=== PATIENT | female | born 1955 | race Caucasian/White ===

== ENCOUNTER → 2020-04-13 10:15 | Outpatient (BNVA) | payer MEDICAID, SELFPAY | PROVIDERS: PCP Internal Medicine; Visit Provider Student in an Organized Health Care Education/Training Program | DX: Z76.89 Persons encountering health services in other specified circumstances (principal) ==

== ENCOUNTER → 2020-05-26 10:34 | Outpatient (BNVA) | payer MEDICAID, SELFPAY | PROVIDERS: PCP Internal Medicine; Visit Provider Nurse Practitioner ==

== ENCOUNTER → 2020-06-18 09:51 | Outpatient (BNVA) | payer MEDICAID, SELFPAY | PROVIDERS: PCP Internal Medicine; Visit Provider Nurse Practitioner | DX: K91.5 Postcholecystectomy syndrome (principal) | CPT/HCPCS: 99212 ==

== ENCOUNTER 2020-06-21 10:21 | Outpatient (REF) | payer MEDICAID, SELFPAY ==
--- NOTE | ~2020-06-21 | XR_ITS ---
EXAMINATION: XR HAND, RIGHT CLINICAL INFORMATION: Pain right fingers COMPARISON: Radiographs right hand 03/24/2013. TECHNIQUE: PA, lateral, and oblique views of the right hand. FINDINGS: There is normal bony mineralization. No acute or healing fracture, dislocation, destructive process. Again, there is slight negative ulnar variance. There are mild osteoarthritic changes first carpometacarpal joint with small subchondral geodes base first metacarpal and greater multangular carpal bone. The remainder of the carpus shows no significant degenerative change and no erosive changes or chondrocalcinosis. The first MCP joint shows mild narrowing. The second through fifth MCP joints are unremarkable. There are degenerative changes involving the second through fourth PIP joints with mild joint narrowing and osteophytes. There are prominent osteoarthritic changes involving the interphalangeal joint of the thumb and the second through fifth DIP joints. Bulky osteophytes are present. No definite erosive change. Findings show mild progression since 2012. XR/XR hand RT min 3V IMPRESSION: 1. Prominent osteoarthritic changes DIP joints with lesser degenerative changes PIP joints and first carpometacarpal joint. 2. No definite erosive changes.
== END 2020-06-21 10:22 | disposition home or self-care (01) ==
LOC: HO.XRAY 10:21
PROVIDERS: Visit Provider Registered Nurse
DX: M79.644 Pain in right finger(s) (principal)
CPT/HCPCS: 73130

== ENCOUNTER → 2020-07-14 10:12 | Outpatient (BNVA) | payer MEDICAID, SELFPAY | PROVIDERS: PCP Internal Medicine; Visit Provider Student in an Organized Health Care Education/Training Program | DX: L40.50 Arthropathic psoriasis, unspecified (principal); M43.06 Spondylolysis, lumbar region; Z79.899 Other long term (current) drug therapy | CPT/HCPCS: 99212 ==

== ENCOUNTER 2020-10-13 10:44 | Outpatient (REF) | payer MEDICAID, SELFPAY ==
[2020-10-13 12:06] LABS: MANUAL DIFF FLAG NO
[2020-10-13 12:12] LABS: Basophils Percent Auto 0.5 % (0-2); Eosinophils Absolute Auto 0.1 X10*3/uL (0.0-0.4); Eosinophils Percent Auto 1.5 % (0-4); Hematocrit 39.5 % (37-47); Hemoglobin 12.6 g/dl (12.0-16.0); Imm Gran Abs Auto 0.02 X10*3/uL (0.00-0.03); Imm Gran Pct Auto 0.3 % (0.0-0.4); Lymphocytes Percent Auto 39.6 % (20-40); Mean Corpuscular HGB Conc 31.9 g/dl (31.0-35.0); Mean Corpuscular Hemoglobin 29.6 pg (27.0-33.0); Mean Corpuscular Volume 92.9 fL (80-98); Mean Platelet Volume 11.7 fL (9.4-12.3); Monocytes Absolute Auto 0.6 X10*3/uL (0.1-1.2); Monocytes Percent Auto 8.3 % (2-11); Neutrophils Absolute Auto 3.7 X10*3/uL (2.0-8.3); Neutrophils Percent Auto 49.8 % (45-73); Platelet Count 221 X10*3/uL (160-400); Red Blood Count 4.25 X10*6/uL (4.20-5.50); Red Cell Distribution Width 13.3 % (11.0-16.0); White Blood Count 7.5 X10*3/uL (4.8-10.8)
[2020-10-13 13:18] LABS: Erythrocyte Sedimentation Rate 38 MM/HR (0-20)
[2020-10-13 15:57] LABS: Alanine Aminotransferase 32 U/L (0-31); Albumin Level 4.2 g/dL (3.5-5.0); Alkaline Phosphatase 81 U/L (39-117); Anion Gap 13 (12-20); Aspartate Amino Transferase 39 U/L (5-31); Bilirubin Total 0.5 mg/dL (0.0-1.0); Blood Urea Nitrogen 18 mg/dL (9-16); C Reactive Protein 0.53 mg/dL (< or = 0.50); Carbon Dioxide 30 mmol/L (22-29); Chloride 102 mmol/L (96-108); Estimated Glomerular Filt Rate > 60; Glucose Random 118 mg/dL (60-115); Potassium 4.2 mmol/L (3.3-5.1); Sodium 141 mmol/L (135-145); Total Protein 7.2 g/dL (6.5-8.0)
== END 2020-10-13 10:45 | disposition home or self-care (01) ==
LOC: HO.LAB 10:44
PROVIDERS: PCP Internal Medicine; Visit Provider Student in an Organized Health Care Education/Training Program
DX: L40.50 Arthropathic psoriasis, unspecified (principal); M43.06 Spondylolysis, lumbar region
CPT/HCPCS: 36415; 80053; 85025; 85652; 86140; 99212

== ENCOUNTER → 2020-12-20 08:59 | Outpatient (BNVA) | payer MEDICAID, SELFPAY | PROVIDERS: PCP Internal Medicine; Visit Provider Nurse Practitioner ==

== ENCOUNTER 2021-02-01 11:46 | Day surgery (SDC) | payer MEDICAID, SELFPAY ==
--- NOTE | 2021-01-31 14:26 | HO.ANESPROP2 ---
Documented by User: Zara Hernandez NP 01/31/21 14:28 HPI - Anesthesia Eval Consult details Narrative: 65yo F for Colonoscopy PMFSH Active Problems Active Problems: All Active Problems (Updated 01/26/21 @ 14:21 by Renae Edmond, SABI) Psoriatic arthritis (Acute) Colon cancer screening (Acute) Post-cholecystectomy syndrome (Acute) GERD (gastroesophageal reflux disease) (Acute) Past Medical History Medical History Anxiety Arthritis Asthma Dislocation of distal interphalangeal (DIP) joint of finger Elevated cholesterol GERD (gastroesophageal reflux disease) HTN (hypertension) IBS (irritable bowel syndrome) Lumbar spondylolysis Morbidly obese On beta melvin at home TATUM (obstructive sleep apnea) PONV (postoperative nausea and vomiting) Psoriatic arthritis Uterine prolapse Family History Family History Mother HTN (hypertension) Diabetes Father Throat cancer Sister Heart problem Surgical History Surgical History History of blepharoplasty History of pubovaginal sling History of total left knee replacement History of total right knee replacement (TKR) Hx of appendectomy Hx of cholecystectomy Hx of colonoscopy Social History Social History Alcohol intake: never Patient Tobacco Use Status: Never used Tobacco e-Cigarette/Vaping Use: Never Used Use of substances other than those prescribed or required for medical reasons: No Are you DNR?: No Advance Directives: No Advance Directives Information Provided: Yes Meds Allergies Allergy/AdvReac Type Severity Reaction Status Date / Time tramadol [TRAMADOL] Allergy Intermediate RASH, Verified 02/01/21 12:22 itching, rash oxycodone Allergy Rash Verified 02/01/21 12:23 Home Medications Medication Instructions Recorded Confirmed Last Taken Type albuterol sulfate 90 mcg/actuation 2 puff INHALATION Q6H PRN 04/13/20 01/26/21 Unknown History aerosol inhaler citalopram 20 mg tablet 20 mg PO DAILY 04/13/20 01/26/21 Unknown History clonazepam 0.5 mg tablet 0.25 mg PO BID 04/13/20 01/26/21 Unknown History fluticasone 250 mcg-salmeterol 50 1 inh INHALATION BID 04/13/20 01/26/21 Unknown History mcg/dose blistr powdr for inhalation (Advair Diskus) metoprolol succinate 50 mg 50 mg PO DAILY 04/13/20 01/26/21 02/01/21 08:00 History tablet,extended release 24 hr simvastatin 20 mg tablet 20 mg PO DAILY 04/13/20 01/26/21 Unknown History trazodone 150 mg tablet 150 mg PO BEDTIME PRN 04/13/20 01/26/21 Unknown History quetiapine 100 mg tablet (Seroquel) 100 mg PO BEDTIME 05/26/20 01/26/21 Unknown History celecoxib 100 mg capsule (Celebrex) 100 mg PO BID 07/14/20 01/26/21 Unknown History Exam Exam Date and Time: January 31, 2021 142 Pertinent Lab Results Pertinent Lab Results: Laboratory Tests 10/13/20 10/13/20 11:25 11:25 WBC 7.5 Hgb 12.6 Hct 39.5 Plt Count 221 Sodium 141 Potassium 4.2 Chloride 102 Carbon Dioxide 30 H BUN 18 H Creatinine 0.81 Assessment and Plan Assessment Anesthesia Assessment: Chart Reviewed Documented by User: Leslee Francisco MD 02/01/21 12:54 [facility] Active Problems Active Problems: All Active Problems (Updated 01/26/21 @ 14:21 by Renae Edmond, SABI) Psoriatic arthritis (Acute) Colon cancer screening (Acute) Post-cholecystectomy syndrome (Acute) GERD (gastroesophageal reflux disease) (Acute) Asthma. Stable. Inhalers prn TATUM. On CPAP Past Medical History Medical History Anxiety Arthritis Asthma Dislocation of distal interphalangeal (DIP) joint of finger Elevated cholesterol GERD (gastroesophageal reflux disease) HTN (hypertension) IBS (irritable bowel syndrome) Lumbar spondylolysis Morbidly obese On beta melvin at home TATUM (obstructive sleep apnea) PONV (postoperative nausea and vomiting) Psoriatic arthritis Uterine prolapse Family History Family History Mother HTN (hypertension) Diabetes Father Throat cancer Sister Heart problem Family history of problems with anesthesia: No Surgical History Surgical History History of blepharoplasty History of pubovaginal sling History of total left knee replacement History of total right knee replacement (TKR) Hx of appendectomy Hx of cholecystectomy Hx of colonoscopy History of Problems with Anesthesia: No Social History Social History Alcohol intake: never Patient Tobacco Use Status: Never used Tobacco e-Cigarette/Vaping Use: Never Used Use of substances other than those prescribed or required for medical reasons: No Are you DNR?: No Advance Directives: No Advance Directives Information Provided: Yes Meds Allergies Allergy/AdvReac Type Severity Reaction Status Date / Time tramadol [TRAMADOL] Allergy Intermediate RASH, Verified 02/01/21 12:22 itching, rash oxycodone Allergy Rash Verified 02/01/21 12:23 Home Medications Medication Instructions Recorded Confirmed Last Taken Type albuterol sulfate 90 mcg/actuation 2 puff INHALATION Q6H PRN 04/13/20 01/26/21 Unknown History aerosol inhaler citalopram 20 mg tablet 20 mg PO DAILY 04/13/20 01/26/21 Unknown History clonazepam 0.5 mg tablet 0.25 mg PO BID 04/13/20 01/26/21 Unknown History fluticasone 250 mcg-salmeterol 50 1 inh INHALATION BID 04/13/20 01/26/21 Unknown History mcg/dose blistr powdr for inhalation (Advair Diskus) metoprolol succinate 50 mg 50 mg PO DAILY 04/13/20 01/26/21 02/01/21 08:00 History tablet,extended release 24 hr simvastatin 20 mg tablet 20 mg PO DAILY 04/13/20 01/26/21 Unknown History trazodone 150 mg tablet 150 mg PO BEDTIME PRN 04/13/20 01/26/21 Unknown History quetiapine 100 mg tablet (Seroquel) 100 mg PO BEDTIME 05/26/20 01/26/21 Unknown History celecoxib 100 mg capsule (Celebrex) 100 mg PO BID 07/14/20 01/26/21 Unknown History Exam Height,Weight and Vital Signs: Height 5 ft 4 in Weight 90.718 kg Vital Signs Temp Pulse Resp BP Pulse Ox 02/01/21 12:31 97.6 F 95 16 130/82 94 Airway Mallampati Class: III TM Dist: >3cm Neck ROM: Full Loose/Missing/Broken Teeth: Yes (Chipped top front) Heart: RRR Lungs: CTAB Assessment and Plan Assessment Anesthesia Assessment: Anesthesia Plan Discussed Final Anesthetic Review Family History of Problems with Anesthesia: No History of Problems with Anesthesia: No NPO: Yes ASA Class: III Final Preanesthetic Review: No Changes in Pt Med Stat, Meds/Allgs Chart Reviewed, Consent Obtained/Reviewed and Anes Risks/Benef Reviewed Patient Risk: Intermediate Procedure Risk: Low Assessment/Block/Sedation in SS: Assess/Block/Sedation-SS Anesthetic Plan Anesthetic Plan: MAC: Disposition: Standard PACU
[2021-02-01 12:26] VITALS: BMI 34.3
[2021-02-01 12:31] VITALS: BP 130/82; PULSE 95; RESP 16; TEMP 36.4; O2SAT 94
--- NOTE | 2021-02-01 12:46 | MHC.SHP ---
Pre-Procedural Eval Section A Date of Service: 02/01/21 The patient is an INPATIENT: No The History & Physical has been completed within 30 days and I have reviewed it.: No Section B Chief Complaint: screening Details of Present Illness: colon cancer screening, diarrhea Relevant Family History (Specify if Yes): Yes Relevant Social History: None Present Medications: see Short Stay Collaborative assessment Medical History: Significant History (Arthritis Dislocation of distal interphalangeal (DIP) joint of finger GERD (gastroesophageal reflux disease) HTN (hypertension) IBS (irritable bowel syndrome) Lumbar spondylolysis Morbidly obese Psoriatic arthritis Uterine prolapse) History of Previous Operations: Relevant previous surgery/procedure and date(s) (H/O knee surgery Hx of appendectomy Hx of cholecystectomy) Allergies: Allergies Allergy/AdvReac Type Severity Reaction Status Date / Time tramadol [TRAMADOL] Allergy Intermediate RASH, Verified 02/01/21 12:22 itching, rash oxycodone Allergy Rash Verified 02/01/21 12:23 Review of Systems Sugical H&P ROS: Negative: Constitution, Cardiovascular, Respiratory and Gastrointestinal Exam Surgical H&P Exam: Normal: Heart, Normal: Lungs, Normal: Extremities and Normal: Abdomen Plan Diagnosis/Plan: Unchanged I have reviewed the history and physical and performed a pertinent physical examination on my patient. No changes have occurred unless specified.
[2021-02-01] MEDS: Lactated Ringers 1,000 ML 100 ML IVCONT (12:58)
--- NOTE | 2021-02-01 13:32 | PM.OP ---
Brief Operative Note Date of Service: 02/01/21 Pre-op diagnosis: Colon cancer screening Post-op diagnosis: other (Colon polyps, diverticulosis) Procedure: COLONOSCOPY TILL CECUM WITH BIOPSIES AND SNARE POLYPECTOMY Consent: Indications for the procedure and potential complications of bleeding, perforation, reaction to medications and missed diagnosis were discussed with the patient and informed consent was obtained. Instrument: Olympus PCF H 190 L variable stiffness pediatric colonoscope Monitoring: Vital signs and clinical assessment, intermittent blood pressure monitoring, continuous EKG monitoring, Pulse oximetry and Carbon Dioxide monitoring were done throughout the procedure. Colon withdrawl time was 22 minutes. Procedure: The patient was placed in the left lateral decubitis position and pre-procedure medications were administered. After a digital rectal examination of the ano-rectum, the video colonoscope was inserted into the rectum and advanced through the colon to the cecum. The colonoscope was slowly withdrawn in a retrograde panoramic fashion and the colon mucosa was carefully examined including a retroflexed view of the rectum. Findings and interventions are described below. Procedure Difficulty: Without difficulty Findings: Terminal Ileum: Not evaluated Cecum: A 6-7 mm sessile polyp removed with a cold snare. A 3-4 mm sessile polyp removed with the cold biopsy Ascending Colon: Scattered diverticulosis Transverse Colon: A 10 mm sessile polyp removed with a cold snare and scattered diverticulosis Descending Colon: Moderate diverticulosis Sigmoid Colon: Moderate diverticulosis Rectum: Normal Ano-rectum: Moderate internal hemorrhoids Colon preparation: Good after copious irrigation Impression and Post Procedure Diagnosis: Colonoscopy Findings: Three small to medium sized polyps removed. Mild melanosis coli noted throughout the colon. Random biopsies obtained to check for microscopic colitis Moderate diverticulosis seen in the entire colon Plan: Await pathology results Patient has an appointment on 02/14/21 in the GI Clinic with Delma Baugh NP . Repeat Colonoscopy interval based on path results - in 3-5 years if polyps are adenomatous and 10 years if polyps are hyperplastic. Above findings were reviewed with the patient and colon polyps and diverticulosis handouts were given in the discharge area Surgeon: Adam Sylvester MD Anesthesia: MAC Was an Graduate Studies Dean used for this Procedure?: Yes Graduate Studies Dean: Mary Kirkpatrick Estimated blood loss (mL): 0 Pathology: other ( A. cecal polyps B. transverse colon polyp C. random colon biopsies, R/O microscopic colitis (diarrhea)) Condition: stable Disposition: PACU
[2021-02-01 13:34] VITALS: BP 89/55; PULSE 82; RESP 16; TEMP 36.2; O2SAT 95
--- NOTE | 2021-02-01 13:36 | W.PM.OPN ---
Operative Note Operative Note Date of Service: 02/01/21 Narrative: Pre-op diagnosis:?Colon cancer screening Post-op diagnosis:?other (Colon polyps, diverticulosis) Procedure:? COLONOSCOPY TILL CECUM WITH BIOPSIES AND SNARE POLYPECTOMY Consent: Indications for the procedure and potential complications of bleeding, perforation, reaction to medications and missed diagnosis were discussed with the patient and informed consent was obtained. Instrument: Olympus PCF H 190 L variable stiffness pediatric colonoscope Monitoring: Vital signs and clinical assessment, intermittent blood pressure monitoring, continuous EKG monitoring, Pulse oximetry and Carbon Dioxide monitoring were done throughout the procedure. Colon withdrawl time was 22 minutes. Procedure: The patient was placed in the left lateral decubitis position and pre-procedure medications were administered. After a digital rectal examination of the ano-rectum, the video colonoscope was inserted into the rectum and advanced through the colon to the cecum. The colonoscope was slowly withdrawn in a retrograde panoramic fashion and the colon mucosa was carefully examined including a retroflexed view of the rectum. Findings and interventions are described below. Procedure Difficulty: Without difficulty Findings: Terminal Ileum: Not evaluated Cecum:? A 6-7 mm sessile polyp removed with a cold snare.? A 3-4 mm sessile polyp removed with the cold biopsy Ascending Colon:? Scattered diverticulosis Transverse Colon: A 10 mm sessile polyp removed with a cold snare and scattered diverticulosis Descending Colon:? Moderate diverticulosis Sigmoid Colon:? Moderate diverticulosis Rectum:? Normal Ano-rectum:? Moderate internal hemorrhoids Colon preparation:? Good after copious irrigation Impression and Post Procedure Diagnosis: Colonoscopy Findings: Three small to medium sized polyps removed. Mild melanosis coli noted throughout the colon. Random biopsies obtained to check for microscopic colitis Moderate diverticulosis seen in the entire colon Plan: Await pathology results Patient has an appointment on 02/14/21 in the GI Clinic with? Dlema Baugh NP? . Repeat Colonoscopy interval based on path results - in 3-5 years if polyps are adenomatous and 10 years if polyps are hyperplastic. Above findings were reviewed with the patient and colon polyps and diverticulosis handouts were given in the discharge area Surgeon:?Adam Sylvester MD Anesthesia:?MAC Was an Assistant Professor Of Life Sciences used for this Procedure?:?Yes Assistant Professor Of Life Sciences:?Mary Kirkpatrick Estimated blood loss (mL):?0 Pathology:?other ( A. cecal polyps? B. transverse colon polyp? C. random colon biopsies, R/O microscopic colitis (diarrhea)) Condition:?stable Disposition:?PACU
[2021-02-01 13:49] VITALS: BP 121/84; PULSE 83; RESP 16; TEMP 36.2; O2SAT 95
== END 2021-02-01 14:16 | disposition home or self-care (01) ==
PROVIDERS: Visit Provider Internal Medicine Gastroenterology
PROC: 0DJD8ZZ Inspection of Lower Intestinal Tract, Via Natural or Artificial Opening Endoscopic (ICD-10-PCS; CPT 45378; principal; 2021-02-01 13:20)
DX: Z12.11 Encounter for screening for malignant neoplasm of colon (principal); D12.0 Benign neoplasm of cecum; D12.3 Benign neoplasm of transverse colon; K57.30 Diverticulosis of large intestine without perforation or abscess without bleeding; K64.8 Other hemorrhoids; K63.89 Other specified diseases of intestine; K21.9 Gastro-esophageal reflux disease without esophagitis; K91.5 Postcholecystectomy syndrome; K58.0 Irritable bowel syndrome with diarrhea; I10 Essential (primary) hypertension
CPT/HCPCS: 45385; 45380; 88305; J2370

== ENCOUNTER 2021-02-07 09:45 | Outpatient (REF) | payer MEDICAID, SELFPAY ==
[2021-02-07 10:37] LABS: MANUAL DIFF FLAG NO
[2021-02-07 10:49] LABS: Basophils Percent Auto 0.4 % (0-2); Eosinophils Absolute Auto 0.1 X10*3/uL (0.0-0.4); Eosinophils Percent Auto 1.6 % (0-4); Hematocrit 37.7 % (37.0-47.0); Imm Gran Abs Auto 0.06 X10*3/uL (0.00-0.03); Imm Gran Pct Auto 0.7 % (0.0-0.4); Lymphocytes Percent Auto 36.9 % (20-40); Mean Corpuscular HGB Conc 31.8 g/dl (31.0-35.0); Mean Corpuscular Hemoglobin 29.1 pg (27.0-33.0); Mean Corpuscular Volume 91.3 fL (80.0-98.0); Mean Platelet Volume 11.2 fL (9.4-12.3); Monocytes Absolute Auto 0.6 X10*3/uL (0.1-1.2); Monocytes Percent Auto 7.7 % (2-11); Neutrophils Absolute Auto 4.23 x10*3/uL (2.0-8.3); Neutrophils Percent Auto 52.7 % (45-73); Platelet Count 229 X10*3/uL (160-400); Red Blood Count 4.13 X10*6/uL (4.20-5.50)
[2021-02-07 11:14] LABS: Alanine Aminotransferase 27 U/L (0-31); Albumin Level 4.1 g/dL (3.5-5.0); Alkaline Phosphatase 75 U/L (39-117); Anion Gap 10 (12-20); Aspartate Amino Transferase 26 U/L (5-31); Bilirubin Total 0.4 mg/dL (0.0-1.0); Blood Urea Nitrogen 18 mg/dL (9-16); C Reactive Protein 0.54 mg/dL (< or = 0.50); Calcium 9.5 mg/dL (8.4-10.2); Carbon Dioxide 34 mmol/L (22-29); Chloride 102 mmol/L (96-108); Estimated Glomerular Filt Rate > 60; Glucose Random 108 mg/dL (60-115); Potassium 3.6 mmol/L (3.3-5.1); Sodium 142 mmol/L (135-145); Total Protein 6.8 g/dL (6.5-8.0)
[2021-02-07 11:30] LABS: Erythrocyte Sedimentation Rate 38 MM/HR (0-20)
== END 2021-02-07 09:46 | disposition home or self-care (01) ==
LOC: HO.LAB 09:45
PROVIDERS: PCP Internal Medicine; Visit Provider Nurse Practitioner Family
DX: L40.50 Arthropathic psoriasis, unspecified (principal); M43.06 Spondylolysis, lumbar region
CPT/HCPCS: 36415; 80053; 85025; 85652; 86140; 99212

== ENCOUNTER → 2021-02-14 13:49 | Outpatient (BNVA) | payer MEDICAID, SELFPAY | PROVIDERS: PCP Internal Medicine; Referring Provider Internal Medicine; Visit Provider Nurse Practitioner | DX: K91.5 Postcholecystectomy syndrome (principal); K21.9 Gastro-esophageal reflux disease without esophagitis; D12.6 Benign neoplasm of colon, unspecified; Z79.899 Other long term (current) drug therapy | CPT/HCPCS: 99212 ==

== ENCOUNTER 2021-02-17 09:18 | Outpatient (REF) | payer MEDICAID, SELFPAY | END 2021-02-17 09:19 | disposition home or self-care (01) | LOC: HO.LNP 09:18 | PROVIDERS: Visit Provider Nurse Practitioner | DX: K91.5 Postcholecystectomy syndrome (principal) | CPT/HCPCS: 87338 ==

== ENCOUNTER → 2021-03-24 10:59 | Outpatient (BNVA) | payer MEDICAID, SELFPAY | PROVIDERS: PCP Internal Medicine; Referring Provider Internal Medicine; Visit Provider Nurse Practitioner | DX: R10.13 Epigastric pain (principal); K21.9 Gastro-esophageal reflux disease without esophagitis; K91.5 Postcholecystectomy syndrome; D12.6 Benign neoplasm of colon, unspecified | CPT/HCPCS: 99212 ==

== ENCOUNTER 2021-04-12 13:53 | Outpatient (REF) | payer MEDICAID, SELFPAY ==
--- NOTE | ~2021-04-12 | MM_ITS ---
EXAMINATION: MM DIAGNOSTIC DIGITAL BREAST TOMOSYNTHESIS, BILATERAL US DIAGNOSTIC ULTRASOUND BREAST, RIGHT CLINICAL INFORMATION: Upper inner right breast pain for 4 months. Palpable area of concern 3:00 position at clinical exam. Due for yearly. The lifetime risk of breast cancer based on the Tyrer-Cuzick Model is 6%. COMPARISON: Mammography: 06/09/2019, 04/17/2018, 04/03/2018, 03/14/2017 TECHNIQUE: Digital breast tomosynthesis is performed in both the craniocaudal and mediolateral oblique views along with computer-aided detection (CAD). Synthesized 2D images are generated from the tomosynthesis. Ultrasound right breast is targeted to the 12:00 through 4:00 position. Grayscale imaging and color Doppler are performed without and with harmonics. FINDINGS: There are scattered areas of fibroglandular density (ACR BI-RADS breast composition Category b). Parenchymal pattern is similar to prior studies. There is no interval mass or architectural abnormality or developing density. There is a stable nodule with overlying biopsy clip marker mid 12:00 right breast. There is no skin thickening or coarsening of the Miguel's ligaments. Axillary nodes are stable. No abnormal calcifications. No significant changes. Ultrasound demonstrates no cystic or solid mass or architectural abnormality. No focal duct ectasia. No skin thickening or edema tracking in soft tissue planes. Results are discussed with the patient at time of visit, using an vascular nurse. MM/MM tomosynthesis diagnostic BI IMPRESSION: 1. No mammographic evidence of malignancy or inflammatory changes. 2. Unremarkable targeted right breast ultrasound. ASSESSMENT: BI-RADS 2: Benign RECOMMENDATION: 1. Patient's breast pain should be managed based on the clinical impression. If clinical palpable concern, further evaluation may be considered with surgical consult. 2. Otherwise, routine annual mammography in one year. This patient's information was entered into a reminder system with a target due date for their next mammogram.
== END 2021-04-12 13:54 | disposition home or self-care (01) ==
LOC: HO.MAMMO 13:53
PROVIDERS: PCP Registered Nurse Community Health; Visit Provider Registered Nurse Community Health
DX: N63.14 Unspecified lump in the right breast, lower inner quadrant (principal)
CPT/HCPCS: 76642; 77062; 77066

== ENCOUNTER 2021-08-15 09:58 | Outpatient (REF) | payer MEDICAID, SELFPAY ==
--- NOTE | ~2021-08-15 | XR_ITS ---
EXAMINATION: XR CHEST CLINICAL INFORMATION: Cough COMPARISON: Previous chest x-ray November 2015 TECHNIQUE: 2 views of the chest were obtained. FINDINGS: The cardiac and mediastinal contours are stable. The lungs are clear. There is no pleural effusion or pneumothorax. There are degenerative changes of the spine. XR/XR chest 2V IMPRESSION: No evidence for acute disease in the chest.
[2021-08-15 10:44] LABS: MANUAL DIFF FLAG NO
[2021-08-15 11:33] LABS: Basophils Absolute Auto 0.1 X10*3/uL (0.0-0.2); Basophils Percent Auto 0.8 % (0-2); Eosinophils Absolute Auto 0.1 X10*3/uL (0.0-0.4); Eosinophils Percent Auto 0.9 % (0-4); Hemoglobin 12.5 g/dl (12.0-16.0); Imm Gran Abs Auto 0.02 X10*3/uL (0.00-0.03); Imm Gran Pct Auto 0.3 % (0.0-0.4); Lymphocytes Absolute Auto 2.9 X10*3/uL (1.2-4.9); Lymphocytes Percent Auto 38.8 % (20-40); Mean Corpuscular HGB Conc 32.1 g/dl (31.0-35.0); Mean Corpuscular Hemoglobin 30.3 pg (27.0-33.0); Mean Corpuscular Volume 94.4 fL (80.0-98.0); Mean Platelet Volume 12.3 fL (9.4-12.3); Monocytes Absolute Auto 0.7 X10*3/uL (0.1-1.2); Monocytes Percent Auto 9.6 % (2-11); Neutrophils Absolute Auto 3.7 x10*3/uL (2.0-8.3); Neutrophils Percent Auto 49.6 % (45-73); Platelet Count 216 X10*3/uL (160-400); Red Blood Count 4.13 X10*6/uL (4.20-5.50); Red Cell Distribution Width 13.7 % (11.0-16.0); White Blood Count 7.5 X10*3/uL (4.8-10.8)
[2021-08-15 11:54] LABS: Alanine Aminotransferase 28 U/L (0-31); Albumin Level 4.1 g/dL (3.5-5.0); Alkaline Phosphatase 70 U/L (39-117); Anion Gap 13 (12-20); Aspartate Amino Transferase 41 U/L (5-31); Bilirubin Total 0.4 mg/dL (0.0-1.0); Blood Urea Nitrogen 22 mg/dL (9-16); C Reactive Protein 0.36 mg/dL (< or = 0.50); Calcium 9.7 mg/dL (8.4-10.2); Carbon Dioxide 24 mmol/L (22-29); Chloride 107 mmol/L (96-108); Estimated Glomerular Filt Rate > 60; Glucose Random 112 mg/dL (60-115); Potassium 4.4 mmol/L (3.3-5.1); Sodium 140 mmol/L (135-145); Total Protein 7.1 g/dL (6.5-8.0)
[2021-08-15 15:09] LABS: Erythrocyte Sedimentation Rate 34 MM/HR (0-20)
== END 2021-08-15 09:59 | disposition home or self-care (01) ==
LOC: HO.XRAY 09:58
PROVIDERS: Absent Provider Registered Nurse Community Health; PCP Registered Nurse Community Health; Visit Provider Nurse Practitioner Family
DX: L40.50 Arthropathic psoriasis, unspecified (principal); R05.9 Cough, unspecified
CPT/HCPCS: 36415; 71046; 80053; 85025; 85652; 86140

== ENCOUNTER 2021-08-18 10:32 | Outpatient (REF) | payer MEDICAID, SELFPAY ==
--- NOTE | ~2021-08-18 | XR_ITS ---
EXAMINATION: XR LUMBAR SPINE XR HAND, BILATERAL CLINICAL INFORMATION: Low back pain. Bilateral hand pain. COMPARISON: None TECHNIQUE: 3 views each hand. 3 views lumbar spine. FINDINGS: LUMBAR SPINE: There is normal lumbar lordosis. Grade 1 anterolisthesis L4 over L5 is noted. There is loss of L2-L3, L4-L5 and L5-S1 disc heights. There is bilateral L4-L5 facet joint arthropathy with mild ventral spondylosis throughout lumbar spine. No acute fracture or lytic process seen. The SI joints are symmetrical. RIGHT HAND: There is mild loss of PIP and DIP joint space with periarticular spurring and bony erosive changes. There is mild soft tissue swelling PIP and DIP joints. There is mild loss of 1st MCP joint space with periarticular spurring. No visible acute fracture or dislocation seen. LEFT HAND: There is severe loss of PIP and DIP joints with moderate periarticular spurring and mild soft tissue swelling consistent with advanced osteoarthritic changes. The MCP joint space is preserved. The intercarpal and carpometacarpal joint spaces are preserved as well. XR/XR hand RT min 3V IMPRESSION: Grade 1 anterolisthesis L4 over L5. There are degenerative disc changes L5-S1, L4-L5 and L2-L3 disc levels. Mild ventral spondylosis and facet joint arthropathy L4-L5 disc level. Severe degenerative arthritic changes PIP and DIP joints with moderate periarticular spurring and mild joint effusion.
--- NOTE | ~2021-08-18 | XR_ITS ---
EXAMINATION: XR LUMBAR SPINE XR HAND, BILATERAL CLINICAL INFORMATION: Low back pain. Bilateral hand pain. COMPARISON: None TECHNIQUE: 3 views each hand. 3 views lumbar spine. FINDINGS: LUMBAR SPINE: There is normal lumbar lordosis. Grade 1 anterolisthesis L4 over L5 is noted. There is loss of L2-L3, L4-L5 and L5-S1 disc heights. There is bilateral L4-L5 facet joint arthropathy with mild ventral spondylosis throughout lumbar spine. No acute fracture or lytic process seen. The SI joints are symmetrical. RIGHT HAND: There is mild loss of PIP and DIP joint space with periarticular spurring and bony erosive changes. There is mild soft tissue swelling PIP and DIP joints. There is mild loss of 1st MCP joint space with periarticular spurring. No visible acute fracture or dislocation seen. LEFT HAND: There is severe loss of PIP and DIP joints with moderate periarticular spurring and mild soft tissue swelling consistent with advanced osteoarthritic changes. The MCP joint space is preserved. The intercarpal and carpometacarpal joint spaces are preserved as well. XR/XR lumbar spine 2-3V IMPRESSION: Grade 1 anterolisthesis L4 over L5. There are degenerative disc changes L5-S1, L4-L5 and L2-L3 disc levels. Mild ventral spondylosis and facet joint arthropathy L4-L5 disc level. Severe degenerative arthritic changes PIP and DIP joints with moderate periarticular spurring and mild joint effusion.
--- NOTE | ~2021-08-18 | XR_ITS ---
EXAMINATION: XR LUMBAR SPINE XR HAND, BILATERAL CLINICAL INFORMATION: Low back pain. Bilateral hand pain. COMPARISON: None TECHNIQUE: 3 views each hand. 3 views lumbar spine. FINDINGS: LUMBAR SPINE: There is normal lumbar lordosis. Grade 1 anterolisthesis L4 over L5 is noted. There is loss of L2-L3, L4-L5 and L5-S1 disc heights. There is bilateral L4-L5 facet joint arthropathy with mild ventral spondylosis throughout lumbar spine. No acute fracture or lytic process seen. The SI joints are symmetrical. RIGHT HAND: There is mild loss of PIP and DIP joint space with periarticular spurring and bony erosive changes. There is mild soft tissue swelling PIP and DIP joints. There is mild loss of 1st MCP joint space with periarticular spurring. No visible acute fracture or dislocation seen. LEFT HAND: There is severe loss of PIP and DIP joints with moderate periarticular spurring and mild soft tissue swelling consistent with advanced osteoarthritic changes. The MCP joint space is preserved. The intercarpal and carpometacarpal joint spaces are preserved as well. XR/XR hand LT min 3V IMPRESSION: Grade 1 anterolisthesis L4 over L5. There are degenerative disc changes L5-S1, L4-L5 and L2-L3 disc levels. Mild ventral spondylosis and facet joint arthropathy L4-L5 disc level. Severe degenerative arthritic changes PIP and DIP joints with moderate periarticular spurring and mild joint effusion.
== END 2021-08-18 10:33 | disposition home or self-care (01) ==
LOC: HO.XRAY 10:32
PROVIDERS: PCP Internal Medicine; Visit Provider Nurse Practitioner Family
DX: L40.50 Arthropathic psoriasis, unspecified (principal); M54.50 Low back pain, unspecified
CPT/HCPCS: 72100; 73130; 99212

== ENCOUNTER → 2021-09-27 10:32 | Outpatient (BNVA) | payer MEDICARE, MEDICAID, SELFPAY | PROVIDERS: PCP Internal Medicine; Visit Provider Nurse Practitioner Family | DX: L40.50 Arthropathic psoriasis, unspecified (principal); M54.50 Low back pain, unspecified; Z79.899 Other long term (current) drug therapy | CPT/HCPCS: 99212 ==

== ENCOUNTER → 2021-10-24 15:31 | Outpatient (BNVA) | payer MEDICARE, MEDICAID, SELFPAY | DX: R32 Unspecified urinary incontinence (principal) | CPT/HCPCS: 51798; 99202 ==

== ENCOUNTER 2021-10-28 14:50 | Outpatient (REF) | payer MEDICARE, MEDICAID, SELFPAY ==
--- NOTE | ~2021-10-28 | XR_ITS ---
EXAMINATION: XR HAND, RIGHT CLINICAL INFORMATION: Pain. COMPARISON: None TECHNIQUE: PA, lateral, and oblique views of the right hand. FINDINGS: There is severe loss of PIP and DIP joints with moderate periarticular spurring and flexion deformities of DIP joints. No acute fracture or dislocation. The soft tissues are normal. XR/XR hand RT min 3V IMPRESSION: Severe degenerative arthritic changes right hand. No acute fracture or dislocation.
== END 2021-10-28 14:51 | disposition home or self-care (01) ==
LOC: HO.HOSX 14:50
PROVIDERS: Visit Provider Orthopaedic Surgery
DX: M19.041 Primary osteoarthritis, right hand (principal); R20.0 Anesthesia of skin; R20.2 Paresthesia of skin; L40.50 Arthropathic psoriasis, unspecified; M19.042 Primary osteoarthritis, left hand
CPT/HCPCS: 73130; 99202

== ENCOUNTER 2021-12-28 12:35 | Outpatient (REF) | payer MEDICARE, SELFPAY ==
[2021-12-28 13:35] LABS: MANUAL DIFF FLAG NO
[2021-12-28 13:45] LABS: Basophils Percent Auto 0.3 % (0-2); Eosinophils Absolute Auto 0.1 X10*3/uL (0.0-0.4); Eosinophils Percent Auto 0.9 % (0-4); Hematocrit 38.9 % (37.0-47.0); Hemoglobin 12.5 g/dl (12.0-16.0); Imm Gran Abs Auto 0.03 X10*3/uL (0.00-0.03); Imm Gran Pct Auto 0.3 % (0.0-0.4); Lymphocytes Absolute Auto 3.9 X10*3/uL (1.2-4.9); Mean Corpuscular HGB Conc 32.1 g/dl (31.0-35.0); Mean Corpuscular Hemoglobin 29.6 pg (27.0-33.0); Mean Corpuscular Volume 92.2 fL (80.0-98.0); Mean Platelet Volume 11.9 fL (9.4-12.3); Monocytes Absolute Auto 0.7 X10*3/uL (0.1-1.2); Neutrophils Percent Auto 51.5 % (45-73); Platelet Count 229 X10*3/uL (160-400); Red Blood Count 4.22 X10*6/uL (4.20-5.50); Red Cell Distribution Width 13.1 % (11.0-16.0); White Blood Count 9.6 X10*3/uL (4.8-10.8)
[2021-12-28 14:08] LABS: Alanine Aminotransferase 36 U/L (0-31); Albumin Level 4.3 g/dL (3.5-5.0); Alkaline Phosphatase 75 U/L (39-117); Anion Gap 14 (12-20); Aspartate Amino Transferase 44 U/L (5-31); Bilirubin Total 0.5 mg/dL (0.0-1.0); Blood Urea Nitrogen 23 mg/dL (9-16); C Reactive Protein 0.46 mg/dL (< or = 0.50); Calcium 9.3 mg/dL (8.4-10.2); Carbon Dioxide 30 mmol/L (22-29); Chloride 100 mmol/L (96-108); Estimated Glomerular Filt Rate > 60; Glucose Random 85 mg/dL (60-115); Potassium 4.2 mmol/L (3.3-5.1); Sodium 140 mmol/L (135-145); Total Protein 7.2 g/dL (6.5-8.0)
[2021-12-28 14:37] LABS: Erythrocyte Sedimentation Rate 38 MM/HR (0-20)
== END 2021-12-28 12:36 | disposition home or self-care (01) ==
LOC: HO.10HDL 12:35
PROVIDERS: Visit Provider Nurse Practitioner Family
DX: L40.50 Arthropathic psoriasis, unspecified (principal); M54.50 Low back pain, unspecified; R20.0 Anesthesia of skin; R20.2 Paresthesia of skin; M19.041 Primary osteoarthritis, right hand; M19.042 Primary osteoarthritis, left hand
CPT/HCPCS: 36415; 80053; 85025; 85652; 86140; 99212

== ENCOUNTER 2022-01-02 06:00 | Day surgery (SDC) | payer MEDICARE, MEDICAID, SELFPAY ==
[2021-12-29 12:03] VITALS: BMI 37.1
--- NOTE | 2021-12-30 08:29 | P.CONAN_ITS ---
Documented by User: Zara Hernandez NP 12/30/21 08:30 HPI - Anesthesia Eval Consult details Narrative: 66yo F for Right Thumb IP joint Arthrodesis PMFSH Active Problems Active Problems: All Active Problems (Updated 10/28/21 @ 15:46 by Elyssa Burrows MD) Osteoarthritis of fingers of both hands (Acute) Numbness and tingling in both hands (Acute) Urinary incontinence (Acute) Epigastric pain (Acute) Tubular adenoma of colon (Acute) Psoriatic arthritis (Acute) Post-cholecystectomy syndrome (Acute) GERD (gastroesophageal reflux disease) (Acute) Past Medical History Medical History Anxiety Arthritis Asthma Colon cancer screening Dislocation of distal interphalangeal (DIP) joint of finger Elevated cholesterol GERD (gastroesophageal reflux disease) HTN (hypertension) IBS (irritable bowel syndrome) Lumbar spondylolysis Morbidly obese On beta melvin at home TATUM (obstructive sleep apnea) PONV (postoperative nausea and vomiting) Psoriatic arthritis Urinary incontinence Uterine prolapse Family History Family History Mother HTN (hypertension) Diabetes Father Throat cancer Sister Heart problem Family history of problems with anesthesia: No Surgical History Surgical History History of blepharoplasty History of pubovaginal sling History of total left knee replacement History of total right knee replacement (TKR) Hx of appendectomy Hx of cholecystectomy Hx of colonoscopy History of Problems with Anesthesia: No Social History Social History Household Members Other:: daughter Are you a primary rn wound care to a significant other at home: No 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 Allergies Allergy/AdvReac Type Severity Reaction Status Date / Time tramadol [TRAMADOL] Allergy Intermediate RASH, Verified 12/28/21 14:43 itching, rash oxycodone Allergy Rash Verified 12/28/21 14:43 Home Medications Medication Instructions Recorded Confirmed Last Taken Type albuterol sulfate 90 mcg/actuation 2 puff inhalation Q6H PRN Wheezing 04/13/20 12/29/21 Unknown History aerosol inhaler citalopram 20 mg tablet 20 mg PO DAILY 04/13/20 12/29/21 01/02/22 History clonazepam 0.5 mg tablet 0.25 mg PO BID 04/13/20 12/29/21 01/02/22 History fluticasone 250 mcg-salmeterol 50 1 inh inhalation BID 04/13/20 12/29/21 Unknown History mcg/dose blistr powdr for inhalation (Advair Diskus) simvastatin 20 mg tablet 20 mg PO DAILY 04/13/20 12/29/21 Unknown History trazodone 150 mg tablet 150 mg PO BEDTIME PRN Sleep 04/13/20 12/29/21 Unknown History quetiapine 100 mg tablet (Seroquel) 100 mg PO BEDTIME 05/26/20 12/29/21 Unknown History melatonin 5 mg capsule 5 mg PO BEDTIME 02/07/21 12/29/21 Unknown History sennosides 8.6 mg tablet (Radha-priya) 0 mg PO 02/07/21 10/24/21 Unknown History fluticasone propionate 50 spray intranasal 02/14/21 10/24/21 Unknown History mcg/actuation nasal spray,suspension hydroxyzine HCl 25 mg tablet 25 mg PO BID 02/14/21 12/29/21 Unknown History lisinopril 20 1 tab PO DAILY 02/14/21 12/29/21 Unknown History mg-hydrochlorothiazide 25 mg tablet Exam Exam Date and Time: December 30, 2021 0829 Height,Weight and Vital Signs: Height 5 ft 6 in Weight 104.326 kg Pertinent Lab Results Pertinent Lab Results: Laboratory Tests 12/28/21 12/28/21 12:40 12:40 WBC 9.6 Hgb 12.5 Hct 38.9 Plt Count 229 Sodium 140 Potassium 4.2 Chloride 100 Carbon Dioxide 30 H BUN 23 H Creatinine 0.76 Assessment and Plan Assessment Anesthesia Assessment: Chart Reviewed Final Anesthetic Review Family History of Problems with Anesthesia: No History of Problems with Anesthesia: No Documented by User: Meek Hummel MD 01/02/22 07:02 [facility] Past Medical History Medical History Anxiety Arthritis Asthma Colon cancer screening Dislocation of distal interphalangeal (DIP) joint of finger Elevated cholesterol GERD (gastroesophageal reflux disease) HTN (hypertension) IBS (irritable bowel syndrome) Lumbar spondylolysis Morbidly obese On beta melvin at home TATUM (obstructive sleep apnea) PONV (postoperative nausea and vomiting) Psoriatic arthritis Urinary incontinence Uterine prolapse Family History Family History Mother HTN (hypertension) Diabetes Father Throat cancer Sister Heart problem Surgical History Surgical History History of blepharoplasty History of pubovaginal sling History of total left knee replacement History of total right knee replacement (TKR) Hx of appendectomy Hx of cholecystectomy Hx of colonoscopy Social History Social History Household Members Other:: daughter Are you a primary rn wound care to a significant other at home: No 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 Allergies Allergy/AdvReac Type Severity Reaction Status Date / Time tramadol [TRAMADOL] Allergy Intermediate RASH, Verified 12/28/21 14:43 itching, rash oxycodone Allergy Rash Verified 12/28/21 14:43 Home Medications Medication Instructions Recorded Confirmed Last Taken Type albuterol sulfate 90 mcg/actuation 2 puff inhalation Q6H PRN Wheezing 04/13/20 12/29/21 Unknown History aerosol inhaler citalopram 20 mg tablet 20 mg PO DAILY 04/13/20 12/29/21 01/02/22 History clonazepam 0.5 mg tablet 0.25 mg PO BID 04/13/20 12/29/21 01/02/22 History fluticasone 250 mcg-salmeterol 50 1 inh inhalation BID 04/13/20 12/29/21 Unknown History mcg/dose blistr powdr for inhalation (Advair Diskus) simvastatin 20 mg tablet 20 mg PO DAILY 04/13/20 12/29/21 Unknown History trazodone 150 mg tablet 150 mg PO BEDTIME PRN Sleep 04/13/20 12/29/21 Unknown History quetiapine 100 mg tablet (Seroquel) 100 mg PO BEDTIME 05/26/20 12/29/21 Unknown History melatonin 5 mg capsule 5 mg PO BEDTIME 02/07/21 12/29/21 Unknown History sennosides 8.6 mg tablet (Radha-priya) 0 mg PO 02/07/21 10/24/21 Unknown History fluticasone propionate 50 spray intranasal 02/14/21 10/24/21 Unknown History mcg/actuation nasal spray,suspension hydroxyzine HCl 25 mg tablet 25 mg PO BID 02/14/21 12/29/21 Unknown History lisinopril 20 1 tab PO DAILY 02/14/21 12/29/21 Unknown History mg-hydrochlorothiazide 25 mg tablet Exam Airway Mallampati Class: III TM Dist: >3cm Neck ROM: Full Loose/Missing/Broken Teeth: Yes (frony upper tooth chipped, denies any being loose) Heart: [id number] Lungs: cta b/l Assessment and Plan Final Anesthetic Review NPO: Yes ASA Class: III Final Preanesthetic Review: No Changes in Pt Med Stat, Meds/Allgs Chart Reviewed, Consent Obtained/Reviewed and Anes Risks/Benef Reviewed Patient Risk: Intermediate Procedure Risk: Intermediate Assessment/Block/Sedation in SS: Assess/Block/Sedation-SS Anesthetic Plan Anesthetic Plan: GA and Agree w/ Assess. and Plan Disposition: Standard PACU
[2022-01-02] VITALS (7 sets, daily range): BP systolic 103–145; BP diastolic 60–86; PULSE 91–106; RESP 14–20; TEMP 36.1–36.9; O2SAT 94–96; BMI 34.3
--- NOTE | ~2022-01-02 | FL_ITS ---
EXAMINATION: XR FLUOROSCOPY WITH IMAGES CLINICAL INFORMATION: Joint pain COMPARISON: 10/28/2021 TECHNIQUE: Fluoroscopy performed by orthopedic surgeon. Fluoroscopy time: 18 seconds. Cumulative Dose: 0.49 mGy. DAP: 0.03 Gy-cm2. Images: 3. FINDINGS: Surgical hardware intact and secures the first IP joint. FL/FL guidance in OR IMPRESSION: Fluoroscopy provided
[2022-01-02] MEDS: Lactated Ringers 1,000 ML 100 ML IVCONT (06:43)
[2022-01-02] MEDS: Scopolamine 1.5 MG PATCH.TD.3 TRANSDERMA (06:44)
--- NOTE | 2022-01-02 09:27 | MHC.SHP ---
Pre-Procedural Eval Section A Date of Service: 01/02/22 The patient is an INPATIENT: No Changes since office visit: No Cold of Flu in the past 2 weeks, No New Medical Problems, No Changes in Medication and No Patient answered all questions The History & Physical has been completed within 30 days and I have reviewed it.: Yes Section B Chief Complaint: Primary osteoarthritis, right hand Allergies: Allergies Allergy/AdvReac Type Severity Reaction Status Date / Time tramadol [TRAMADOL] Allergy Intermediate RASH, Verified 12/28/21 14:43 itching, rash oxycodone Allergy Rash Verified 12/28/21 14:43 Plan I have reviewed the history and physical and performed a pertinent physical examination on my patient. No changes have occurred unless specified.
--- NOTE | 2022-01-02 09:28 | W.PM.OPN ---
Operative Note Operative Note Date of Service: 01/02/22 Narrative: Operative Note Narrative: Preop diagnosis: 1. Right thumb IP joint arthritis Postop diagnosis: Same Procedure: 1. Right thumb IP joint joint arthrodesis Surgeon: Elyssa Burrows MD Anesthesia: General Anesthesia Findings: right thumb IP joint arthritis Implants: 28 mm AcuTrak 2 mini headless compression screw Tourniquet time: 55 minutes EBL: 5.0 ml Specimen: none Drains: None Complications: None Disposition: Brought to the recovery room in stable condition Plan: Follow-up in 10-14 days for wound check, suture removal, radiographs and placement in a short thumb spica cast for an additional 3 weeks. OT visit on day cast to be removed for creation of a hand based thumb spica splint to be used until good evidence of bony healing. Encourage Finger range of motion Indications: The patient is 66 years old with right thumb IP joint osteoarthritis that has been unresponsive to non operative measures. The risks and benefits of operative treatment, including but not limited to risk of damage to blood vessels, nerves, tendons, infection, recurrence, persistent pain or numbness, incomplete resolution of preoperative symptoms, or need for further surgery were discussed with the patient and they wished to proceed with surgery. Procedure: Once consent was obtained patient was brought back to the operating suite and placed in the operating table in a supine position. Perioperative antibiotics and anesthesia was administered by the anesthesia team. A tourniquet was applied to the proximal aspect of the right upper extremity and the limb was prepped and draped in a standard surgical fashion. The limb was elevated exsanguinated with Esmarch bandage and the tourniquet inflated to 250 mm of mercury for a total tourniquet time of 55 minutes. The mini C-arm was used during the case to facilitate placement of our guidewire, arthrodesis alignment and position of our headless compression screw. A gentle S shaped incision was made over the dorsal aspect of the right thumb IP joint. The incision was made through the skin to the subcutaneous tissues using a 15. Blade. I dissected down to the level of the extensor tendon and the extensor tendon was cut transversely using a 15. Blade directly over the IP joint. This then revealed our joint. A rongeur was used to remove some of the periarticular osteophytes and also to remove any remaining articular cartilage from the D IP joint. a curette was also used to facilitate removal of articular cartilage. I then used a 0.035 K-wire to fenestrate the subchondral bone on both the proximal and distal joint surfaces to facilitate bony healing across our arthrodesis site. A small longitudinal incision was made directly over the tip of the right thumb. I dissected down to the tip of the distal phalanx using tenotomy scissors. The K-wire from the AcuTrak 2 mini headless compression screw set was then advanced retrograde through the tip of the distal phalanx proximally across the D IP joint and into the middle phalanx. The IP joint was placed in about Twenty degrees of flexion. Placement of this guidewire was visualized on orthogonal fluoroscopic images. Once satisfied with its placement the length of the needed screw was measured. I then used the long narrow cannulated Reamer over the placed guidewire to ream across the D IP joint to the appropriate depth. The short fat cannulated Reamer was then used to open up the cortex at the tip of the finger. I removed some cancellous bone from the dorsal distal aspect of the proximal phalanx to use as autologous bone graft. This was packed into the dorsal aspect of our arthrodesis. A 28 mm AcuTrak 2 mini headless compression screw was then advanced retrograde over the guidewire across the D IP joint into the appropriate position. We achieved excellent compression at the arthrodesis site. The guidewire was removed and final radiographs were obtained. At this point the tourniquet was deflated and hemostasis obtained with a brief period of local pressure and bipolar electrocautery. The wound was copiously irrigated with normal saline. the extensor tendon was reapproximated over the dorsal aspect of our arthrodesis using some 4-0 Vicryl suture. The skin edges were reapproximated with 5-0 nylon suture. A Digital block was performed using some 0.5% plain ropivacaine for postop pain control and a sterile dressing And a thumb spica splint was applied. The patient appears to have tolerated the procedure well and with no complications. All digits were well vascularized conclusion of the case.
== END 2022-01-02 11:00 | disposition home or self-care (01) ==
PROVIDERS: PCP Registered Nurse Community Health; Visit Provider Orthopaedic Surgery
PROC: (CPT 26860; principal; 2022-01-02 07:30)
DX: M19.041 Primary osteoarthritis, right hand (principal); M25.541 Pain in joints of right hand; R20.0 Anesthesia of skin; L40.50 Arthropathic psoriasis, unspecified; I10 Essential (primary) hypertension; J45.909 Unspecified asthma, uncomplicated; K21.9 Gastro-esophageal reflux disease without esophagitis; E78.00 Pure hypercholesterolemia, unspecified; F41.1 Generalized anxiety disorder; G47.33 Obstructive sleep apnea (adult) (pediatric); Z79.51 Long term (current) use of inhaled steroids; Z79.899 Other long term (current) drug therapy; Z98.890 Other specified postprocedural states
CPT/HCPCS: 26860; C1713; J0690; J1100; J1170; J2250; J2405; J2795; J3010

== ENCOUNTER → 2022-01-11 14:15 | Outpatient (BNVA) | payer OTHER, SELFPAY | PROVIDERS: PCP Registered Nurse Community Health; Visit Provider Orthopaedic Surgery | DX: L40.50 Arthropathic psoriasis, unspecified (principal); R20.0 Anesthesia of skin; R20.2 Paresthesia of skin; M19.041 Primary osteoarthritis, right hand; M19.042 Primary osteoarthritis, left hand | CPT/HCPCS: 99212 ==

== ENCOUNTER 2022-01-17 08:44 | Outpatient (REF) | payer MEDICARE, MEDICAID, SELFPAY ==
--- NOTE | ~2022-01-17 | XR_ITS ---
EXAMINATION: XR HAND, RIGHT CLINICAL INFORMATION: Postop COMPARISON: Previous and x-ray October 2021 and intraoperative fluoroscopic exam December 2021 TECHNIQUE: PA, lateral, and oblique views of the right hand. FINDINGS: There is a screw across the IP joint of the thumb. This appears unchanged from December 2021 fluoroscopy images. There is severe arthritis at the DIP and PIP joints. There is arthritis at the first RESIDENTIAL joint and trapezoid trapezium scaphoid joints. Soft tissues are unremarkable. XR/XR hand RT min 3V IMPRESSION: Arthrodesis of the IP joint of the thumb. This appears unchanged from operative images December 2021. Severe arthritis at the IP, first RESIDENTIAL and trapezoid trapezium scaphoid joints.
== END 2022-01-17 08:45 | disposition home or self-care (01) ==
LOC: HO.HOSX 08:44
PROVIDERS: Visit Provider Orthopaedic Surgery
DX: M79.641 Pain in right hand (principal)
CPT/HCPCS: 73130

== ENCOUNTER → 2022-02-03 09:27 | Outpatient (BNVA) | payer MEDICARE, MEDICAID, SELFPAY | PROVIDERS: Visit Provider Nurse Practitioner Family | DX: L40.50 Arthropathic psoriasis, unspecified (principal); M54.50 Low back pain, unspecified | CPT/HCPCS: 99212 ==

== ENCOUNTER 2022-02-07 11:59 | Outpatient (REF) | payer MEDICARE, MEDICAID, SELFPAY ==
--- NOTE | ~2022-02-07 | XR_ITS ---
EXAMINATION: XR HAND, RIGHT CLINICAL INFORMATION: Pain right hand. COMPARISON: None TECHNIQUE: PA, lateral, and oblique views of the right hand. FINDINGS: There is a solitary screw traversing the PIP joint right thumb for fusion. There is degenerative changes with moderate periarticular spurring of the fifth PIP joint first digit. Severely loss of joint space with periarticular spurring is seen involving the PIP and DIP joints second through fifth digits. No fracture or lytic process seen. XR/XR hand RT min 3V IMPRESSION: 1. Fusion PIP joint right thumb with a solitary screw. 2. Severe degenerative arthritic changes PIP and DIP joints second through fifth digits. No visible acute fracture or dislocation seen.
== END 2022-02-07 12:00 | disposition home or self-care (01) ==
LOC: HO.HOSX 11:59
PROVIDERS: Visit Provider Orthopaedic Surgery
DX: M79.641 Pain in right hand (principal)
CPT/HCPCS: 73130

== ENCOUNTER 2022-03-07 10:56 | Outpatient (REF) | payer OTHER, SELFPAY ==
[2022-03-07 11:14] LABS: MANUAL DIFF FLAG NO
[2022-03-07 12:02] LABS: Basophils Absolute Auto 0.1 X10*3/uL (0.0-0.2); Basophils Percent Auto 0.5 % (0-2); Eosinophils Absolute Auto 0.1 X10*3/uL (0.0-0.4); Eosinophils Percent Auto 1.1 % (0-4); Hematocrit 39.1 % (37.0-47.0); Hemoglobin 12.7 g/dl (12.0-16.0); Imm Gran Abs Auto 0.04 X10*3/uL (0.00-0.03); Imm Gran Pct Auto 0.4 % (0.0-0.4); Lymphocytes Absolute Auto 3.5 X10*3/uL (1.2-4.9); Lymphocytes Percent Auto 34.7 % (20-40); Mean Corpuscular HGB Conc 32.5 g/dl (31.0-35.0); Mean Corpuscular Hemoglobin 30.4 pg (27.0-33.0); Mean Corpuscular Volume 93.5 fL (80.0-98.0); Mean Platelet Volume 11.3 fL (9.4-12.3); Monocytes Absolute Auto 0.7 X10*3/uL (0.1-1.2); Monocytes Percent Auto 6.9 % (2-11); Neutrophils Absolute Auto 5.6 x10*3/uL (2.0-8.3); Neutrophils Percent Auto 56.4 % (45-73); Platelet Count 234 X10*3/uL (160-400); Red Blood Count 4.18 X10*6/uL (4.20-5.50); White Blood Count 9.9 X10*3/uL (4.8-10.8)
[2022-03-07 12:34] LABS: Erythrocyte Sedimentation Rate 38 MM/HR (0-20)
[2022-03-07 12:52] LABS: Rheumatoid Factor < 15.0 IU/mL (<15.0)
[2022-03-07 12:56] LABS: Alanine Aminotransferase 21 U/L (0-31); Albumin Level 4.3 g/dL (3.5-5.0); Alkaline Phosphatase 71 U/L (39-117); Anion Gap 15 (12-20); Aspartate Amino Transferase 31 U/L (5-31); Bilirubin Total 0.4 mg/dL (0.0-1.0); Blood Urea Nitrogen 27 mg/dL (9-16); C Reactive Protein 0.76 mg/dL (< or = 0.50); Calcium 9.9 mg/dL (8.4-10.2); Carbon Dioxide 30 mmol/L (22-29); Chloride 100 mmol/L (96-108); Estimated Glomerular Filt Rate > 60; Glucose Random 90 mg/dL (60-115); Potassium 3.9 mmol/L (3.3-5.1); Sodium 141 mmol/L (135-145); Total Protein 7.2 g/dL (6.5-8.0)
[2022-03-09 14:54] LABS: Cyclic Citrullinated Peptide <16 UNITS
== END 2022-03-07 10:57 | disposition home or self-care (01) ==
LOC: HO.LAB 10:56
PROVIDERS: Visit Provider Nurse Practitioner Family
DX: L40.50 Arthropathic psoriasis, unspecified (principal)
CPT/HCPCS: 36415; 80053; 85025; 85652; 86140; 86200; 86431

== ENCOUNTER 2022-03-13 14:03 | Outpatient (REF) | payer OTHER, SELFPAY ==
--- NOTE | ~2022-03-13 | XR_ITS ---
EXAMINATION: XR HAND, RIGHT CLINICAL INFORMATION: Pain. COMPARISON: Right hand 02/07/2022. TECHNIQUE: PA, lateral, and oblique views of the right hand. FINDINGS: There is severe loss of PIP and DIP joint space with moderate periarticular spurring. There is no visible acute fracture, dislocation or subluxation. Small solitary cancellous screw traverses the PIP joint 1st digit for fusion. Mild flexion deformities are seen at the PIP and DIP joints 2nd through 5th digit. XR/XR hand RT min 3V IMPRESSION: Advanced degenerative changes PIP joints 2nd through 5th digits. PIP joint fusion 1st digit with a solitary screw in place.
== END 2022-03-13 14:04 | disposition home or self-care (01) ==
LOC: HO.HOSX 14:03
PROVIDERS: Visit Provider Orthopaedic Surgery
DX: L40.50 Arthropathic psoriasis, unspecified (principal); M19.90 Unspecified osteoarthritis, unspecified site; M79.641 Pain in right hand; M79.7 Fibromyalgia; Z79.899 Other long term (current) drug therapy
CPT/HCPCS: 73130; 99212

== ENCOUNTER 2022-07-17 11:25 | Emergency (ER) | payer OTHER, SELFPAY ==
--- NOTE | ~2022-07-17 | XR_ITS ---
EXAMINATION: XR CHEST CLINICAL INFORMATION: Chest pain COMPARISON: Previous chest x-ray August 2021 TECHNIQUE: Frontal view of the chest was obtained. FINDINGS: The cardiac and mediastinal contours are stable. The lungs are clear. No pleural effusion or pneumothorax. There are degenerative changes of the spine and shoulders. XR/XR chest 1V IMPRESSION: No evidence for acute disease in the chest.
--- NOTE | 2022-07-17 11:26 | ECG_ITS ---
Test Reason : chest pain Blood Pressure : / mmHG Vent. Rate : 081 BPM Atrial Rate : 081 BPM P-R Int : 160 ms QRS Dur : 082 ms QT Int : 400 ms P-R-T Axes : 023 011 002 degrees QTc Int : 464 ms Normal sinus rhythm Normal ECG When compared with ECG of 22-NOV-2018 13:40, No significant change was found Referred By: Generic ED Physician Electronically Signed By:EFREN SOLIMAN MD
[2022-07-17 11:56] VITALS: BP 138/72; PULSE 84; RESP 18; TEMP 36.8; O2SAT 99; BMI 34.3
--- NOTE | 2022-07-17 12:00 | ED_ITS ---
HPI - General Adult General Chief complaint: General Medical <BUNNY Torrez - Last Filed: 07/17/22 15:57> Stated complaint: chest pain <BUNNY Torrez - Last Filed: 07/17/22 15:57> Time Seen by Provider: 07/17/22 14:43 <BUNNY Torrez - Last Filed: 07/17/22 15:57> Source: patient <Martin Pool MD - Last Filed: 07/17/22 15:23> Mode of arrival: ambulatory <Martin Pool MD - Last Filed: 07/17/22 15:23> Limitations: no limitations <Martin Pool MD - Last Filed: 07/17/22 15:23> History of Present Illness HPI narrative: 66-year-old female with history of reflux, fibromyalgia, presents with chest pain, left-sided chest pain, generalized fatigue. Patient's chest pain is constant. It is every day. Has been going on for 3 months. His worse with eat ing, exertion, movement, palpation. Patient describes symptoms as moderate to severe in nature. Patient takes lot of ibuprofen, Advil and Aleve to assist her with her symptoms. They do help to some degree. Patient also describes some shortness of breath associated with her symptoms. She denies any lower extremity edema, history of PE or DVT. She denies any recent surgery or immobilization or long distance travel. Patient denies any fevers, chills, sweats, cough. She does have mucus production particularly in the morning. Is nonbloody in nature. She reports a burning in acid the sensation in the back of her throat as well. Patient also describes a left-sided chest pain is burning i n nature. It goes to her shoulder. Is worse with movement. It is not associated with exertion or other symptoms. She reports the emergency department as her symptoms are worse over the past 2-3 days and they have been previously. <Martin Pool MD - Last Filed: 07/17/22 15:23> Related Data Home medications: Home Medications Medication Instructions Recorded Confirmed albuterol sulfate 90 mcg/actuation 2 puff inhalation Q6H PRN Wheezing 04/13/20 03/13/22 aerosol inhaler citalopram 20 mg tablet 20 mg PO DAILY 04/13/20 03/13/22 clonazepam 0.5 mg tablet 0.25 mg PO BID 04/13/20 03/13/22 fluticasone 250 mcg-salmeterol 50 1 inh inhalation BID 04/13/20 03/13/22 mcg/dose blistr powdr for inhalation (Advair Diskus) simvastatin 20 mg tablet 20 mg PO DAILY 04/13/20 03/13/22 trazodone 150 mg tablet 150 mg PO BEDTIME PRN Sleep 04/13/20 03/13/22 quetiapine 100 mg tablet (Seroquel) 100 mg PO BEDTIME 05/26/20 03/13/22 melatonin 5 mg capsule 5 mg PO BEDTIME 02/07/21 03/13/22 sennosides 8.6 mg tablet (Radha-priya) 0 mg PO 02/07/21 03/13/22 fluticasone propionate 50 spray intranasal 02/14/21 03/13/22 mcg/actuation nasal spray,suspension hydroxyzine HCl 25 mg tablet 25 mg PO BID 02/14/21 03/13/22 lisinopril 20 1 tab PO DAILY 02/14/21 03/13/22 mg-hydrochlorothiazide 25 mg tablet Previous Rx's Medication Instructions Recorded cholestyramine-aspartame 4 gram 4 g PO BID 30 days #210 grams 02/14/21 oral powder (Cholestyramine Light) famotidine 40 mg tablet (Pepcid) 40 mg PO BEDTIME 30 days #30 tabs 03/24/21 omeprazole 40 mg capsule,delayed 40 mg PO DAILY #90 caps 03/24/21 release oxybutynin chloride 15 mg 15 mg PO DAILY 90 days #90 tabs 12/19/21 tablet,extended release 24 hr acetaminophen 650 mg 650 mg PO Q8H PRN pain #90 tabs 03/13/22 tablet,extended release (Tylenol Arthritis Pain) diclofenac sodium 1 % topical gel 2 g topical BID PRN pain #100 grams 07/05/22 cyclobenzaprine 10 mg tablet 10 mg PO TID PRN muscle spasm #14 07/17/22 tabs famotidine 20 mg tablet 20 mg PO BEDTIME #30 tabs 07/17/22 omeprazole 20 mg tablet,delayed 40 mg PO DAILY #30 tabs 07/17/22 release <BUNNY Torrez - Last Filed: 07/17/22 15:57> Allergies/adverse reactions: Allergies Allergy/AdvReac Type Severity Reaction Status Date / Time tramadol [TRAMADOL] Allergy Intermediate RASH, Verified 03/14/22 11:30 itching, rash oxycodone Allergy Rash Verified 03/14/22 11:30 <BUNNY Torrez - Last Filed: 07/17/22 15:57> [facility] Past Medical History Medical History: Medical History Anxiety Arthritis Asthma Colon cancer screening Dislocation of distal interphalangeal (DIP) joint of finger Elevated cholesterol GERD (gastroesophageal reflux disease) HTN (hypertension) IBS (irritable bowel syndrome) Lumbar spondylolysis Morbidly obese On beta melvin at home TATUM (obstructive sleep apnea) PONV (postoperative nausea and vomiting) Psoriatic arthritis Urinary incontinence Uterine prolapse <BUNNY Torrez - Last Filed: 07/17/22 15:57> Surgical History: Surgical History H/O arthrodesis History of blepharoplasty History of pubovaginal sling History of total left knee replacement History of total right knee replacement (TKR) Hx of appendectomy Hx of cholecystectomy Hx of colonoscopy <BUNNY Torrez - Last Filed: 07/17/22 15:57> Family History Family History: Family History Mother HTN (hypertension) Diabetes Father Throat cancer Sister Heart problem <BUNNY Torrez - Last Filed: 07/17/22 15:57> Social History Social History: Social History Household Members Other:: daughter Are you a primary career specialist to a significant other at home: No Do you presently have 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 home services: Yes ([employer]) Alcohol intake: never Patient Tobacco Use Status: Never used Tobacco Smoked in Last 30 Days: No e-Cigarette/Vaping Use: Never Used Use of substances other than those prescribed or required for medical reasons: No Advance Directives: No Advance Directives Information Provided: No Current occupational status: disabled 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 <BUNNY Torrez - Last Filed: 07/17/22 15:57> Physical Exam ED Vital Signs: Vital Signs - 24 hr 07/17/22 11:56 07/17/22 14:44 Temperature 98.3 F 97.8 F Pulse Rate 84 88 Respiratory Rate 18 19 Blood Pressure 138/72 152/75 H Pulse Oximetry 99 97 Oxygen Delivery Method Room Air Room Air BMI result Body Mass Index 34.3 <BUNNY Torrez - Last Filed: 07/17/22 15:57> Vital Signs - 24 hr 07/17/22 11:56 07/17/22 14:44 Temperature 98.3 F 97.8 F Pulse Rate 84 88 Respiratory Rate 18 19 Blood Pressure 138/72 152/75 H Pulse Oximetry 99 97 Oxygen Delivery Method Room Air Room Air BMI result Body Mass Index 34.3 <Martin Pool MD - Last Filed: 07/17/22 15:23> GEN: Well developed, no acute distress, alert, oriented HEENT: Normocephalic, atraumatic, normal external ears, nose appears normal, no oropharyngeal edema or exudates Eyes: Normal to appearance Neck: Supple, no lymphadenopathy Respiratory: Talks in complete sentences, no respiratory distress, clear to auscultation bilaterally Cardiovascular: Regular rate and rhythm, no murmurs rubs or gallops Abdomen: Soft, nontender, nondistended, no guarding, no rebound Back: No CVA tenderness Extremities: No clubbing cyanosis or edema Neurologic: No focal neurologic deficits, cranial nerves 2-12 intact, strength is 5/5 bilaterally, Skin: No rash Chest: Reproducible left-sided chest wall tenderness to palpation <Martin Pool MD - Last Filed: 07/17/22 15:23> Course Course Course Narrative: rme: 66 YOLD FEMALE PRESENTS TO THE ED for upper chest pain for six months. patient sent from urgent CARE. labs and chest xray ordered. <BUNNY Torrez - Last Filed: 07/17/22 15:57> Reevaluation(s) Reevaluation #1: 66-year-old female presents with a constitution of complaints including chest pain, generalized fatigue, burning sensation, sometimes difficulty swelling, mucus production. Her examination other than reproducible chest wall tenderness to palpation was unremarkable. I suspect there, several things going on. There is no evidence of anemia based on her laboratory results, electrolyte abnormality, renal dysfunction, hepatic dysfunction. I suspect her fatigue is multifactorial in particular probably related to her chronic pain related symptoms. She also has the esophageal/or what sounds like esophageal symptoms that are likely acid reflux in nature. They are associated with mucus production particularly in the morning. She also reports a burning sensation in the back of her throat when she wakes up. I suspect she has gastroesophageal reflux that is not appropriately treated at this time. Patient has left-sided chest pain is most likely muscular in nature given the reproducible nature. She does not have any risk factors for PE or DVT. Her symptoms are not consistent with cardiac etiology in her cardiac enzymes are otherwise unremarkable. Chest x-ray did not reveal any acute cardiopulmonary disease, pneumothorax or other possible anatomic etiology of her symptoms. I discussed all results with the patient. She will be discharged on aspirin dosing medication of muscular relaxers. She has been it has to avoid NSAIDs such as ibuprofen Advil Aleve for her pain. She will take Tylenol instead. I will refer her back to her primary care provider for re-evaluation in 1-2 weeks. <Martin Pool MD - Last Filed: 07/17/22 15:23> Time: 15:18 <Martin Pool MD - Last Filed: 07/17/22 15:23> Medical Decision Making Medical Decision Making [facility] Narrative: 66-year-old female presents with chest pain, mucus production, generalized fatigue. Her examination revealed reproducible chest wall tenderness to palpation. Her EKG was nonischemic no significant changes from previous. A chest x-ray did not reveal any acute cardiopulmonary disease. Suspect her symptoms could be related to reflux, esophageal spasm, musculoskeletal pain. Her fatigue could be multifactorial including her history of fibromyalgia, reduced sleep secondary to pain, sleep apnea. <Martin Pool MD - Last Filed: 07/17/22 15:23> Differential Diagnosis Differential Diagnoses: The differential diagnosis associated with the presentation includes (Cardiac, pulmonary, musculoskeletal, reflux, esophageal spasm, strain, sprain) <Martin Pool MD - Last Filed: 07/17/22 15:23> Atypical chest pain, fatigue <Martin Pool MD - Last Filed: 07/17/22 15:23> Admission/Observation Consideration of admission/observation: Escalation of care including admission/observation considered <Martin Pool MD - Last Filed: 07/17/22 15:23> Lab Data [facility] Lab Attestation statement: I reviewed the patient's lab results. <Martin Pool MD - Last Filed: 07/17/22 15:23> Result Diagrams: 07/17/22 12:36 07/17/22 12:36 <BUNNY Torrez - Last Filed: 07/17/22 15:57> Labs: Lab Results 07/17/22 07/17/22 07/17/22 Range/Units 12:33 12:36 12:36 WBC 8.0 (4.8-10.8) X10*3/uL RBC 4.34 (4.20-5.50) X10*6/uL Hgb 13.2 (12.0-16.0) g/dl Hct 41.4 (37.0-47.0) % MCV 95.4 (80.0-98.0) fL MCH 30.4 (27.0-33.0) pg MCHC 31.9 (31.0-35.0) g/dl RDW 12.9 (11.0-16.0) % Plt Count 206 (160-400) X10*3/uL MPV 10.6 (9.4-12.3) fL Immature Gran % (Auto) 0.1 (0.0-0.4) % Neut % (Auto) 53.3 (45-73) % Lymph % (Auto) 38.6 (20-40) % [place] % (Auto) 6.0 (2-11) % Eos % (Auto) 1.6 (0-4) % Baso % (Auto) 0.4 (0-2) % Lymph # (Auto) 3.1 (1.2-4.9) X10*3/uL [place] # (Auto) 0.5 (0.1-1.2) X10*3/uL Eos # (Auto) 0.1 (0.0-0.4) X10*3/uL Baso # (Auto) 0.0 (0.0-0.2) X10*3/uL Abs Immat Gran (auto) 0.01 (0.00-0.03) X10*3/uL Absolute Neuts (auto) 4.3 (2.0-8.3) x10*3/uL Absolute Nucleated RBC 0.000 (0.0-0.012) X10*3/uL Nucleated RBC % (auto) 0.0 (0.0-0.2) /100WBC PT 10.7 (10.0-13.1) SEC INR 0.9 (0.9-1.1) APTT 33.3 (26.0-36.4) SEC Sodium (135-145) mmol/L Potassium (3.3-5.1) mmol/L Chloride (96-108) mmol/L Carbon Dioxide (22-29) mmol/L Anion Gap (12-20) BUN (9-16) mg/dL Creatinine (0.5-1.4) mg/dL Estim Creat Clear Calc Estimated GFR Random Glucose (60-115) mg/dL Calcium (8.4-10.2) mg/dL Total Bilirubin (0.0-1.0) mg/dL AST (5-31) U/L ALT (0-31) U/L Alkaline Phosphatase (39-117) U/L Troponin I High Sens (<3.5-17.0) ng/L B-Natriuretic Peptide (<100) pg/mL Total Protein (6.5-8.0) g/dL Albumin (3.5-5.0) g/dL Influenza Type A (PCR) NEGATIVE (Negative) Influenza Type B (PCR) NEGATIVE (Negative) RSV RNA Qual (PCR) NEGATIVE (Negative) SARS-CoV-2 RNA (RT-PCR) NEGATIVE (Negative) 07/17/22 07/17/22 07/17/22 Range/Units 12:36 12:36 12:36 WBC (4.8-10.8) X10*3/uL RBC (4.20-5.50) X10*6/uL Hgb (12.0-16.0) g/dl Hct (37.0-47.0) % MCV (80.0-98.0) fL MCH (27.0-33.0) pg MCHC (31.0-35.0) g/dl RDW (11.0-16.0) % Plt Count (160-400) X10*3/uL MPV (9.4-12.3) fL Immature Gran % (Auto) (0.0-0.4) % Neut % (Auto) (45-73) % Lymph % (Auto) (20-40) % [place] % (Auto) (2-11) % Eos % (Auto) (0-4) % Baso % (Auto) (0-2) % Lymph # (Auto) (1.2-4.9) X10*3/uL [place] # (Auto) (0.1-1.2) X10*3/uL Eos # (Auto) (0.0-0.4) X10*3/uL Baso # (Auto) (0.0-0.2) X10*3/uL Abs Immat Gran (auto) (0.00-0.03) X10*3/uL Absolute Neuts (auto) (2.0-8.3) x10*3/uL Absolute Nucleated RBC (0.0-0.012) X10*3/uL Nucleated RBC % (auto) (0.0-0.2) /100WBC PT (10.0-13.1) SEC INR (0.9-1.1) APTT (26.0-36.4) SEC Sodium 143 (135-145) mmol/L Potassium 4.2 (3.3-5.1) mmol/L Chloride 104 (96-108) mmol/L Carbon Dioxide 31 H (22-29) mmol/L Anion Gap 12 (12-20) BUN 19 H (9-16) mg/dL Creatinine 0.77 (0.5-1.4) mg/dL Estim Creat Clear Calc 79.4 Estimated GFR > 60 Random Glucose 95 (60-115) mg/dL Calcium 9.4 (8.4-10.2) mg/dL Total Bilirubin 0.6 (0.0-1.0) mg/dL AST 31 (5-31) U/L ALT 28 (0-31) U/L Alkaline Phosphatase 58 (39-117) U/L Troponin I High Sens < 2.7 (<3.5-17.0) ng/L B-Natriuretic Peptide < 10 (<100) pg/mL Total Protein 7.3 (6.5-8.0) g/dL Albumin 4.4 (3.5-5.0) g/dL Influenza Type A (PCR) (Negative) Influenza Type B (PCR) (Negative) RSV RNA Qual (PCR) (Negative) SARS-CoV-2 RNA (RT-PCR) (Negative) <Patrick Natalio, PA - Last Filed: 07/17/22 15:57> Lab Results 07/17/22 07/17/22 07/17/22 Range/Units 12:33 12:36 12:36 WBC 8.0 (4.8-10.8) X10*3/uL RBC 4.34 (4.20-5.50) X10*6/uL Hgb 13.2 (12.0-16.0) g/dl Hct 41.4 (37.0-47.0) % MCV 95.4 (80.0-98.0) fL MCH 30.4 (27.0-33.0) pg MCHC 31.9 (31.0-35.0) g/dl RDW 12.9 (11.0-16.0) % Plt Count 206 (160-400) X10*3/uL MPV 10.6 (9.4-12.3) fL Immature Gran % (Auto) 0.1 (0.0-0.4) % Neut % (Auto) 53.3 (45-73) % Lymph % (Auto) 38.6 (20-40) % [place] % (Auto) 6.0 (2-11) % Eos % (Auto) 1.6 (0-4) % Baso % (Auto) 0.4 (0-2) % Lymph # (Auto) 3.1 (1.2-4.9) X10*3/uL [place] # (Auto) 0.5 (0.1-1.2) X10*3/uL Eos # (Auto) 0.1 (0.0-0.4) X10*3/uL Baso # (Auto) 0.0 (0.0-0.2) X10*3/uL Abs Immat Gran (auto) 0.01 (0.00-0.03) X10*3/uL Absolute Neuts (auto) 4.3 (2.0-8.3) x10*3/uL Absolute Nucleated RBC 0.000 (0.0-0.012) X10*3/uL Nucleated RBC % (auto) 0.0 (0.0-0.2) /100WBC PT 10.7 (10.0-13.1) SEC INR 0.9 (0.9-1.1) APTT 33.3 (26.0-36.4) SEC Sodium (135-145) mmol/L Potassium (3.3-5.1) mmol/L Chloride (96-108) mmol/L Carbon Dioxide (22-29) mmol/L Anion Gap (12-20) BUN (9-16) mg/dL Creatinine (0.5-1.4) mg/dL Estim Creat Clear Calc Estimated GFR Random Glucose (60-115) mg/dL Calcium (8.4-10.2) mg/dL Total Bilirubin (0.0-1.0) mg/dL AST (5-31) U/L ALT (0-31) U/L Alkaline Phosphatase (39-117) U/L Troponin I High Sens (<3.5-17.0) ng/L B-Natriuretic Peptide (<100) pg/mL Total Protein (6.5-8.0) g/dL Albumin (3.5-5.0) g/dL Influenza Type A (PCR) NEGATIVE (Negative) Influenza Type B (PCR) NEGATIVE (Negative) RSV RNA Qual (PCR) NEGATIVE (Negative) SARS-CoV-2 RNA (RT-PCR) NEGATIVE (Negative) 07/17/22 07/17/22 07/17/22 Range/Units 12:36 12:36 12:36 WBC (4.8-10.8) X10*3/uL RBC (4.20-5.50) X10*6/uL Hgb (12.0-16.0) g/dl Hct (37.0-47.0) % MCV (80.0-98.0) fL MCH (27.0-33.0) pg MCHC (31.0-35.0) g/dl RDW (11.0-16.0) % Plt Count (160-400) X10*3/uL MPV (9.4-12.3) fL Immature Gran % (Auto) (0.0-0.4) % Neut % (Auto) (45-73) % Lymph % (Auto) (20-40) % [place] % (Auto) (2-11) % Eos % (Auto) (0-4) % Baso % (Auto) (0-2) % Lymph # (Auto) (1.2-4.9) X10*3/uL [place] # (Auto) (0.1-1.2) X10*3/uL Eos # (Auto) (0.0-0.4) X10*3/uL Baso # (Auto) (0.0-0.2) X10*3/uL Abs Immat Gran (auto) (0.00-0.03) X10*3/uL Absolute Neuts (auto) (2.0-8.3) x10*3/uL Absolute Nucleated RBC (0.0-0.012) X10*3/uL Nucleated RBC % (auto) (0.0-0.2) /100WBC PT (10.0-13.1) SEC INR (0.9-1.1) APTT (26.0-36.4) SEC Sodium 143 (135-145) mmol/L Potassium 4.2 (3.3-5.1) mmol/L Chloride 104 (96-108) mmol/L Carbon Dioxide 31 H (22-29) mmol/L Anion Gap 12 (12-20) BUN 19 H (9-16) mg/dL Creatinine 0.77 (0.5-1.4) mg/dL Estim Creat Clear Calc 79.4 Estimated GFR > 60 Random Glucose 95 (60-115) mg/dL Calcium 9.4 (8.4-10.2) mg/dL Total Bilirubin 0.6 (0.0-1.0) mg/dL AST 31 (5-31) U/L ALT 28 (0-31) U/L Alkaline Phosphatase 58 (39-117) U/L Troponin I High Sens < 2.7 (<3.5-17.0) ng/L B-Natriuretic Peptide < 10 (<100) pg/mL Total Protein 7.3 (6.5-8.0) g/dL Albumin 4.4 (3.5-5.0) g/dL Influenza Type A (PCR) (Negative) Influenza Type B (PCR) (Negative) RSV RNA Qual (PCR) (Negative) SARS-CoV-2 RNA (RT-PCR) (Negative) <Martin Pool MD - Last Filed: 07/17/22 15:23> Independent Interpretation I performed an independent interpretation of an: EKG (Normal sinus rhythm heart rate 81, no acute ST elevations depressions, nonspecific T-wave changes, normal intervals) and Plain X-Ray (Chest: No acute disease process) <Martin Pool MD - Last Filed: 07/17/22 15:23> Radiology Impression Discussion of test interpretation with radiology: I have reviewed the radiologist's reading. ( XR/XR chest 1V IMPRESSION: No evidence for acute disease in the chest. Dictated By:Latia Arzateigned By:<Electronically signed by Latia Arzate MD in [place]>07/17/22 1232) <Martin Pool MD - Last Filed: 07/17/22 15:23> Tests considered The following testing was considered but not selected: CT chest <Martin Pool MD - Last Filed: 07/17/22 15:23> Prescription Management I considered prescription management with: Pain Medication <Martin Pool MD - Last Filed: 07/17/22 15:23> Discharge Plan Discharge Clinical Impression: GERD (gastroesophageal reflux disease), Chest pain, musculoskeletal, Fatigue <BUNNY Torrez - Last Filed: 07/17/22 15:57> Patient Disposition: Home, Self-Care <UBNNY Torrez - Last Filed: 07/17/22 15:57> Instructions: Chest Pain (ED), Diet for Stomach Ulcers and Gastritis (ED), Gastroesophageal Reflux Disease (ED), Fatigue (ED), Chest Wall Pain (ED) <BUNNY Torrez - Last Filed: 07/17/22 15:57> Prescriptions: New omeprazole 20 mg tablet,delayed release (DR/EC) 40 mg PO DAILY Qty: 30 0RF famotidine 20 mg tablet 20 mg PO BEDTIME Qty: 30 0RF cyclobenzaprine 10 mg tablet 10 mg PO TID PRN (Reason: muscle spasm) Qty: 14 0RF No Action oxybutynin chloride 15 mg tablet extended release 24hr 15 mg PO DAILY 90 Days Qty: 90 3RF diclofenac sodium 1 % gel 2 g topical BID PRN (Reason: pain) Qty: 100 1RF quetiapine [Seroquel] 100 mg tablet 100 mg PO BEDTIME clonazepam 0.5 mg tablet 0.25 mg PO BID simvastatin 20 mg tablet 20 mg PO DAILY trazodone 150 mg tablet 150 mg PO BEDTIME PRN (Reason: Sleep) albuterol sulfate 90 mcg/actuation HFA aerosol inhaler 2 puff inhalation Q6H PRN (Reason: Wheezing) fluticasone propion-salmeterol [Advair Diskus] 250-50 mcg/dose blister with device 1 inh inhalation BID citalopram 20 mg tablet 20 mg PO DAILY melatonin 5 mg capsule 5 mg PO BEDTIME sennosides [Radha-priya] 8.6 mg tablet 0 mg PO hydroxyzine HCl 25 mg tablet 25 mg PO BID lisinopril-hydrochlorothiazide 20-25 mg tablet 1 tab PO DAILY fluticasone propionate 50 mcg/actuation spray,suspension intranasal Cholestyramine Light 4 gram powder 4 g PO BID 30 Days Qty: 210 6RF Rx Instructions: administer w/meal; avoid other meds within 1hr before or 4-6hr after dose acetaminophen [Tylenol Arthritis Pain] 650 mg tablet extended release 650 mg PO Q8H PRN (Reason: pain) Qty: 90 2RF omeprazole 40 mg capsule,delayed release(DR/EC) 40 mg PO DAILY Qty: 90 1RF famotidine [Pepcid] 40 mg tablet 40 mg PO BEDTIME 30 Days Qty: 30 6RF <BUNNY Torrez - Last Filed: 07/17/22 15:57> Referrals: Susi Basurto, BUSINESS OPERATIONS CONSULTANT [Primary Care Provider] - 1 week <BUNNY Torrez - Last Filed: 07/17/22 15:57> Interventions: ED Discharge Assessment Last Done: 07/17/22 15:32 <BUNNY Torrez - Last Filed: 07/17/22 15:57> Discharge Date/Time: 07/17/22 15:34 <BUNNY Torrez - Last Filed: 07/17/22 15:57> Print Language: Armenian <BUNNY Torrez - Last Filed: 07/17/22 15:57>
[2022-07-17 12:40] LABS: MANUAL DIFF FLAG NO
[2022-07-17 12:42] LABS: Basophils Percent Auto 0.4 % (0-2); Eosinophils Absolute Auto 0.1 X10*3/uL (0.0-0.4); Eosinophils Percent Auto 1.6 % (0-4); Hematocrit 41.4 % (37.0-47.0); Hemoglobin 13.2 g/dl (12.0-16.0); Imm Gran Abs Auto 0.01 X10*3/uL (0.00-0.03); Imm Gran Pct Auto 0.1 % (0.0-0.4); Lymphocytes Absolute Auto 3.1 X10*3/uL (1.2-4.9); Lymphocytes Percent Auto 38.6 % (20-40); Mean Corpuscular HGB Conc 31.9 g/dl (31.0-35.0); Mean Corpuscular Hemoglobin 30.4 pg (27.0-33.0); Mean Corpuscular Volume 95.4 fL (80.0-98.0); Mean Platelet Volume 10.6 fL (9.4-12.3); Monocytes Absolute Auto 0.5 X10*3/uL (0.1-1.2); Neutrophils Absolute Auto 4.3 x10*3/uL (2.0-8.3); Neutrophils Percent Auto 53.3 % (45-73); Platelet Count 206 X10*3/uL (160-400); Red Blood Count 4.34 X10*6/uL (4.20-5.50); Red Cell Distribution Width 12.9 % (11.0-16.0)
[2022-07-17 12:48] LABS: INTERNATIONAL NORM RATIO 0.9 (0.9-1.1); Prothrombin Time 10.7 SEC (10.0-13.1)
[2022-07-17 12:51] LABS: Partial Thromboplastin Time 33.3 SEC (26.0-36.4)
[2022-07-17 12:56] LABS: Alanine Aminotransferase 28 U/L (0-31); Albumin Level 4.4 g/dL (3.5-5.0); Alkaline Phosphatase 58 U/L (39-117); Anion Gap 12 (12-20); Aspartate Amino Transferase 31 U/L (5-31); Bilirubin Total 0.6 mg/dL (0.0-1.0); Blood Urea Nitrogen 19 mg/dL (9-16); Calcium 9.4 mg/dL (8.4-10.2); Carbon Dioxide 31 mmol/L (22-29); Chloride 104 mmol/L (96-108); Creatinine Clr Calc Pharmacy 79.4; Estimated Glomerular Filt Rate > 60; Glucose Random 95 mg/dL (60-115); Potassium 4.2 mmol/L (3.3-5.1); Sodium 143 mmol/L (135-145); Total Protein 7.3 g/dL (6.5-8.0)
[2022-07-17 13:03] LABS: B Type Natriuretic Peptide < 10 pg/mL (<100)
[2022-07-17 13:09] LABS: Troponin-I High Sensitivity < 2.7 ng/L (<3.5-17.0)
[2022-07-17 13:19] LABS: Influenza A PCR NEGATIVE (Negative); Influenza B PCR NEGATIVE (Negative); Resp Syncy Virus RNA Qual PCR NEGATIVE (Negative); SARS COV2 PCR INHOUSE NEGATIVE (Negative)
[2022-07-17 14:44] VITALS: BP 152/75; PULSE 88; RESP 19; TEMP 36.6; O2SAT 97
== END 2022-07-17 15:34 | disposition home or self-care (01) ==
PROVIDERS: Physician Assistant; Emergency Provider Emergency Medicine; PCP Registered Nurse Community Health
DX: K21.9 Gastro-esophageal reflux disease without esophagitis (principal); R07.89 Other chest pain; R53.83 Other fatigue; R06.02 Shortness of breath; Z20.822 Contact with and (suspected) exposure to COVID-19; Z20.828 Contact with and (suspected) exposure to other viral communicable diseases; Z79.899 Other long term (current) drug therapy
CPT/HCPCS: 0241U; 71045; 80053; 83880; 84484; 85025; 85610; 85730; 93005; 99283; 99284

== ENCOUNTER 2022-08-29 09:36 | Outpatient (REF) | payer OTHER, SELFPAY ==
[2022-08-29 10:55] LABS: Alanine Aminotransferase 26 U/L (0-31); Albumin Level 4.2 g/dL (3.5-5.0); Alkaline Phosphatase 71 U/L (39-117); Anion Gap 16 (12-20); Aspartate Amino Transferase 28 U/L (5-31); Bilirubin Total 0.6 mg/dL (0.0-1.0); Blood Urea Nitrogen 21 mg/dL (9-16); C Reactive Protein 0.56 mg/dL (< or = 0.50); Calcium 9.8 mg/dL (8.4-10.2); Carbon Dioxide 30 mmol/L (22-29); Chloride 102 mmol/L (96-108); Estimated Glomerular Filt Rate > 60; Glucose Random 125 mg/dL (60-115); Potassium 4.5 mmol/L (3.3-5.1); Sodium 143 mmol/L (135-145); Total Protein 7.5 g/dL (6.5-8.0)
== END 2022-08-29 09:37 | disposition home or self-care (01) ==
LOC: HO.LAB 09:36
PROVIDERS: Visit Provider Nurse Practitioner Family
DX: L40.50 Arthropathic psoriasis, unspecified (principal); R79.89 Other specified abnormal findings of blood chemistry
CPT/HCPCS: 36415; 80053; 85025; 85652; 86140

== ENCOUNTER → 2022-09-20 10:19 | Outpatient (BNVA) | payer OTHER, SELFPAY | PROVIDERS: PCP Registered Nurse Community Health; Visit Provider Internal Medicine Rheumatology | DX: L40.50 Arthropathic psoriasis, unspecified (principal); M19.041 Primary osteoarthritis, right hand; M19.042 Primary osteoarthritis, left hand; M79.7 Fibromyalgia; M79.673 Pain in unspecified foot; M72.2 Plantar fascial fibromatosis | CPT/HCPCS: 99212 ==

== ENCOUNTER 2022-10-23 08:43 | Outpatient (REF) | payer MEDICARE, SELFPAY ==
--- NOTE | ~2022-10-23 | US_ITS ---
EXAMINATION: US ABDOMEN LIMITED CLINICAL INFORMATION: Steatosis of liver. COMPARISON: CT abdomen and pelvis without and with contrast 10/21/2012. Report only. Images not available. TECHNIQUE: Real-time imaging of the right upper quadrant abdominal viscera. FINDINGS: PANCREAS: Normal. LIVER: Liver echotexture is increased consistent with fatty infiltration. The liver is slightly enlarged. The liver contour is normal. Is mild intrahepatic biliary duct dilatation. No focal hepatic lesion. GALLBLADDER: Surgically absent. COMMON BILE DUCT: Slightly dilated measuring 0.9 cm in diameter. RIGHT KIDNEY: Normal. No hydronephrosis. No renal calculi or focal parenchymal lesions. The kidney measures 12.7 cm in maximum dimension. FREE FLUID: None. US/US abdomen limited IMPRESSION: Enlarged echogenic liver probably representing fatty infiltration. Mild intra and extrahepatic biliary duct dilatation. This may be normal post cholecystectomy.
== END 2022-10-23 08:44 | disposition home or self-care (01) ==
LOC: HO.US 08:43
PROVIDERS: PCP Registered Nurse; Visit Provider Registered Nurse
DX: K76.0 Fatty (change of) liver, not elsewhere classified (principal)
CPT/HCPCS: 76705

== ENCOUNTER 2022-10-25 12:34 | Outpatient (REF) | payer MEDICARE, SELFPAY ==
--- NOTE | ~2022-10-25 | MM_ITS ---
EXAMINATION: BONE DENSITOMETRY CLINICAL INDICATION: Screening. COMPARISON: Baseline BD dated 09/02/2009. TECHNIQUE: Using a [employer] DXA System (software version: 13.1) manufactured by [employer], dual-energy x-ray absorptiometry was performed of the lumbar spine and left hip. The images are of good technical quality. Summary results are attached. FINDINGS: LEFT FEMUR, NECK: Current: BMD 1.247 g/cm2, Z-score 2.3, T-score 1.5, normal. Baseline: BMD 1.281 g/cm2. LEFT FEMUR, TOTAL: Current: BMD 1.299 g/cm2, Z-score 2.7, T-score 2.3, normal, 1.1% decrease from baseline (<5% change is not significant). Baseline: BMD 1.313 g/cm2. AP SPINE L1-L2 (excluding L3 and L4): The data of L1-L4 has been changed to exclude the L3 and L4 vertebral bodies, because degenerative sclerosis at these levels may cause overestimation of lumbar spine density. Current: BMD 1.447 g/cm2, Z-score 2.8, T-score 2.4, normal, 11.2% increase from baseline (<5% change is not significant). Baseline: BMD 1.301 g/cm2. IDENTIFIED RISK FACTORS: Menopause, rheumatoid arthritis. HISTORY OF FRACTURE: None listed. MEDICATIONS: Calcium, vitamin D. MM/XR DEXA axial skeleton IMPRESSION: 1. DIAGNOSIS: Normal bone density based on the lowest T-score value of 1.5 in the femoral neck applying World Health Organization criteria. 2. 10-YEAR FRACTURE RISK PREDICTION, FRAX: According to the guidelines, FRAX calculation should only be performed on patients in the osteopenia bone density category. Therefore, FRAX was not performed on this patient. 3. Treatment Recommendations: NOF guidelines recommend consideration for treatment in postmenopausal women and men age 50 and older presenting with the following: -A hip or vertebral (clinical or morphometric) fracture. -T-score less than or equal to -2.5 at the femoral neck or spine after appropriate evaluation to exclude secondary causes. -Low bone mass at the hip or spine and a 10-year fracture probability by FRAX of greater than or equal to 3% for hip fracture or greater than or equal to 20% for major osteoporotic fracture based on the [place] adapted WHO algorithm. 4. Other Recommendations: All treatment decisions require clinical judgment and consideration of individual patient factors, including patient preferences, comorbidities, previous drug use, risk factors not captured in the FRAX model (e.g. frailty, falls, vitamin D deficiency, increased bone turnover, interval significant decline in bone density) and possible under or overestimation of fracture risk by FRAX. FUTURE SCAN RECOMMENDATION: People with diagnosed cases of osteoporosis or at high risk for fracture should have regular bone mineral density tests. For patients eligible for Medicare, routine testing is allowed once every 2 years. The testing frequency can be increased to one year for patients who have rapidly progressing disease, those who are receiving or discontinuing medical therapy to restore bone mass, or have additional risk factors.
== END 2022-10-25 12:35 | disposition home or self-care (01) ==
LOC: HO.MAMMO 12:34
PROVIDERS: PCP Registered Nurse; Visit Provider Registered Nurse
DX: Z13.820 Encounter for screening for osteoporosis (principal); Z78.0 Asymptomatic menopausal state
CPT/HCPCS: 77080

== ENCOUNTER 2022-11-20 09:38 | Outpatient (REF) | payer MEDICARE, SELFPAY ==
[2022-11-20 13:05] LABS: Alanine Aminotransferase 49 U/L (0-31); Alkaline Phosphatase 74 U/L (39-117); Aspartate Amino Transferase 50 U/L (5-31); Bilirubin Direct 0.1 mg/dL (0.0-0.5); Bilirubin Total 0.4 mg/dL (0.0-1.0); Total Protein 7.5 g/dL (6.5-8.0)
[2022-11-21 05:23] LABS: HBS Num1 0.37 mIU/mL (0-7.99); HBc Num1 0.11 S/CO (0.00-0.79); HBsAGNum1 0.35 S/CO (0.00-0.99); Hepatitis A Antibody IgM 0.78 Index (0-0.79); Hepatitis B Core Antibody Nonreactive (Nonreactive); Hepatitis B Surface Antigen Negative (Negative); ~HepC Num1 0.12 S/CO (0.00-0.79); ~Hepatitis A Antibody IgM Nonreactive (Nonreactive); ~Hepatitis B Surface Antibody NONREACTIVE (Nonreactive); ~Hepatitis C Antibody Nonreactive (Nonreactive)
[2022-11-21 13:14] LABS: Alpha Fetoprotein 6.3 ng/mL
== END 2022-11-20 09:39 | disposition home or self-care (01) ==
LOC: HO.HHCL 09:38
PROVIDERS: Visit Provider Registered Nurse
DX: K76.0 Fatty (change of) liver, not elsewhere classified (principal); K76.9 Liver disease, unspecified
CPT/HCPCS: 36415; 80076; 82105; 86704; 86706; 86709; 86803; 87340

== ENCOUNTER 2023-01-04 09:06 | Outpatient (REF) | payer MEDICARE, SELFPAY ==
--- NOTE | ~2023-01-04 | XR_ITS ---
EXAMINATION: XR FOOT, RIGHT CLINICAL INFORMATION: Pain without injury. COMPARISON: Radiographs dated 07/01/2012. TECHNIQUE: AP, lateral, and oblique views of the right foot. FINDINGS: There is bony demineralization. There is a mild hallux valgus configuration. There is a large bunion at the medial aspect of the first metatarsal head. There is mild osteoarthritic change of the first metatarsophalangeal joint, and marked osteoarthritic change is seen of the first tarsometatarsal joint. No fracture, dislocation or joint effusion is seen. Boehler's angle is normal. There are large posterior and plantar calcaneal spurs. There are calcifications of the schaefer, possibly related to venous insufficiency. No focal soft tissue swelling, gas or foreign body is seen. XR/XR foot RT min 3V IMPRESSION: 1. No fracture, dislocation or right ankle joint effusion is seen. 2. There are large posterior and plantar calcaneal spurs. 3. There is marked bunion formation. 4. There is degenerative change of the first metatarsophalangeal and tarsometatarsal joints.
[2023-01-04 09:22] LABS: MANUAL DIFF FLAG NO
[2023-01-04 10:07] LABS: Basophils Absolute Auto 0.1 X10*3/uL (0.0-0.2); Basophils Percent Auto 0.7 % (0-2); Eosinophils Absolute Auto 0.2 X10*3/uL (0.0-0.4); Eosinophils Percent Auto 2.9 % (0-4); Hematocrit 41.3 % (37.0-47.0); Hemoglobin 13.1 g/dl (12.0-16.0); Imm Gran Abs Auto 0.01 X10*3/uL (0.00-0.03); Imm Gran Pct Auto 0.1 % (0.0-0.4); Lymphocytes Absolute Auto 2.7 X10*3/uL (1.2-4.9); Lymphocytes Percent Auto 38.3 % (20-40); Mean Corpuscular HGB Conc 31.7 g/dl (31.0-35.0); Mean Corpuscular Volume 94.7 fL (80.0-98.0); Mean Platelet Volume 11.8 fL (9.4-12.3); Monocytes Absolute Auto 0.6 X10*3/uL (0.1-1.2); Monocytes Percent Auto 8.1 % (2-11); Neutrophils Absolute Auto 3.6 x10*3/uL (2.0-8.3); Neutrophils Percent Auto 49.9 % (45-73); Platelet Count 236 X10*3/uL (160-400); Red Blood Count 4.36 X10*6/uL (4.20-5.50); Red Cell Distribution Width 12.7 % (11.0-16.0); White Blood Count 7.1 X10*3/uL (4.8-10.8)
[2023-01-04 10:45] LABS: Erythrocyte Sedimentation Rate 39 MM/HR (0-20)
[2023-01-04 11:26] LABS: Alanine Aminotransferase 51 U/L (0-31); Albumin Level 4.4 g/dL (3.5-5.0); Alkaline Phosphatase 71 U/L (39-117); Anion Gap 16 (12-20); Aspartate Amino Transferase 54 U/L (5-31); Bilirubin Total 0.4 mg/dL (0.0-1.0); Blood Urea Nitrogen 25 mg/dL (9-16); C Reactive Protein 0.79 mg/dL (< or = 0.50); Calcium 9.9 mg/dL (8.4-10.2); Carbon Dioxide 28 mmol/L (22-29); Chloride 101 mmol/L (96-108); Estimated Glomerular Filt Rate > 60; Glucose Random 120 mg/dL (60-115); Potassium 3.9 mmol/L (3.3-5.1); Sodium 141 mmol/L (135-145); Total Protein 7.9 g/dL (6.5-8.0)
== END 2023-01-04 09:07 | disposition home or self-care (01) ==
LOC: HO.LAB 09:06
PROVIDERS: Visit Provider Internal Medicine Rheumatology
DX: M79.671 Pain in right foot (principal); L40.50 Arthropathic psoriasis, unspecified
CPT/HCPCS: 36415; 73630; 80053; 85025; 85652; 86140

== ENCOUNTER 2023-01-11 10:53 | Outpatient (AMB) | payer MEDICARE, MEDICAID, SELFPAY ==
--- NOTE | 2023-01-11 11:16 | MHC.OFFVIS ---
Intake Vital Signs 01/11/23 11:26 Height 5 ft 4 in Weight 238 lb 8.642 oz BMI 40.9 BP 122/70 Blood Pressure Location Lt brachial Position Sitting Pulse 102 H Pulse Source Pulse Oximeter Temp 98.2 F Temp Source Skin Pulse Oximetry (%) 94 Oxygen Delivery Method Room Air Intake Visit Reasons: psa Intake Note: Patient presents today to follow up on PsA. c/o feet pain Manager Terminal Required: No Accompanied by: Daughter Allergies tramadol [TRAMADOL] Allergy (Intermediate, Verified 01/11/23 11:27) RASH, itching, rash oxycodone Allergy (Verified 01/11/23 11:27) Rash Medication List - Last Reconciled 01/11/23 by Nikolas Ramos MD acetaminophen ER (Tylenol Arthritis Pain) 650 mg PO Q8H PRN albuterol sulfate 90 mcg/actuation 2 puffs inhalation Q6H PRN cholestyramine-aspartame 4 gram (Cholestyramine Light) 4 grams PO BID 30 days citalopram 20 mg PO DAILY clonazepam 0.25 mg PO BID cyclobenzaprine 10 mg PO TID PRN diclofenac sodium 1% 2 grams topical BID PRN diclofenac sodium 75 mg PO BID famotidine 20 mg PO BEDTIME fluticasone propion-salmeterol 45-21 mcg/actuation (Advair HFA) inhalation fluticasone propionate 50 mcg/actuation sprays intranasal furosemide 20 mg PO DAILY hydroxyzine HCl 25 mg PO BID lisinopril-hydrochlorothiazide 20-25 mg 1 tab PO DAILY melatonin 5 mg PO BEDTIME metoprolol tartrate 25 mg PO DAILY omeprazole 40 mg PO DAILY omeprazole 20 mg PO DAILY oxybutynin chloride ER 15 mg PO DAILY 90 days quetiapine 25 mg PO BEDTIME sennosides-docusate sodium 8.6-50 mg (Senexon-S) tabs PO simvastatin 40 mg PO BEDTIME trazodone 100 mg PO BEDTIME HPI HPI Comments History of Present Illness Details The patient returns for evaluation of her psoriatic arthritis, psoriasis and osteoarthritis. Her daughter translates for us today. The patient reports that with the start of diclofenac 75 b.i.d. she has had improvement in most of her pains. These include the lower back, neck and hand pain. However the feet are still painful, mostly across the instep and MTP regions but sometimes in the left heel. She notes at the end of the day the feet are swollen and they are more painful. She is taking also some acetaminophen with some benefit. She does not think she has had any side effects with the diclofenac. She has remained on famotidine at bedtime for GERD. There still is some psoriasis on her scalp. [facility] Medical History Anxiety Arthritis Asthma Colon cancer screening Dislocation of distal interphalangeal (DIP) joint of finger Elevated cholesterol GERD (gastroesophageal reflux disease) HTN (hypertension) IBS (irritable bowel syndrome) Lumbar spondylolysis Morbidly obese On beta melvin at home TATUM (obstructive sleep apnea) PONV (postoperative nausea and vomiting) Psoriatic arthritis Urinary incontinence Uterine prolapse Surgical History H/O arthrodesis Hx of colonoscopy History of blepharoplasty History of pubovaginal sling History of total left knee replacement History of total right knee replacement (TKR) Hx of appendectomy Hx of cholecystectomy Family History Mother HTN (hypertension) Diabetes Father Throat cancer Sister Heart problem Social History Household Members Other:: daughter Are you a primary medicare compliance auditor to a significant other at home: No 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 Card Details: Negative chest pain, edema and syncope Resp Details: Negative for SOB, cough and wheezing GI Details: Negative indigestion/heartburn, nausea, abdominal pain, bowel changes, diarrhea, constipation and bloody stool. Skin/Breast Details: A few scaly, often pruritic spots of psoriasis on the scalp. Negative for hives, Raynaud's symptoms, sun sensitivity, and skin cancer Endo Details: Negative for polyuria and polydypsia Yfn/Lymph Details: Negative for excessive bruising or bleeding. Physical Exam Vital Signs: Last Vital Signs Temp 98.2 F 01/11/23 11:26 Pulse 102 H 01/11/23 11:26 BP 122/70 01/11/23 11:26 Pulse Ox 94 01/11/23 11:26 Oxygen Delivery Method Room Air 01/11/23 11:26 BMI result Body Mass Index 40.9 APPEARANCE: Patient in no acute distress EYES no redness, pupils equal and reactive to light, eyelids normal EXTREMITIES: No edema, no calf tenderness, normal peripheral pulses. SKIN: There are few patches of scaling and redness of the scalp. Elsewhere no inflammatory or neoplastic lesions. Normal color and turgor JOINT EXAM: Cervical Spine: Full range of motion without pain; no tenderness over the cervical spine.? Tenderness to palpation over the cervical spinal muscles Lumbar Spine: Mild pain with extremes of motion. No tenderness. Hands:?? ? Left:? Tenderness to palpation of the IP thumb joint, also with bony enlargement.? Tenderness to palpation 2nd DIP with Heberden's node.? No swelling, increased warmth or erythema.? Able to make a fist. No synovitis appreciated. Right: healed scar over the thumb, fixed at the IP joint,? no erythema, swelling or warmth noted. Able to make a full fist and oppose thumb to the 2nd, 3rd, 4th and 5th digits without pain. No tenderness to palpation of the MCPs and PIPs. Heberdens nodes present. No synovitis appreciated. Wrists:? Normal pain-free range of motion without tenderness, swelling, increased warmth or erythema. Elbows: Normal pain-free range of motion without tenderness, swelling, increased warmth or erythema. Shoulders:?LEFT:? Normal pain-free range of motion without tenderness, swelling, increased warmth or erythema ? RIGHT:? Pain-free range of motion without tenderness, swelling, increased warmth or erythema. Knees:?? Right: no pains with the extremes of normal ROM. Slight tenderness on the medial joint marging. Scar well healed and non-tender. Left: Normal pain-free range of motion without tenderness, swelling, increased warmth or erythema.? There is no effusion or crepitation; well-healed arthroplasty scar noted. Ankles:? Normal pain-free range of motion with mild medial and lateral tenderness but no swelling, increased warmth or erythema. Feet:? LEFT:? Bunion deformity 1st MTP. Normal pain-free range of motion.? Tenderness to palpation at instep in all the MTP joints. No sausage digits or inflammation of the digits themselves. Slight medial heel tenderness. ? RIGHT:? Bunion deformity 1st MTP.? Normal pain-free range of motion.? Mild tenderness in the instep and the MTPs. Mild medial heel tenderness. No other tenderness swelling, increased warmth or erythema.? No dactylitis. Tender points:.? mild tenderness to digital palpation at the trapezius, lateral epicondyle, knees, greater trochanter area bilaterally. ? Results Reviewed Results Reviewed: Laboratory Tests 01/04/23 09:21 WBC 7.1 Hgb 13.1 ESR 39 H Creatinine 0.87 AST 54 H ALT 51 H C-Reactive Protein 0.79 H [place] [id number] XRay Report Signed Patient: Linda Hand MR#: [id number] : 1955 Acct:[id number] Age/Sex: 67 / F ADM Date: 01/04/[address]: Nikolas Ramos MD Ordering Physician: Nikolas Ramos MD Date of Service: 01/04/23 Procedure(s): XR foot RT min 3V Accession Number(s): [id number] cc: Nikolas Ramos MD~ EXAMINATION: XR FOOT, RIGHT CLINICAL INFORMATION: Pain without injury. COMPARISON: Radiographs dated 07/01/2012. TECHNIQUE: AP, lateral, and oblique views of the right foot. FINDINGS: There is bony demineralization. There is a mild hallux valgus configuration. There is a large bunion at the medial aspect of the first metatarsal head. There is mild osteoarthritic change of the first metatarsophalangeal joint, and marked osteoarthritic change is seen of the first tarsometatarsal joint. No fracture, dislocation or joint effusion is seen. Boehler's angle is normal. There are large posterior and plantar calcaneal spurs. There are calcifications of the schaefer, possibly related to venous insufficiency. No focal soft tissue swelling, gas or foreign body is seen. XR/XR foot RT min 3V IMPRESSION: 1. No fracture, dislocation or right ankle joint effusion is seen. 2. There are large posterior and plantar calcaneal spurs. 3. There is marked bunion formation. 4. There is degenerative change of the first metatarsophalangeal and tarsometatarsal joints. Dictated By: Boy Barnett MD Signed By: <Electronically signed by Boy Barnett MD in OV> Assessment & Plan Assessment & Plan (1) jail use of drug: Code(s): Z79.899 - Other care home (current) drug therapy (2) Elevated transaminase level: Code(s): R74.01 - Elevation of levels of liver transaminase levels (3) Osteoarthritis of fingers of both hands: Code(s): M19.041 - Primary osteoarthritis, right hand; M19.042 - Primary osteoarthritis, left hand (4) Psoriasis: Code(s): L40.9 - Psoriasis, unspecified (5) Psoriatic arthritis: Comment: Methotrexate: Dates unavailable Leflunomide: approximately 2015 possibly earlier - self stopped September 2021. Not restarted- no signs of active disease on exam, skin clear no psoriasis. Code(s): L40.50 - Arthropathic psoriasis, unspecified Plan With the addition of the diclofenac she seems to have some improvement in her pains in many places except for the feet. She does have underlying osteoarthritis evident on x-rays but I think she may also have some inflammatory psoriatic arthritis particularly in the feet, given the resistant to treatment with the diclofenac. There still is psoriasis as well. I think we should look at additional DMARD therapy. She now has elevated transaminases making restart of the leflunomide or methotrexate impossible. We reviewed potential trial of Humira injections. I gave them some written information on the product to review. She has negative serologies for hepatitis infection. We will check T spot testing and if that is negative apply to her insurance for prior authorization for the use of Humira 40 mg every 2 weeks for her psoriatic arthritis. A return visit at 2 weeks is recommended. She can stay for now with the diclofenac as it seems to be helping her. Review of her history, exam, and treatment options took 32 minutes. Orders: Orders T Spot TB Today Z79.899 - Other technician terminal and repeater (current) drug therapy Coding Level of Care Code Est Pt Level 4 (68541) Diagnoses jail use of drug Z79.899 Elevated transaminase level R74.01 Osteoarthritis of fingers of both hands M19.041; M19.042 Psoriasis L40.9 Psoriatic arthritis L40.50
[2023-01-11 11:26] VITALS: BP 122/70; PULSE 102; TEMP 36.8; O2SAT 94; BMI 40.9
== END 2023-01-11 11:53 | disposition home or self-care (01) ==
PROVIDERS: PCP Registered Nurse; Visit Provider Internal Medicine Rheumatology
DX: Z79.899 Other long term (current) drug therapy (principal); R74.01 Elevation of levels of liver transaminase levels; M19.041 Primary osteoarthritis, right hand; M19.042 Primary osteoarthritis, left hand; L40.9 Psoriasis, unspecified; L40.50 Arthropathic psoriasis, unspecified
CPT/HCPCS: 99214

== ENCOUNTER 2023-01-11 10:53 | Outpatient (REF) | payer MEDICARE, MEDICAID, SELFPAY | END 2023-01-11 10:54 | disposition home or self-care (01) | LOC: HO.LAB 10:53 | PROVIDERS: PCP Registered Nurse; Visit Provider Internal Medicine Rheumatology | DX: L40.50 Arthropathic psoriasis, unspecified (principal); M19.041 Primary osteoarthritis, right hand; M19.042 Primary osteoarthritis, left hand; R74.01 Elevation of levels of liver transaminase levels; Z79.899 Other long term (current) drug therapy; Z79.84 Long term (current) use of oral hypoglycemic drugs | CPT/HCPCS: 36415; 86481; 99212 ==

== ENCOUNTER 2023-03-23 13:32 | Outpatient (AMB) | payer MEDICARE, MEDICAID, SELFPAY ==
[2023-03-23 13:45] VITALS: BP 128/82; PULSE 102; RESP 16; TEMP 36.4; O2SAT 95
--- NOTE | 2023-03-23 13:45 | MHC.OFFVIS ---
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 Accompanied by: Daughter Allergies tramadol [TRAMADOL] Allergy (Intermediate, Verified 03/23/23 13:47) RASH, itching, rash oxycodone Allergy (Verified 03/23/23 13:47) Rash Medication List - Last Reconciled 03/23/23 by Haley Hand RN acetaminophen ER (Tylenol Arthritis Pain) 650 mg PO Q8H PRN adalimumab (Humira(CF) Pen) 40 mg (0.4 mL) subcut Q2W 56 days albuterol sulfate 90 mcg/actuation 2 puffs inhalation Q6H PRN cholestyramine-aspartame 4 gram (Cholestyramine Light) 4 grams PO BID 30 days citalopram 20 mg PO DAILY clonazepam 0.25 mg PO BID cyclobenzaprine 10 mg PO TID PRN diclofenac sodium 1% 2 grams topical BID PRN diclofenac sodium 75 mg PO BID famotidine 20 mg PO BEDTIME fluticasone propion-salmeterol 45-21 mcg/actuation (Advair HFA) inhalation fluticasone propionate 50 mcg/actuation sprays intranasal furosemide 20 mg PO DAILY hydroxyzine HCl 25 mg PO BID lisinopril-hydrochlorothiazide 20-25 mg 1 tab PO DAILY melatonin 5 mg PO BEDTIME metoprolol tartrate 25 mg PO DAILY omeprazole 40 mg PO DAILY omeprazole 20 mg PO DAILY oxybutynin chloride ER 15 mg PO DAILY 90 days quetiapine 25 mg PO BEDTIME sennosides-docusate sodium 8.6-50 mg (Senexon-S) tabs PO simvastatin 40 mg PO BEDTIME trazodone 100 mg PO BEDTIME HPI HPI Comments History of Present Illness Details Ms. Mckeon is a pleasant 67 year old female who returns for follow-up of her psoriatic arthritis, psoriasis and osteoarthritis. Her daughter translates for us today. She was started on HUMIRA 4mg QW at last visit. The patient reports she is feeling so much better , there is a big improvement in most of her pains; she can walk and do house chores without being in pain. Within 1 day of the next injection she can feel it mostly in her feet, mostly across the instep and MTP regions but sometimes in the left heel; then she knows the medication is really working. She is taking also some acetaminophen but not as much as before. She also has diclofenac. She has remained on famotidine at bedtime for GERD. The psoriasis on her scalp is cleared. Today there is pain in her left shoulder. It started last week when she went to reach for something and she felt. Sailaja has had this pain before and reports it was improved with Prednisone. [facility] Medical History (Updated 03/23/23 @ 14:27 by Chikis Jackson, [facility]-) Left shoulder pain Urinary incontinence On beta melvin at home Anxiety TATUM (obstructive sleep apnea) Asthma Elevated cholesterol PONV (postoperative nausea and vomiting) Colon cancer screening Dislocation of distal interphalangeal (DIP) joint of finger Uterine prolapse Lumbar spondylolysis Psoriatic arthritis IBS (irritable bowel syndrome) Arthritis Morbidly obese GERD (gastroesophageal reflux disease) HTN (hypertension) Surgical History H/O arthrodesis Hx of colonoscopy History of blepharoplasty History of pubovaginal sling History of total left knee replacement History of total right knee replacement (TKR) Hx of appendectomy Hx of cholecystectomy Family History Mother HTN (hypertension) Diabetes Father Throat cancer Sister Heart problem Social History Household Members Other:: daughter Are you a primary clinical care manager to a significant other at home: No Do you presently have 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 home 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) Alcohol intake: never Patient Tobacco Use Status: Never used Tobacco e-Cigarette/Vaping Use: Never Used Current occupational status: disabled 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 SKIN: There are few patches of scaling and redness of the scalp. Elsewhere no inflammatory or neoplastic lesions. Normal color and turgor JOINT EXAM: Cervical Spine: Full range of motion without pain; no tenderness over the cervical spine.? Tenderness to palpation over the cervical spinal muscles Lumbar Spine: Mild pain with extremes of motion. No tenderness. Hands:?? ? Left:? very mild tenderness to palpation of the IP thumb joint, also with bony enlargement.? No tenderness to palpation 2nd DIP with Heberden's node as before.? No swelling, increased warmth or erythema.? Able to make a fist. No synovitis appreciated. Right: healed scar over the thumb, fixed at the IP joint,? no erythema, swelling or warmth noted. Able to make a full fist and oppose thumb to the 2nd, 3rd, 4th and 5th digits without pain. No tenderness to palpation of the MCPs and PIPs. Heberdens nodes present. No synovitis appreciated. Wrists:? Normal pain-free range of motion without tenderness, swelling, increased warmth or erythema. Elbows: Normal pain-free range of motion without tenderness, swelling, increased warmth or erythema. Shoulders:?LEFT:? decrease range of motion with pain, moderate tenderness and mild swelling but no increased warmth or erythema; Unable to lift arms ? RIGHT:? Pain-free range of motion without tenderness, swelling, increased warmth or erythema. Knees:?? Right: no pains with the extremes of normal ROM. Slight tenderness on the medial joint marging. Scar well healed and non-tender. Left: Normal pain-free range of motion without tenderness, swelling, increased warmth or erythema.? There is no effusion or crepitation; well-healed arthroplasty scar noted. Ankles:? Normal pain-free range of motion with mild medial and lateral tenderness but no swelling, increased warmth or erythema. Feet:? LEFT:? Bunion deformity 1st MTP. Normal pain-free range of motion.? Tenderness to palpation at instep in all the MTP joints. No sausage digits or inflammation of the digits themselves. Slight medial heel tenderness. ? RIGHT:? Bunion deformity 1st MTP.? Normal pain-free range of motion.? Mild tenderness in the instep and the MTPs. Mild medial heel tenderness. No other tenderness swelling, increased warmth or erythema.? No dactylitis. 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 Not restarted- no signs of active disease on exam, skin clear no psoriasis. Code(s): L40.50 - Arthropathic psoriasis, unspecified (6) Left shoulder pain: Code(s): M25.512 - Pain in left shoulder Qualifiers: Chronicity: acute Qualified Code(s): M25.512 - Pain in left shoulder Plan #PsA/PsO/OA: With the addition of the Humira it she seems to have made remarkable improvement in her pains, especially the feet. Her psoriasis has improved as well. We will continue Humira 40 mg Q2W. She can continue with the diclofenac as it seems to be helping her to ease the OA related discomfort. We will obtain labs today to see if the ESR/CRP have normalized. #Residential Use of DMARD: Will obtain updated labs to evaluate for resolution of elevated transaminases, since she has been off leflunomide and methotrexate. She has negative serologies for hepatitis infection and T spot testing. #Left Shoulder Pain: Given that she has had this before and it was helped by Prednisone, I will prescribe a course of Prednisone. Patient knows to call the office, if this is not effective. At that point will will consider to obtain imaging of her shoulder. Review of her history, exam, and treatment options took 32 minutes. Orders: Orders C Reactive Protein Today L40.50 - Arthropathic psoriasis, unspecified Erythrocyte Sedimentation Rate Today L40.50 - Arthropathic psoriasis, unspecified Complete Blood Count Auto Diff Today L40.50 - Arthropathic psoriasis, unspecified Comprehensive Met. Panel Today L40.50 - Arthropathic psoriasis, unspecified Medications: New prednisone 2 tablets per day x 7 days, 1 tablet per day x 7 days 30 tabs 0RF L40.50 - Arthropathic psoriasis, unspecified, M25.512 - Pain in left shoulder prednisone 3 tablets x 3 days 2 tablets per day x 5 days, 1 tablet per day x 5 days stop 30 tabs 0RF L40.50 - Arthropathic psoriasis, unspecified, M25.512 - Pain in left shoulder Coding Level of Care Code Est Pt Level 4 (86011) Diagnoses supervisor intermediates use of drug Z79.899 Elevated transaminase level R74.01 Osteoarthritis of fingers of both hands M19.041; M19.042 Psoriasis L40.9 Psoriatic arthritis L40.50 Acute pain of left shoulder M25.512 Chronicity: acute
== END 2023-03-23 14:19 | disposition home or self-care (01) ==
PROVIDERS: PCP Registered Nurse; Visit Provider Nurse Practitioner Family
DX: Z79.899 Other long term (current) drug therapy (principal); R74.01 Elevation of levels of liver transaminase levels; M19.041 Primary osteoarthritis, right hand; M19.042 Primary osteoarthritis, left hand; L40.9 Psoriasis, unspecified; L40.50 Arthropathic psoriasis, unspecified; M25.512 Pain in left shoulder
CPT/HCPCS: 99214

== ENCOUNTER 2023-03-23 13:32 | Outpatient (REF) | payer MEDICARE, MEDICAID, SELFPAY ==
[2023-03-23 14:51] LABS: MANUAL DIFF FLAG NO
[2023-03-23 15:03] LABS: Basophils Percent Auto 0.4 % (0-2); Eosinophils Percent Auto 0.4 % (0-4); Hematocrit 39.1 % (37.0-47.0); Hemoglobin 12.7 g/dl (12.0-16.0); Imm Gran Abs Auto 0.02 X10*3/uL (0.00-0.03); Imm Gran Pct Auto 0.2 % (0.0-0.4); Lymphocytes Absolute Auto 4.5 X10*3/uL (1.2-4.9); Lymphocytes Percent Auto 46.6 % (20-40); Mean Corpuscular HGB Conc 32.5 g/dl (31.0-35.0); Mean Corpuscular Hemoglobin 30.8 pg (27.0-33.0); Mean Corpuscular Volume 94.9 fL (80.0-98.0); Mean Platelet Volume 11.3 fL (9.4-12.3); Monocytes Absolute Auto 0.6 X10*3/uL (0.1-1.2); Monocytes Percent Auto 6.6 % (2-11); Neutrophils Absolute Auto 4.4 x10*3/uL (2.0-8.3); Neutrophils Percent Auto 45.8 % (45-73); Platelet Count 231 X10*3/uL (160-400); Red Blood Count 4.12 X10*6/uL (4.20-5.50); Red Cell Distribution Width 13.3 % (11.0-16.0); White Blood Count 9.6 X10*3/uL (4.8-10.8)
[2023-03-23 15:26] LABS: Alanine Aminotransferase 47 U/L (0-31); Albumin Level 4.6 g/dL (3.5-5.0); Alkaline Phosphatase 71 U/L (39-117); Anion Gap 13 (12-20); Aspartate Amino Transferase 51 U/L (5-31); Bilirubin Total 0.5 mg/dL (0.0-1.0); Blood Urea Nitrogen 24 mg/dL (9-16); C Reactive Protein 0.37 mg/dL (< or = 0.50); Calcium 10.2 mg/dL (8.4-10.2); Carbon Dioxide 27 mmol/L (22-29); Chloride 102 mmol/L (96-108); Estimated Glomerular Filt Rate 60; Glucose Random 100 mg/dL (60-115); Potassium 3.8 mmol/L (3.3-5.1); Sodium 138 mmol/L (135-145); Total Protein 8.2 g/dL (6.5-8.0)
[2023-03-23 15:54] LABS: Erythrocyte Sedimentation Rate 27 MM/HR (0-20)
== END 2023-03-23 13:33 | disposition home or self-care (01) ==
LOC: HO.LAB 13:32
PROVIDERS: PCP Registered Nurse; Visit Provider Nurse Practitioner Family
DX: L40.50 Arthropathic psoriasis, unspecified (principal); M19.041 Primary osteoarthritis, right hand; M19.042 Primary osteoarthritis, left hand; R74.01 Elevation of levels of liver transaminase levels; Z79.899 Other long term (current) drug therapy
CPT/HCPCS: 36415; 80053; 85025; 85652; 86140; 99212

== ENCOUNTER 2023-07-19 10:43 | Outpatient (REF) | payer MEDICARE, MEDICAID, SELFPAY ==
[2023-07-19 12:38] LABS: Basophils Absolute Auto 0.1 X10*3/uL (0.0-0.2); Basophils Percent Auto 0.6 % (0-2); Eosinophils Absolute Auto 0.1 X10*3/uL (0.0-0.4); Hematocrit 38.4 % (37.0-47.0); Hemoglobin 12.5 g/dl (12.0-16.0); Imm Gran Abs Auto 0.04 X10*3/uL (0.00-0.03); Imm Gran Pct Auto 0.4 % (0.0-0.4); Lymphocytes Absolute Auto 5.1 X10*3/uL (1.2-4.9); MANUAL DIFF FLAG SCAN; Mean Corpuscular HGB Conc 32.6 g/dl (31.0-35.0); Mean Corpuscular Volume 95.3 fL (80.0-98.0); Mean Platelet Volume 11.7 fL (9.4-12.3); Monocytes Absolute Auto 0.7 X10*3/uL (0.1-1.2); Monocytes Percent Auto 6.9 % (2-11); Neutrophils Absolute Auto 4.5 x10*3/uL (2.0-8.3); Neutrophils Percent Auto 43.1 % (45-73); Platelet Count 210 X10*3/uL (160-400); Red Blood Count 4.03 X10*6/uL (4.20-5.50); Red Cell Distribution Width 12.4 % (11.0-16.0); SCAN SMEAR FLAG 1; White Blood Count 10.5 X10*3/uL (4.8-10.8)
[2023-07-19 13:08] LABS: Alanine Aminotransferase 28 U/L (0-31); Albumin Level 4.2 g/dL (3.5-5.0); Alkaline Phosphatase 56 U/L (39-117); Anion Gap 10 (12-20); Aspartate Amino Transferase 27 U/L (5-31); Bilirubin Total 0.4 mg/dL (0.0-1.0); Blood Urea Nitrogen 30 mg/dL (9-16); C Reactive Protein 0.24 mg/dL (< or = 0.50); Calcium 10.4 mg/dL (8.4-10.2); Carbon Dioxide 29 mmol/L (22-29); Chloride 107 mmol/L (96-108); Estimated Glomerular Filt Rate > 60; Glucose Random 98 mg/dL (60-115); Potassium 3.9 mmol/L (3.3-5.1); Sodium 142 mmol/L (135-145); Total Protein 7.8 g/dL (6.5-8.0)
[2023-07-19 13:45] LABS: Erythrocyte Sedimentation Rate 25 MM/HR (0-20); SLIDE REVIEW VERIFIED
[2023-07-20 14:49] LABS: IgA 170 mg/dL (70-320); IgG 1234 mg/dL (600-1540); IgM 186 mg/dL (50-300)
[2023-07-20 22:03] LABS: Prot Elec - Albumin 4.1 g/dL (3.8-4.8); Prot Elec - Alpha1 0.3 g/dL (0.2-0.3); Prot Elec - Alpha2 0.8 g/dL (0.5-0.9); Prot Elec - Beta 1 0.4 g/dL (0.4-0.6); Prot Elec - Beta 2 0.4 g/dL (0.2-0.5); Prot Elec - Gamma 1.2 g/dL (0.8-1.7); Prot Elec - Total Protein 7.1 g/dL (6.1-8.1)
== END 2023-07-19 10:44 | disposition home or self-care (01) ==
LOC: HO.LAB 10:43
PROVIDERS: PCP Registered Nurse; Visit Provider Nurse Practitioner Family
DX: R74.01 Elevation of levels of liver transaminase levels (principal); L40.50 Arthropathic psoriasis, unspecified; M25.512 Pain in left shoulder; M19.041 Primary osteoarthritis, right hand; M19.042 Primary osteoarthritis, left hand; Z79.899 Other long term (current) drug therapy
CPT/HCPCS: 36415; 80053; 82784; 84165; 85025; 85652; 86140; 99212

== ENCOUNTER 2023-07-19 10:43 | Outpatient (AMB) | payer MEDICARE, MEDICAID, SELFPAY ==
--- NOTE | 2023-07-19 10:50 | MHC.OFFVIS ---
Vital Signs 07/19/23 11:01 Height 5 ft 4 in Weight 236 lb 5.369 oz BMI 40.6 BP 134/82 Blood Pressure Location Rt brachial Position Sitting Pulse 87 Pulse Source Pulse Oximeter Pulse Oximetry (%) 93 Oxygen Delivery Method Room Air Intake Visit Reasons: PSA Intake Note: Patient last seen 03/23/[address] Ramos, presents today for follow up and test results. 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 Mckeon is a pleasant 67 year old female who returns for follow-up of her psoriatic arthritis, psoriasis and osteoarthritis. Her daughter translates for us today. The patient reports that her insurance has notified her of the change from Humira to Cyltezo. Since then she has had 1 injection of Cyltezo 40 mg. She says that with Humira she normally feels onset of stiffness and mild soreness 3-4 days before the next injection is due. However, with Cyltezo she feels the onset of stiffness about 1-2 days before the next injection is due. She continues to feel improved on 40mg QOW. The left shoulder pain has also resolved. She has had no new illnesses since last visit. 03/2023 Ms. Mckeon is a pleasant 67 year old female who returns for follow-up of her psoriatic arthritis, psoriasis and osteoarthritis. Her daughter translates for us today. She was started on HUMIRA 4mg QOW at last visit. The patient reports she is feeling so much better , there is a big improvement in most of her pains; she can walk and do house chores without being in pain. Within 1 day of the next injection she can feel it mostly in her feet, mostly across the instep and MTP regions but sometimes in the left heel; then she knows the medication is really working. She is taking also some acetaminophen but not as much as before. She also has diclofenac. She has remained on famotidine at bedtime for GERD. The psoriasis on her scalp is cleared. Today there is pain in her left shoulder. It started last week when she went to reach for something and she felt. Sailaja has had this pain before and reports it was improved with Prednisone. [facility] Medical History (Updated 08/03/23 @ 07:28 by MAMI Bach) Left shoulder pain Urinary incontinence On beta melvin at home Anxiety TATUM (obstructive sleep apnea) Asthma Elevated cholesterol PONV (postoperative nausea and vomiting) Colon cancer screening Dislocation of distal interphalangeal (DIP) joint of finger Uterine prolapse Lumbar spondylolysis Psoriatic arthritis IBS (irritable bowel syndrome) Arthritis Morbidly obese GERD (gastroesophageal reflux disease) HTN (hypertension) Surgical History H/O arthrodesis Hx of colonoscopy History of blepharoplasty History of pubovaginal sling History of total left knee replacement History of total right knee replacement (TKR) Hx of appendectomy Hx of cholecystectomy Family History Mother HTN (hypertension) Diabetes Father Throat cancer Sister Heart problem Social History Household Members Other:: daughter Are you a primary healthcare associate to a significant other at home: No 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) Alcohol intake: never Patient Tobacco Use Status: Never used Tobacco e-Cigarette/Vaping Use: Never Used Current occupational status: disabled 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 SKIN: Reduced patches of scaling and redness of the scalp, only one spot observed today Elsewhere no inflammatory or neoplastic lesions. Normal color and turgor JOINT EXAM: Cervical Spine: Full range of motion without pain; no tenderness over the cervical spine.? Tenderness to palpation over the cervical spinal muscles Lumbar Spine: Mild pain with extremes of motion. No tenderness. Hands:?? ? Left:? very mild tenderness to palpation of the IP thumb joint, also with bony enlargement.? No tenderness to palpation 2nd DIP with Heberden's node as before.? No swelling, increased warmth or erythema.? Able to make a fist. No synovitis appreciated. Right: healed scar over the thumb, fixed at the IP joint,? no erythema, swelling or warmth noted. Able to make a full fist and oppose thumb to the 2nd, 3rd, 4th and 5th digits without pain. No tenderness to palpation of the MCPs and PIPs. Heberdens nodes present. No synovitis appreciated. Wrists:? Normal pain-free range of motion without tenderness, swelling, increased warmth or erythema. Elbows: Normal pain-free range of motion without tenderness, swelling, increased warmth or erythema. Shoulders:?LEFT:? improved since last visit with increase range of motion without pain, still some mild tenderness and but ni swelling, increased warmth or erythema; Can lift arms ? RIGHT:? Pain-free range of motion without tenderness, swelling, increased warmth or erythema. Knees:?? Right: no pains with the extremes of normal ROM. Slight tenderness on the medial joint marging. Scar well healed and non-tender. Left: Normal pain-free range of motion without tenderness, swelling, increased warmth or erythema.? There is no effusion or crepitation; well-healed arthroplasty scar noted. Ankles:? Normal pain-free range of motion with mild medial and lateral tenderness but no swelling, increased warmth or erythema. Feet:? LEFT:? Bunion deformity 1st MTP. Normal pain-free range of motion.? Tenderness to palpation at instep in all the MTP joints. No sausage digits or inflammation of the digits themselves. Slight medial heel tenderness. ? RIGHT:? Bunion deformity 1st MTP.? Normal pain-free range of motion.? Mild tenderness in the instep and the MTPs. Mild medial heel tenderness. No other tenderness swelling, increased warmth or erythema.? No dactylitis. 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 Not restarted- no signs of active disease on exam, skin clear no psoriasis. Humira Started 01/2023 Code(s): L40.50 - Arthropathic psoriasis, unspecified Category: Medical (6) Left shoulder pain: Code(s): M25.512 - Pain in left shoulder Category: Medical Qualifiers: Chronicity: acute Qualified Code(s): M25.512 - Pain in left shoulder Plan #PsA/PsO/OA: With the addition of the Humira she continues with to have remarkable improvement and resoltuion in pain and swelling, especially the feet. Her psoriasis has improved as well, ESR significantly reduced from 30 to 25 and CRP normalized. Insurance has exchanged Humira for Cyltezo, therefore we will continue salt she is a 40 mg every other week. She can continue with the diclofenac p.r.n. as she reports that does help to ease the OA related discomfort. We will obtain labs today to see if the ESR/CRP have normalized. 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 They were elevated although she has not had leflunomide and methotrexate since 2021. She has negative serologies for hepatitis infection and T spot testing. Discussed with patient to hold medication in the event of a fever, infection, surgery and non-healing wound. We will continue to monitor CBC, CMP, ESR, CRP. #Left Shoulder Pain: Resolved with Prednisone. Review of chart, exam, and documentation took 30 minutes. Orders: Orders C Reactive Protein 07/19/23 Z79.899 - Other exterminator termite (current) drug therapy, L40.50 - Arthropathic psoriasis, unspecified Erythrocyte Sedimentation Rate 4 Months L40.50 - Arthropathic psoriasis, unspecified Comprehensive Met. Panel 4 Months L40.50 - Arthropathic psoriasis, unspecified Erythrocyte Sedimentation Rate 07/19/23 Z79.899 - Other exterminator termite (current) drug therapy, L40.50 - Arthropathic psoriasis, unspecified Comprehensive Met. Panel 07/19/23 Z79.899 - Other half-way (current) drug therapy, L40.50 - Arthropathic psoriasis, unspecified Complete Blood Count Auto Diff 07/19/23 Z79.899 - Other half-way (current) drug therapy, L40.50 - Arthropathic psoriasis, unspecified Immunoglobulins,IgG IgA IgM 07/19/23 Z79.899 - Other half-way (current) drug therapy, L40.50 - Arthropathic psoriasis, unspecified Protein Electrophoresis, Serum 07/19/23 Z79.899 - Other half-way (current) drug therapy, L40.50 - Arthropathic psoriasis, unspecified Complete Blood Count Auto Diff 4 Months L40.50 - Arthropathic psoriasis, unspecified C Reactive Protein 4 Months L40.50 - Arthropathic psoriasis, unspecified Medications: Refilled adalimumab-adbm (Cyltezo(CF) Pen) 40 mg (0.8 mL) subcut Q2W 2 ea 3RF L40.50 - Arthropathic psoriasis, unspecified Coding Level of Care Code Est Pt Level 4 (34154) Diagnoses [facility] use of drug Z Elevated transaminase level R74.01 Osteoarthritis of fingers of both hands M19.041; M19.042 Psoriasis L40.9 Psoriatic arthritis L40.50 Acute pain of left shoulder M25.512 Chronicity: acute
[2023-07-19 11:01] VITALS: BP 134/82; PULSE 87; O2SAT 93; BMI 40.6
== END 2023-07-19 11:26 | disposition home or self-care (01) ==
PROVIDERS: PCP Registered Nurse; Visit Provider Nurse Practitioner Family
DX: Z79.899 Other long term (current) drug therapy (principal); R74.01 Elevation of levels of liver transaminase levels; M19.041 Primary osteoarthritis, right hand; M19.042 Primary osteoarthritis, left hand; L40.9 Psoriasis, unspecified; L40.50 Arthropathic psoriasis, unspecified; M25.512 Pain in left shoulder
CPT/HCPCS: 99214

== ENCOUNTER 2023-11-12 09:23 | Outpatient (REF) | payer MEDICARE, MEDICAID, SELFPAY ==
--- NOTE | ~2023-11-12 | US_ITS ---
EXAMINATION: US ABDOMEN LIMITED CLINICAL INFORMATION: 68-year-old female with a history of fatty liver. COMPARISON: Ultrasound abdomen limited 10/23/2022. TECHNIQUE: Real-time imaging of the right upper quadrant abdominal viscera. Limited visualization due to bowel gas. FINDINGS: PANCREAS: Limited visualization of pancreatic tail and head. Imaged portion of pancreatic body is unremarkable. LIVER: Hepatomegaly, 18.0 cm. Increased hepatic parenchymal heterogeneity and echogenicity could be associated with hepatocellular disease/hepatic steatosis and substantially limits visualization. Correlation with liver function tests and clinical exam recommended to determine further management. GALLBLADDER: Surgically absent. COMMON BILE DUCT: Normal in caliber measuring 0.9 cm in diameter. RIGHT KIDNEY: No hydronephrosis. No renal calculi. Limited visualization. The kidney measures 11.6 cm in maximum dimension. FREE FLUID: None. US/US abdomen limited IMPRESSION: 1. Hepatomegaly, 18.0 cm. Increased hepatic parenchymal heterogeneity and echogenicity could be associated with hepatocellular disease/hepatic steatosis and substantially limits visualization. Correlation with liver function tests and clinical exam recommended to determine further management. 2. Gallbladder surgically absent.
== END 2023-11-12 09:24 | disposition home or self-care (01) ==
LOC: HO.US 09:23
PROVIDERS: PCP Registered Nurse; Visit Provider Registered Nurse
DX: K76.0 Fatty (change of) liver, not elsewhere classified (principal)
CPT/HCPCS: 76705

== ENCOUNTER 2023-11-16 09:55 | Outpatient (REF) | payer MEDICARE, MEDICAID, SELFPAY ==
[2023-11-16 10:53] LABS: MANUAL DIFF FLAG NO
[2023-11-16 11:05] LABS: Basophils Percent Auto 0.5 % (0-2); Eosinophils Absolute Auto 0.1 X10*3/uL (0.0-0.4); Eosinophils Percent Auto 1.5 % (0-4); Hematocrit 41.1 % (37.0-47.0); Hemoglobin 13.2 g/dl (12.0-16.0); Imm Gran Abs Auto 0.02 X10*3/uL (0.00-0.03); Imm Gran Pct Auto 0.2 % (0.0-0.4); Lymphocytes Percent Auto 45.2 % (20-40); Mean Corpuscular HGB Conc 32.1 g/dl (31.0-35.0); Mean Corpuscular Hemoglobin 30.7 pg (27.0-33.0); Mean Corpuscular Volume 95.6 fL (80.0-98.0); Monocytes Absolute Auto 0.5 X10*3/uL (0.1-1.2); Monocytes Percent Auto 6.1 % (2-11); Neutrophils Absolute Auto 4.1 x10*3/uL (2.0-8.3); Neutrophils Percent Auto 46.5 % (45-73); Platelet Count 231 X10*3/uL (160-400); Red Cell Distribution Width 13.2 % (11.0-16.0); White Blood Count 8.8 X10*3/uL (4.8-10.8)
[2023-11-16 11:32] LABS: Alanine Aminotransferase 38 U/L (0-31); Albumin Level 4.4 g/dL (3.5-5.0); Alkaline Phosphatase 62 U/L (39-117); Anion Gap 13 (12-20); Aspartate Amino Transferase 39 U/L (5-31); Bilirubin Total 0.4 mg/dL (0.0-1.0); Blood Urea Nitrogen 28 mg/dL (9-16); C Reactive Protein 0.61 mg/dL (< or = 0.50); Calcium 9.8 mg/dL (8.4-10.2); Carbon Dioxide 32 mmol/L (22-29); Chloride 100 mmol/L (96-108); Cholesterol 211 mg/dL (<200); Estimated Glomerular Filt Rate 57; Glucose Random 114 mg/dL (60-115); HDL Cholesterol 45 mg/dL (>40); LDL Cholesterol Calculated 102 mg/dL (<100); Potassium 3.7 mmol/L (3.3-5.1); Sodium 141 mmol/L (135-145); TSH reflex Free T4 0.96 uIU/mL (0.32-4.0); Total Protein 7.9 g/dL (6.5-8.0); Triglycerides 324 mg/dL (<150); Vitamin D 25-OH Total 50.8 ng/mL (>30)
[2023-11-16 11:48] LABS: Creatinine Urine 133.07 mg/dL
[2023-11-16 11:49] LABS: Folate 11.9 ng/mL (> or = 4.0); Vitamin B12 768 pg/mL (200-900)
[2023-11-16 12:10] LABS: Estimated Average Glucose 100 mg/dL; Hemoglobin A1c % 5.1 % (<6.0)
[2023-11-16 12:46] LABS: Erythrocyte Sedimentation Rate 34 MM/HR (0-20)
[2023-11-17 15:18] LABS: HCV Log PCR <1.18 NOT DETECTED Log IU/mL (NOT DETECTED); HepC Viral Load <15 NOT DETECTED IU/mL (NOT DETECTED)
[2023-11-18 04:03] LABS: HIV AB/AG Nonreactive (Nonreactive); HIV Num 1 0.04 S/CO (0.00-0.99)
[2023-11-20 08:58] LABS: RPR Rapid Plasma Reagin NON-REACTIVE (NON-REACTIVE)
== END 2023-11-16 09:56 | disposition home or self-care (01) ==
LOC: HO.HHCL 09:55
PROVIDERS: Nurse Practitioner Family; Visit Provider Registered Nurse
DX: Z00.00 Encounter for general adult medical examination without abnormal findings (principal); L40.50 Arthropathic psoriasis, unspecified; Z68.41 Body mass index [BMI] 40.0-44.9, adult; Z11.3 Encounter for screening for infections with a predominantly sexual mode of transmission; Z13.1 Encounter for screening for diabetes mellitus
CPT/HCPCS: 36415; 80053; 80061; 82043; 82105; 82306; 82570; 82607; 82746; 83036; 83735; 84443; 85025; 85652; 86140; 86592; 87389; 87522

== ENCOUNTER 2024-01-17 08:49 | Outpatient (AMB) | payer MEDICARE, MEDICAID, SELFPAY ==
--- NOTE | 2024-01-17 08:56 | A.OFFVIS_ITS ---
Vital Signs 01/17/24 09:02 Height 5 ft 4 in Weight 236 lb BMI 40.5 Intake Visit Reasons: Unstable right knee Intake Note: Linda is a 68 year old female who presents with complaints of ?a loose feeling? in her right knee after undergoing right total knee replacement surgery in [place] approximately 20 years ago performed by another provider. The patient denies any recent trauma. She reports mild intermittent discomfort in her right knee as well. She states that her right knee will give out several times per day. She has been walking with a cane because of her instability. She denies any fevers or chills. Allergies tramadol [TRAMADOL] Allergy (Intermediate, Verified 01/17/24 08:59) RASH, itching, rash oxycodone Allergy (Verified 01/17/24 08:59) Rash Medication List - Last Reconciled 01/17/24 by Rakan Bah MD acetaminophen ER (Tylenol Arthritis Pain) 650 mg PO Q8H PRN adalimumab-adbm (Cyltezo(CF)) 40 mg (0.8 mL) subcut Q2W albuterol sulfate 90 mcg/actuation 2 puffs inhalation Q6H PRN cholestyramine-aspartame 4 gram (Cholestyramine Light) 4 grams PO BID 30 days citalopram 20 mg PO DAILY clonazepam 0.25 mg PO BID cyclobenzaprine 10 mg PO TID PRN diclofenac sodium 75 mg PO BID diclofenac sodium 1% 2 grams topical BID PRN famotidine 20 mg PO BEDTIME fluticasone propion-salmeterol 45-21 mcg/actuation (Advair HFA) inhalation fluticasone propionate 50 mcg/actuation sprays intranasal furosemide 20 mg PO DAILY hydroxyzine HCl 25 mg PO BID lisinopril-hydrochlorothiazide 20-25 mg 1 tab PO DAILY melatonin 5 mg PO BEDTIME metoprolol tartrate 25 mg PO DAILY omeprazole 20 mg PO DAILY oxybutynin chloride ER 15 mg PO DAILY 90 days prednisone 3 tablets x 3 days 2 tablets per day x 5 days, 1 tablet per day x 5 days stop quetiapine 25 mg PO BEDTIME sennosides-docusate sodium 8.6-50 mg (Senexon-S) tabs PO simvastatin 40 mg PO BEDTIME trazodone 100 mg PO BEDTIME [facility] Medical History (Updated 01/11/24 @ 13:33 by Rakan Bah MD) Left shoulder pain Urinary incontinence On beta melvin at home Anxiety TATUM (obstructive sleep apnea) Asthma Elevated cholesterol PONV (postoperative nausea and vomiting) Colon cancer screening Dislocation of distal interphalangeal (DIP) joint of finger Uterine prolapse Lumbar spondylolysis Psoriatic arthritis IBS (irritable bowel syndrome) Arthritis Morbidly obese GERD (gastroesophageal reflux disease) HTN (hypertension) Surgical History H/O arthrodesis Hx of colonoscopy History of blepharoplasty History of pubovaginal sling History of total left knee replacement History of total right knee replacement (TKR) Hx of appendectomy Hx of cholecystectomy Family History Mother HTN (hypertension) Diabetes Father Throat cancer Sister Heart problem Social History Household Members Other:: daughter Are you a primary gericare aide to a significant other at home: No 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) Alcohol intake: never Patient Tobacco Use Status: Never used Tobacco e-Cigarette/Vaping Use: Never Used Current occupational status: disabled 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 Physical Exam Vital Signs: BMI result Body Mass Index 40.5 Const Other: Well-nourished well-developed very friendly female awake alert and oriented x3 in no acute distress Extrem Other: Right knee examination shows that the surgical incision is well healed, no erythema, full active extension and flexion to 115 degrees, mild discomfort with varus and valgus stress testing, no gross instability Results Reviewed Results Reviewed: X-rays of the patient's right knee show a total knee arthroplasty in good position with no obvious signs of gross loosening Assessment & Plan Assessment & Plan (1) Instability of right knee joint: Code(s): M25.361 - Other instability, right knee Plan Ms. Hand presents with right knee discomfort and symptoms of instability after undergoing right total knee replacement surgery approximately 20 years ago of unclear etiology. Thus, I had her fitted with a knee brace to help with her symptoms of instability. I do feel that the knee braces a medical necessity to help prevent future falls. I will also send the patient for a CT scan of her right knee for further evaluation. Following the CT scan I will have her evaluated by my partner, Dr. Marinelli, for further input regarding her treatment options. Feel free to call me at any time should questions regarding her orthopedic management arise. I spent 22 minutes in reviewing the patient's records and imaging studies, seeing the patient and documenting in the medical record. Orders: Orders XR knee RT 3V Today M25.561 - Pain in right knee CT knee RT wo IV con Today M25.361 - Other instability, right knee Coding Level of Care Code New Pt Level 3 (78855) Complex EM visit Add On G2211 Diagnoses Instability of right knee joint M25.361
[2024-01-17 09:02] VITALS: BMI 40.5
== END 2024-01-17 09:14 | disposition home or self-care (01) ==
PROVIDERS: PCP Registered Nurse; Visit Provider Orthopaedic Surgery
DX: M25.361 Other instability, right knee (principal); Z96.651 Presence of right artificial knee joint
CPT/HCPCS: 99203; G2211

== ENCOUNTER 2024-01-17 14:15 | Outpatient (REF) | payer MEDICARE, MEDICAID, SELFPAY ==
--- NOTE | ~2024-01-17 | XR_ITS ---
EXAMINATION: XR KNEE, RIGHT CLINICAL INFORMATION: Pain in right knee COMPARISON: X-ray of both knees upright February 2019. No lateral view. TECHNIQUE: 3 views of the right knee FINDINGS: There is a total knee arthroplasty in place. The components are in the usual position and are unchanged. There is no periprosthetic fracture or surrounding abnormal lucency. There is no effusion. There is some minimal calcification anterior to the patella in the soft tissues likely old related to calcification related to a prior trauma or fat necrosis or. Similar finding also present anterior to the quadriceps tendon. Several osseous fragments noted posterior to the joint likely reflecting loose bodies likely pre-existing prior to the arthroplasty. XR/XR knee RT 3V IMPRESSION: 1. Right total knee arthroplasty without complication by x-ray. 2. Chronic changes as described. Electronically signed by: Reggie Irwin MD 01/23/2024 11:11 AM EDT
== END 2024-01-17 14:16 | disposition home or self-care (01) ==
LOC: HO.HOSX 14:15
PROVIDERS: Visit Provider Orthopaedic Surgery
DX: M25.561 Pain in right knee (principal)
CPT/HCPCS: 73562; 99202

== ENCOUNTER 2024-01-29 09:26 | Outpatient (AMB) | payer MEDICARE, MEDICAID, SELFPAY ==
--- NOTE | 2024-01-29 09:29 | A.OFFVIS_ITS ---
Vital Signs 01/29/24 09:34 Height 5 ft 4 in Weight 234 lb 2.095 oz BMI 40.2 BP 112/72 Blood Pressure Location Lt brachial Position Sitting Pulse 110 H Pulse Source Pulse Oximeter Pulse Oximetry (%) 97 Oxygen Delivery Method Room Air Intake Visit Reasons: PsO/PsA on Humira Intake Note: Patient presents for Pso/PsA. Deputy Clerk Required: Yes Deputy Clerk Services: Deputy Clerk Offered & Declined Deputy Clerk Name: Aydee Sosa ([employer]) Information Interpreted: non-clinical & clinical Allergies tramadol [TRAMADOL] Allergy (Intermediate, Verified 01/29/24 09:34) RASH, itching, rash oxycodone Allergy (Verified 01/29/24 09:34) Rash Medication List - Last Reconciled 01/29/24 by Sana Lyle MD acetaminophen ER (Tylenol Arthritis Pain) 650 mg PO Q8H PRN adalimumab-adbm (Cyltezo(CF)) 40 mg (0.8 mL) subcut Q2W albuterol sulfate 90 mcg/actuation 2 puffs inhalation Q6H PRN cholestyramine-aspartame 4 gram (Cholestyramine Light) 4 grams PO BID 30 days citalopram 20 mg PO DAILY clonazepam 0.25 mg PO BID cyclobenzaprine 10 mg PO TID PRN diclofenac sodium 75 mg PO BID diclofenac sodium 1% 2 grams topical BID PRN famotidine 20 mg PO BEDTIME fluticasone propion-salmeterol 45-21 mcg/actuation (Advair HFA) inhalation fluticasone propionate 50 mcg/actuation sprays intranasal furosemide 20 mg PO DAILY hydroxyzine HCl 25 mg PO BID lisinopril-hydrochlorothiazide 20-25 mg 1 tab PO DAILY melatonin 5 mg PO BEDTIME metoprolol tartrate 25 mg PO DAILY omeprazole 20 mg PO DAILY oxybutynin chloride ER 15 mg PO DAILY 90 days prednisone 3 tablets x 3 days 2 tablets per day x 5 days, 1 tablet per day x 5 days stop quetiapine 25 mg PO BEDTIME sennosides-docusate sodium 8.6-50 mg (Senexon-S) tabs PO simvastatin 40 mg PO BEDTIME trazodone 100 mg PO BEDTIME HPI Comments Details: This is a 68-year-old female with psoriatic arthritis who presents for follow- up. She states that she fell in the bathtub 3 days ago. She states that she was moving fast. She fell on her buttocks. She has been having lower back pain. She states that she has other joint pains involving her knees in her hands but no significant swelling. No significant skin rashes. Compliant with adalimumab injection every 2 weeks [facility] Medical History Left shoulder pain Urinary incontinence On beta melvin at home Anxiety TATUM (obstructive sleep apnea) Asthma Elevated cholesterol PONV (postoperative nausea and vomiting) Colon cancer screening Dislocation of distal interphalangeal (DIP) joint of finger Uterine prolapse Lumbar spondylolysis Psoriatic arthritis IBS (irritable bowel syndrome) Arthritis Morbidly obese GERD (gastroesophageal reflux disease) HTN (hypertension) Surgical History H/O arthrodesis Hx of colonoscopy History of blepharoplasty History of pubovaginal sling History of total left knee replacement History of total right knee replacement (TKR) Hx of appendectomy Hx of cholecystectomy Family History Mother HTN (hypertension) Diabetes Father Throat cancer Sister Heart problem Cancer Social History Household Members Other:: daughter Are you a primary critical care rn to a significant other at home: No Do you presently have 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 home services: Yes ([employer]) Alcohol intake: never Patient Tobacco Use Status: Never used Tobacco e-Cigarette/Vaping Use: Never Used Current occupational status: disabled 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[employer] [facility] Reports back pain and Reports arthralgias Physical Exam Vital Signs: Last Vital Signs Pulse 110 H 01/29/24 09:34 BP 112/72 01/29/24 09:34 Pulse Ox 97 01/29/24 09:34 Oxygen Delivery Method Room Air 01/29/24 09:34 BMI result Body Mass Index 40.2 Const General: cooperative, healthy appearing and comfortable Nutritional Appearance: obese morbidly obese Orientation/consciousness: patient oriented x3 Limitations: ambulation with cane HEENT Head: Yes normocephalic and Yes atraumatic Mouth: moist mucous membranes Resp Effort & Inspection: normal respiratory effort and able to speak in complete sentences Skin General skin exam: no rashes or lesions noted Neuro General: patient oriented x3 Extrem Other: No active synovitis Spinal tenderness to palpation at the lower lumbar area Assessment & Plan Assessment & Plan (1) Psoriatic arthritis: Comment: Methotrexate: Dates unavailable Leflunomide: approximately 2016 possibly earlier - self stopped September 2021. Not restarted- no signs of active disease on exam, skin clear no psoriasis. Humira Started 01/2023 effective Code(s): L40.50 - Arthropathic psoriasis, unspecified Category: Medical Plan: This is a 68-year-old female with psoriasis and psoriatic arthritis who presents for follow-up. On adalimumab 40 mg every other week with good control of her disease. I do not see any active synovitis on exam. No active psoriasis rashes on exam. 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 Patient fully aware. Advised patient to seek medical care RONALD if patient has an infection and advised patient to stop the medication until the infection is resolved. (3) Psoriasis: Code(s): L40.9 - Psoriasis, unspecified Category: Medical Plan: No active psoriasis rashes today (4) Fall: Code(s): W19.XXXA - Unspecified fall, initial encounter Category: Medical Qualifiers: Encounter type: initial encounter Qualified Code(s): W19.XXXA - Unspecified fall, initial encounter Plan: Patient fell on her buttocks in the bathtub. Complaining of lower back pain. Advised patient that she needs x-rays to rule out a fracture. She is adamant that she does not want any further x-rays. Follow-up with PCP Plan I spent 25 minutes reviewing patient's chart, evaluating patient, ordering diagnostic workup, counseling patient and documenting in the chart Orders: Orders Complete Blood Count Auto Diff 6 Months L40.50 - Arthropathic psoriasis, unspecified Comprehensive Met. 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
[2024-01-29 09:34] VITALS: BP 112/72; PULSE 110; O2SAT 97; BMI 40.2
== END 2024-01-29 09:58 | disposition home or self-care (01) ==
PROVIDERS: PCP Registered Nurse; Visit Provider Student in an Organized Health Care Education/Training Program
DX: L40.50 Arthropathic psoriasis, unspecified (principal); Z79.899 Other long term (current) drug therapy; L40.9 Psoriasis, unspecified; W19.XXXA Unspecified fall, initial encounter
CPT/HCPCS: 99214; G2211

== ENCOUNTER → 2024-01-29 09:26 | Outpatient (BNVA) | payer MEDICARE, MEDICAID, SELFPAY | PROVIDERS: PCP Registered Nurse; Visit Provider Student in an Organized Health Care Education/Training Program | DX: L40.50 Arthropathic psoriasis, unspecified (principal); L40.9 Psoriasis, unspecified; Z91.81 History of falling; Z79.620 Long term (current) use of immunosuppressive biologic; Z79.899 Other long term (current) drug therapy | CPT/HCPCS: 99212 ==

== ENCOUNTER 2024-02-12 15:51 | Emergency (ER) | payer MEDICARE, MEDICAID, SELFPAY ==
--- NOTE | ~2024-02-12 | CT_ITS ---
EXAMINATION: CT HEAD WITHOUT CONTRAST CLINICAL INFORMATION: Headache, dizziness COMPARISON: None available. TECHNIQUE: Contiguous axial imaging was performed from the skull base to vertex without intravenous administration of contrast. This CT examination was performed using dose optimization techniques as appropriate, variously including the following: *Automated exposure control *Adjustment of mA and/or kV according to patient size (this includes techniques or standardized protocols for targeted exams where dose is matched to indication/reason for exam; i.e. extremities or head) *Use of iterative reconstruction technique DLP: 824 mGy-cm FINDINGS: There is no evidence of acute intracranial hemorrhage or territorial infarction. No abnormal mass effect or midline shift is seen. Atkins to white matter differentiation is well preserved. No extra-axial fluid collections are identified. The ventricles are normal in size. There is no abnormal attenuation within the brain parenchyma. The osseous structures and soft tissues are normal. The mastoid air cells and visualized portions of the paranasal sinuses are well-aerated. CT/CT head/brain wo IV con IMPRESSION: No acute intracranial pathology. Electronically signed by: Pa Mckinney MD 02/12/2024 05:58 PM [facility]
--- NOTE | ~2024-02-12 | XR_ITS ---
EXAMINATION: XR CHEST CLINICAL INFORMATION: Chest pain COMPARISON: Chest radiograph from 07/17/2022 TECHNIQUE: 2 views of the chest were obtained. FINDINGS: Slight bibasilar atelectasis. Fullness in the right infrahilar region potentially representing summation artifact versus lymphadenopathy. No pneumothorax. Trachea is midline. Cardiac mediastinal silhouette is stable. No large pleural effusion. Osseous structures are intact. Soft tissues are unremarkable. XR/XR chest 2V IMPRESSION: 1. Slight bibasilar atelectasis. 2. Fullness in the right infrahilar region potentially representing summation artifact versus lymphadenopathy. Electronically signed by: Bri Nuñez MD 02/12/2024 04:48 PM EST
[2024-02-12 16:06] VITALS: BP 180/100; PULSE 75; O2SAT 91
[2024-02-12 16:19] VITALS: BP 110/62; PULSE 72; RESP 18; TEMP 36.5; O2SAT 93; BMI 39.5
--- NOTE | 2024-02-12 16:20 | ED.ANXIETY ---
HPI - Anxiety General Chief Complaint: Dizziness Stated Complaint: flu like symptoms x6hrs Time Seen by Provider: 02/12/24 16:20 Source: patient Mode of arrival: ambulatory Limitations: no limitations History of Present Illness ED Provider: Dr. Alondra Lr HPI narrative: Patient comes to the emergency room complaining of spinning sensation. Patient states that earlier today she was at home, sitting, all of a sudden she had room spinning sensation. The patient states that she has had vertigo in the past, last episode 3 years ago. Patient states that she did not have any medication. Patient checked her blood pressure, was in the 140s. Patient denies chest pain or shortness of breath. Patient believes that she has been having flu-like symptoms for couple of days, believes that may have triggered her vertigo. Patient denies syncope or near syncope. Patient states that by the time she arrived to the hospital, her symptoms of vertigo nearly resolved. At this time, it is very minimal. Related Data Home Medications ?Medication ?Instructions ?Recorded ?Confirmed albuterol sulfate 90 mcg/actuation 2 puff inhalation Q6H PRN Wheezing 04/13/20 01/29/24 aerosol inhaler citalopram 20 mg tablet 20 mg PO DAILY 04/13/20 01/29/24 clonazepam 0.5 mg tablet 0.25 mg PO BID 04/13/20 01/29/24 melatonin 5 mg capsule 5 mg PO BEDTIME 02/07/21 01/29/24 fluticasone propionate 50 spray intranasal 02/14/21 01/29/24 mcg/actuation nasal spray,suspension hydroxyzine HCl 25 mg tablet 25 mg PO BID 02/14/21 01/29/24 lisinopril 20 1 tab PO DAILY 02/14/21 01/29/24 mg-hydrochlorothiazide 25 mg tablet fluticasone propionate 45 inhalation 09/20/22 01/29/24 mcg-salmeterol 21 mcg/actuation HFA inhaler (Advair HFA) omeprazole 20 mg capsule,delayed 20 mg PO DAILY 09/20/22 01/29/24 release quetiapine 25 mg tablet 25 mg PO BEDTIME 09/20/22 01/29/24 simvastatin 40 mg tablet 40 mg PO BEDTIME 09/20/22 01/29/24 trazodone 100 mg tablet 100 mg PO BEDTIME 09/20/22 01/29/24 furosemide 20 mg tablet 20 mg PO DAILY 01/10/23 01/29/24 metoprolol tartrate 25 mg tablet 25 mg PO DAILY 01/10/23 01/29/24 sennosides 8.6 mg-docusate sodium tab PO 01/10/23 01/29/24 50 mg tablet (Senexon-S) Previous Rx's ?Medication ?Instructions ?Recorded cholestyramine-aspartame 4 gram 4 g PO BID 30 days #210 grams 02/14/21 oral powder (Cholestyramine Light) oxybutynin chloride 15 mg 15 mg PO DAILY 90 days #90 tabs 12/19/21 tablet,extended release 24 hr acetaminophen 650 mg 650 mg PO Q8H PRN pain #90 tabs 03/13/22 tablet,extended release (Tylenol Arthritis Pain) cyclobenzaprine 10 mg tablet 10 mg PO TID PRN muscle spasm #14 07/17/22 tabs famotidine 20 mg tablet 20 mg PO BEDTIME #30 tabs 07/17/22 diclofenac sodium 1 % topical gel 2 g topical BID PRN for pain #100 09/17/23 grams prednisone 5 mg tablet See Rx Instructions PO DIRECTED 10/09/23 #30 tabs adalimumab-adbm 40 mg/0.8 mL 40 mg (0.8 mL) subcut Q2W #2 kits 01/02/24 subcutaneous syringe kit (Visiarc(HoozOn)) meclizine 50 mg tablet 50 mg PO BID PRN dizziness #14 tabs 02/12/24 Allergies Allergy/AdvReac Type Severity Reaction Status Date / Time tramadol [TRAMADOL] Allergy Intermediate RASH, Verified 02/12/24 16:22 itching, rash oxycodone Allergy Rash Verified 02/12/24 16:22 Review of Systems Review of Systems: Constitutional : No Weight loss, No Fever, No Chills, No Night Sweats, No Fatigue, No Malaise ENT/Mouth : No Hearing loss, No Ear Pain, No Nasal Congestion, No Sinus Pain, No Hoarseness, No sore throat, No Rhinorrhea, No Swallowing Difficulty Eyes: No Eye Pain, No Swelling, No Redness, No Foreign Body, No Discharge, No Vision Changes Cardiovascular : No Chest Pain, No SOB, No Dyspnea on Exertion, No Orthopnea, No Edema, No Palpitations Respiratory : No Cough, No Sputum, No Wheezing, No Smoke Exposure, No Dyspnea Gastrointestinal : No Nausea, No Vomiting, No Diarrhea, No Constipation, No abdominal Pain, No Hematochezia, No Melena Genitourinary : no irregular bleeding, No Dysuria, No Urinary Frequency, No Hematuria, No Urinary Incontinence, No Urgency, No Flank Pain, No Urinary Flow Changes, No Hesitancy Musculoskeletal : No joint pain, No Myalgias, No Joint Swelling Skin : No Skin Lesions, No rash Neuro : No Weakness, No Numbness, No Paresthesias, No Loss of Consciousness, no headache, complaining of vertigo Psych : No Anxiety/Panic, No Depression, No SI/HI/AH/VH, No Social Issues, Heme/Lymph: No Bruising, No Bleeding,No Lymphadenopathy Endocrine : No Polyuria, No Polydipsia, No Temperature Intolerance PMFSH Past Medical History Medical History Left shoulder pain Urinary incontinence On beta melvin at home Anxiety TATUM (obstructive sleep apnea) Asthma Elevated cholesterol PONV (postoperative nausea and vomiting) Colon cancer screening Dislocation of distal interphalangeal (DIP) joint of finger Uterine prolapse Lumbar spondylolysis Psoriatic arthritis IBS (irritable bowel syndrome) Arthritis Morbidly obese GERD (gastroesophageal reflux disease) HTN (hypertension) Surgical History H/O arthrodesis Hx of colonoscopy History of blepharoplasty History of pubovaginal sling History of total left knee replacement History of total right knee replacement (TKR) Hx of appendectomy Hx of cholecystectomy Family History Family History Mother HTN (hypertension) Diabetes Father Throat cancer Sister Heart problem Cancer Social History Social History Household Members Other:: daughter Are you a primary healthcare business analyst to a significant other at home: No Do you presently have 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 home services: Yes ([employer]) Alcohol intake: never Patient Tobacco Use Status: Never used Tobacco e-Cigarette/Vaping Use: Never Used Current occupational status: disabled 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 Oriented X3. No acute distress. Eyes: Pupils equal, round and reactive to light. No nystagmus ENT: Pharynx normal. Neck: Normal inspection. Neck supple. No lymph nodes noted. No crepitus CVS: Normal heart rate and rhythm. Pulses normal. Normal S1 and S2 Respiratory: No respiratory distress. Breath sounds normal. No Wheezing. No rales Abdomen: Soft and nontender. No rigidity. No distention. Skin: Skin warm and dry. Normal skin color. Normal skin turgor. Extremities: No lower extremity edema. No Lacerations. No Rash Neuro: Oriented X 3. No motor deficit. No sensory deficit. Moving all extremities. No slurred speech. CN 2 through 12 grossly intact Psych: calm, cooperative, normal affect Course Course Course Narrative: This is a rapid medical exam performed by Eduardo Jeong NP: Additional HPI, ROS, PE not included below will be deferred to primary provider. Patient is a 68-year-old female with history of HTN, fibromyalgia, GERD, psoriatic arthritis presenting with complaint of dizziness and high BP readings at home. Patient O2 93% on room air. BP 110/62 in triage. Placed on O2 by EMS. Plan: EKG, labs, CXR, viral serology Medical Decision Making Medical Decision Making [facility] Narrative: My interpretation of EKG: Normal sinus rhythm, heart rate 75, no ST segment depression or elevation it is, no T-wave inversions, QTC 473 -my interpretation of labs, normal hematology, normal chemistry, negative troponin, serology negative for COVID, flu, RSV. -chest x-ray shows possible lymphadenopathy. Patient has not had any cough or fever. -CT scan of the head does not show any acute abnormality. -patient's blood pressure has been between 110/62 up to 132/69 -patient's symptoms most likely secondary to vertigo . At this time, patient states that she feels nearly back to baseline, given 1 dose of meclizine Differential Diagnosis Differential Diagnoses: The differential diagnosis associated with the presentation includes (Hypotension, syncope, near syncope, arrhythmia, URI, vertigo) Admission/Observation Consideration of admission/observation: Escalation of care including admission/observation considered (Given patient's symptoms and presentation, observation was considered) Lab Data MDM Lab Attestation statement: I reviewed the patient's lab results. 02/12/24 17:03 02/12/24 17:03 Labs: Lab Results 02/12/24 Range/Units 17:03 WBC 10.2 (4.8-10.8) X10*3/uL RBC 3.88 L (4.20-5.50) X10*6/uL Hgb 12.1 (12.0-16.0) g/dl Hct 36.7 L (37.0-47.0) % MCV 94.6 (80.0-98.0) fL MCH 31.2 (27.0-33.0) pg MCHC 33.0 (31.0-35.0) g/dl RDW 12.8 (11.0-16.0) % Plt Count 187 (160-400) X10*3/uL MPV 11.0 (9.4-12.3) fL Immature Gran % (Auto) 0.4 (0.0-0.4) % Neut % (Auto) 62.3 (45-73) % Lymph % (Auto) 29.6 (20-40) % Lane % (Auto) 6.3 (2-11) % Eos % (Auto) 1.1 (0-4) % Baso % (Auto) 0.3 (0-2) % Lymph # (Auto) 3.0 (1.2-4.9) X10*3/uL Lane # (Auto) 0.7 (0.1-1.2) X10*3/uL Eos # (Auto) 0.1 (0.0-0.4) X10*3/uL Baso # (Auto) 0.0 (0.0-0.2) X10*3/uL Abs Immat Gran (auto) 0.04 H (0.00-0.03) X10*3/uL Absolute Neuts (auto) 6.4 (2.0-8.3) x10*3/uL Absolute Nucleated RBC 0.000 (0.0-0.012) X10*3/uL Nucleated RBC % (auto) 0.0 (0.0-0.2) /100WBC PT 11.1 (10.9-12.4) SEC INR 1.0 (0.9-1.1) Sodium 138 (135-145) mmol/L Potassium 3.5 (3.3-5.1) mmol/L Chloride 99 (96-108) mmol/L Carbon Dioxide 27 (22-29) mmol/L Anion Gap 16 (12-20) BUN 16 (9-16) mg/dL Creatinine 0.82 (0.5-1.4) mg/dL Estim Creat Clear Calc 78.3 Estimated GFR > 60 Random Glucose 126 H (60-115) mg/dL Calcium 9.8 (8.4-10.2) mg/dL Total Bilirubin 0.5 (0.0-1.0) mg/dL AST 47 H (5-31) U/L ALT 50 H (0-31) U/L Alkaline Phosphatase 63 (39-117) U/L Troponin I High Sens < 2.7 (<3.5-17.0) ng/L Total Protein 7.6 (6.5-8.0) g/dL Albumin 4.2 (3.5-5.0) g/dL Influenza Type A (PCR) NEGATIVE (Negative) Influenza Type B (PCR) NEGATIVE (Negative) RSV RNA Qual (PCR) NEGATIVE (Negative) SARS-CoV-2 RNA (RT-PCR) NEGATIVE (Negative) Independent Interpretation I performed an independent interpretation of an: EKG, Plain X-Ray and CT Scan Radiology Impression Discussion of test interpretation with radiology: I have reviewed the radiologist's reading. Radiologist Impression: There is no evidence of acute intracranial hemorrhage or territorial infarction. No abnormal mass effect or midline shift is seen. Atkins to white matter differentiation is well preserved. No extra-axial fluid collections are identified. The ventricles are normal in size. There is no abnormal attenuation within the brain parenchyma. The osseous structures and soft tissues are normal. The mastoid air cells and visualized portions of the paranasal sinuses are well-aerated. CT/CT head/brain wo IV con IMPRESSION: No acute intracranial pathology. Slight bibasilar atelectasis. Fullness in the right infrahilar region potentially representing summation artifact versus lymphadenopathy. No pneumothorax. Trachea is midline. Cardiac mediastinal silhouette is stable. No large pleural effusion. Osseous structures are intact. Soft tissues are unremarkable. XR/XR chest 2V IMPRESSION: 1. Slight bibasilar atelectasis. 2. Fullness in the right infrahilar region potentially representing summation artifact versus lymphadenopathy. Critical Care Time Critical Care Time Critical Care Time: Yes Total Critical Care Time: 45 Attestation: I have personally provided critical care time. Time includes review of lab data, radiology results, discussion with consultants, and monitoring for potential decompensation. Intervention performed as documented. Discharge Plan Discharge Clinical Impression: Vertigo Patient Disposition: Home, Self-Care Instructions: Vertigo (ED) Additional Instructions: Please follow-up with your primary care physician tomorrow. If you have any worsening or new symptoms, please return to the emergency room or call 911 Prescriptions: New meclizine 50 mg tablet 50 mg PO BID PRN (Reason: dizziness) Qty: 14 0RF No Action oxybutynin chloride 15 mg tablet extended release 24hr 15 mg PO DAILY 90 Days Qty: 90 3RF diclofenac sodium 1 % gel 2 g topical BID PRN (Reason: for pain) Qty: 100 4RF prednisone 5 mg tablet See Rx Instructions PO DIRECTED Qty: 30 0RF Rx Instructions: 3 tablets x 3 days 2 tablets per day x 5 days, 1 tablet per day x 5 days stop adalimumab-adbm [Cyltezo(CF)] 40 mg/0.8 mL syringe kit 40 mg subcut Q2W Qty: 2 2RF famotidine 20 mg tablet 20 mg PO BEDTIME Qty: 30 0RF cyclobenzaprine 10 mg tablet 10 mg PO TID PRN (Reason: muscle spasm) Qty: 14 0RF clonazepam 0.5 mg tablet 0.25 mg PO BID albuterol sulfate 90 mcg/actuation HFA aerosol inhaler 2 puff inhalation Q6H PRN (Reason: Wheezing) citalopram 20 mg tablet 20 mg PO DAILY melatonin 5 mg capsule 5 mg PO BEDTIME hydroxyzine HCl 25 mg tablet 25 mg PO BID lisinopril-hydrochlorothiazide 20-25 mg tablet 1 tab PO DAILY fluticasone propionate 50 mcg/actuation spray,suspension intranasal Cholestyramine Light 4 gram powder 4 g PO BID 30 Days Qty: 210 6RF Rx Instructions: administer w/meal; avoid other meds within 1hr before or 4-6hr after dose acetaminophen [Tylenol Arthritis Pain] 650 mg tablet extended release 650 mg PO Q8H PRN (Reason: pain) Qty: 90 2RF trazodone 100 mg tablet 100 mg PO BEDTIME omeprazole 20 mg capsule,delayed release(DR/EC) 20 mg PO DAILY quetiapine 25 mg tablet 25 mg PO BEDTIME fluticasone propion-salmeterol [Advair HFA] 45-21 mcg/actuation HFA aerosol inhaler inhalation simvastatin 40 mg tablet 40 mg PO BEDTIME sennosides-docusate sodium [Senexon-S] 8.6-50 mg tablet PO metoprolol tartrate 25 mg tablet 25 mg PO DAILY furosemide 20 mg tablet 20 mg PO DAILY Print Language: [place] African
--- NOTE | 2024-02-12 16:21 | ECG_ITS ---
Test Reason : chest pain Blood Pressure : / mmHG Vent. Rate : 075 BPM Atrial Rate : 075 BPM P-R Int : 168 ms QRS Dur : 088 ms QT Int : 424 ms P-R-T Axes : 017 003 -06 degrees QTc Int : 473 ms Sinus rhythm with Premature supraventricular complexes Possible Anterior infarct , age undetermined Abnormal ECG When compared with ECG of 17-JUL-2022 11:28, Premature supraventricular complexes are now Present Borderline criteria for Anterior infarct are now Present Nonspecific T wave abnormality now evident in Lateral leads Referred By: Cyndi Jeong Electronically Signed By:EFREN SOLIMAN MD
[2024-02-12 17:09] LABS: MANUAL DIFF FLAG NO
[2024-02-12 17:12] LABS: Basophils Percent Auto 0.3 % (0-2); Eosinophils Absolute Auto 0.1 X10*3/uL (0.0-0.4); Eosinophils Percent Auto 1.1 % (0-4); Hematocrit 36.7 % (37.0-47.0); Hemoglobin 12.1 g/dl (12.0-16.0); Imm Gran Abs Auto 0.04 X10*3/uL (0.00-0.03); Imm Gran Pct Auto 0.4 % (0.0-0.4); Lymphocytes Percent Auto 29.6 % (20-40); Mean Corpuscular Hemoglobin 31.2 pg (27.0-33.0); Mean Corpuscular Volume 94.6 fL (80.0-98.0); Monocytes Absolute Auto 0.7 X10*3/uL (0.1-1.2); Monocytes Percent Auto 6.3 % (2-11); Neutrophils Absolute Auto 6.4 x10*3/uL (2.0-8.3); Neutrophils Percent Auto 62.3 % (45-73); Platelet Count 187 X10*3/uL (160-400); Red Blood Count 3.88 X10*6/uL (4.20-5.50); Red Cell Distribution Width 12.8 % (11.0-16.0); White Blood Count 10.2 X10*3/uL (4.8-10.8)
[2024-02-12 17:21] LABS: Prothrombin Time 11.1 SEC (10.9-12.4)
[2024-02-12 17:24] LABS: Alanine Aminotransferase 50 U/L (0-31); Albumin Level 4.2 g/dL (3.5-5.0); Alkaline Phosphatase 63 U/L (39-117); Anion Gap 16 (12-20); Aspartate Amino Transferase 47 U/L (5-31); Bilirubin Total 0.5 mg/dL (0.0-1.0); Blood Urea Nitrogen 16 mg/dL (9-16); Calcium 9.8 mg/dL (8.4-10.2); Carbon Dioxide 27 mmol/L (22-29); Chloride 99 mmol/L (96-108); Creatinine Clr Calc Pharmacy 78.3; Estimated Glomerular Filt Rate > 60; Glucose Random 126 mg/dL (60-115); Potassium 3.5 mmol/L (3.3-5.1); Sodium 138 mmol/L (135-145); Total Protein 7.6 g/dL (6.5-8.0)
[2024-02-12 17:31] LABS: Troponin-I High Sensitivity < 2.7 ng/L (<3.5-17.0)
[2024-02-12 18:00] LABS: Influenza A PCR NEGATIVE (Negative); Influenza B PCR NEGATIVE (Negative); Resp Syncy Virus RNA Qual PCR NEGATIVE (Negative); SARS COV2 PCR INHOUSE NEGATIVE (Negative)
[2024-02-12 19:28] VITALS: BP 146/87; PULSE 80; RESP 20; TEMP 36.8; O2SAT 94
[2024-02-12 20:46] VITALS: BP 132/69; PULSE 80; RESP 18; TEMP 36.6; O2SAT 96
[2024-02-12] MEDS: Meclizine HCl 25 MG TABLET 50 MG PO (21:35)
[2024-02-12 21:38] VITALS: BP 132/69; PULSE 80; RESP 18; TEMP 36.6; O2SAT 96
== END 2024-02-12 21:38 | disposition home or self-care (01) ==
PROVIDERS: Registered Nurse Emergency; Emergency Provider Emergency Medicine
DX: J11.1 Influenza due to unidentified influenza virus with other respiratory manifestations (principal); R42 Dizziness and giddiness; R07.9 Chest pain, unspecified; Z03.818 Encounter for observation for suspected exposure to other biological agents ruled out; I10 Essential (primary) hypertension; E78.5 Hyperlipidemia, unspecified; J45.909 Unspecified asthma, uncomplicated; Z79.899 Other long term (current) drug therapy; Z79.02 Long term (current) use of antithrombotics/antiplatelets
CPT/HCPCS: 0241U; 36415; 70450; 71046; 80053; 84484; 85025; 85610; 93005; 99283; 99284

== ENCOUNTER → 2024-02-12 16:21 | Outpatient (BNV) | payer MEDICARE, MEDICAID, SELFPAY | PROVIDERS: Emergency Provider Emergency Medicine; Visit Provider Internal Medicine Cardiovascular Disease | DX: R07.9 Chest pain, unspecified (principal) | CPT/HCPCS: 93010 ==

== ENCOUNTER 2024-02-29 14:28 | Outpatient (REF) | payer MEDICARE, MEDICAID, SELFPAY ==
--- NOTE | ~2024-02-29 | CT_ITS ---
EXAMINATION: CT KNEE WITHOUT CONTRAST, RIGHT CLINICAL INFORMATION: Right knee instability. Arthroplasty. COMPARISON: Most recent right knee radiographs dated 01/17/2024. TECHNIQUE: Contiguous axial CT images of the right knee were obtained without contrast. Multiplanar reformats were provided and reviewed. This CT examination was performed using dose optimization techniques as appropriate, variously including the following: *Automated exposure control *Adjustment of mA and/or kV according to patient size (this includes techniques or standardized protocols for targeted exams where dose is matched to indication/reason for exam; i.e. extremities or head) *Use of iterative reconstruction technique DLP: 114 mGy-cm FINDINGS: Total right knee arthroplasty in expected anatomic alignment. No hardware fracture. No perihardware lucency to suggest loosening or infection. No osseous fracture. No concerning lytic or blastic osseous lesion. No significant joint effusion. No soft tissue mass or fluid collection. Dystrophic ossification within the anterior soft tissues. The visualized muscles and tendons are grossly intact; however, evaluation is limited on CT examination. CT/CT knee RT wo IV con IMPRESSION: Total right knee arthroplasty in expected anatomic alignment. No hardware or osseous fracture. No perihardware lucency to suggest loosening or infection. Electronically signed by: Jose Miguel Olvera MD 03/15/2024 08:20 PM [facility]
== END 2024-02-29 14:29 | disposition home or self-care (01) ==
LOC: HO.CT 14:28
PROVIDERS: PCP Registered Nurse; Visit Provider Orthopaedic Surgery
DX: M25.361 Other instability, right knee (principal)
CPT/HCPCS: 73700

== ENCOUNTER 2024-03-20 10:36 | Outpatient (AMB) | payer MEDICARE, MEDICAID, SELFPAY ==
[2024-03-20 10:37] VITALS: BMI 39.5
--- NOTE | 2024-03-20 10:37 | MHC.OFFVIS ---
Vital Signs 03/20/24 10:37 Height 5 ft 4 in Weight 230 lb BMI 39.5 Intake Visit Reasons: OV- Right knee CT scan review Intake Note: Linda is a 68 year old female who presents today for a Right Knee CT Scan Review, referred by Dr. Bah. Hx of Right TKA about 20 years ago. Patient reports a loose feeling in the right knee with intermittent discomfort. The knee gives out on her occasionally and she has been walking with a cane due to her instability. CT Scan done 02/29/24: IMPRESSION: Total right knee arthroplasty in expected anatomic alignment. No hardware or osseous fracture. No perihardware lucency to suggest loosening or infection. Allergies tramadol [TRAMADOL] Allergy (Intermediate, Verified 02/12/24 16:22) RASH, itching, rash oxycodone Allergy (Verified 02/12/24 16:22) Rash HPI HPI OV- Right knee CT scan review: Details: Shaan is a 68 year old female who presents today for a Right Knee CT Scan Review, referred by Dr. Bah. Hx of Right TKA about 20 years ago. Patient reports a loose feeling in the right knee with intermittent discomfort. The knee gives out on her occasionally and she has been walking with a cane due to her instability. She states she is actually feeling better but in the last couple of months she was having pain after she fell. [facility] Medical History (Updated 02/13/24 @ 00:02 by Sanjuana Valenzuela) Left shoulder pain Urinary incontinence On beta melvin at home Anxiety TATUM (obstructive sleep apnea) Asthma Elevated cholesterol PONV (postoperative nausea and vomiting) Colon cancer screening Dislocation of distal interphalangeal (DIP) joint of finger Uterine prolapse Lumbar spondylolysis Psoriatic arthritis IBS (irritable bowel syndrome) Arthritis Morbidly obese GERD (gastroesophageal reflux disease) HTN (hypertension) Surgical History (Updated 03/20/24 @ 12:52 by Ankur Marinelli MD) H/O arthrodesis Hx of colonoscopy History of blepharoplasty History of pubovaginal sling History of total left knee replacement History of total right knee replacement (TKR) Hx of appendectomy Hx of cholecystectomy Family History Mother HTN (hypertension) Diabetes Father Throat cancer Sister Heart problem Cancer Social History Household Members Other:: daughter Are you a primary nonfarm animal caretaker to a significant other at home: No Do you presently have 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 home services: Yes ([employer]) Alcohol intake: never Patient Tobacco Use Status: Never used Tobacco e-Cigarette/Vaping Use: Never Used Current occupational status: disabled 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 Full range of motion. Stable to varus and valgus stress. No effusion. Incision clean dry and intact. Results Reviewed Results Reviewed: CT and plain radiographs reviewed. No evidence of loosening or hardware complications. Assessment & Plan Assessment & Plan (1) History of total right knee replacement (TKR): Comment: 2009 Code(s): Z96.651 - Presence of right artificial knee joint Category: Surgical Plan: History of right total knee replacement about 10 years ago. I replaced her left knee about 5 years ago. Her right knee he has been having pain after fall but it is improving. Imaging scans were reviewed and there was no evidence of loosening and exam is fairly benign. Given these I recommend continue activity as tolerated. No intervention warranted. Can return to see me if something changes. Coding Level of Care Code Est Pt Level 3 (39875) Diagnoses History of total right knee replacement (TKR) Z96.651
== END 2024-03-20 11:13 | disposition home or self-care (01) ==
PROVIDERS: Visit Provider Orthopaedic Surgery
DX: Z47.89 Encounter for other orthopedic aftercare (principal); Z96.651 Presence of right artificial knee joint
CPT/HCPCS: 99212

== ENCOUNTER → 2024-03-20 10:36 | Outpatient (BNVA) | payer MEDICARE, MEDICAID, SELFPAY | PROVIDERS: Visit Provider Orthopaedic Surgery | DX: Z96.651 Presence of right artificial knee joint (principal) | CPT/HCPCS: 99212 ==

== ENCOUNTER 2024-06-17 10:26 | Outpatient (REF) | payer MEDICARE, MEDICAID, SELFPAY ==
[2024-06-17 10:58] LABS: MANUAL DIFF FLAG NO
[2024-06-17 12:04] LABS: Basophils Absolute Auto 0.1 X10*3/uL (0.0-0.2); Basophils Percent Auto 0.6 % (0-2); Eosinophils Absolute Auto 0.1 X10*3/uL (0.0-0.4); Eosinophils Percent Auto 1.1 % (0-4); Hematocrit 40.6 % (37.0-47.0); Hemoglobin 13.1 g/dl (12.0-16.0); Imm Gran Abs Auto 0.04 X10*3/uL (0.00-0.03); Imm Gran Pct Auto 0.4 % (0.0-0.4); Lymphocytes Absolute Auto 3.9 X10*3/uL (1.2-4.9); Lymphocytes Percent Auto 41.1 % (20-40); Mean Corpuscular HGB Conc 32.3 g/dl (31.0-35.0); Mean Corpuscular Hemoglobin 30.8 pg (27.0-33.0); Mean Corpuscular Volume 95.3 fL (80.0-98.0); Mean Platelet Volume 11.8 fL (9.4-12.3); Monocytes Absolute Auto 0.7 X10*3/uL (0.1-1.2); Monocytes Percent Auto 7.6 % (2-11); Neutrophils Absolute Auto 4.7 x10*3/uL (2.0-8.3); Neutrophils Percent Auto 49.2 % (45-73); Platelet Count 261 X10*3/uL (160-400); Red Blood Count 4.26 X10*6/uL (4.20-5.50); Red Cell Distribution Width 12.8 % (11.0-16.0); White Blood Count 9.5 X10*3/uL (4.8-10.8)
--- OUTSIDE RECORDS SUMMARY | 2024-06-17 12:28 | XMS_ITS | Encounter Summary ---
Author Organization [employer] Address [address] [place] [address] Care Team Providers Care Radiology Supervisor Name Role Phone Aileen Harris Primary Care Provider [phone] Reason for Visit * Reason Comments Med Refill Encounter Details Date Type Department Care Team ([facility] Contact Info) Description 03/10/2024 Refill [facility] [address], [place] [phone] Aileen Harris FNP [address] [place] [address] Social History Tobacco Use Types Packs/Day Years Used Date Smoking Tobacco: Never Passive Smoke Exposure: Never Smokeless Tobacco: Never Alcohol Use Standard Drinks/Week Comments Never 0 (1 standard drink = 0.6 oz pur e alcohol) Depression Answer Date Recorded Patient Health Questionnaire-9 Score 11 11/07/2023 Patient Health Questionnaire-9 Score 11 11/07/2023 Last PHQ-9: Questionnaire Data Not on file 0 11/07/2023 Housing Stability Answer Date Recorded What is your housing situation today? I have dany johnson 01/22/[address] you li ve. Do you have problems with any of the following? None of the above 01/22/2023 Food Insecurity Answer Date Recorded Within the past 12 months, y ou worried that your food would run out before you got money to buy more: Never True 01/22/2023 Within the past 12 months,th e food you bought just didn't last and you didn't have enough money to get more: Never True Transportation Answer Date Recorded In the past 12 months, has l ack of transportation kept you from medical appts, meetings, work or from getting things needed for daily living? No 01/22/2023 Utilities Answer Date Recorded In the past 12 months, has t he electric, gas, oil or water company threatened to shut off services in your home? No 01/22/2023 Depression Answer Date Recorded Patient Health Questionnaire-2 Score 2 11/07/2023 Comments Unknown Sex and Gender Information Value Date Recorded Sex Assigned at Female 02/06/2022 10:15 AM EDT Legal Sex Female 10:15 AM EDT Gender Identity Female 02/06/2022 10:15 AM EDT Sexual Orientation Don't know 02/06/2022 10 :15 AM EDT documented as of this encounter Plan of Treatment Upcoming Encounters Date Type Department Care Team ([facility] st Contact Info) Description 08/22/2024 11:30 AM EDT Office Visit [facility] [address] [place] [address] Aileen Harrsi FNP [address] [place] [address] documented as of this encounter Visit Diagnoses Not on filedocumented in this encounter Additional Health Concerns Assessment Noted Time PHQ-9 Depression Total Score: 11 024 9:19 AM EDT documented as of this encounter Care Teams Radiology Supervisor Relationship Specialty Start Date End Date Aileen Harris FNP [address] [place] [id number] PCP - General Family Medicine 12/06/21 documented as of this encounter
--- OUTSIDE RECORDS SUMMARY | 2024-06-17 12:28 | XMS_ITS | Clinical Summary ---
Author Organization [employer] Address [address] [facility] [address] [place] [address] Care Team Providers Care Branner Machine Tender Name Role Phone Aileen Harris OTTONIEL Primary Care Provider [phone] Allergies Active Allergy Reactions Criticality Noted Date Comments Oxycodone Rash Low 09/07/2022 Medications albuterol 108 (90 Base) MCG/ACT inhaler TOME DOS INHALACIONES POR V A ORAL CADA CUATRO A SEIS HORAS CUANDO SEA NECESARIO 023 Active fluticasone-adama meterol (Advair) 45-21 MCG/ACT inhaler Use QID for 1 week, then BID for one week, then once daily. Rinse mouth with water after use to reduce aftertaste and incidence of candidiasis. Do not swallow. 12 g 11 023 Active ciclopirox (Penlac) 8 % solution Apply topically at bedtime. 6 mL 023 Active clonazePAM (KlonoPIN) 0.5 MG tablet TOME CLIFFORD TABLETA DOS VECES AL D A CUANDO SEA NECESARIO 023 Active Diclofenac Sodium 1 % gel APPLY 2GM TOPICALLY 2 TIMES A DAY NEEDED FOR PAIN 023 Active hydrOXYzine HCl (Atarax) 25 MG tablet TOME CLIFFORD TABLETA TODOS LOS D CUANDO SEA NECESARIO 023 Active QUEtiapine (SEROquel) 25 MG tablet TOME CLIFFORD TABLETA TODOS LOS D AL ACOSTARSE 023 Active traZODone (Desyrel) 100 MG tablet TOME CLIFFORD TABLETA TODOS LOS D AL ACOSTARSE 023 Active lisinopril-hydr oCHLOROthiazide 20-25 MG tabletIndicatio ns:Essential hypertension TOME CLIFFORD TABLETA TODOS LOS SUTTON 90 tablet 3 024 Active fluocinolone ([place]-Smoothe/ FS Body) 0.01 % external oilIndications: Psoriatic arthritis (CMS/HCC) Apply before bed on a damp scalp to affected areas, wrap with head covering. Wash out in the morning. Use 2 times per week. 120 mL 1 024 Active senna-docusate (Stimulant Laxative) 8.6-50 MG tabletIndicatio ns:Constipation , unspecified constipation type TAKE 1 TO 2 TABLETS BY MOUTH AT BEDTIME NEEDED FOR CONSTIPATION 180 tablet 1 024 Active oxybutynin XL (Ditropan-XL) 15 MG 24 hr tabletIndicatio ns:Mixed incontinence urge and stress TAKE 1 TABLET BY MOUTH ONCE DAILY 90 tablet 1 024 Active Acetaminophen Extra Strength 500 MG tabletIndicatio ns:Psoriatic arthritis (CMS/HCC) TAKE 1 TO 2 TABLETS BY MOUTH EVERY 8 HOURS NEEDED FOR PAIN OR FEVER 100 tablet 2 024 Active omeprazole (PriLOSEC) [address] capsuleIndicati ons:Gastroesoph ageal reflux disease, unspecified whether esophagitis present TAKE 1 CAPSULE BY MOUTH ONCE DAILY NEEDED FOR acidez. MAY USE if famotidine is not effective. do not crush or chew 30 capsule 2 025 Active metoprolol succinate XL (Toprol-XL) 25 MG 24 hr tabletIndicatio ns:Tachycardia TAKE 1 TABLET BY MOUTH ONCE DAILY. not crush or chew. to replace metoprol tartrate 90 tablet 1 025 Active simvastatin (Zocor) 40 MG tablet TAKE 1 TABLET BY MOUTH ONCE DAILY AT BEDTIME 90 tablet 2 025 Active famotidine (Pepcid) 20 MG tablet TAKE 1 TABLET BY MOUTH IN THE MORNING AND AT BEDTIME NEEDED FOR ACIDEZ 60 tablet 5 025 Active meclizine (Antivert) 25 MG tabletIndicatio ns:Vertigo Take 1 tablet (25 mg) by mouth if needed in the morning and at bedtime for dizziness (vertigo). 30 tablet 1 025 2024 Active diclofenac (Voltaren) 75 MG EC tabletIndicatio ns:Psoriatic arthritis (CMS/HCC) Take 1 tablet (75 mg) by mouth if needed in the morning and at bedtime (pain). 60 tablet 2 025 Active predniSONE (Deltasone) 20 MG tabletIndicatio ns:Moderate persistent asthma with exacerbation 2 tabs po daily for 5 days 10 tablet 025 Active Yuflyma, 2 Pen, 40 MG/0.4ML Auto-injector KitIndications: Psoriatic arthritis (CMS/HCC) 025 Active diclofenac (Voltaren) 75 MG EC tablet Take 1 tablet by mouth 2 times daily. 024 2024 Discontinued(R eorder (will not trigger notification to Pharmacy)) Active Problems Problem Noted Date Diagnosed Date Vertigo 05/23/2024 Assessment & Plan (05/23/2024 7:11 PM EST): - Continue meclizine 25 mg as needed. Reviewed med safety and side effects - Previously completed vestibular rehab, reports did not much improvement Healthcare maintenance 10/06/2022 Overview (05/23/2024): 10/25/22: DEXA WNL Pap: NILM HPV Neg Mar 2021 Colonoscopy: 02/01[facility]21 at [facility]. Need to confirm path results for follow up interval Mammo: Order placed 05/23/2024 Mini Cog: score 5/5 on 12/12/23 Assessment & Plan (11/07/2023 7:19 AM EDT): 10/25/22: DEXA WNL Routine Cancer Screening Cervical CA: Pap NILM HPV Neg Mar 2021 Colon CA: due Dec 2023 Assessment & Plan (11/21/2022 12:23 PM EDT): 10/25/22: DEXA WNL Routine Cancer Screening Cervical CA: Pap NILM HPV Neg Mar 2021 Colon CA: due Dec 2023 Assessment & Plan (10/06/2022 8:50 PM EDT): Dexa: ordered September 2022 Routine Cancer Screening Cervical CA: Pap NILM HPV Neg Mar 2021 Colon CA: due Dec 2023 Paronychia of toenail of left foot 08/09/2022 Moderate persistent asthma without complication 07/02/2018 Assessment & Plan (10/06/2022 8:49 PM EDT): ?? Continues with Advair 45-21 mcg once daily ?? Albuterol PRN ?? Reports well controlled ?? Reviewed 'Rule of 2s' Obstructive sleep apnea syndrome 07/02/2018 Assessment & Plan (11/11/2023 7:26 PM EDT): -Continues with CPAP -Following with sleep medicine services of [facility] APAP 5-8cm H20 nightly, 4h/night. Increased humidity to help with nighttime cough Assessment & Plan (09/07/2022 10:16 AM EDT): -Continues with CPAP -Following with sleep medicine Severe recurrent major depre ssion without psychotic features 07/02/2018 Tachycardia 07/02/2018 Assessment & Plan (11/11/2023 7:26 PM EDT): History of tachycardia / palpitations Continues on metoprolol (pt reports that she is unable to tolerate taking medication BID, will switch to metoprolol XL once daily) Following with [facility] - Dr. Santoro Per consult note 2014: Echo and loop stable 201407/24/23: Echo - EF 60-65% Assessment & Plan (11/21/2022 12:32 PM EDT): Re-established with Cards, reports undergoing current workup including Holter monitor, stress test, other ED precautions reviewed Assessment & Plan (10/06/2022 8:55 PM EDT): Currently asymptomatic Referral to re-establish with Cards ED precautions reviewed Obesity (BMI 30-39.9) 12/20/2016 Psoriatic arthritis 12/27/2015 Assessment & Plan (05/23/2024 7:06 PM EST): Followed by [facility] Rheum - Dr. Ramos / ELIECER Jackson Symptoms aggravated by warmer weather (better in winter) Medication Hx: Previous medications include methotrexate and Arava 20 mg daily. Methotrexate not goot option with elevated transaminases Humira 40mg Q2 weeks (Started Jan 2023) As of July 2023, changed from Humira to Cyltezo per insurance formulary Plan: Continue adalimumab 40mg every other week through [facility] Continue diclofenac as needed APAP PRN Dermasmoothe for persistent dry patches on scalp. Follow up if not effective. DME request for Walker with Seat and breaks, as well as chair lift (informed may not be covered by insurance), placed 11/11/23. Assessment & Plan (11/11/2023 7:34 PM EDT): Followed by [facility] Rheum - Dr. Ramos / ELIECER Jackson Symptoms aggravated by warmer weather (better in winter) Medication Hx: Previous medications include methotrexate and Arava 20 mg daily. Methotrexate not goot option with elevated transaminases Humira 40mg Q2 weeks (Started Jan 2023) As of July 2023, changed from Humira to Cyltezo per insurance formulary Plan: Continue Cyltezo 40mg every other week through [facility] Continue diclofenac as needed APAP PRN Dermasmoothe for persistent dry patches on scalp. Follow up if not effective. DME request for Walker with Seat and breaks, as well as chair lift (informed may not be covered by insurance), placed 11/11/23. Assessment & Plan (11/21/2022 12:28 PM EDT): ?? Followed by [facility] Rheum Q6 months ?? Previous medications include methotrexate and Arava 20 mg daily. Pt had self stopped medication ?? Symptoms aggravated by warmer weather Essential hypertension 11/02/2015 Assessment & Plan (11/11/2023 7:36 PM EDT): Well controlled BP goal < 140/90 mmHg Continues with lisinopril-hydrochlorothiazide 20-25mg daily Assessment & Plan (09/07/2022 8:57 AM EDT): ?? BP goal < 140/90 mmHg ?? Continues with lisinopril-hydrochlorothiazide 20-25mg daily ?? Simvastatin 40mg nightly Depressive disorder 04/05/2012 Overview (05/23/2024): Followed by psych team - January Michaud Therapist - Veronica every week Continue with med management through their team: Trazodone 100mg nightly Quetiapine 25mg nightly Hydroxyzine 25mg PRN Clonazepam 0.5mg BID Assessment & Plan (05/23/2024 7:17 PM EST): - Reviewed PHQ-9, no SI/HI/thoughts of self - Continues following with specialists Mixed incontinence urge and stress 04/05/2012 Assessment & Plan (05/23/2024 7:13 PM EST): Continues with oxybutynin Referral to reestablish with [facility] urology placed 05/23/24 Assessment & Plan (09/07/2022 8:56 AM EDT): ?? Continues with oxybutynin through Urology Osteoarthritis of knee 04/05/2012 Assessment & Plan (12/16/2023 5:49 PM EDT): Referral to re-establish with [facility] Ortho (reports hx of TKA approx 20 years ago, starting to feel increased joint pain in knee. Right currently more bothersome than left. Gastroesophageal reflux disease 10/04/2011 Assessment & Plan (11/11/2023 7:35 PM EDT): Famotidine 20mg BID PRN If famotidine not effective, use Omeprazole 20mg PRN Hyperlipidemia 10/04/2011 Steatosis of liver 10/04/2011 Overview (12/16/2023): Abd ultrasound October 2022 and Nov 2023 c/w hepatic steatosis Elevated AST (50 U/L) and ALT (49 U/L) in November 2022 Labs neg/non-reactive for Hep A, B, C, Nov 2022 Initiated Hep B series 11/21/22 Encouraged lifestyle interventions Assessment & Plan (12/16/2023 5:38 PM EDT): Lab Results Component Value Date AST 39 (H) 11/16/2023 ALT 38 (H) 11/16/2023 TOTPROTEIN 7.9 11/16/2023 ALB 4.4 11/16/2023 ALP 62 11/16/2023 TOTALBILIRUB 0.4 11/16/2023 -liver function appears improved compared to last year, however still above goal. -Encouraged consideration aquatic therapy and nutrition interventions Assessment & Plan (11/11/2023 7:35 PM EDT): Lab Results Component Value Date AST 27 07/19/2023 ALT 28 07/19/2023 TOTPROTEIN 7.8 07/19/2023 ALB 4.2 07/19/2023 ALP 56 07/19/2023 TOTALBILIRUB 0.4 07/19/2023 -Per last labs in July 2023, Liver function panel had improved. Will plan to re-check labs and order RUQ US -Encouraged consideration aquatic therapy and nutrition interventions Encounters Date Type Department Care Team Description 06/17/2024 Orders Only GENERIC EXTERNAL DATA DEPARTMENT Provider, Generic External Data 06/09/2024 Telephone [facility] [employer] [address] [place] [phone] Aileen Harris FNP 05/23/2024 3:30 PM EST Office Visit [facility] [address] [place] [address] Aileen Harris FNP Moderate persistent asthma with exacerbation (Primary Dx); Healthcare maintenance; Screening mammogram for breast cancer; Mixed incontinence urge and stress; Psoriatic arthritis (CMS/HCC); Vertigo; Depressive disorder 05/23/2024 Travel 05/22/2024 Telephone [facility] [address] [place], [place] [phone] Donya Brito MA Chart Prep 04/29/2024 Telephone [facility] [address], [place] [phone] Donya Brito MA Chart Prep 04/21/2024 Refill [facility] [address] [place] [address] Aileen Harris FNP 04/14/2024 Refill [facility] [address] [place] [address] Aileen Harris FNP Gastroesophageal reflux disease, unspecified whether esophagitis present; Tachycardia 03/31/2024 Refill [facility] [address] [place] [address] Aileen Harris FNP Psoriatic arthritis (CMS/HCC) from Last 3 Months Immunizations Name Administration Dates Next Due Hep B, adult 11/07/2023,11/21/2022 Influenza High-dose Quadrivalent Preservative Fr ee 12/21/2021 Influenza Injectable Quadriv alant Preservative Free IIV4 MDCK 02/25/2021 Influenza Quadrivalent Adjuvanted 11/30/2022 Pneumococcal Conjugate PCV 20 11/07/2023 Pneumococcal Polysaccharide PPSV23 05/06/2007, TD (adult), 2 Lf tetanus tox oid, preservative free, adsorbed 08/09/2022,12/02/1999 Tdap 08/21/2011 Zoster, Recombinant 04/29/2019,02/27/2019 Family History Medical History Relation Name Comments Throat cancer Father Liver cancer Mother Liver cancer Sister 1 Pancreatic cancer Sister 1 Heart attack Sister 2 Asthma Sister 3 Osteoporosis Sister 3 Relation Name Status Comments Father Mother Sister 1 Sister 2 Sister 3 Alive Social History Tobacco Use Types Packs/Day Years Used Date Smoking Tobacco: Never Passive Smoke Exposure: Never Smokeless Tobacco: Never Tobacco Cessation:Counseling Given: Not Answered Alcohol Use Standard Drinks/Week Comments Never 0 (1 standard drink = 0.6 oz pur e alcohol) Depression Answer Date Recorded Patient Health Questionnaire-9 Score 16 05/23/2024 Patient Health Questionnaire-9 Score 16 05/23/2024 Last PHQ-9: Questionnaire Data Not on file 0 05/23/2024 Housing Stability Answer Date Recorded What is [...] Answer Date Recorded Patient Health Questionnaire-2 Score 3 05/23/2024 Comments Unknown Sex and Gender Information Value Date Recorded Sex Assigned at Female 02/06/2022 10:15 AM EDT Legal Sex Female 10:15 AM EDT Gender Identity Female 02/06/2022 10:15 AM EDT Sexual Orientation Don't know 02/06/2022 10 :15 AM EDT Last Filed Vital Signs Vital Sign Reading Time Taken Comments Blood Pressure 123/60 05/23/2024 2:57 PM EST Pulse 82 05/23/2024 2:57 PM EST Temperature 36.6 ??C (97.8 ??F) 05/23/2024 2:57 PM ES T Respiratory Rate 14 05/23/2024 2:57 PM EST Oxygen Saturation 95% 05/23/2024 2:57 PM EST Inhaled Oxygen Concentration - - Weight 109 kg (240 lb 9.6 oz) 05/23/2024 2:57 PM EST Height 160.5 cm (5' 3.19 ) 05/23/2024 2:57 PM ES T Body Mass Index 42.36 05/23/2024 2:57 PM EST Plan of Treatment Upcoming Encounters Date Type Department Care Team (Late st Contact Info) Description 08/22/2024 11:30 AM EDT Office Visit [facility] [address] [place] [address] Aileen Harris FNP [address] [place], [place] [phone] Health Maintenance Due Date Last Done Comments CT Colonography 1956 Dental Oral Exam 1956 Dental Prophylaxis 1956 Dental X-Ray: Bitewings 1956 Dental X-Ray: Full Mouth 1956 FIT DNA/Cologuard 1956 FIT 1956 FOBT 1956 Sigmoidoscopy 1956 Alcohol/Substance Use Screening 1968 Hepatitis A Vaccines (1 of 2 - Risk 2-dose series) 09/30/1975 RSV Patients and Patients Aged 60 years or older (1 - Risk 60-74 years 1-dose series) 2016 Mammogram 04/12/2023 04/12/2021, 0306/2019, 04/04/2018, Additional history exists SDOH Screening 09/01/2023 08/31/2022 COVID-19 Vaccine ( - season) 2023 08/28/2020, 07/31/2020 Hepatitis B Vaccines (3 of 3 - Risk 3-dose series) 01/02/2024 11/07/2023, 11/21/2022 Colonoscopy 02/02/2024 02/01/2021 Colorectal Cancer Screening 02/02/2024 Depression Monitoring (PHQ-9) 11/20/2024 05/23/2024, 05/23/2024 Tobacco Screening 12/11/2024 12/12/2023 Depression Screening 05/23/2025 05/23/2024, 05/23/19 25 Lipid Panel 11/15/2028 11/16/2023, 11/26/2020 DTaP/Tdap/Td Vaccines (3 - Td or Tdap) 08/09/2032 08/09/2022, 08/21/2011, 12/02/1999 Zoster Vaccines Completed 04/29/2019, 02/27/2019 Cervical Cancer Screening Discontinued HPV/Cotest Discontinued 03/24/2021 Pap Smear Discontinued 03/24/2021 Pneumococcal Vaccine: 50+ Years Completed 11/07/2023, 05/06/2007, 12/02/1999 Hepatitis C Screening Completed 11/16/2023, 023 Influenza Vaccine Completed 12/26/2023, , 12/21/2021, Additional history exists HIB Vaccines Aged Out No longer eligi ble based on patient's age to complete this topic HPV Vaccines Aged Out No longer eligi ble based on patient's age to complete this topic IPV Vaccines Aged Out No longer eligi ble based on patient's age to complete this topic Meningococcal Vaccine Aged Out No jovon sy eligible based on patient's age to complete this topic RSV under 20 months Aged Out No longe r eligible based on patient's age to complete this topic Rotavirus Vaccines Aged Out No longer eligible based on patient's age to complete this topic Procedures Procedure Name Priority Date/Time Associated Diagnosis Comments CBC WITH AUTO DIFFERENTIAL Routine 06/17/2024 10:57 AM EDT HEPATITIS C VIRAL RNA, QUANTITATIVE, REAL-TIME PCR Routine 11/16/2023 9:57 AM EDT Healthcare maintenance LIPID PANEL, STANDARD Routine 11/16/2023 9:57 AM EDT Healthcare maintenance MAMMOGRAM GENERIC Routine 04/12/2021 2:2 0 PM EST THINPREP IMAGING PAP AND HPV MRNA E6/E7 WITH REFLEX TO HPV 16,18/45 Routine 03/24/2021 10:36 AM EST HM COLONOSCOPY Routine 02/01/2021 from Last 3 Months or Most Recently Relevant to Health Maintenance Results * (ABNORMAL) CBC auto differential (06/17/2024 10:57 AM EDT) White Blood Count 9.5 4.8 - 10.8 X10*3/uL [facility] Red Blood Count 4.26 4.20 - 5.50 X10*6/uL [facility] Hemoglobin 13.1 12.0 - 16.0 g/dl [facility] Hematocrit 40.6 37.0 - 47.0 % [facility] Mean Corpuscular Volume 95.3 80.0 - 98.0 fL [facility] Mean Corpuscular Hemoglobin 30.8 27.0 - 33.0 pg [facility] Mean Corpuscular HGB Conc 32.3 31.0 - 35.0 g/dl [facility] Red Cell Distribution Width 12.8 11.0 - 16.0 % [facility] Platelet Count 261 160 - 400 X10*3/uL [facility] Mean Platelet Volume 11.8 9.4 - 12.3 fL [facility] Neutrophils Percent Auto 49.2 45 - 73 % [facility] Imm Gran Pct Auto 0.4 0.0 - 0.4 % [facility] Lymphocytes Percent Auto 41.1(H) 20 - 40 % [facility] Monocytes Percent Auto 7.6 2 - 11 % [facility] Eosinophils Percent Auto 1.1 0 - 4 % [facility] Basophils Percent Auto 0.6 0 - 2 % [facility] NRBC Pct Auto 0.0 0.0 - 0.2 /100WBC [facility] Neutrophils Absolute Auto 4.7 2.0 - 8.3 x10*3/uL [facility] Imm Gran Abs Auto 0.04(H) 0.00 - 0.03 X10*3/uL [facility] Lymphocytes Absolute Auto 3.9 1.2 - 4.9 X10*3/uL [facility] Monocytes Absolute Auto 0.7 0.1 - 1.2 X10*3/uL [facility] Eosinophils Absolute Auto 0.1 0.0 - 0.4 X10*3/uL [facility] Basophils Absolute Auto 0.1 0.0 - 0.2 X10*3/uL [facility] NRBC Abs Auto 0.000 0.0 - 0.012 X10*3/uL [facility] 06/17/2024 10:5 7 AM EDT 06/17/2024 10:57 AM EDT us Generic External Data Provider LAB BLOOD ORDERAB LES Final Result [facility] [address] [place] [phone] * Hepatitis C Viral RNA, Quantitative, Real-Time PCR (11/16/2023 9:57 AM EDT) Hepatitis C Viral Load <15 NOT DETECTED NOT DETECTED IU/mL [facility] HCV Log PCR <1.18 NOT DETECTED NOT DETECTED Log IU/mL [facility] Comment:For additional infor natalya, please refer tohttp://education.[employer]/faq/AWF71w3(This link is being provided for informational/educational purposes only.)THIS TEST WAS PERFORMED AT:[employer] [place] [id number] STYLES MD Blood 11/16/2023 9:57 AM EDT 11/16/2023 10:47 AM EDT us Aileen Harris HOUSE FURNISHINGS SUPERVISOR LAB BLOOD ORDERABLES Final Res ult [facility] [address] [place] [phone] * (ABNORMAL) Lipid Panel, Standard (11/16/2023 9:57 AM EDT) Triglycerides 324(H) <150 mg/dL [facility] Comment:Desirable Triglyceri de: less than 150 mg/dLBorderline High Triglyceride 150-199 mg/dLHigh Triglyceride: 200-499 mg/dLVery High Triglyceride: greater than or equal to 5OO mg/dL Cholesterol 211(H) <200 mg/dL [facility] Comment:Desirable Cholestero l: less than 200 mg/dLBorderline High Cholesterol: 200-239 mg/dLHigh Cholesterol: greater than 239 mg/dL LDL Cholesterol Calculated 102(H) <100 mg/dL [facility] Comment:Desirable LDL: less than 100 mg/dLNear Optimal/Above Optimal LDL: 110- 129 mg/dLBorderline High LDL: 130-159 mg/dLHigh LDL: 160-189 mg/dLVery High LDL: greater than or equal to 190 mg/dL HDL Cholesterol 45 >40 mg/dL [facility] Comment:Desirable HDL: great er than 40 mg/dL Note: This HDL assay may give artificially low results in patients with liver disease. Blood Venous blood specimen / Unknown 11/16/2023 9:57 AM EDT 11/16/2023 10:47 AM EDT Aileen Harris HOUSE FURNISHINGS SUPERVISOR LAB BLOOD ORDERABLES Final Res ult [facility] [address] [place] [phone] * Mammography Report 1 (04/12/2021 2:20 PM EST) Anatomical Region Laterality Modality Breast Bilateral Mammography 04/12/2021 2:20 PM EST Narrative 04/12/2021 3:01 PM EST Refer to the Notes tab for result details [facility] Procedure: Mammography Report 1 Procedure Note Provider, MD Bo - 07/02/2022 Refer to the Notes tab for result details [facility] Procedure: Mammography Report 1 us Susi Basurto GLOBAL HUMAN RESOURCES DIRECTOR IMG BI PROCEDURES Final Result * THINPREP TIS PAP AND HPV mRNA E6/E7 WITH REFLEX TO HPV 16,18/45 (03/24/2021 10:36 AM EST) Clinical Information: None given [facility] COMMENT SEE COMMENT [facility] Comment: EXPLANATORY NOTE: ? The Pap is a screening test for cervical cancer. It is ?? not a diagnostic test and is subject to false negative ?? and false positive results. It is most reliable when a ?? satisfactory sample, regularly obtained, is submitted ?? with relevant clinical findings and history, and when ?? the Pap result is evaluated along with historic and ?? current clinical information. ?? COMMENT: This Pap test has been evaluated with computer assisted technology. [facility] Licensed Prosthetist: SEE COMMENT [facility] Comment: SXA, CT(ASCP) CT screening location: [address] ??[id number] HPV nRNA E6/E7 Not Detected Not Detected [facility] Comment: Methodology: Motor Vehicle Inspector-Mediated Amplification This assay detects E6/E7 viral messenger RNA (mRNA) from 14 high-risk HPV types (16,18,31,33,35,39,45,51,52,56,58,59,66,68). ? The analytical performance characteristics of this assay have been determined by [employer]. The modifications have not been cleared or approved by the FDA. This assay has been validated pursuant to the CLIA regulations and is used for clinical purposes. ?? For additional information, please refer to http://education.[employer]/faq/YLT348o1 (This link if provided for information/ educational purposes only.) Interpretation/Re sult: Negative for intraepithelial lesion or malignancy. [facility] LMP: 2,010 [facility] Prev. BX: NONE GIVEN [facility] Prev. PAP: 10/2015 NIL/-HPV [facility] SOURCE: None given [facility] Statement Of Adequacy: SEE COMMENT [facility] Comment: Satisfactory for evaluation. Endocervical/transformation zone component present. 03/24/2021 10:3 6 AM EST Susi Basurto NP LAB PATHOLOGY ORDERABLES Final Result [facility] [address] * Colonoscopy (02/01/2021) Colonoscopy Normal Normal Narrative Kathy Kong - 02/01/2021 Repeat in 3 years Historical Provider HEALTH MAINTENANCE Final Result from Last 3 Months or Most Recently Relevant to Health Maintenance Insurance MEDICARE [facility] STANDARD Care Teams Branner Machine Tender Relationship Specialty Start Date End Date Aileen Harris FNP [address] [place] [phone] PCP - General Family Medicine 12/06/21
--- OUTSIDE RECORDS SUMMARY | 2024-06-17 12:28 | XMS_ITS | Encounter Summary ---
Author Organization [employer] Address [address] [facility] 7t [place] [address] Care Team Providers Care Corrosion Technician Name Role Phone Aileen Reddy Primary Care Provider Reason for Referral * Consultation (Routine) - Closed Specialty Diagnoses / Procedures Referred By Fanny ramesh Referred To Contact Gastroenterology Diagnoses Epigastric abdominal pain Aileen Reddy FNP [address] [place] [address] Phone: tel: fax: [facility] [address]rd [place] [address] Phone: tel: Referral ID Status Reason Start Date Expiration Date V isits Requested Visits Authorized [id number] Closed Specialty Services Required 06/09/2024 06/09/2025 1 1 Encounter Details Date Type Department Care Team ([facility] st Contact Info) Description 06/09/2024 Telephone [facility] [address] [place] [address] Aileen Reddy FNP [address] [place] [address] Social History Tobacco Use Types Packs/Day Years [...] AM EDT documented as of this encounter Miscellaneous Notes * Addendum Note - OTTONIEL Dupont - 06/09/2024 2:23 PM ESTAddended by: AILEEN REDDY on: 06/09/2024 02:23 PM Modules accepted: Orders * Telephone Encounter - OTTONIEL Dupont - 06/09/2024 2:23 PM EST Referral generated * Telephone Encounter - Emi Velazquez - 06/09/2024 12:34 PM EST Good morning Olesya Gallagher received a faxed from [facility] requesting a referral for patient. Patient is scheduled with Delma Baugh for epigastric pain on 07/30/2024. Thank you. documented in this encounter Plan of Treatment Upcoming Encounters Date Type Department Care Team (Late st Contact Info) Description 08/22/2024 11:30 AM EDT Office Visit [facility] [address] [place] [address] Aileen Reddy FNP [address] [place] [address] Scheduled Referrals Name Type Priority Associated Diagnoses Order Schedule Referral to Gastroenterology Outpatient Referral Routine Epigastric abdominal pain Expected: 06/09/2024 (Approximate), Expires: 06/09/2025 documented as of this encounter Visit Diagnoses Diagnosis Epigastric abdominal pain- Primary Abdominal pain, epigastric documented in this encounter Additional Health Concerns Assessment Noted Time PHQ-9 Depression Total Score: 16 025 7:16 PM EST documented as of this encounter Care Teams Corrosion Technician Relationship Specialty Start Date End Date Aileen Reddy FNP [address] [place] [address] PCP - General Family Medicine 12/06/21 documented as of this encounter
--- OUTSIDE RECORDS SUMMARY | 2024-06-17 12:28 | XMS_ITS | Encounter Summary ---
Author Organization [employer] Address [address] [facility] [address] 7[address] [place] [address] Care Team Providers Care Test Engineering Intern Name Role Phone Aileen Harris OTTONIEL Primary Care Provider [phone] Encounter Details Date Type Department Care Team (Latest Contact Info) Description 05/23/2024 Travel Social History Tobacco Use Types Packs/Day Years [...] 08/22/2024 11:30 AM EDT Office Visit [facility] [address] [place] [address] Aileen Harris FNP [address] [place] [address] documented as of this encounter Visit Diagnoses Not on filedocumented in this encounter Additional Health Concerns Assessment Noted Time PHQ-9 Depression Total Score: 16 025 7:16 PM EST documented as of this encounter Care Teams Test Engineering Intern Relationship Specialty Start Date End Date Aileen Harris FNP [address] [place] [address] PCP - General Family Medicine 12/06/21 documented as of this encounter
--- OUTSIDE RECORDS SUMMARY | 2024-06-17 12:28 | XMS_ITS | Encounter Summary ---
Author Organization [employer] Address 75 [facility] 7t [place] [address] Care Team Providers Care Digestion Operator Name Role Phone Aileen Harris Primary Care Provider [phone] Reason for Visit * Reason Comments Med Refill Encounter Details Date Type Department Care Team ([facility] Contact Info) Description 03/31/2024 Refill [facility] & PEDS [address] [place], [place] [phone] Aileen Harris FNP [address] [place] [address] Psoriatic arthritis (CMS/HCC) Social History Tobacco Use Types Packs/Day Years [...] as of this encounter Miscellaneous Notes * Telephone Encounter - OTTONIEL Dupont - 04/01/2024 12:21 PM EST Please call to let her know that Furosemide is prescribed by Dr. Santoro, not PCP office. She should contact their office for refill. Thank you! documented in this encounter Plan of Treatment Upcoming Encounters Date Type Department Care Team ([facility] st Contact Info) Description 08/22/2024 11:30 AM EDT Office Visit [facility] MED & PEDS [address] [place] [address] Aileen Harris FNP [address] [place] [address] documented as of this encounter Visit Diagnoses Diagnosis Psoriatic arthritis (CMS/HCC) Psoriatic arthropathy documented in this encounter Additional Health Concerns Assessment Noted Time PHQ-9 Depression Total Score: 11 024 9:19 AM EDT documented as of this encounter Care Teams Digestion Operator Relationship Specialty Start Date End Date Aileen Harris FNP [address] [place] [address] PCP - General Family Medicine 12/06/21 documented as of this encounter
--- OUTSIDE RECORDS SUMMARY | 2024-06-17 12:28 | XMS_ITS | Encounter Summary ---
Author Organization [employer] Address [address] [facility] [address] 7[address] [place] [address] Care Team Providers Care Personal Care Worker Name Role Phone Aileen Harris Primary Care Provider [phone] Reason for Referral * Consultation (Routine) - Authorized Specialty Diagnoses / Procedures Referred By Fanny ramesh Referred To Contact Urology Diagnoses Mixed incontinence urge and stress Aileen Harris FNP [address] [place] [address] Phone: tel: fax: Alyce Stanley NP [address] [place] [address] Phone: tel: Referral ID Status Reason Start Date Expiration Date Visits Requested Visits Authorized [id number] Authorized Specialty Services Required 05/23/2024 05/23/2025 1 1 * Imaging (Routine) - Closed Specialty Diagnoses / Procedures Referred By Fanny ramesh Referred To Contact Radiology Diagnoses Screening mammogram for breast cancer Procedures BI Mammogram Screening Tomosynthesis Bilateral Aileen Harris FNP [address] [place] [address] Phone: tel: fax: [facility] [address] [place] [address] Phone: tel: fax: Referral ID Status Reason Start Date Expiration Date Visits Re quested Visits Authorized [id number] Closed 05/23/2024 05/23/2025 1 1 Reason for Visit * Reason Comments Follow-up Encounter Details Date Type Department Care Team ([facility] st Contact Info) Description 05/23/2024 3:30 PM EST Office Visit [facility] MED & PEDS [address] [place] [address] Aileen Harris FNP [address] [place] [address] Moderate persistent asthma with exacerbation (Primary Dx); Healthcare maintenance; Screening mammogram for breast cancer; Mixed incontinence urge and stress; Psoriatic arthritis (CMS/HCC); Vertigo; Depressive disorder Social History Tobacco Use Types Packs/Day Years [...] AM EDT documented as of this encounter Last Filed Vital Signs Vital Sign Reading [...] Mass Index 42.36 05/23/2024 2:57 PM EST documented in this encounter Progress Notes * Aileen Harris, OTTONIEL - 05/23/2024 3:30 PM EST Subjective: Linda Hand is a 68 y.o. female w/ PMH TATUM, hypertension, tachycardia, GERD, OA, psoriatic arthritis, and MDD, who presents to the office with HEALTH AND SAFETY TRAINER (Nia) for a follow up visit - chronic conditions. Interim history: Last PCP visit: December 2023 [facility] Ortho consult in January 2024 for right knee discomfort and instability s/p right TKA approx 20years ago. XR and CT right knee demonstrated right knee total knee arthroplasty in good position with no signs of gross loosening. Given knee brace for instability. Current concern: Cough with intermittent wheezing x 2 weeks. Recovering from a URI. Has been using albuterol Q 4-6 hours pretty consistently over the past 2 weeks. Cough and wheezing worsen at night. Urinary incontinence-has continued on oxybutynin, although experiencing side effects such as dry mouth. Also with bothersome nocturnal leakage/incontinence. Previous following with [facility] urology, interested in following up with specialist. Referral placed. Specialists/Health Team: Psych: CRANE SERVICE TECHNICIAN January Michaud med management, therapy with [facility]: indication- incont Rheum: Dr. Ramos for psoriatic arthritis Ortho: OA s/p bilat TKA Cards: Dr. Santoro Sleep Medicine [facility]: indication TATUM Past Surgical History: Procedure Laterality Date APPENDECTOMY CHOLECYSTECTOMY HAND SURGERY Bilateral KNEE SURGERY Bilateral Family History Problem Relation Liver cancer Mother Throat cancer Father Liver cancer Sister Pancreatic cancer Sister Heart attack Sister Osteoporosis Sister Asthma Sister Social History Living situation: lives with daughter, who also serves as HEALTH AND SAFETY TRAINER (reports that she has 40 hours per week) Substance use: -alcohol: none -tobacco: none -opioids: none Mental health: denies SI/HI/thoughts of self harm Allergies Allergen Reactions Oxycodone Rash Review of Systems Constitutional: Negative for chills and fever. HENT: Negative for congestion. Respiratory: Positive for cough, shortness of breath and wheezing. Cardiovascular: Negative for chest pain and palpitations. Gastrointestinal: Negative for diarrhea, nausea and vomiting. Psychiatric/Behavioral: Negative for suicidal ideas. Visit Vitals BP 123/60 (BP Location: Left arm, Patient Position: Sitting, BP Cuff Size: Large adult) Pulse 82 Temp 97.8 ??F (36.6 ??C) (Oral) Resp 14 Ht 5' 3.19 (1.605 m) Wt 240 lb 9.6 oz (109 kg) SpO2 95% BMI 42.36 kg/m?? Smoking Status Never BSA 2.2 m?? Physical Exam Constitutional: Appearance: Normal appearance. HENT: Head: Atraumatic. Right Ear: External ear normal. Left Ear: External ear normal. Cardiovascular: Rate and Rhythm: Normal rate and regular rhythm. Pulmonary: Effort: Pulmonary effort is normal. Breath sounds: No stridor. Wheezing (scattered wheezing posterior lower lobes bilaterally) present.No rhonchi. Neurological: Mental Status: She is alert and oriented to person, place, and time. Psychiatric: Mood and Affect: Mood normal. Behavior: Behavior normal. Problem List Items Addressed This Visit Musculoskeletal Psoriatic arthritis (CMS/HCC) Current Assessment & Plan Followed by [facility] Rheum - Dr. Ramos / ELIECER Jackson Symptoms aggravated by warmer weather (better in winter) Medication Hx: Previous medications include methotrexate and Arava 20 mg daily. Methotrexate not goot option with elevated transaminases Humira 40mg Q2 weeks (Started Jan 2023) As of July 2023, changed from Humira to Cyltezo per insurance formulary Plan: Continue adalimumab 40mg every other week through [facility] Rheum Continue diclofenac as needed APAP PRN Dermasmoothe for persistent dry patches on scalp. Follow up if not effective. DME request for Walker with Seat and breaks, as well as chair lift (informed may not be covered by insurance), placed 11/11/23. Relevant Medications diclofenac (Voltaren) 75 MG EC tablet Yuflyma, 2 Pen, 40 MG/0.4ML Auto-injector Kit Other Mixed incontinence urge and stress Current Assessment & Plan Continues with oxybutynin Referral to reestablish with [facility] urology placed 05/23/24 Relevant Orders Referral to Urology Healthcare maintenance Overview 10/25/22: DEXA WNL Pap: NILM HPV Neg Mar 2021 Colonoscopy: 02/01/21 at [facility]. Need to confirm path results for follow up interval Mammo: Order placed 05/23/2024 Mini Cog: score 5/5 on 12/12/23 Vertigo Current Assessment & Plan - Continue meclizine 25 mg as needed. Reviewed med safety and side effects - Previously completed vestibular rehab, reports did not much improvement Relevant Medications meclizine (Antivert) 25 MG tablet Other Visit Diagnoses Moderate persistent asthma with exacerbation - Primary - Suspect triggered by recent URI - Scattered wheezing to posterior lower lobes bilaterally on exam - Start prednisone 40 mg x 5 days - Continue with albuterol as needed - Follow up Precautions Relevant Medications predniSONE (Deltasone) 20 MG tablet Screening mammogram for breast cancer Relevant Orders BI Mammogram Screening Tomosynthesis Bilateral Other Depressive disorder Overview Followed by psych team - January Michaud Therapist - Veronica every week Continue with med management through their team: Trazodone 100mg nightly Quetiapine 25mg nightly Hydroxyzine 25mg PRN Clonazepam 0.5mg BID Current Assessment & Plan - Reviewed PHQ-9, no SI/HI/thoughts of self - Continues following with specialists Follow up: 3 months, sooner as needed documented in this encounter Miscellaneous Notes * Assessment & Plan Note - OTTONIEL Dupont - 05/23/2024 7:17 PM ESTAssociated Problem(s): Depressive disorder - Reviewed PHQ-9, no SI/HI/thoughts of self - Continues following with specialists * Assessment & Plan Note - OTTONIEL Dupont - 05/23/2024 7:13 PM ESTAssociated Problem(s): Mixed incontinence urge and stress Continues with oxybutynin Referral to reestablish with [facility] urology placed 05/23/24 * Assessment & Plan Note - OTTONIEL Dupont - 05/23/2024 7:11 PM ESTAssociated Problem(s): Vertigo - Continue meclizine 25 mg as needed. Reviewed med safety and side effects - Previously completed vestibular rehab, reports did not much improvement * Assessment & Plan Note - OTTONIEL Dupont - 05/23/2024 7:05 PM ESTAssociated Problem(s): Psoriatic arthritis (CMS/HCC) Followed by [facility] Rheum - Dr. Ramos / ELIECER Jackson Symptoms aggravated by warmer weather (better in winter) Medication Hx: Previous medications include methotrexate and Arava 20 mg daily. Methotrexate not goot option with elevated transaminases Humira 40mg Q2 weeks (Started Jan 2023) As of July 2023, changed from Humira to Cyltezo per insurance formulary Plan: Continue adalimumab 40mg every other week through [facility] Rheum Continue diclofenac as needed APAP PRN Dermasmoothe for persistent dry patches on scalp. Follow up if not effective. DME request for Walker with Seat and breaks, as well as chair lift (informed may not be covered by insurance), placed 11/11/23. documented in this encounter Plan of Treatment Upcoming Encounters Date Type Department Care Team (Late st Contact Info) Description 08/22/2024 11:30 AM EDT Office Visit [facility] MED & PEDS [address] [place] [address] Aileen Harris FNP [address] [place] [address] Scheduled Orders Name Type Priority Associated Diagnoses Orde r Schedule BI Mammogram Screening Tomosynthesis Bilateral Imaging Routine Screening mammogram for breast cancer Expected: 05/23/2024, Expires: 07/21/2025 Scheduled Referrals Name Type Priority Associated Diagnoses Orde r Schedule Referral to Urology Outpatient Referral Routine Mixed incontinence urge and stress Expected: 05/23/2024 (Approximate), Expires: 05/23/2025 documented as of this encounter Visit Diagnoses Diagnosis Moderate persistent asthma with exacerbation- Primary Unspecified asthma, with exacerbation Healthcare maintenance Screening mammogram for breast cancer Mixed incontinence urge and stress Mixed incontinence urge and stress (male)(female) Psoriatic arthritis (CMS/[facility]) Psoriatic arthropathy Vertigo Dizziness and giddiness Depressive disorder Depressive disorder, not elsewhere classified documented in this encounter Additional Health Concerns Assessment Noted Time PHQ-9 Depression Total Score: 16 025 7:16 PM EST documented as of this encounter Care Teams Personal Care Worker Relationship Specialty Start Date End Date Aileen Harris FNP [address] [place] [address] PCP - General Family Medicine 12/06/21 documented as of this encounter
--- OUTSIDE RECORDS SUMMARY | 2024-06-17 12:28 | XMS_ITS | Encounter Summary ---
Author Organization [employer] Address [address] [place] [address] Care Team Providers Care Superintendent Oil Field Drilling Name Role Phone Aileen Harris OTTONIEL Primary Care Provider [phone] Encounter Details Date Type Department Care Team (Late st Contact Info) Description 06/17/2024 Orders Only GENERIC EXTERNAL DATA DEPARTMENT Provider, Generic External Data Social History Tobacco Use Types Packs/Day Years [...] your housing situation today? I have dany johnosn 01/22/[address] you li [...] 08/22/2024 11:30 AM EDT Office Visit [facility] PEDS [address] [place], [place] [phone] Aileen Harris, OTTONIEL [address] [place] [address] documented as of this encounter Procedures Procedure Name Priority Date/Time Associated Diagnosis Comments CBC WITH AUTO DIFFERENTIAL Routine 06/17/2024 10:57 AM EDT documented in this encounter Results * (ABNORMAL) CBC auto differential (06/17/2024 10:57 AM EDT) White Blood Count 9.5 4.8 - 10.8 X10*3/uL [facility] Red Blood Count 4.26 4.20 - 5.50 X10*6/uL [facility] Hemoglobin 13.1 12.0 - 16.0 g/dl [facility] Hematocrit 40.6 37.0 - 47.0 % [facility] Mean Corpuscular Volume 95.3 80.0 - 98.0 fL [facility] Mean Corpuscular Hemoglobin 30.8 27.0 - 33.0 pg [facility] Mean Corpuscular HGB Conc 32.3 31.0 - 35.0 g/dl [facility] Red Cell Distribution Width 12.8 11.0 - 16.0 % [facility] Platelet Count 261 160 - 400 X10*3/uL [facility] Mean Platelet Volume 11.8 9.4 - 12.3 fL [facility] Neutrophils Percent Auto 49.2 45 - 73 % [facility] Imm Gran Pct Auto 0.4 0.0 - 0.4 % [facility] Lymphocytes Percent Auto 41.1(H) 20 - 40 % [facility] Monocytes Percent Auto 7.6 2 - 11 % [facility] Eosinophils Percent Auto 1.1 0 - 4 % [facility] Basophils Percent Auto 0.6 0 - 2 % [facility] NRBC Pct Auto 0.0 0.0 - 0.2 /100WBC [facility] Neutrophils Absolute Auto 4.7 2.0 - 8.3 x10*3/uL [facility] Imm Gran Abs Auto 0.04(H) 0.00 - 0.03 X10*3/uL [facility] Lymphocytes Absolute Auto 3.9 1.2 - 4.9 X10*3/uL [facility] Monocytes Absolute Auto 0.7 0.1 - 1.2 X10*3/uL [facility] Eosinophils Absolute Auto 0.1 0.0 - 0.4 X10*3/uL [facility] Basophils Absolute Auto 0.1 0.0 - 0.2 X10*3/uL [facility] NRBC Abs Auto 0.000 0.0 - 0.012 X10*3/uL [facility] 06/17/2024 10:5 7 AM EDT 06/17/2024 10:57 AM EDT us Generic External Data Provider LAB BLOOD ORDERAB LES Final Result [facility] [address] [place] [address] [phone] documented in this encounter Visit Diagnoses Not on filedocumented in this encounter Additional Health Concerns Assessment Noted Time PHQ-9 Depression Total Score: 16 05/23/2 025 7:16 PM EST documented as of this encounter Care Teams Superintendent Oil Field Drilling Relationship Specialty Start Date End Date Aileen Harris FNP [address] [place] [address] PCP - General Family Medicine 12/06/21 documented as of this encounter
--- OUTSIDE RECORDS SUMMARY | 2024-06-17 12:28 | XMS_ITS | Encounter Summary ---
Author Organization [employer] Address [address] [place] [address] Care Team Providers Care Kennel Assistant Name Role Phone Aileen Harris OTTONIEL Primary Care Provider [phone] Encounter Details Date Type Department Care Team (Late st Contact Info) Description 02/23/2023 Abstract [facility] [address] [place], [place] [phone] Kathy Kong Social History Tobacco Use Types Packs/Day Years Used Date Smoking Tobacco: Never Passive Smoke Exposure: Never Smokeless Tobacco: Never Alcohol Use Standard Drinks/Week Comments Never 0 (1 standard drink = 0.6 oz pur e alcohol) Depression Answer Date Recorded Patient Health Questionnaire-9 Score 9 09/07/2022 Housing Stability Answer Date Recorded What is [...] Answer Date Recorded Patient Health Questionnaire-2 Score 0 09/07/2022 Comments Unknown Sex and Gender Information Value [...] 08/22/2024 11:30 AM EDT Office Visit [facility]EDS [address] [place], [place] [phone] Aileen Harris FNP [address] [place], [place] [phone] documented as of this encounter Procedures Procedure Name Priority Date/Time Associated Diagnosis Comments COLONOSCOPY Routine 02/01/2021 documented in this encounter Results * Hm Colonoscopy (02/01/2021) Colonoscopy Normal Normal Narrative Kathy Kong - 02/01/2021 Repeat in 3 years us Historical Provider HEALTH MAINTENANCE Final Result documented in this encounter Visit Diagnoses Not on filedocumented in this encounter Additional Health Concerns Assessment Noted Time PHQ-9 Depression Total Score: 9 09/08/19 23 9:37 AM EDT documented as of this encounter Care Teams Kennel Assistant Relationship Specialty Start Date End Date Aileen Harris FNP [address] [place] [address] PCP - General Family Medicine 12/06/21 documented as of this encounter
--- OUTSIDE RECORDS SUMMARY | 2024-06-17 12:28 | XMS_ITS | Encounter Summary ---
Author Organization [employer] Address [address] [place] [address] Care Team Providers Care Adding Machine Operator Name Role Phone Aileen Harris OTTONIEL Primary Care Provider [phone] Reason for Visit * Reason Onset Date Comments Chart Prep 05/22/2024 Encounter Details Date Type Department Care Team (Late st Contact Info) Description 05/22/2024 Telephone [facility] MED [facility] PEDS [address] [place] [address] Donya Brito MA Chart Prep Social History Tobacco Use Types Packs/Day Years [...] encounter Miscellaneous Notes * Telephone Encounter - Donya Richards MA - 05/22/2024 4:28 PM EST Chart Prep Labs: done Images: done Vaccines due: yes Referrals: complete Screenings: colonoscopy , mammogram Overdue care gaps: Sbirt, SDOH, PHQ-9 documented in this encounter Plan of Treatment Upcoming Encounters Date Type Department Care Team (Late st Contact Info) Description 08/22/2024 11:30 AM EDT Office Visit [facility] MED & PEDS [address] [place] [address] Aileen Harris FNP [address] [place] [address] documented as of this encounter Visit Diagnoses Not on filedocumented in this encounter Additional Health Concerns Assessment Noted Time PHQ-9 Depression Total Score: 11 024 9:19 AM EDT documented as of this encounter Care Teams Adding Machine Operator Relationship Specialty Start Date End Date Aileen Harris FNP [address] [place] [address] PCP - General Family Medicine 12/06/21 documented as of this encounter
--- OUTSIDE RECORDS SUMMARY | 2024-06-17 12:28 | XMS_ITS | Encounter Summary ---
Author Organization [employer] Address [address] [place] [address] Care Team Providers Care Commercial Credit Officer Name Role Phone Aileen Harris Primary Care Provider [phone] Reason for Visit * Reason Onset Date Comments transfer patient appt 06/12/2022 Encounter Details Date Type Department Care Team ([facility] st Contact Info) Description 06/12/2022 Telephone [facility] [address] [place] [address] Aileen Harris FNP [address] [place] [address] transfer patient appt Social History Tobacco Use Types Packs/Day Years Used Date Smoking Tobacco: Never Passive Smoke Exposure: Never Smokeless Tobacco: Never Alcohol Use Standard Drinks/Week Comments Never 0 (1 standard drink = 0.6 oz pur e alcohol) Comments Unknown Sex and Gender Information Value Date Recorded Sex Assigned at Female 02/06/2022 10:15 AM EDT Legal Sex Female 10:15 AM EDT Gender Identity Female 02/06/2022 10:15 AM EDT Sexual Orientation Don't know 02/06/2022 10 :15 AM EDT COVID-19 Exposure Response Date Recorded In the last 10 days, have yo u been in contact with someone who was confirmed or suspected to have Coronavirus/COVID-19? No / Unsure 06/13/2022 9:27 AM EST documented as of this encounter Miscellaneous Notes * Telephone Encounter - Brynn Spears - 06/12/2022 11:19 AM EST Tc from pt requesting an appt but is due for a transfer patient. documented in this encounter Plan of Treatment Upcoming Encounters Date Type Department Care Team (Late st Contact Info) Description 08/22/2024 11:30 AM EDT Office Visit [facility] [address] [place], [place] [phone] Aileen Harris FNP [address] [place], [place] [phone] documented as of this encounter Visit Diagnoses Not on filedocumented in this encounter Care Teams Commercial Credit Officer Relationship Specialty Start Date End Date Aileen Harris FNP [address] [place] [id number] PCP - General Family Medicine 12/06/21 documented as of this encounter
--- OUTSIDE RECORDS SUMMARY | 2024-06-17 12:28 | XMS_ITS | Encounter Summary ---
Author Organization [employer] Address [address] [place] [address] Care Team Providers Care Geriatric Nurse Assistant Name Role Phone Aileen Harris Primary Care Provider [phone] Reason for Visit * Reason Comments Med Change Request Encounter Details Date Type Department Care Team ([facility] Contact Info) Description 10/03/2022 Refill [facility] [address] [place] [address] Aileen Harris FNP [address] [place], [place] [phone] Social History Tobacco Use Types Packs/Day Years Used Date Smoking Tobacco: Never Passive Smoke Exposure: Never Smokeless Tobacco: Never Alcohol Use Standard Drinks/Week Comments Never 0 (1 standard drink = 0.6 oz pur e alcohol) Depression Answer Date Recorded Patient Health Questionnaire-9 Score 9 09/07/2022 Depression Answer Date Recorded Patient Health Questionnaire-2 [...] suspected to have Coronavirus/COVID-19? No / Unsure 09/07/2022 9:14 AM EDT documented as of this encounter Plan of Treatment Upcoming Encounters Date Type Department Care Team (Late st Contact Info) Description 08/22/2024 11:30 AM EDT Office Visit [facility] [address] [place] [address] Aileen Harris FNP [address] [place] [address] documented as of this encounter Visit Diagnoses Not on filedocumented in this encounter Additional Health Concerns Assessment Noted Time PHQ-9 Depression Total Score: 9 09/08/19 23 9:37 AM EDT documented as of this encounter Care Teams Geriatric Nurse Assistant Relationship Specialty Start Date End Date Aileen Harris FNP [address] [place] [address] PCP - General Family Medicine 12/06/21 documented as of this encounter
[2024-06-17 12:41] LABS: Erythrocyte Sedimentation Rate 38 MM/HR (0-20)
[2024-06-17 13:07] LABS: Alanine Aminotransferase 38 U/L (0-31); Albumin Level 4.3 g/dL (3.5-5.0); Alkaline Phosphatase 62 U/L (39-117); Anion Gap 11 (12-20); Aspartate Amino Transferase 44 U/L (5-31); Bilirubin Total 0.5 mg/dL (0.0-1.0); Blood Urea Nitrogen 18 mg/dL (9-16); C Reactive Protein 0.33 mg/dL (< or = 0.50); Calcium 9.5 mg/dL (8.4-10.2); Carbon Dioxide 28 mmol/L (22-29); Chloride 105 mmol/L (96-108); Estimated Glomerular Filt Rate > 60; Glucose Random 110 mg/dL (60-115); Potassium 3.6 mmol/L (3.3-5.1); Sodium 140 mmol/L (135-145); Total Protein 8.4 g/dL (6.5-8.0)
[2024-06-20 17:14] LABS: TS Negative Control Passed; TS Panel A 0; TS Panel B 0; TS Positive Control Passed; TSpotTB Negative (Negative)
== END 2024-06-17 10:27 | disposition home or self-care (01) ==
LOC: HO.LAB 10:26
PROVIDERS: PCP Registered Nurse; Visit Provider Student in an Organized Health Care Education/Training Program
DX: L40.50 Arthropathic psoriasis, unspecified (principal); Z11.7 Encounter for testing for latent tuberculosis infection
CPT/HCPCS: 36415; 80053; 85025; 85652; 86140; 86481

== ENCOUNTER 2024-07-22 13:36 | Outpatient (REF) | payer MEDICARE, MEDICAID, SELFPAY ==
[2024-07-22 16:59] LABS: Urine Cytology See Pathology rpt
== END 2024-07-22 13:37 | disposition home or self-care (01) ==
LOC: HO.LNP 13:36
PROVIDERS: PCP Registered Nurse; Visit Provider Nurse Practitioner Family
DX: R35.1 Nocturia (principal); R32 Unspecified urinary incontinence; Z13.9 Encounter for screening, unspecified
CPT/HCPCS: 51798; 81003; 88112; 99202

== ENCOUNTER 2024-07-22 13:36 | Outpatient (AMB) | payer MEDICARE, MEDICAID, SELFPAY ==
--- NOTE | 2024-07-22 14:16 | A.OFFVIS_ITS ---
Intake Visit Reasons: urinary incontinence Intake Note: New Patient presents for initial visit for urinary incontinence Urology Medications: Oxybutynin Blood Thinner's: none PVR: 0ml's [employer] Vault Supervisor Required: Yes Accompanied by: Self / Same As Patient Allergies tramadol [TRAMADOL] Allergy (Intermediate, Verified 07/22/24 14:50) RASH, itching, rash oxycodone Allergy (Verified 07/22/24 14:50) Rash Medication List - Last Reconciled 07/22/24 by GIDEON Laws acetaminophen ER (Tylenol Arthritis Pain) 650 mg PO Q8H PRN adalimumab-aaty (Yuflyma(CF) Autoinjector) 40 mg (0.4 mL) subcut Q2W albuterol sulfate 90 mcg/actuation 2 puffs inhalation Q6H PRN cholestyramine-aspartame 4 gram (Cholestyramine Light) 4 grams PO BID 30 days citalopram 20 mg PO DAILY clonazepam 0.25 mg PO BID cyclobenzaprine 10 mg PO TID PRN diclofenac sodium 1% 2 grams topical BID PRN famotidine 20 mg PO BEDTIME fluticasone propion-salmeterol 45-21 mcg/actuation (Advair HFA) inhalation fluticasone propionate 50 mcg/actuation sprays intranasal furosemide 20 mg PO DAILY hydroxyzine HCl 25 mg PO BID lisinopril-hydrochlorothiazide 20-25 mg 1 tab PO DAILY meclizine 50 mg PO BID PRN melatonin 5 mg PO BEDTIME metoprolol tartrate 25 mg PO DAILY omeprazole 20 mg PO DAILY oxybutynin chloride ER 15 mg PO DAILY 90 days prednisone 3 tablets x 3 days 2 tablets per day x 5 days, 1 tablet per day x 5 days stop quetiapine 25 mg PO BEDTIME sennosides-docusate sodium 8.6-50 mg (Senexon-S) tabs PO simvastatin 40 mg PO BEDTIME trazodone 100 mg PO BEDTIME HPI Comments Details: Linda is a pleasant 68-year-old female patient of Dr. Harris. She has a past medical history of urinary incontinence, anxiety, obstructive sleep apnea, asthma, hypercholesteremia, lumbar spondylosis, psoriatic arthritis, IBS, obesity, GERD, and hypertension. She presents to the office today as a new patient for nocturia. In discussion with the patient today she reports a longstanding history of urinary issues and having had bladder surgery in the past however does not recall exactly what was performed. She reports previously following up with Dr. Moon many years ago and has since been on oxybutynin. In review of patient's chart it appears patient underwent pubovaginal sling with Dr. Moon 04/2010 as well as a cystoscopy for history of hematuria that was noted to be within normal limits. She discusses most recently experiencing episodes of nocturia up to 5 times per night in the last 6 months. She otherwise denies urinary urgency, urinary frequency, incontinence, hematuria, dysuria, foul smelling urine, changes to urinary stream, flank pain, fever, and or chills. She is happy with her current voiding parameters. We discussed at length potential causes of nocturia. She does report a history of sleep apnea and attempts to be compliant with her CPAP machine we discussed correlation of sleep apnea and nocturia. She does endorse to be limiting fluids 2-3 hours prior to bed. We discussed obtaining retroperitoneal ultrasound for further assessment evaluation. In office urinalysis results reviewed with the patient today. PVR 0 mL. Plan I have decided to discontinue the use of oxybutynin and initiate Mirebetriq for her urinary incontinence and nocturia. I emphasized the importance of consistent use of CPAP to ensure optimal management of obstructive sleep apnea and its potential impact on renal function. I have also ordered an ultrasound of the kidneys and bladder to exclude any structural issues. These measures aim to improve her symptomatic management effectively. The patient is in agreement with this updated management strategy, and an appropriate follow-up will be coordinated to monitor any advancements or adjustments required in her therapeutic regimen. Patient was informed and verbally consented to the use of an ambient scribe for clinic note documentation during this visit. Discussion Notes I discussed with the patient the probable causes of her nocturia and urinary incontinence. We explored how suboptimal CPAP use could exacerbate her symptoms due to inadequate renal perfusion. The treatment change from oxybutynin to Mirebetriq was thoroughly explained, including its potential benefits over her current regimen. The need for an ultrasound to rule out anatomical abnormalities was also discussed. The patient fully understood and agreed to the treatment modifications and follow-up plans. [facility] Medical History (Updated 07/22/24 @ 16:14 by Marianne Diana) Encounter for screening Left shoulder pain Urinary incontinence On beta melvin at home Anxiety TATUM (obstructive sleep apnea) Asthma Elevated cholesterol PONV (postoperative nausea and vomiting) Colon cancer screening Dislocation of distal interphalangeal (DIP) joint of finger Uterine prolapse Lumbar spondylolysis Psoriatic arthritis IBS (irritable bowel syndrome) Arthritis Morbidly obese GERD (gastroesophageal reflux disease) HTN (hypertension) Surgical History (Updated 03/20/24 @ 12:52 by Ankur Marinelli MD) H/O arthrodesis Hx of colonoscopy History of blepharoplasty History of pubovaginal sling History of total left knee replacement History of total right knee replacement (TKR) Hx of appendectomy Hx of cholecystectomy Family History Mother HTN (hypertension) Diabetes Father Throat cancer Sister Heart problem Cancer Social History Household Members Other:: daughter Are you a primary child care aide to a significant other at home: No Do you presently have 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) Alcohol intake: never Patient Tobacco Use Status: Never used Tobacco e-Cigarette/Vaping Use: Never Used Current occupational status: disabled 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Systems Const All systems reviewed & are unremarkable except as noted in HPI and below Physical Exam Const General: cooperative, healthy appearing, comfortable, no acute distress, well developed, alert and awake Nutritional Appearance: overweight Orientation/consciousness: patient oriented x3 Limitations: no limitations HEENT Head: Yes normal to inspection, Yes normocephalic and Yes atraumatic Ears: hearing grossly normal bilaterally Eyes General: appearance normal, both eyes and all related structures Neck Neck: Yes normal visual inspection and Yes trachea midline Chest Chest palpation & inspection: normal inspection of the chest Resp Effort & Inspection: normal respiratory effort and able to speak in complete sentences Cardio Rate: regular rate GI Inspection: Yes normal to inspection General: Yes no CVA tenderness Back/Spine/Pelvis Back: no CVA tenderness Skin General skin exam: no rashes or lesions noted Neuro General: patient oriented x3 Extrem General: Yes normal to inspection Psych Appearance: grossly normal and well kempt Mental Status: mental status grossly normal Speech and movement: Normal speech and movement present and Clear speech present Affect: normal affect Attitude: cooperative Thought process: Normal thought process present Thought content: Normal thought content present Insight: Fair insight present (Psych) Judgement: Fair judgement present (Psych) Office Procedures Post Void Residual Post Residual Void Post Void Residual (PVR): 0 [id number] Void Residual by ultrasound Results AMB Urinalysis, Automated UA Leukoctes 0 Marvin/uL Last Edit by [employer] on 07/22/24 15:43 UA Nitrite Last Edit by [employer] on 07/22/24 15:43 UA Urobilinogen 0.2 mg/dL Last Edit by [employer] on 07/22/24 15:43 UA Protein 15 mg/dL Last Edit by [employer] on 07/22/24 15:43 UA pH 5.5 Last Edit by POPRAGEOUSse on 07/22/24 15:43 UA Blood 25 David/uL Last Edit by [employer] on 07/22/24 15:43 UA Specific [place] 1.030 Last Edit by [employer] on 07/22/24 15:43 UA Ketone Last Edit by [employer]RAGE[employer] on 07/22/24 15:43 UA Bilirubin 0 mg/dL Last Edit by [employer] on 07/22/24 15:43 UA Glucose 0 mg/dL Last Edit by [employer]RAGE[employer] on 07/22/24 15:43 Results Reviewed Results Reviewed: Laboratory Last Values Urine pH (Auto) 5.5 07/22/24 15:42 Specific [place] (Auto) 1.030 07/22/24 15:42 Urine Protein (Auto) 15 mg/dL 07/22/24 15:42 Glucose (UA)(Auto) 0 mg/dL 07/22/24 15:42 Urine Blood (Auto) 25 David/uL 07/22/24 15:42 Urine Bilirubin (Auto) 0 mg/dL 07/22/24 15:42 Urine Urobilinogen (Auto) 0.2 mg/dL 07/22/24 15:42 Leukocyte Esterase (Auto) 0 Marvin/uL 07/22/24 15:42 Assessment & Plan Assessment & Plan (1) Nocturia: Code(s): R35.1 - Nocturia Category: Medical (2) Urinary incontinence: Code(s): R32 - Unspecified urinary incontinence Category: Medical Plan In office urinalysis results reviewed with the patient today; as noted above. PVR 0 mL. We discussed at length potential causes of nocturia as well as further treatment options and risks and benefits of these treatment options. Stop oxybutynin. Start Myrbetriq as discussed and prescribed. We discussed importance of compliance with CPAP machine for improvement in nocturia as well as overall health and well-being. Will obtain retroperitoneal ultrasound for further assessment evaluation. We discussed potential near future in office urodynamics for further assessment evaluation. Follow-up in 1-3 months with imaging and PVR; or sooner with any issues, concerns, and or questions Orders: Orders Urine Cytology Today Z13.9 - Encounter for screening, unspecified US retroperitoneal comp Today R35.1 - Nocturia AMB Urinalysis Automated Today Z13.9 - Encounter for screening, unspecified AMB Post Void Residual by ultrasound Today R35.1 - Nocturia Medications: New mirabegron ER (Myrbetriq) 25 mg PO DAILY 30 tabs 3RF 30 days N30.10 - Interstitial cystitis (chronic) without hematuria, N32.81 - Overactive bladder, R35.1 - Nocturia, R39.15 - Urgency of urination Discontinued oxybutynin chloride ER Discontinued Reason: Doctor's Order 15 mg PO DAILY 90 days 90 tabs 3RF Patient Instructions: The patient had an opportunity to ask questions regarding the treatment plan. All questions were answered. Physical exam, labs, and imaging were discussed and reviewed in detail. As well as risks, benefits, and discussion of treatment choices. No major barriers to understanding were identified. The patient expressed understanding and agreement with the above treatment plan. The patient was made aware they should contact our office by phone for worsening of their current condition, the appearance of new symptoms, or with any questions or concerns. Compliance is encouraged with any medications and follow up testing that is ordered. It is a privilege to be allowed the opportunity to participate in? your urological care.? Again, if you have any questions or concerns If you have any questions or concerns please do not hesitate to contact me. The office is [phone]. This note is constructed using voice recognition software. While every effort has been made to ensure accuracy chairman & chief executive officer errors may have been included. Yours sincerely, OTTONIEL Laws-ELBA Coding Level of Care Code New Pt Level 4 (87787) Diagnoses Nocturia R35.1 Urinary incontinence R32 CPT Codes Post Residual Void - PVR CPT Code: 33434-Zyrd Void Residual by ultrasound ([id number])
== END 2024-07-22 14:57 | disposition home or self-care (01) ==
LOC: HO.HUSH 13:36
PROVIDERS: PCP Registered Nurse; Visit Provider Nurse Practitioner Family
DX: R35.1 Nocturia (principal); R32 Unspecified urinary incontinence; Z13.9 Encounter for screening, unspecified
CPT/HCPCS: 99204

== ENCOUNTER 2024-07-30 11:16 | Outpatient (AMB) | payer MEDICARE, MEDICAID, SELFPAY ==
--- NOTE | 2024-07-30 11:29 | A.OFFVIS_ITS ---
Vital Signs 3 07/30/24 11:36 Height 5 ft 4 in Weight 236 lb BMI 40.5 BP 125/60 Blood Pressure Location Lt brachial Position Sitting Pulse 110 H Pulse Oximetry (%) 94 Oxygen Delivery Method Room Air Intake Visit Reasons: Repeat colonoscopy Allergies tramadol [TRAMADOL] Allergy (Intermediate, Verified 07/30/24 11:29) RASH, itching, rash oxycodone Allergy (Verified 07/30/24 11:29) Rash HPI HPI Repeat colonoscopy: Details: Assessment & Plan (1) Epigastric pain: ?Code(s): R10.13 - Epigastric pain ?Plan: [place] #[id number] [place] She says she is worse with epigastric pain and stomach aches every am and she says she can not eat or drink anything in the am. She will have to lay down every day all day. The pain does not move and is 9/10. It will resolve around 6 pm at night. She drinks tea or soup at night. After a medication review and showing her pictures of pills, it appears she does not have her omeprazole 40mg qam. she says I have a stomach medication but it is a powder. This would be her cholestyramine, and it is not for GERD/HB. At this point I wonder restart her omeprazole and then re-evaluate her pain.? There is a lot of medication confusion this certainly is not helping in the maintenance or the progression of her treatment of her symptoms.? Her H pylori appears to be eradicated so this does not seem to be part of the problem.? Certainly she probably has some by a reflex and gastritis on top of her GERD and were not having the correct medication mix is concerning.? At this point? it seems that her diarrhea is controlled but I am not sure if she is taking Carafate, cholestyramine, or both.? I would like for her to bring her medications in a bag at the next visit. ROV 3 weeks, all of her instructions for written out in [place] to try to facilitate understanding utilizing [employer] translate (2) GERD (gastroesophageal reflux disease): ?Code(s): K21.9 - Gastro-esophageal reflux disease without esophagitis (3) Post-cholecystectomy syndrome: ?Code(s): K91.5 - Postcholecystectomy syndrome (4) Tubular adenoma of colon: ?Comment: cope 10mm TA and one smaller, repeat in 3 years aeb ?Code(s): D12.6 - Benign neoplasm of colon, unspecified ? ? ? Medications:?New famotidine (Pepcid) 40 mg PO BEDTIME 30 days 30 tabs 6RF K21 .9 - Gastro- esophageal reflux disease without esophagitis, R10.13 - Epigastric pain ? Refilled omeprazole 40 mg PO DAILY 90 caps 1RF ?Patient Instructions: Yazan,Linda Hahn medicamento en polvo, llamado colestiramina, es para la diarrea. El omeprazol es para el dolor de la parte superior del est?richardson y parece que no lo diehl estado recibiendo. Si no lo consigue en la farmacia, ll?darron. Tambi?n quiero agregar famotidina a la hora de acostarse para ayudar con los s?ntomas matutinos. Por favor, ll?darron si no obtiene estos medicamentos, ya que las farmacias NO son muy buenas para avisarme cuando algo sale Asthma TATUM High cholesterol Morbid obesity Hypertension Postoperative nausea and vomiting - pt denies Urinary incontinence Uterine prolapse Tubular adenomas * SURGICAL HISTORY Appendectomy Cholecystectomy Bilateral knee replacements Bladder sling Blepharoplasty Colonoscopy 2020= large TA repeat in 3 years ALLERGIES Tramadol Oxycodone LABS: Laboratory Tests 06/17/24 10:57 WBC 9.5 Hgb 13.1 Hct 40.6 Plt Count 261 D Estimated GFR > 60 Total Bilirubin 0.5 AST 44 H ALT 38 H Alkaline Phosphatase 62 TODAY'S VISIT [place] #dtr translates per pt request Patient has been lost follow-up since 2020. She says her GI regimen continues to work well for her. It consists of cholestyramine, famotidine, omeprazole, and a senna/Colace combination pill. She is here today for a colonoscopy repeat. Her asthma and TATUM are well controlled and she denies any cardiac problems. She denies PONV and has not trouble with anesthesia and sedation No ID problems She had large TA's in 2020. [facility] Medical History (Updated 07/30/24 @ 11:34 by TARAH Portillo) Encounter for screening Left shoulder pain Urinary incontinence On beta melvin at home Anxiety TATUM (obstructive sleep apnea) Asthma Elevated cholesterol PONV (postoperative nausea and vomiting) Colon cancer screening Dislocation of distal interphalangeal (DIP) joint of finger Uterine prolapse Lumbar spondylolysis Psoriatic arthritis IBS (irritable bowel syndrome) Arthritis Morbidly obese GERD (gastroesophageal reflux disease) HTN (hypertension) Surgical History H/O arthrodesis Hx of colonoscopy History of blepharoplasty History of pubovaginal sling History of total left knee replacement History of total right knee replacement (TKR) Hx of appendectomy Hx of cholecystectomy Family History Mother HTN (hypertension) Diabetes Father Throat cancer Sister Heart problem Cancer Social History Household Members Other:: daughter Are you a primary daycare teacher to a significant other at home: No Do you 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 have 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[employer]) Alcohol intake: never Patient Tobacco Use Status: Never used Tobacco e-Cigarette/Vaping Use: Never Used Current occupational status: disabled 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Systems Const Denies fatigue, Denies fever(s), Denies night sweats, Denies poor appetite and Denies weight loss Eyes Reports requires corrective lenses ENT Reports Normal hearing present, Denies dental pain, Denies dysphagia, Denies hearing loss, Denies mouth pain, Denies odynophagia, Denies throat swelling, Denies tongue swelling and Reports other (Dentition adequate) GI Details: Denies abdominal pain, Denies melena, Denies bloating, Denies hematochezia, Denies constipation, Denies GI cramping, Denies dysphagia, Denies excessive flatus, Denies early satiety, Denies heartburn, Denies diarrhea, Denies nausea, Denies odynophagia, Denies vomiting and Denies hematemesis Skin/Breast Denies pruritus, Denies lesions, Denies rash and Denies jaundice Neuro Reports Normal hearing present and Denies Abnormal speech present Endo Denies fatigue Aller/Immun Denies throat swelling and Denies tongue swelling Physical Exam Vital Signs: Last Vital Signs Pulse 110 H 07/30/24 11:36 BP 125/60 07/30/24 11:36 Pulse Ox 94 07/30/24 11:36 Oxygen Delivery Method Room Air 07/30/24 11:36 BMI result Body Mass Index 40.5 Const General: cooperative, no acute distress, well developed and well groomed Nutritional Appearance: well nourished and obese Orientation/consciousness: oriented to person, oriented to place and oriented to time Limitations: language barrier and ambulation with cane HEENT Head: Yes normocephalic and Yes atraumatic Eyes General: appearance normal, both eyes and all related structures Pupils: Equal, round and reactive pupils present Neck Neck: Yes normal visual inspection and Yes no lymphadenopathy Thyroid: Thyroid normal Resp Effort & Inspection: normal respiratory effort and able to speak in complete sentences Auscultation: clear to auscultation bilaterally Cardio Rate: regular rate Rhythm: regular rhythm Heart sounds: Normal, physiologic split S2 sound present Peripheral pulses: radial pulses present and posterior tibial pulses present GI Inspection: No distended, Yes Abdominal panniculus present, Yes obesity and Yes scar Palpation (GI): Soft to palpation, nontender, no guarding, not rigid and No hepatosplenomegaly present Percussion: Yes normal to percussion Auscultation: normal bowel sounds Rectal Exam - Female: deferred Abdomen image: 2 1. surgical scar Skin General skin exam: no rashes or lesions noted, turgor normal, skin not dry, no jaundice, No spider nevi and no striae Rashes: no rashes Nails: normal Neuro General: oriented to person, oriented to place and oriented to time Cranial nerves: Yes Equal, round and reactive pupils present and Yes Normal hearing present Speech: No Abnormal speech present Extrem General: Yes normal to inspection, No clubbing, No cyanosis and Yes edema (mild non pitting ankles) Psych Thought process: Normal thought process present and not confabulating Thought content: Normal thought content present Insight: Good insight present (Psych) Judgement: Good judgement present (Psych) Results Reviewed Results Reviewed: Laboratory Tests 06/17/24 10:57 WBC 9.5 Hgb 13.1 Hct 40.6 Plt Count 261 D Estimated GFR > 60 Total Bilirubin 0.5 AST 44 H ALT 38 H Alkaline Phosphatase 62 Assessment & Plan Assessment & Plan (1) Pre-op examination: Code(s): Z01.818 - Encounter for other preprocedural examination Category: Medical (2) GERD (gastroesophageal reflux disease): Code(s): K21.9 - Gastro-esophageal reflux disease without esophagitis Category: Medical (3) Post-cholecystectomy syndrome: Code(s): K91.5 - Postcholecystectomy syndrome Category: Medical (4) Tubular adenoma of colon: Comment: cope 10mm TA and one smaller, repeat in 3 years aeb Code(s): D12.6 - Benign neoplasm of colon, unspecified Category: Medical (5) TATUM (obstructive sleep apnea): Code(s): G47.33 - Obstructive sleep apnea (adult) (pediatric) Category: Medical (6) Asthma: Code(s): J45.909 - Unspecified asthma, uncomplicated Category: Medical Plan [place] #dtr translates per pt request Patient has been lost follow-up since 2020. She says her GI regimen continues to work well for her. It consists of cholestyramine, famotidine, omeprazole, and a senna/Colace combination pill. She is here today for a colonoscopy repeat. Her asthma and TATUM are well controlled and she denies any cardiac problems. She denies PONV and has not trouble with anesthesia and sedation No ID problems She had large TA's in 2020. Orders: Orders 2 Colonoscopy - GI Use Only Today D12.6 - Benign neoplasm of colon, unspecified Medications: New 2 sodium,potassium,mag sulfates 17.5-3.13-1.6 gram (Suprep Bowel Prep Kit) 480 mL orally; FOR COLONOSCOPY PREP 354 mL 0RF omeprazole 20 mg PO DAILY 30 caps 12RF Changed 2 From sennosides-docusate sodium 8.6-50 mg (Senexon-S) PO To sennosides-docusate sodium 8.6-50 mg (Senexon-S) 2 tab-caps (2 x 8.6-50 mg) PO .qhs 60 tabs 12RF Refilled 2 famotidine 20 mg PO BEDTIME 30 tabs 12RF Coding Level of Care Code New Pt Level 3 (41397) Diagnoses Pre-op examination Z01.818 GERD (gastroesophageal reflux disease) K21.9 Post-cholecystectomy syndrome K91.5 Tubular adenoma of colon D12.6 TATUM (obstructive sleep apnea) G47.33 Asthma J45.909
--- NOTE | 2024-07-30 11:30 | A.OFFVIS_ITS ---
Vital Signs 07/30/24 11:36 Height 5 ft 4 in Weight 236 lb BMI 40.5 BP 125/60 Blood Pressure Location Lt brachial Position Sitting Pulse 110 H Pulse Oximetry (%) 94 Oxygen Delivery Method Room Air Intake Visit Reasons: Repeat colonoscopy Intake Note: Patient new consult for 2nd pre colonoscopy. [place] was 03/2021. Patient cc: x colon polyps with constipation, GERD, abdominal bloating and really gassy. Bread Wrapper Required: No Accompanied by: Family/Other Allergies tramadol [TRAMADOL] Allergy (Intermediate, Verified 07/30/24 11:29) RASH, itching, rash oxycodone Allergy (Verified 07/30/24 11:29) Rash PFSH Medical History (Updated 07/30/24 @ 11:34 by TARAH Portillo) Encounter for screening Left shoulder pain Urinary incontinence On beta melvin at home Anxiety TATUM (obstructive sleep apnea) Asthma Elevated cholesterol PONV (postoperative nausea and vomiting) Colon cancer screening Dislocation of distal interphalangeal (DIP) joint of finger Uterine prolapse Lumbar spondylolysis Psoriatic arthritis IBS (irritable bowel syndrome) Arthritis Morbidly obese GERD (gastroesophageal reflux disease) HTN (hypertension) Surgical History H/O arthrodesis Hx of colonoscopy History of blepharoplasty History of pubovaginal sling History of total left knee replacement History of total right knee replacement (TKR) Hx of appendectomy Hx of cholecystectomy Family History Mother HTN (hypertension) Diabetes Father Throat cancer Sister Heart problem Cancer Social History Household Members Other:: daughter Are you a primary special needs caregiver to a significant other at home: No Do you presently have 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 home services: 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
[2024-07-30 11:36] VITALS: BP 125/60; PULSE 110; O2SAT 94; BMI 40.5
--- OUTSIDE RECORDS SUMMARY | 2024-07-30 13:39 | XMS_ITS | Encounter Summary ---
Author Organization [employer] Address [address] [place] [address] Care Team Providers Care Processing Lead Name Role Phone Aileen Harris Primary Care Provider Reason for Visit * Reason Comments Med Refill Encounter Details Date Type Department Care Team ([facility] Contact Info) Description 03/10/2024 Refill [facility] [address], [place] [phone] Aileen Harris FNP [address] [place] [address] Social History Tobacco Use Types Packs/Day Years [...] Upcoming Encounters Date Type Department Care Team ([facility] st Contact Info) Description 08/22/2024 11:30 AM EDT Office Visit [facility] [address] [place] [address] Aileen Harris FNP [address] [place] [address] documented as of this encounter Visit Diagnoses Not on filedocumented in this encounter Additional Health Concerns Assessment Noted Time PHQ-9 Depression Total Score: 11 024 9:19 AM EDT documented as of this encounter Care Teams Processing Lead Relationship Specialty Start Date End Date Aileen Harris FNP [address] [place] [id number] PCP - General Family Medicine 12/06/21 documented as of this encounter
--- OUTSIDE RECORDS SUMMARY | 2024-07-30 13:39 | XMS_ITS | Clinical Summary ---
Author Organization [employer] Address [address] [facility] 7[address] [place] [address] Care Team Providers Care Chemist Assistant Name Role Phone Aileen Harris OTTONIEL Primary Care Provider [phone] Allergies Active Allergy Reactions Criticality Noted Date Comments Oxycodone Rash Low 09/07/2022 Medications albuterol 108 (90 Base) MCG/ACT inhaler TOME DOS INHALACIONES POR V A ORAL CADA CUATRO A SEIS HORAS CUANDO SEA NECESARIO 3 Active fluticasone-salm eterol (Advair) 45-21 MCG/ACT inhaler Use QID for 1 week, then BID for one week, then once daily. Rinse mouth with water after use to reduce aftertaste and incidence of candidiasis. Do not swallow. 12 g 11 3 Active ciclopirox (Penlac) 8 % solution Apply topically at bedtime. 6 mL 3 Active clonazePAM (KlonoPIN) 0.5 MG tablet TOME CLIFFORD TABLETA DOS VECES AL D A CUANDO SEA NECESARIO 3 Active Diclofenac Sodium 1 % gel APPLY 2GM TOPICALLY 2 TIMES A DAY NEEDED FOR PAIN 3 Active hydrOXYzine HCl (Atarax) 25 MG tablet TOME CLIFFORD TABLETA TODOS LOS D CUANDO SEA NECESARIO 3 Active QUEtiapine (SEROquel) 25 MG tablet TOME CLIFFORD TABLETA TODOS LOS D AL ACOSTARSE 3 Active traZODone (Desyrel) 100 MG tablet TOME CLIFFORD TABLETA TODOS LOS D AL ACOSTARSE 3 Active lisinopril-hydro CHLOROthiazide 20-25 MG tabletIndication s:Essential hypertension TOME CLIFFORD TABLETA TODOS LOS SUTTON 90 tablet 3 4 Active fluocinolone ([place]-Smoothe/F S Body) 0.01 % external oilIndications:P soriatic arthritis (CMS/HCC) Apply before bed on a damp scalp to affected areas, wrap with head covering. Wash out in the morning. Use 2 times per week. 120 mL 1 4 Active senna-docusate (Stimulant Laxative) 8.6-50 MG tabletIndication s:Constipation, unspecified constipation type TAKE 1 TO 2 TABLETS BY MOUTH AT BEDTIME NEEDED FOR CONSTIPATION 180 tablet 1 4 Active oxybutynin XL (Ditropan-XL) 15 MG 24 hr tabletIndication s:Mixed incontinence urge and stress TAKE 1 TABLET BY MOUTH ONCE DAILY 90 tablet 1 4 Active Acetaminophen Extra Strength 500 MG tabletIndication s:Psoriatic arthritis (CMS/HCC) TAKE 1 TO 2 TABLETS BY MOUTH EVERY 8 HOURS NEEDED FOR PAIN OR FEVER 100 tablet 2 4 Active omeprazole (PriLOSEC) [address] capsuleIndicatio ns:Gastroesophag eal reflux disease, unspecified whether esophagitis present TAKE 1 CAPSULE BY MOUTH ONCE DAILY NEEDED FOR acidez. MAY USE if famotidine is not effective. do not crush or chew 30 capsule 2 5 Active metoprolol succinate XL (Toprol-XL) 25 MG 24 hr tabletIndication s:Tachycardia TAKE 1 TABLET BY MOUTH ONCE DAILY. not crush or chew. to replace metoprol tartrate 90 tablet 1 5 Active simvastatin (Zocor) 40 MG tablet TAKE 1 TABLET BY MOUTH ONCE DAILY AT BEDTIME 90 tablet 2 5 Active famotidine (Pepcid) 20 MG tablet TAKE 1 TABLET BY MOUTH IN THE MORNING AND AT BEDTIME NEEDED FOR ACIDEZ 60 tablet 5 5 Active diclofenac (Voltaren) 75 MG EC tabletIndication s:Psoriatic arthritis (CMS/HCC) Take 1 tablet (75 mg) by mouth if needed in the morning and at bedtime (pain). 60 tablet 2 5 Active predniSONE (Deltasone) 20 MG tabletIndication s:Moderate persistent asthma with exacerbation 2 tabs po daily for 5 days 10 tablet 5 Active Yuflyma, 2 Pen, 40 MG/0.4ML Auto-injector KitIndications:P soriatic arthritis (CMS/HCC) 5 Active Active Problems Problem Noted Date Diagnosed Date Vertigo 05/23/2024 Assessment & Plan (05/23/2024 7:11 PM EST): - Continue meclizine 25 mg as needed. Reviewed med safety and side effects - Previously completed vestibular rehab, reports did not much improvement Healthcare maintenance 10/06/2022 Overview (05/23/2024): 10/25/22: DEXA WNL Pap: NILM HPV Neg Mar 2021 Colonoscopy: 02/01/21 at [facility]. Need to confirm path results for follow [...] CPAP -Following with sleep medicine services of [facility] APAP 5-8cm H20 nightly, 4h/night. Increased humidity [...] to metoprolol XL once daily) Following with [facility] - Dr. Santoro Per consult note 2015: Echo and loop stable 201407/24/23: Echo - [...] Plan (05/23/2024 7:06 PM EST): Followed by [facility] Rheum - Dr. Ramos / ELIECER Jackson Symptoms aggravated by warmer weather (better in winter) Medication Hx: Previous medications include methotrexate and Arava 20 mg daily. Methotrexate not goot option with elevated transaminases Humira 40mg Q2 weeks (Started Jan 2023) As of July 2023, changed from Humira to Cyltezo per insurance formulary Plan: Continue adalimumab 40mg every other week through [facility] Rheum Continue diclofenac as needed APAP PRN Dermasmoothe for persistent dry patches on scalp. Follow up if not effective. DME request for Walker with Seat and breaks, as well as chair lift (informed may not be covered by insurance), placed 11/11/23. Assessment & Plan (11/11/2023 7:34 PM EDT): Followed by [facility] Rheum - Dr. Ramos / ELIECER Jackson Symptoms aggravated by warmer weather (better in winter) Medication Hx: Previous medications include methotrexate and Arava 20 mg daily. Methotrexate not goot option with elevated transaminases Humira 40mg Q2 weeks (Started Jan 2023) As of July 2023, changed from Humira to Cyltezo per insurance formulary Plan: Continue Cyltezo 40mg every other week through [facility] Continue diclofenac as needed APAP PRN Dermasmoothe for persistent dry patches on scalp. Follow up if not effective. DME request for Walker with Seat and breaks, as well as chair lift (informed may not be covered by insurance), placed 11/11/23. Assessment & Plan (11/21/2022 12:28 PM EDT): ?? Followed by [facility] Rheum Q6 months ?? Previous medications include [...] (05/23/2024): Followed by psych team - January Gentile - Veronica every week Continue with med management through their team: Trazodone 100mg nightly Quetiapine 25mg nightly Hydroxyzine 25mg PRN Clonazepam 0.5mg BID Assessment & Plan (05/23/2024 7:17 PM EST): - Reviewed PHQ-9, no SI/HI/thoughts of self - Continues following with specialists Mixed incontinence urge and stress 04/05/2012 Assessment & Plan (05/23/2024 7:13 PM EST): Continues with oxybutynin Referral to reestablish with [facility] urology placed 05/23/24 Assessment & Plan (09/07/2022 8:56 AM EDT): ?? Continues with oxybutynin through Urology Osteoarthritis of knee 04/05/2012 Assessment & Plan (12/16/2023 5:49 PM EDT): Referral to re-establish with [facility] Ortho (reports hx of TKA approx 20 [...] Encounters Date Type Department Care Team Description 07/22/2024 Orders Only GENERIC EXTERNAL DATA DEPARTMENT Provider, Generic External Data 06/17/2024 Orders Only GENERIC EXTERNAL DATA DEPARTMENT Provider, Generic External Data 06/09/2024 Telephone [facility] Information Management [address] [place] [phone] Aileen Harris FNP 05/23/2024 3:30 PM EST Office Visit [facility] [address] [place], [place] [phone] Aileen Harris FNP Moderate persistent asthma with exacerbation (Primary Dx); Healthcare maintenance; Screening mammogram for breast cancer; Mixed incontinence urge and stress; Psoriatic arthritis (CMS/HCC); Vertigo; Depressive disorder 05/23/2024 Travel 05/22/2024 Telephone [facility] [address] [place], [place] [phone] Donya Brito MA Chart Prep from Last 3 Months Immunizations Name Administration [...] is your housing situation today? I have danyyamileth johnson 01/22/[address] you [...] Description 08/22/2024 11:30 AM EDT Office Visit [facility] CH[facility] MED & PEDS [address] [place], [place] [phone] Aileen Harris, RECORDS MANAGEMENT MANAGER [address] [place] [address] Health Maintenance Due Date Last Done Comments [...] years 1-dose series) 2016 Mammogram 04/12/2023 04/12/2021, 03/0 06/2019, 04/04/2018, Additional history exists SDOH Screening 09/01/2023 08/31/2022 COVID-19 Vaccine ( - season) 2023 08/28/2020, 07/31/2020 Hepatitis B Vaccines (3 of 3 - Risk 3-dose series) 01/02/2024 11/07/2023, 11/21/2022 Colonoscopy 02/02/2024 02/01/2021 Colorectal Cancer Screening 02/02/2024 Depression Monitoring 11/20/2024 05/23/2024, 025 Tobacco Screening 12/11/2024 12/12/2023 Depression Screening 05/23/2025 [...] Procedure Name Priority Date/Time Associated Diagnosis Comments CYTOPATH-CELL ENHANCED Routine 4:57 PM EDT T-SPOT(R).TB Routine 06/17/2024 10:57 AM EDT C-REACTIVE PROTEIN Routine 06/17/2024 10 :57 AM EDT COMPREHENSIVE METABOLIC PANEL Routine 06/17/2024 10:57 AM EDT SED RATE BY MODIFIED WESTERGREN Routine 06/17/2024 10:57 AM EDT CBC WITH AUTO DIFFERENTIAL Routine 06/17/2024 10:57 [...] Recently Relevant to Health Maintenance Results * Cytopath-cell enhanced (07/22/2024 4:57 PM EDT) 07/22/2024 4:57 PM EDT 07/23/2024 8:50 AM EDT [facility] - 07/24/2024 9:38 AM EDT ----- ------- Name: Linda Hand ?Age/Sex: 68/F ? : 1955 Unit#: [id number] ?? Attend : Alyce Stanley [facility] ?Re07/22/24 ?Status: DEP REF ? Location: HO.LNP ?Disch: ? ----- ------- SPEC : [id number] ? RECD: 07/23/24 ? STATUS: ??SOUT ? REQ NUM: [id number] ? INES: 07/22/24-6751 ? SUBM DR: Alyce Stanley-BC ? ENTERED: ??07/23/24 ?SP TYPE: Cytology ? OTHR DR: Aileen Harris ? ORDERED: ??Cyto-enhanced ? Diagnosis ?? Urine: ??Negative for high-grade urothelial carcinoma. ??See comment. ? COMMENT: Paucicellular specimen consisting of bacteria, rare single urothelial cells with ?? degenerative changes, squamous cells, occasional red blood cells and lymphocytes. ?Clinical History Unspecified urinary incontinence ? Material Received ?? Urine ? Gross Description Received is 32 cc of cloudy yellow fluid from which a ThinPrep slide is prepared. Copies To: ?? Alyce Stanley- ?? [facility] Urology Services ?? [address] ?? [place] [address] ?? [phone] ?? [email or web address] ?? Aileen Harris RECORDS MANAGEMENT MANAGER ?? [address] ?? [place] [address] ?? [phone] ----- ------- Signed (signature on file) Darnell Patterson MD 07/24/24 0938 ? ----- ------- ? END OF REPORT ? us Generic External Data Provider LAB CYTOLOGY CARISA HALL Final Result [facility] [address] [place] [phone] * T-SPOT??.TB (06/17/2024 10:57 AM EDT) [facility] T Spot TB Negative Negative [facility] Comment:A negative test resu lt does not exclude the possibilityof exposure to or infection with Mycobacteriumtuberculosis (M. tuberculosis). Patients with recentexposure to TB infected individuals exhibiting anegative T-SPOT.TB result should be considered forretesting within 6 weeks or if other relevant clinicalsymptoms indicate. Results from T-SPOT.TB testing mustbe used in conjunction with each individual'sepidemiological history, current medical status,and results of other diagnostic evaluations.The T-SPOT.TB test is qualitative and results arereported as positive, borderline, or negative, giventhat the test controls perform as expected. In linewith the Centers for Disease Control and Prevention's2010 recommendation to report quantitative measurementsalongside the qualitative result, the laboratoryprovides spot counts for informational purposes only.The T-SPOT.TB test should not be interpreted as aquantitative test. TS PANEL A 0 [facility] TS PANEL B 0 [facility] Negative Control Passed [facility] Positive Control Passed [facility] Comment:For additional infor mation, please refer tohttp://education.GROU.PS/faq/RYF522(This link is being provided for informational/educational purposes only.)THIS TEST WAS PERFORMED AT:[employer] [id number] [place] [address]DRULMIAGREY STERN MD,PHD 06/17/2024 10:5 7 AM EDT 06/17/2024 10:57 AM EDT us Generic External Data Provider LAB BLOOD ORDERAB LES Final Result [facility] [address] [place] [phone] * (ABNORMAL) CBC auto differential (06/17/2024 10:57 AM EDT) White Blood Count 9.5 4.8 - 10.8 X10*3/uL [facility] Red Blood Count 4.26 4.20 - 5.50 X10*6/uL [facility] Hemoglobin 13.1 12.0 - 16.0 g/dl [facility] Hematocrit 40.6 37.0 - 47.0 % [facility] Mean Corpuscular Volume 95.3 80.0 - 98.0 fL [facility] Mean Corpuscular Hemoglobin 30.8 27.0 - 33.0 pg [facility] Mean Corpuscular HGB Conc 32.3 31.0 - 35.0 g/dl [facility] Red Cell Distribution Width 12.8 11.0 - 16.0 % [facility] Platelet Count 261 160 - 400 X10*3/uL [facility] Mean Platelet Volume 11.8 9.4 - 12.3 fL [facility] Neutrophils Percent Auto 49.2 45 - 73 % [facility] Imm Gran Pct Auto 0.4 0.0 - 0.4 % [facility] Lymphocytes Percent Auto 41.1(H) 20 - 40 % [facility] Monocytes Percent Auto 7.6 2 - 11 % [facility] Eosinophils Percent Auto 1.1 0 - 4 % [facility] Basophils Percent Auto 0.6 0 - 2 % [facility] NRBC Pct Auto 0.0 0.0 - 0.2 /100WBC [facility] Neutrophils Absolute Auto 4.7 2.0 - 8.3 x10*3/uL [facility] Imm Gran Abs Auto 0.04(H) 0.00 - 0.03 X10*3/uL [facility] Lymphocytes Absolute Auto 3.9 1.2 - 4.9 X10*3/uL [facility] Monocytes Absolute Auto 0.7 0.1 - 1.2 X10*3/uL [facility] Eosinophils Absolute Auto 0.1 0.0 - 0.4 X10*3/uL [facility] Basophils Absolute Auto 0.1 0.0 - 0.2 X10*3/uL [facility] NRBC Abs Auto 0.000 0.0 - 0.012 X10*3/uL [facility] 06/17/2024 10:5 7 AM EDT 06/17/2024 10:57 AM EDT us Generic External Data Provider LAB BLOOD ORDERAB LES Final Result Performing Organization Address [facility] de Phone Number [facility] [address] [place] [phone] * (ABNORMAL) Sed Rate by Modified Eloyergren (06/17/2024 10:57 AM EDT) Pathologist [facility] Erythrocyte Sedimentation Rate 38(H) 0 - 20 MM/HR [facility] Comment:Patients with polycy themia and many hemoglobin abnormalitiesmay have depressed sed rates whereas patients with anemiamay have elevated sed rates. 06/17/2024 10:5 7 AM EDT 06/17/2024 10:57 AM EDT Generic External Data Provider LAB BLOOD ORDERAB LES Final Result Performing Organization Address [facility] Phone Number [facility] [address] [place] [phone] * C-reactive Protein (06/17/2024 10:57 AM EDT) [facility] C Reactive Protein 0.33 < or = 0.50 mg/dL [facility] 06/17/2024 10:5 7 AM EDT 06/17/2024 10:57 AM EDT Generic External Data Provider LAB BLOOD ORDERAB LES Final Result Performing Organization Address [facility] de Phone Number [facility] [address] [place] [phone] * (ABNORMAL) Comprehensive Metabolic Panel (06/17/2024 10:57 AM EDT) Pathologist [facility] Sodium 140 135 - 145 mmol/L [facility] Potassium 3.6 3.3 - 5.1 mmol/L [facility] Chloride 105 96 - 108 mmol/L [facility] Carbon Dioxide 28 22 - 29 mmol/L [facility] Anion Gap 11(L) 12 - 20 [facility] Urea Nitrogen (BUN) 18(H) 9 - 16 mg/dL [facility] Creatinine, Serum 0.78 0.5 - 1.4 mg/dL [facility] Estimated Glomerular Filt Rate >60 [facility] Comment:Chronic Kidney Disea se: Estimated GFR < 60 mL/min/1.45h0Zzhila Kidney Disease: Estimated GFR < 15 mL/min/1.73m2 Glucose 110 60 - 115 mg/dL [facility] Calcium 9.5 8.4 - 10.2 mg/dL [facility] Bilirubin, Total 0.5 0.0 - 1.0 mg/dL [facility] Aspartate Amino Transferase 44(H) 5 - 31 U/L [facility] Alanine Aminotransferase 38(H) 0 - 31 U/L [facility] Total Protein 8.4(H) 6.5 - 8.0 g/dL [facility] Albumin Level 4.3 3.5 - 5.0 g/dL [facility] Alkaline Phosphatase 62 39 - 117 U/L [facility] 06/17/2024 10:5 7 AM EDT 06/17/2024 10:57 AM EDT us Generic External Data Provider LAB BLOOD ORDERAB LES Final Result [facility] [address] [place] [phone] * Hepatitis C Viral RNA, Quantitative, Real-Time PCR (11/16/2023 9:57 AM EDT) Hepatitis C Viral Load <15 NOT DETECTED NOT DETECTED IU/mL [facility] HCV Log PCR <1.18 NOT DETECTED NOT DETECTED Log IU/mL [facility] Comment:For additional infor natalya, please refer tohttp://education.GROU.PS/faq/HKC78c6(This link is being provided for informational/educational purposes only.)THIS TEST WAS PERFORMED AT:[id number] [place] [id number] STYLES MD Blood 11/16/2023 9:57 AM EDT 11/16/2023 10:47 AM EDT us Aileen Harris RECORDS MANAGEMENT MANAGER LAB BLOOD ORDERABLES Final Res ult Performing Organization Address [facility]/ZIP Co de Phone Number [facility] [address] [place] [address] [phone] * (ABNORMAL) Lipid Panel, Standard (11/16/2023 9:57 AM EDT) Triglycerides 324(H) <150 mg/dL [facility] Comment:Desirable Triglyceri de: less than 150 mg/dLBorderline High Triglyceride 150-199 mg/dLHigh Triglyceride: 200-499 mg/dLVery High Triglyceride: greater than or equal to 5OO mg/dL Cholesterol 211(H) <200 mg/dL [facility] Comment:Desirable Cholestero l: less than 200 mg/dLBorderline High Cholesterol: 200-239 mg/dLHigh Cholesterol: greater than 239 mg/dL LDL Cholesterol Calculated 102(H) <100 mg/dL [facility] Comment:Desirable LDL: less than 100 mg/dLNear Optimal/Above Optimal LDL: 110- 129 mg/dLBorderline High LDL: 130-159 mg/dLHigh LDL: 160-189 mg/dLVery High LDL: greater than or equal to 190 mg/dL HDL Cholesterol 45 >40 mg/dL [facility] Comment:Desirable HDL: great er than 40 mg/dL Note: This HDL assay may give artificially low results in patients with liver disease. Blood Venous blood specimen / Unknown 11/16/2023 9:57 AM EDT 11/16/2023 10:47 AM EDT us Aileen Harris RECORDS MANAGEMENT MANAGER LAB BLOOD ORDERABLES Final Res ult Performing Organization Address [facility]/ZIP Co de Phone Number [facility] [address] [place] [address] [phone] * Mammography Report 1 (04/12/2021 2:20 PM EST) Anatomical Region Laterality Modality Breast Bilateral Mammography 04/12/2021 2:20 PM EST Narrative 04/12/2021 3:01 PM EST Refer to the Notes tab for result details [facility] Procedure: Mammography Report 1 Procedure Note ProviderBo MD - 07/02/2022 Refer to the Notes tab for result details [facility] Procedure: Mammography Report 1 Susi Brownnando [facility] IMG BI PROCEDURES Final Result * THINPREP TIS PAP AND HPV mRNA E6/E7 WITH REFLEX TO HPV 16,18/45 (03/24/2021 10:36 AM EST) Clinical Information: None given [facility] COMMENT SEE COMMENT [facility] [...] has been evaluated with computer assisted technology. [facility] Neuro Urologist: SEE COMMENT [facility] Comment: SXA, CT(ASCP) CT screening location: [address] ??[phone] HPV nRNA E6/E7 Not Detected Not Detected [facility] Comment: Methodology: Travel Professional-Mediated Amplification This assay detects E6/E7 viral messenger RNA (mRNA) from 14 high-risk HPV types (16,18,31,33,35,39,45,51,52,56,58,59,66,68). ? The analytical performance characteristics of this assay have been determined by [employer]. The modifications have not been cleared or approved by the FDA. This assay has been validated pursuant to the CLIA regulations and is used for clinical purposes. ?? For additional information, please refer to http://education.GROU.PS/faq/SIT588u7 (This link if provided for information/ educational purposes only.) Interpretation/Re sult: Negative for intraepithelial lesion or malignancy. [facility] LMP: 2,010 [facility] Prev. BX: NONE GIVEN [facility] Prev. PAP: 10/2015 NIL/-HPV FO [facility] SOURCE: None given [facility] Statement Of Adequacy: SEE COMMENT [facility] Comment: Satisfactory for evaluation. Endocervical/transformation zone component present. 03/24/2021 10:3 6 AM EST Susi Basurto NP LAB PATHOLOGY ORDERABLES Final Result [facility] [address] * Colonoscopy (02/01/2021) Colonoscopy Normal Normal Narrative Kathy Kong - 02/01/2021 Repeat in 3 years Historical Provider MD HEALTH MAINTENANCE Final Result from Last 3 Months or Most Recently Relevant to Health Maintenance Insurance MEDICARE [facility] Care Teams Chemist Assistant Relationship Specialty Start Date End Date Aileen Harris FNP [address] [place] [phone] PCP - General Family Medicine 12/06/21
--- OUTSIDE RECORDS SUMMARY | 2024-07-30 13:39 | XMS_ITS | Encounter Summary ---
Author Organization [employer] Address [address] [place] [address] Care Team Providers Care Strainer Mill Operator Name Role Phone Aileen Harris Primary Care Provider [phone] Reason for Visit * Reason Comments Med Change Request Encounter Details Date Type Department Care Team ([facility] Contact Info) Description 10/03/2022 Refill [facility] MEDICINE [address] [place] [address] Aileen Harris FNP [address] [place], [place] [phone] Social History Tobacco Use Types Packs/Day Years [...] Description 08/22/2024 11:30 AM EDT Office Visit [facility] & PEDS [address] [place] [address] Aileen Harris FNP [address] [place] [address] documented as of this encounter Visit Diagnoses Not on filedocumented in this encounter Additional Health Concerns Assessment Noted Time PHQ-9 Depression Total Score: 9 09/08/19 23 9:37 AM EDT documented as of this encounter Care Teams Strainer Mill Operator Relationship Specialty Start Date End Date Aileen Harris FNP [address] [place] [phone] PCP - General Family Medicine 12/06/21 documented as of this encounter
--- OUTSIDE RECORDS SUMMARY | 2024-07-30 13:39 | XMS_ITS | Encounter Summary ---
Author Organization [employer] Address [address] [place] [address] Care Team Providers Care Head Butler Name Role Phone Aileen Harris OTTONIEL Primary Care Provider [phone] Encounter Details Date Type Department Care Team (Late st Contact Info) Description 02/23/2023 Abstract [facility] MED[facility] [address] [place], [place] [phone] Kathy Kong Social History Tobacco Use Types [...] Description 08/22/2024 11:30 AM EDT Office Visit [facility] [address] [place], [place] [phone] Aileen Harris FNP [address] [place], [place] [phone] documented as of this encounter Procedures Procedure [...] documented as of this encounter Care Teams Head Butler Relationship Specialty Start Date End Date Aileen Harris FNP [address] [place] [address] PCP - General Family Medicine 12/06/21 documented as of this encounter
--- OUTSIDE RECORDS SUMMARY | 2024-07-30 13:39 | XMS_ITS | Encounter Summary ---
Author Organization [email or web address] Address [address] [facility] [address] 7[address] [place] [address] Care Team Providers Care Coil Winding Machines Set Up Mechanic Name Role Phone Aileen Harris Primary Care Provider [phone] Reason for Visit * Reason Onset Date Comments transfer patient appt 06/12/2022 Encounter Details Date Type Department Care Team (Late st Contact Info) Description 06/12/2022 Telephone [facility] [address] [place] [address] Aileen Harris FNP [address] [place] [address] transfer patient appt Social History Tobacco Use [...] Description 08/22/2024 11:30 AM EDT Office Visit [facility] MED & PEDS [address] [place], [place] [phone] Aileen Harris FNP [address] [place], [place] [phone] documented as of this encounter Visit Diagnoses Not on filedocumented in this encounter Care Teams Coil Winding Machines Set Up Mechanic Relationship Specialty Start Date End Date Aileen Harris FNP [address] [place] [address] PCP - General Family Medicine 12/06/21 documented as of this encounter
--- OUTSIDE RECORDS SUMMARY | 2024-07-30 13:39 | XMS_ITS | Encounter Summary ---
Author Organization [employer] Address [address] [facility] 7t [place] [address] Care Team Providers Care Application Processor Name Role Phone Aileen Harris Primary Care Provider Reason for Visit * Reason Comments Med Refill Encounter Details Date Type Department Care Team ([facility] Contact Info) Description 03/31/2024 Refill [facility] MED & PEDS [address] [place], [place] [phone] Aileen Harris FNP [address] [place] [address] Psoriatic arthritis ([facility]/HCC) Social History Tobacco Use Types Packs/Day Years [...] Upcoming Encounters Date Type Department Care Team ([facility] st Contact Info) Description 08/22/2024 11:30 AM EDT Office Visit [facility] MED & PEDS [address] [place] [address] Aileen Harris FNP [address] [place] [address] documented as of this encounter Visit Diagnoses Diagnosis Psoriatic arthritis (CMS/HCC) Psoriatic arthropathy documented in this encounter Additional Health Concerns Assessment Noted Time PHQ-9 Depression Total Score: 11 024 9:19 AM EDT documented as of this encounter Care Teams Application Processor Relationship Specialty Start Date End Date Aileen Harris FNP [address] [place] [address] PCP - General Family Medicine 12/06/21 documented as of this encounter
== END 2024-07-30 12:11 | disposition home or self-care (01) ==
LOC: HO.HGI 11:17
PROVIDERS: PCP Registered Nurse; Visit Provider Nurse Practitioner
DX: Z01.818 Encounter for other preprocedural examination (principal); Z12.11 Encounter for screening for malignant neoplasm of colon; Z86.0101 Personal history of adenomatous and serrated colon polyps; K21.9 Gastro-esophageal reflux disease without esophagitis
CPT/HCPCS: 99024

== ENCOUNTER → 2024-07-30 11:16 | Outpatient (BNVA) | payer MEDICARE, MEDICAID, SELFPAY | PROVIDERS: PCP Registered Nurse; Visit Provider Nurse Practitioner | DX: Z01.818 Encounter for other preprocedural examination (principal); K21.9 Gastro-esophageal reflux disease without esophagitis; K91.5 Postcholecystectomy syndrome; D12.6 Benign neoplasm of colon, unspecified; G47.33 Obstructive sleep apnea (adult) (pediatric); J45.909 Unspecified asthma, uncomplicated | CPT/HCPCS: 99212 ==

== ENCOUNTER 2024-10-06 10:08 | Day surgery (SDC) | payer MEDICARE, MEDICAID, SELFPAY ==
--- OUTSIDE RECORDS SUMMARY | 2024-09-23 12:00 | XMS_ITS | Encounter Summary ---
Author Organization [employer] Address [address] [facility] 7t [place] [address] Care Team Providers Care Power Sweeper Operator Name Role Phone Aileen Harris Primary Care Provider [phone] Alyce Stanley REMOTELY OPERATED VEHICLE Unavailable July Unavailable Reason for Visit * Reason Comments Med Refill Encounter Details Date Type Department Care Team ([facility] st Contact Info) Description 03/31/2024 Refill [facility] MED & PEDS [address] [place], [place] [phone] Aileen Harris FNP [address] [place], [place] [phone] Psoriatic arthritis ([facility]) Social History Tobacco Use Types Packs/Day Years [...] Upcoming Encounters Date Type Department Care Team ([facility] st Contact Info) Description 11/24/2024 1:00 PM EDT Office Visit [facility] MED & PEDS [address] [place] [address] Aileen Harris FNP [address] [place] [address] documented as of this encounter Visit Diagnoses Diagnosis Psoriatic arthritis (CMS/HCC) Psoriatic arthropathy documented in this encounter Additional Health Concerns Assessment Noted Time PHQ-9 Depression Total Score: 11 024 9:19 AM EDT documented as of this encounter Care Teams Power Sweeper Operator Relationship Specialty Start Date End Date Aileen Harris FNP [address] [place] [address] PCP - General Family Medicine 12/06/21 Alyce Stanley NP [address] [place] [address] Urology 08/22/[address] 3rd [place] [address] Gastroenterology 08/22/24 documented as of this encounter
--- NOTE | 2024-10-03 10:12 | HO.ANESPROP2 ---
Documented by User: Zara Hernandez NP 10/03/24 10:13 HPI - Anesthesia Eval Consult details Narrative: 69yo F for Colonoscopy PMFSH Active Problems Active Problems: All Active Problems Asthma (Acute) TATUM (obstructive sleep apnea) (Acute) Pre-op examination (Acute) Nocturia (Acute) History of total right knee replacement (TKR) (Acute) Fall (Acute) Right knee pain (Acute) Left shoulder pain (Acute) Psoriasis (Acute) Elevated transaminase level (Acute) half-way use of drug (Acute) Plantar fasciitis of right foot (Acute) Heel pain (Acute) Fibromyalgia (Acute) Osteoarthritis of fingers of both hands (Acute) Numbness and tingling in both hands (Acute) Urinary incontinence (Acute) Epigastric pain (Acute) Tubular adenoma of colon (Acute) Psoriatic arthritis (Acute) Post-cholecystectomy syndrome (Acute) GERD (gastroesophageal reflux disease) (Acute) Past Medical History Medical History (Updated 07/30/24 @ 11:34 by TARAH Portillo) Encounter for screening Left shoulder pain Urinary incontinence On beta melvin at home Anxiety TATUM (obstructive sleep apnea) Asthma Elevated cholesterol PONV (postoperative nausea and vomiting) Colon cancer screening Dislocation of distal interphalangeal (DIP) joint of finger Uterine prolapse Lumbar spondylolysis Psoriatic arthritis IBS (irritable bowel syndrome) Arthritis Morbidly obese GERD (gastroesophageal reflux disease) HTN (hypertension) Family History Family History Mother HTN (hypertension) Diabetes Father Throat cancer Sister Heart problem Cancer Family history of problems with anesthesia: No Surgical History Surgical History H/O arthrodesis Hx of colonoscopy History of blepharoplasty History of pubovaginal sling History of total left knee replacement History of total right knee replacement (TKR) Hx of appendectomy Hx of cholecystectomy History of Problems with Anesthesia: No Social History Social History Household Members Other:: daughter Are you a primary medicare sales executive to a significant other at home: No Do you presently have 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 home services: Yes ([employer]) Alcohol intake: never Patient Tobacco Use Status: Never used Tobacco e-Cigarette/Vaping Use: Never Used Have you been hit, kicked, punched, or otherwise hurt by someone within the past year? 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 Allergies Allergy/AdvReac Type Severity Reaction Status Date / Time tramadol (TRAMADOL) Allergy Intermediate RASH, Verified 07/30/24 11:29 itching, rash oxycodone Allergy Rash Verified 07/30/24 11:29 Home Medications ?Medication ?Instructions ?Recorded ?Confirmed ?Last Taken ?Type albuterol sulfate 90 mcg/actuation 2 puff inhalation Q6H PRN Wheezing 04/13/20 07/22/24 Unknown History aerosol inhaler citalopram 20 mg tablet 20 mg PO DAILY 04/13/20 07/22/24 01/02/22 History clonazepam 0.5 mg tablet 0.25 mg PO BID 04/13/20 07/22/24 01/02/22 History melatonin 5 mg capsule 5 mg PO BEDTIME 02/07/21 07/22/24 Unknown History fluticasone propionate 50 spray intranasal 02/14/21 07/22/24 Unknown History mcg/actuation nasal spray,suspension hydroxyzine HCl 25 mg tablet 25 mg PO BID 02/14/21 07/22/24 Unknown History lisinopril 20 1 tab PO DAILY 02/14/21 07/22/24 10/06/24 History mg-hydrochlorothiazide 25 mg tablet fluticasone propionate 45 inhalation 09/20/22 07/22/24 Unknown History mcg-salmeterol 21 mcg/actuation HFA inhaler (Advair HFA) quetiapine 25 mg tablet 25 mg PO BEDTIME 09/20/22 07/22/24 Unknown History simvastatin 40 mg tablet 40 mg PO BEDTIME 09/20/22 07/22/24 Unknown History trazodone 100 mg tablet 100 mg PO BEDTIME 09/20/22 07/22/24 Unknown History furosemide 20 mg tablet 20 mg PO DAILY 01/10/23 07/22/24 Unknown History metoprolol tartrate 25 mg tablet 25 mg PO DAILY 01/10/23 07/22/24 10/06/24 History ciclopirox 8 % topical solution 1 appl topical BEDTIME 07/30/24 Unknown History fluocinolone 0.01 % topical body 1 appl topical DAILY 07/30/24 Unknown History oil oxybutynin chloride 15 mg 15 mg PO DAILY 07/30/24 Unknown History tablet,extended release 24 hr Assessment and Plan Assessment Anesthesia Assessment: Chart Reviewed Final Anesthetic Review Family History of Problems with Anesthesia: No History of Problems with Anesthesia: No Documented by User: Emeka Serna MD 10/06/24 13:43 [facility] Past Medical History Medical History (Updated 07/30/24 @ 11:34 by TARAH Portillo) Encounter for screening Left shoulder pain Urinary incontinence On beta melvin at home Anxiety TATUM (obstructive sleep apnea) Asthma Elevated cholesterol PONV (postoperative nausea and vomiting) Colon cancer screening Dislocation of distal interphalangeal (DIP) joint of finger Uterine prolapse Lumbar spondylolysis Psoriatic arthritis IBS (irritable bowel syndrome) Arthritis Morbidly obese GERD (gastroesophageal reflux disease) HTN (hypertension) Family History Family History Mother HTN (hypertension) Diabetes Father Throat cancer Sister Heart problem Cancer Surgical History Surgical History H/O arthrodesis Hx of colonoscopy History of blepharoplasty History of pubovaginal sling History of total left knee replacement History of total right knee replacement (TKR) Hx of appendectomy Hx of cholecystectomy Social History Social History Household Members Other:: daughter Are you a primary medicare sales executive to a significant other at home: No Do you presently have 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 home services: Yes ([employer]) Alcohol intake: never Patient Tobacco Use Status: Never used Tobacco e-Cigarette/Vaping Use: Never Used Have you been hit, kicked, punched, or otherwise hurt by someone within the past year? 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 Allergies Allergy/AdvReac Type Severity Reaction Status Date / Time tramadol (TRAMADOL) Allergy Intermediate RASH, Verified 07/30/24 11:29 itching, rash oxycodone Allergy Rash Verified 07/30/24 11:29 Home Medications ?Medication ?Instructions ?Recorded ?Confirmed ?Last Taken ?Type albuterol sulfate 90 mcg/actuation 2 puff inhalation Q6H PRN Wheezing 04/13/20 07/22/24 Unknown History aerosol inhaler citalopram 20 mg tablet 20 mg PO DAILY 04/13/20 07/22/24 01/02/22 History clonazepam 0.5 mg tablet 0.25 mg PO BID 04/13/20 07/22/24 01/02/22 History melatonin 5 mg capsule 5 mg PO BEDTIME 02/07/21 07/22/24 Unknown History fluticasone propionate 50 spray intranasal 02/14/21 07/22/24 Unknown History mcg/actuation nasal spray,suspension hydroxyzine HCl 25 mg tablet 25 mg PO BID 02/14/21 07/22/24 Unknown History lisinopril 20 1 tab PO DAILY 02/14/21 07/22/24 10/06/24 History mg-hydrochlorothiazide 25 mg tablet fluticasone propionate 45 inhalation 09/20/22 07/22/24 Unknown History mcg-salmeterol 21 mcg/actuation HFA inhaler (Advair HFA) quetiapine 25 mg tablet 25 mg PO BEDTIME 09/20/22 07/22/24 Unknown History simvastatin 40 mg tablet 40 mg PO BEDTIME 09/20/22 07/22/24 Unknown History trazodone 100 mg tablet 100 mg PO BEDTIME 09/20/22 07/22/24 Unknown History furosemide 20 mg tablet 20 mg PO DAILY 01/10/23 07/22/24 Unknown History metoprolol tartrate 25 mg tablet 25 mg PO DAILY 01/10/23 07/22/24 10/06/24 History ciclopirox 8 % topical solution 1 appl topical BEDTIME 07/30/24 Unknown History fluocinolone 0.01 % topical body 1 appl topical DAILY 07/30/24 Unknown History oil oxybutynin chloride 15 mg 15 mg PO DAILY 07/30/24 Unknown History tablet,extended release 24 hr Exam Airway Mallampati Class: III (no neck) TM Dist: <=3cm Neck ROM: Full Loose/Missing/Broken Teeth: Yes and Upper Heart: ok Lungs: ok Other: prob severe TATUM Assessment and Plan Assessment Anesthesia Assessment: Anesthesia Plan Discussed Final Anesthetic Review NPO: Yes ASA Class: III and IV Final Preanesthetic Review: No Changes in Pt Med Stat, Meds/Allgs Chart Reviewed, Consent Obtained/Reviewed and Anes Risks/Benef Reviewed Patient Risk: High Procedure Risk: Low Anesthetic Plan Anesthetic Plan: MAC: and Agree w/ Assess. and Plan Disposition: Standard PACU
[2024-10-06 10:20] VITALS: BP 141/85; PULSE 90; RESP 20; TEMP 36.6; O2SAT 94; BMI 40.4
[2024-10-06] MEDS: Lactated Ringers 1,000 ML 100 ML IVCONT (10:33)
--- NOTE | 2024-10-06 12:24 | MHC.SHP ---
Pre-Procedural Eval Section A - 24 Hr Update-Section A only Date of Service: 10/06/24 The patient is an INPATIENT: No The patient has been examined within 24 hours of the surgical procedure. The History & Physical has been completed within 30 days and I have reviewed it.: No Section B - Complete if H&P > 30 days Chief Complaint: Surveillance for colon polyps Relevant Family History (Specify if Yes): No Relevant Social History: None Present Medications: see Short Stay Collaborative assessment Medical History: Significant History (TATUM (obstructive sleep apnea) Asthma Elevated cholesterol PONV (postoperative nausea and vomiting) Colon cancer screening Dislocation of distal interphalangeal (DIP) joint of finger Uterine prolapse Lumbar spondylolysis Psoriatic arthritis IBS (irritable bowel syndrome)) History of Previous Operations: Relevant previous surgery/procedure and date(s) (H/O arthrodesis Hx of colonoscopy History of blepharoplasty History of pubovaginal sling History of total left knee replacement History of total right knee replacement (TKR) Hx of appendectomy Hx of cholecystectomy) Allergies: Allergies Allergy/AdvReac Type Severity Reaction Status Date / Time tramadol (TRAMADOL) Allergy Intermediate RASH, Verified 07/30/24 11:29 itching, rash oxycodone Allergy Rash Verified 07/30/24 11:29 Review of Systems Sugical H&P ROS: Negative: Constitution, Cardiovascular, Respiratory and Gastrointestinal Exam Surgical H&P Exam: Normal: Heart, Normal: Lungs and Normal: Abdomen Plan Diagnosis/Plan: Unchanged I have reviewed the history and physical and performed a pertinent physical examination on my patient. No changes have occurred unless specified. Time Spent With Patient Time: Total time managing care of this patient today ____ minutes.
--- NOTE | 2024-10-06 13:53 | HO.OPN-COLON ---
Colonoscopy Operative Note Operative Note Date of Service: 10/06/24 Narrative: COLONOSCOPY TILL CECUM WITH BIOPSIES AND SNARE POLYPECTOMY Pre-op diagnosis: Surveillance for colon polyps. Post-op diagnosis:? Colon polyps, Diverticulosis, hemorrhoids Endoscopist:? Adam Sylvester MD Anesthesia:?MAC Consent: Indications for the procedure and potential complications of bleeding, perforation, reaction to medications and missed diagnosis were discussed with the patient and informed consent was obtained. Instrument: Olympus PCF H 190 L variable stiffness pediatric colonoscope Monitoring: Vital signs and clinical assessment, intermittent blood pressure monitoring, continuous EKG monitoring, Pulse oximetry and Carbon Dioxide monitoring were done throughout the procedure. Please see anesthesia flowsheet. Colon withdrawl time was 20 minutes. Procedure: The patient was placed in the left lateral decubitis position and pre-procedure medications were administered. After a digital rectal examination of the ano-rectum, the video colonoscope was inserted into the rectum and advanced through the colon to the cecum. The colonoscope was slowly withdrawn in a retrograde panoramic fashion and the colon mucosa was carefully examined including a retroflexed view of the rectum. Findings and interventions are described below. Procedure Difficulty: without difficulty Findings: Terminal Ileum: Not evaluated Cecum: Two 5 to 7 mm sessile polyps - removed with a cold snare Ascending Colon: Moderate diverticulosis scattered throughout the colon Transverse Colon: Moderate diverticulosis scattered throughout the colon Descending Colon: Moderate diverticulosis scattered throughout the colon Sigmoid Colon: A 6-7 mm polyp versus inverted diverticulum - removed with a cold biopsy. Moderate diverticulosis Rectum: Normal Ano-rectum: Moderate internal hemorrhoids Colon preparation: Good after copious irrigation. Hudson Bowel Preparation Scale Right colon; 2 Transverse colon: 2 Left colon; 2 (0 = Unprepared colon segment with mucosa not seen due to solid stool that cannot be cleared. 1 = Portion of mucosa of the colon segment seen, but other areas of the colon segment not well seen due to staining, residual stool and/or opaque liquid. 2 = Minor amount of residual staining, small fragments of stool and/or opaque liquid, but mucosa of colon segment seen well. 3 = Entire mucosa of colon segment seen well with no residual staining, small fragments of stool or opaque liquid) Impression and Post Procedure Diagnosis: Colonoscopy Findings: Three small polyps were removed Moderate diverticulosis seen in the entire colon Moderate hemorrhoids on retroflexed exam. Plan: Pt has a FU appointment on 07/28/25 with Delma Baugh NP. Repeat Colonoscopy in 3-5 years if polyps are adenomatous and 10 year if polyps are hyperplastic. Above findings were reviewed with the patient and relevant handouts were given and the discharge area.
[2024-10-06 13:59] VITALS: BP 99/55; PULSE 84; RESP 20; TEMP 36.1; O2SAT 94
[2024-10-06 14:13] VITALS: BP 136/70; PULSE 87; RESP 18; TEMP 36.1; O2SAT 93
== END 2024-10-06 14:32 | disposition home or self-care (01) ==
PROVIDERS: PCP Registered Nurse; Visit Provider Internal Medicine Gastroenterology
PROC: 0DJD8ZZ Inspection of Lower Intestinal Tract, Via Natural or Artificial Opening Endoscopic (ICD-10-PCS; CPT 45378; principal; 2024-10-06 12:40)
DX: Z12.11 Encounter for screening for malignant neoplasm of colon (principal); D12.0 Benign neoplasm of cecum; K57.30 Diverticulosis of large intestine without perforation or abscess without bleeding; K64.8 Other hemorrhoids; Z86.0101 Personal history of adenomatous and serrated colon polyps; I10 Essential (primary) hypertension; E78.00 Pure hypercholesterolemia, unspecified; J45.909 Unspecified asthma, uncomplicated; R35.1 Nocturia; K91.5 Postcholecystectomy syndrome; K21.9 Gastro-esophageal reflux disease without esophagitis; Z96.651 Presence of right artificial knee joint; Z79.899 Other long term (current) drug therapy; G47.33 Obstructive sleep apnea (adult) (pediatric)
CPT/HCPCS: 45385; 45380; 88305; J2003; J2704

== ENCOUNTER → 2024-10-06 10:08 | Outpatient (BNV) | payer MEDICARE, MEDICAID, SELFPAY | PROVIDERS: PCP Registered Nurse; Visit Provider Internal Medicine Gastroenterology | DX: Z12.11 Encounter for screening for malignant neoplasm of colon (principal); K63.5 Polyp of colon; K57.90 Diverticulosis of intestine, part unspecified, without perforation or abscess without bleeding; Z86.0100 Personal history of colon polyps, unspecified | CPT/HCPCS: 45380; 45385 ==

== ENCOUNTER 2024-10-09 11:27 | Outpatient (REF) | payer MEDICARE, MEDICAID, SELFPAY ==
--- NOTE | ~2024-10-09 | US_ITS ---
CLINICAL HISTORY: R35.1 - Nocturia US retroperitoneum Comparison: None Findings: Right kidney normal size and echotexture, 11.7 cm length. No hydronephrosis, mass or calculus. Mild pelviectasis. Normal color flow. Left kidney normal size and echotexture, 12.7 cm in length. No hydronephrosis, or calculus. Simple cortical cyst 2.4 cm at the midpole. Normal color flow. Urinary bladder is unremarkable. Prevoid volume 272 mL. Postvoid volume 19 mL. Ureteral jets are visualized bilaterally Impression: Left renal simple cyst, otherwise unremarkable exam. This document has been electronically signed by: Kaela Chamorro MD on 10/10/2024 17:19:32
--- OUTSIDE RECORDS SUMMARY | 2024-10-09 12:13 | XMS_ITS | Encounter Summary ---
Author Organization [employer] Address [address] [facility] 7t [place] [address] Care Team Providers Care Metal Fabricator Apprentice Name Role Phone Aileen Harris Primary Care Provider [phone] Alyce Stanley DENTIST Unavailable July Unavailable Reason for Visit * Reason Comments Med Refill Encounter Details Date Type Department Care Team ([facility] st Contact Info) Description 03/31/[address] [facility] CHC MED & PEDS [address] [place], [place] [phone] Aileen Harris FNP [address] [place], [place] [phone] Psoriatic arthritis ([facility]) Social History Tobacco Use Types Packs/Day [...] Upcoming Encounters Date Type Department Care Team ([facility] st Contact Info) Description 11/24/2024 1:00 PM EDT Office Visit [facility] MED & PEDS [address] [place] [address] Aileen Harris FNP [address] [place] [address] documented as of this encounter Visit Diagnoses Diagnosis Psoriatic arthritis (CMS/HCC) Psoriatic arthropathy documented in this encounter Additional Health Concerns Assessment Noted Time PHQ-9 Depression Total Score: 11 024 9:19 AM EDT documented as of this encounter Care Teams Metal Fabricator Apprentice Relationship Specialty Start Date End Date Aileen Harris FNP [address] [place] [address] PCP - General Family Medicine 12/06/21 Alyce Stanley NP [address] [place] [address] Urology 08/22/[address]rd [place] [address] Gastroenterology 08/22/24 documented as of this encounter
== END 2024-10-09 11:28 | disposition home or self-care (01) ==
LOC: HO.US 11:27
PROVIDERS: PCP Registered Nurse; Visit Provider Nurse Practitioner Family
DX: R35.1 Nocturia (principal)
CPT/HCPCS: 76770

== ENCOUNTER → 2024-10-09 11:28 | Outpatient (BNV) | payer MEDICARE, MEDICAID, SELFPAY | PROVIDERS: PCP Registered Nurse; Visit Provider Radiology Diagnostic Radiology | DX: N28.1 Cyst of kidney, acquired (principal) | CPT/HCPCS: 76770 ==

== ENCOUNTER 2024-10-24 15:45 | Outpatient (REF) | payer MEDICARE, MEDICAID, SELFPAY ==
[2024-10-24 16:08] LABS: Hematocrit 38.5 % (37.0-47.0); Hemoglobin 12.7 g/dl (12.0-16.0); Imm Gran Abs Auto 0.03 X10*3/uL (0.00-0.03); Imm Gran Pct Auto 0.3 % (0.0-0.4); Lymphocytes Absolute Auto 5.5 X10*3/uL (1.2-4.9); MANUAL DIFF FLAG SCAN; Mean Corpuscular HGB Conc 33.0 g/dl (31.0-35.0); Mean Corpuscular Hemoglobin 31.1 pg (27.0-33.0); Mean Corpuscular Volume 94.4 fL (80.0-98.0); NRBC Abs Auto 0.000 X10*3/uL (0.0-0.012); NRBC Pct Auto 0.0 /100WBC (0.0-0.2); Platelet Count 244 X10*3/uL (160-400); Red Blood Count 4.08 X10*6/uL (4.20-5.50); SCAN SMEAR FLAG 1; White Blood Count 10.8 X10*3/uL (4.8-10.8)
[2024-10-24 16:35] LABS: Alanine Aminotransferase 58 U/L (0-31); Albumin Level 4.5 g/dL (3.5-5.0); Alkaline Phosphatase 73 U/L (39-117); Anion Gap 12 (12-20); Aspartate Amino Transferase 70 U/L (5-31); Blood Urea Nitrogen 19 mg/dL (9-16); Calcium 9.8 mg/dL (8.4-10.2); Carbon Dioxide 31 mmol/L (22-29); Chloride 102 mmol/L (96-108); Estimated Glomerular Filt Rate > 60; Potassium 4.0 mmol/L (3.3-5.1); Sodium 141 mmol/L (135-145); Total Protein 8.0 g/dL (6.5-8.0)
== END 2024-10-24 15:46 | disposition home or self-care (01) ==
LOC: HO.LAB 15:45
PROVIDERS: PCP Registered Nurse; Visit Provider Student in an Organized Health Care Education/Training Program
DX: L40.50 Arthropathic psoriasis, unspecified (principal)
CPT/HCPCS: 36415; 80053; 85025; 85652; 86140

== ENCOUNTER 2024-11-03 11:38 | Outpatient (AMB) | payer MEDICARE, MEDICAID, SELFPAY ==
--- NOTE | 2024-11-03 11:48 | MHC.OFFVIS ---
Intake Visit Reasons: /US(set) Intake Note: Patient is present for /US Urology Medication:OXYBUTYNIN Antibiotic Allergy:NONE Blood Thinner:NONE Store Standards Associate Required: No Store Standards Associate Services: Store Standards Associate Present Store Standards Associate Name: [id number] Allergies tramadol (TRAMADOL) Allergy (Intermediate, Verified 11/03/24 12:59) RASH, itching, rash oxycodone Allergy (Verified 11/03/24 12:59) Rash Medication List - Last Reconciled 11/03/24 by GIDEON Laws acetaminophen ER (Tylenol Arthritis Pain) 650 mg PO Q8H PRN adalimumab-aaty (Yuflyma(CF) Autoinjector) 40 mg (0.4 mL) subcut Q2W albuterol sulfate 90 mcg/actuation 2 puffs inhalation Q6H PRN cholestyramine-aspartame 4 gram (Cholestyramine Light) 4 grams PO BID 30 days ciclopirox 8% 1 appl topical BEDTIME citalopram 20 mg PO DAILY clonazepam 0.25 mg PO BID cyclobenzaprine 10 mg PO TID PRN diclofenac sodium 1% 2 grams topical BID PRN famotidine 20 mg PO BEDTIME fluocinolone 0.01% 1 appl topical DAILY fluticasone propion-salmeterol 45-21 mcg/actuation (Advair HFA) inhalation fluticasone propionate 50 mcg/actuation sprays intranasal furosemide 20 mg PO DAILY hydroxyzine HCl 25 mg PO BID lisinopril-hydrochlorothiazide 20-25 mg 1 tab PO DAILY meclizine 50 mg PO BID PRN melatonin 5 mg PO BEDTIME metoprolol tartrate 25 mg PO DAILY mirabegron ER (Myrbetriq) 25 mg PO DAILY 30 days omeprazole 20 mg PO DAILY oxybutynin chloride ER 15 mg PO DAILY prednisone 3 tablets x 3 days 2 tablets per day x 5 days, 1 tablet per day x 5 days stop quetiapine 25 mg PO BEDTIME sennosides-docusate sodium 8.6-50 mg (Senexon-S) 2 tab-caps (2 x 8.6-50 mg) PO .qhs simvastatin 40 mg PO BEDTIME trazodone 100 mg PO BEDTIME HPI Comments Details: Linda is a pleasant 69-year-old female patient of Dr. Harris. She has a past medical history of urinary incontinence, anxiety, obstructive sleep apnea, asthma, hypercholesteremia, lumbar spondylosis, psoriatic arthritis, IBS, obesity, GERD, and hypertension. She presents to the office today for follow-up of her ongoing lower urinary tract symptoms. Of note, patient was seen approximately 2 months ago as a new patient at which time a retroperitoneal ultrasound was ordered for further assessment evaluation, patient's oxybutynin was discontinued, and trial of Myrbetriq was initiated. In discussion with the patient today she reports feeling lower urinary tract symptoms of urinary urgency and frequency have significantly improved throughout the day with 25 mg of Myrbetriq however she does continue to have episodes of nocturia. Patient discusses her longstanding history of lower urinary tract symptoms and has underwent pubovaginal sling with Dr. Moon 04/2010 as well as a cystoscopy for history of hematuria that was noted to be within normal limits. She discusses experiencing episodes of nocturia up to 5 times per night. Recent retroperitoneal ultrasound 10/31 notes bilateral kidneys are normal in size and echotexture. No hydronephrosis or calculi noted bilaterally. Left kidney with simple cortical cysts 2.4 cm at the mid pole, otherwise unremarkable exam per radiology report. She denies urinary urgency, urinary frequency, incontinence, hematuria, dysuria, foul smelling urine, changes to urinary stream, flank pain, fever, and or chills. We discussed at length potential causes of nocturia. She does report a history of sleep apnea and attempts to be compliant with her CPAP machine we discussed correlation of sleep apnea and nocturia. She does endorse to be limiting fluids 2-3 hours prior to bed. [facility] Medical History Encounter for screening Left shoulder pain Urinary incontinence On beta melvin at home Anxiety TATUM (obstructive sleep apnea) Asthma Elevated cholesterol PONV (postoperative nausea and vomiting) Colon cancer screening Dislocation of distal interphalangeal (DIP) joint of finger Uterine prolapse Lumbar spondylolysis Psoriatic arthritis IBS (irritable bowel syndrome) Arthritis Morbidly obese GERD (gastroesophageal reflux disease) HTN (hypertension) Surgical History H/O arthrodesis Hx of colonoscopy History of blepharoplasty History of pubovaginal sling History of total left knee replacement History of total right knee replacement (TKR) Hx of appendectomy Hx of cholecystectomy Family History Mother HTN (hypertension) Diabetes Father Throat cancer Sister Heart problem Cancer Social History Household Members Other:: daughter Are you a primary child care group leader to a significant other at home: No Do you presently have 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 home services: Yes ([employer]) Alcohol intake: never Patient Tobacco Use Status: Never used Tobacco e-Cigarette/Vaping Use: Never Used Current occupational status: disabled 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Systems Const All systems reviewed & are unremarkable except as noted in HPI and below Physical Exam Const General: cooperative Orientation/consciousness: patient oriented x3 Resp Effort & Inspection: able to speak in complete sentences Neuro General: patient oriented x3 Psych Attitude: cooperative Thought content: Normal thought content present Insight: Fair insight present (Psych) Judgement: Fair judgement present (Psych) Telehealth Telehealth Telehealth Platform: Telephone Location of provider rendering services: practice address Location of patient: address on file Patient Identification confirmed using: Name, : Yes Telehealth method: voice only Patient verbally consented to treatment: Yes Patient verbally consented to billing insurance company: Yes Patient informed of any privacy concerns related to visit: Yes Minutes spent on Phone/Video with Pt.: 20 Results Reviewed Results Reviewed: Date of Service: 10/09/24 Procedure(s): US retroperitoneal comp Accession Number(s): [id number] Findings: Right kidney normal size and echotexture, 11.7 cm length. No hydronephrosis, mass or calculus. Mild pelviectasis. Normal color flow. Left kidney normal size and echotexture, 12.7 cm in length. No hydronephrosis, or calculus. Simple cortical cyst 2.4 cm at the midpole. Normal color flow. Urinary bladder is unremarkable. Prevoid volume 272 mL. Postvoid volume 19 mL. Ureteral jets are visualized bilaterally Impression: Left renal simple cyst, otherwise unremarkable exam. Assessment & Plan Assessment & Plan (1) Nocturia: Code(s): R35.1 - Nocturia Category: Medical (2) Urinary incontinence: Code(s): R32 - Unspecified urinary incontinence Category: Medical (3) Renal cyst: Code(s): N28.1 - Cyst of kidney, acquired Category: Medical Plan Recent retroperitoneal ultrasound results reviewed with the patient today; as noted above. We discussed importance of compliance in CPAP in relation to nocturia. Continue limiting fluids 2-3 hours prior to bed as discussed. Continue Myrbetriq. We discussed bladder triggers and irritants. Start VESIcare 5 mg as discussed and prescribed. We did discuss potential near future in office cystoscopy and or urodynamics if symptoms persist and/or worsen. All questions were answered. Follow-up in 1-3 months with PVR; or sooner with any issues, concerns, and or questions. Medications: New solifenacin (Vesicare) 5 mg PO DAILY 90 tabs 0RF 90 days Patient Instructions: The patient had an opportunity to ask questions regarding the treatment plan. All questions were answered. Physical exam, labs, and imaging were discussed and reviewed in detail. As well as risks, benefits, and discussion of treatment choices. No major barriers to understanding were identified. The patient expressed understanding and agreement with the above treatment plan. The patient was made aware they should contact our office by phone for worsening of their current condition, the appearance of new symptoms, or with any questions or concerns. Compliance is encouraged with any medications and follow up testing that is ordered. It is a privilege to be allowed the opportunity to participate in? your urological care.? Again, if you have any questions or concerns If you have any questions or concerns please do not hesitate to contact me. The office is [phone]. This note is constructed using voice recognition software. While every effort has been made to ensure accuracy landing gear mechanic errors may have been included. Yours sincerely, GIDEON Laws Coding Level of Care Code Tele Est Pt Level 4 (16351) Diagnoses Nocturia R35.1 Urinary incontinence R32 Renal cyst N28.1
--- OUTSIDE RECORDS SUMMARY | 2024-11-03 12:54 | XMS_ITS | Clinical Summary ---
Author Organization [address] [facility] Address [address] [place] [address] Phone Care Team Providers Care Assembly Line Machine Operator Name Role Phone EmilyAmanda IAN Primary Care Provider [phone] Allergies Active Allergy Reactions Criticality Noted Date Comments Oxycodone-Acetaminophen 09/22/2024 Medications silver sulfADIAZINE (Silvadene) 1 % cream Apply topically 1 (one) time each day. 50 g 5 09/23/19 26 Active Encounters Date Type Department Care Team Description 10/07/2024 1:30 PM EDT Office Visit Orthopedic Surgery [facility] [address] [phone] Lan Hagen DPM Open wound of left great toe, initial encounter (Primary Dx) 09/22/2024 1:15 PM EDT Consult Orthopedic [facility] [address] [phone] Lan Hagen DPM Cellulitis of left toe (Primary Dx); Ingrown left big toenail from Last 3 Months Social History Tobacco Use Types Packs/Day Years Used Date Smoking Tobacco: Never Assessed Comments Unknown Sex and Gender Information Value Date Recorded Sex Assigned at Not on file Legal Sex Female 9:43 AM EDT Gender Identity Not on file Sexual Orientation Not on file Plan of Treatment Health Maintenance Due Date Last Done Comments Hepatitis A Vaccines (1 of 2 - Risk 2-dose series) 09/30/1975 RSV Immunization Adult Patients (1 - Risk 60-74 years 1-dose series) 2016 COVID-19 Vaccine (3 - Moderna risk series) 09/25/2020 08/28/2020, 07/31/2020 Breast Cancer Screening 04/12/2023 04/12/2021 Hepatitis B Vaccines (3 of 3 - Risk 3-dose series) 01/02/2024 11/07/2023, 11/21/2022 Depression Screening 04/09/2024 Colorectal Cancer Screening: Colonoscopy 09/09/2024 Falls Risk Assessment 09/09/2024 Hepatitis C Screening 09/09/2024 Medicare Annual Wellness Visit 09/09/2024 Osteoporosis Screening (Bone Density Screening) 09/09/2024 Social Influencers of Health Screening 09/09/2024 Hypertension/CHF/CAD Annual BMP Blood Test 09/22/2024 Influenza Vaccine (#1) 2024 , 11/30/2022, 12/21/2021, Additional history exists Cholesterol Screening (Lipid Panel) 11/15/2028 11/16/2023 DTaP,Tdap,and Td Vaccines (4 - Td or Tdap) 08/09/2032 08/09/2022, 08/21/2011, 12/02/1999 Zoster Vaccines Completed 04/29/2019, 02/27/2019 Pneumococcal Vaccine: 50+ Years Completed 11/07/2023, 05/06/2007, 12/02/1999 HIB Vaccines Aged Out No longer eligi ble based on patient's age to complete this topic HPV Vaccines Aged Out No longer eligi ble based on patient's age to complete this topic IPV Vaccines Aged Out No longer eligi ble based on patient's age to complete this topic MMR Vaccines Aged Out No longer eligi ble based on patient's age to complete this topic Meningococcal ACWY Vaccine Aged Out N o longer eligible based on patient's age to complete this topic Meningococcal B Vaccine Aged Out No l onger eligible based on patient's age to complete this topic RSV Immunization Patients Under 20 months Aged Out No longer eligible based on patient's age to complete this topic Varicella Vaccines Aged Out No longer eligible based on patient's age to complete this topic Insurance MEDICARE MEDICAID - [place] Care Teams Assembly Line Machine Operator Relationship Specialty Start Date End Date Amanda Diaz NP [address] [place] [address] [place] [phone] PCP - General 09/09/24
--- OUTSIDE RECORDS SUMMARY | 2024-11-03 12:54 | XMS_ITS | Encounter Summary ---
Author Organization [employer] Address [address] [facility] [address] [place] [address] Care Team Providers Care Care Management Assistant Name Role Phone Aileen Harris Primary Care Provider [phone] Alyce Stanley SUPERVISORY GEOGRAPHER Unavailable July Unavailable Reason for Visit * Reason Comments Med Refill Encounter Details Date Type Department Care Team ([facility] st Contact Info) Description 03/31/2024 Refill [facility] [address] [place], [place] [phone] Aileen Harris FNP [address] [place], [place] [phone] Psoriatic arthritis ([facility]) Social History Tobacco Use Types Packs/Day Years [...] Upcoming Encounters Date Type Department Care Team ([facility] st Contact Info) Description 11/24/2024 1:00 PM EDT Office Visit [facility] [address] [place] [address] Aileen Harris FNP [address] [place] [address] documented as of this encounter Visit Diagnoses Diagnosis Psoriatic arthritis (CMS/HCC) Psoriatic arthropathy documented in this encounter Additional Health Concerns Assessment Noted Time PHQ-9 Depression Total Score: 11 024 9:19 AM EDT documented as of this encounter Care Teams Care Management Assistant Relationship Specialty Start Date End Date Aileen Harris FNP [address] [place] [address] PCP - General Family Medicine 12/06/21 Alyce Stanley NP [address] [place] [address] Urology 08/22/[address]rd [place] [address] Gastroenterology 08/22/24 documented as of this encounter
== END 2024-11-03 13:50 | disposition home or self-care (01) ==
LOC: HO.HUSH 11:38
PROVIDERS: PCP Registered Nurse; Visit Provider Nurse Practitioner Family
DX: R35.1 Nocturia (principal); R32 Unspecified urinary incontinence; N28.1 Cyst of kidney, acquired
CPT/HCPCS: 99214

== ENCOUNTER 2024-11-14 14:13 | Outpatient (AMB) | payer MEDICARE, MEDICAID, SELFPAY ==
--- OUTSIDE RECORDS SUMMARY | 2024-11-14 14:14 | XMS_ITS | Encounter Summary ---
Author Organization [employer] Address [address] [facility] [address] [place] [address] Care Team Providers Care Dye Padder Operator Name Role Phone Aileen Harris Primary Care Provider [phone] Alyce Stanley GED TUTOR Unavailable July Unavailable Reason for Visit * Reason Comments Med Refill Encounter Details Date Type Department Care Team ([facility] st Contact Info) Description 03/31/2024 Refill [facility] & PEDS [address] [place], [place] [phone] Aileen Harris FNP [address] [place], [place] [phone] Psoriatic arthritis ([facility]) Social History Tobacco Use Types Packs/Day Years [...] Upcoming Encounters Date Type Department Care Team ([facility] st Contact Info) Description 11/24/2024 1:00 PM EDT Office Visit [facility] MED & P[facility] [address] [place] [address] Aileen Harris FNP [address] [place] [address] documented as of this encounter Visit Diagnoses Diagnosis Psoriatic arthritis (CMS/HCC) Psoriatic arthropathy documented in this encounter Additional Health Concerns Assessment Noted Time PHQ-9 Depression Total Score: 11 024 9:19 AM EDT documented as of this encounter Care Teams Dye Padder Operator Relationship Specialty Start Date End Date Aileen Harris FNP [address] [place] [address] PCP - General Family Medicine 12/06/21 Alyce Stanley NP [address] [place] [address] Urology 08/22/[address] [place] [address] Gastroenterology 08/22/24 documented as of this encounter
--- OUTSIDE RECORDS SUMMARY | 2024-11-14 14:14 | XMS_ITS | Clinical Summary ---
Author Organization 175 [facility] Address [address] [place] [address] Phone Care Team Providers Care Oncology Coordinator Name Role Phone EmilyAmanda IAN Primary Care Provider [phone] Allergies Active Allergy Reactions Criticality Noted Date Comments Oxycodone-Acetaminophen 09/22/2024 Medications silver sulfADIAZINE (Silvadene) 1 % cream Apply topically 1 (one) time each day. 50 g 09/23/19 26 Active Encounters Date Type Department Care Team Description 10/07/2024 1:30 PM EDT Office Visit Orthopedic Surgery [facility] [address] [phone] Lan Hagen DPM Open wound of left great toe, initial encounter (Primary Dx) 09/22/2024 1:15 PM EDT Consult Orthopedic [facility] [address] [phone] Lan Hagen DPM Cellulitis of left toe [...] Insurance MEDICARE MEDICAID - [place] Care Teams Oncology Coordinator Relationship Specialty Start Date End Date Amanda Diaz NP [address] [place] [address] [place] [phone] PCP - General 09/09/24
--- NOTE | 2024-11-14 14:24 | A.OFFVIS_ITS ---
Vital Signs 11/14/24 14:25 Height 5 ft 4 in Weight 235 lb 14.314 oz BMI 40.5 BP 134/80 Blood Pressure Location Lt brachial Position Sitting Pulse 80 Pulse Source Pulse Oximeter Pulse Oximetry (%) 96 Oxygen Delivery Method Room Air Intake Visit Reasons: PsA Intake Note: Patient presents for PSA follow up today. Patient is requesting refills of Tylenol and Baclofen today. Printing Supplies Sales Representative Services: Printing Supplies Sales Representative Offered & Declined Accompanied by: Nephew or Niece Allergies tramadol (TRAMADOL) Allergy (Intermediate, Verified 11/14/24 14:36) RASH, itching, rash oxycodone Allergy (Verified 11/14/24 14:36) Rash Medication List - Last Reconciled 11/14/24 by Vonnie Burks MD acetaminophen ER (Tylenol Arthritis Pain) 650 mg PO Q8H PRN adalimumab-aaty (Yuflyma(CF) Autoinjector) 40 mg (0.4 mL) subcut Q2W albuterol sulfate 90 mcg/actuation 2 puffs inhalation Q6H PRN cholestyramine-aspartame 4 gram (Cholestyramine Light) 4 grams PO BID 30 days ciclopirox 8% 1 appl topical BEDTIME citalopram 20 mg PO DAILY clonazepam 0.25 mg PO BID cyclobenzaprine 10 mg PO TID PRN diclofenac sodium 1% 2 grams topical BID PRN famotidine 20 mg PO BEDTIME fluocinolone 0.01% 1 appl topical DAILY fluticasone propion-salmeterol 45-21 mcg/actuation (Advair HFA) inhalation fluticasone propionate 50 mcg/actuation sprays intranasal furosemide 20 mg PO DAILY hydroxyzine HCl 25 mg PO BID lisinopril-hydrochlorothiazide 20-25 mg 1 tab PO DAILY meclizine 50 mg PO BID PRN melatonin 5 mg PO BEDTIME metoprolol tartrate 25 mg PO DAILY mirabegron ER (Myrbetriq) 25 mg PO DAILY 30 days omeprazole 20 mg PO DAILY prednisone 3 tablets x 3 days 2 tablets per day x 5 days, 1 tablet per day x 5 days stop quetiapine 25 mg PO BEDTIME sennosides-docusate sodium 8.6-50 mg (Senexon-S) 2 tab-caps (2 x 8.6-50 mg) PO .qhs simvastatin 40 mg PO BEDTIME solifenacin (Vesicare) 5 mg PO DAILY 90 days trazodone 100 mg PO BEDTIME HPI Comments Details: Patient is a 69-year-old female with depression, GERD, hypertension, overactive bladder, hyperlipidemia, asthma, TATUM, 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 Lyle - On Humira 40mg SC every 2 weeks - Doing well - Had a fall in the bath tub but no fractures - No changes made to medication Today, - On Yuflyma 40mg SC every 2 weeks (changed due to insurance) - Doing well - Complaining of left shoulder pain today Rheumatologic History: PsA Methotrexate: Dates unavailable Leflunomide: approximately 2015 possibly earlier - self stopped September 2021. Not restarted- no signs of active disease on exam, skin clear no psoriasis. Humira Started 01/2023 effective Current Rheumatology Medication(s): Yuflyma 40mg SC every 2 weeks PFS Medical History Encounter for screening Left shoulder pain Urinary incontinence On beta melvin at home Anxiety TATUM (obstructive sleep apnea) Asthma Elevated cholesterol PONV (postoperative nausea and vomiting) Colon cancer screening Dislocation of distal interphalangeal (DIP) joint of finger Uterine prolapse Lumbar spondylolysis Psoriatic arthritis IBS (irritable bowel syndrome) Arthritis Morbidly obese GERD (gastroesophageal reflux disease) HTN (hypertension) Surgical History H/O arthrodesis Hx of colonoscopy History of blepharoplasty History of pubovaginal sling History of total left knee replacement History of total right knee replacement (TKR) Hx of appendectomy Hx of cholecystectomy Family History Mother HTN (hypertension) Diabetes Father Throat cancer Sister Heart problem Cancer Social History Household Members Other:: daughter Are you a primary healthcare network pricing consultant to a significant other at home: No Do you presently have 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 home services: Yes (PHOTOGRAPHIC 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 TECHNICIAN) Alcohol intake: never Patient Tobacco Use Status: Never used Tobacco e-Cigarette/Vaping Use: Never Used Current occupational status: disabled 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Systems Const Details: Review of Systems Constitutional: Denies fever, chills, weight loss ENT: Denies vision changes, eye pain or eye redness, dental caries, dry mouth GI: Denies nausea, vomiting, diarrhea, abdominal pain, change in BM Pulm: Denies SOB, PATTON, hemoptysis, wheezing Cards: Denies chest pain, palpitations Skin: Denies Raynaud's, rash, nail changes, photosensitivity, PROPAGATOR: Denies headaches, weakness, paresthesias, recurrent falls MSK: as per HPI All other systems reviewed and are unremarkable except noted above Physical Exam Exam Exam: Vital signs reviewed Physical Examination CONSTITUITIONAL Patient alert and cooperative. Well appearing and in no apparent painful distress MSK Hands * Right Hand: Able to make a fist. Fingers look swollen but there is no TTP of the PIPs or MCPs * Left Hand: Able to make a fist. Fingers look swollen but there is no TTP of the PIPs or MCPs * Herbedens nodes noted bilaterally Wrists * Right Wrist: Full ROM. 70 degrees of wrist flexion, 80 degrees of wrist extension. No swelling but mild TTP * Left Wrist: Full ROM. 70 degrees of wrist flexion, 80 degrees of wrist extension. No swelling but mild TTP Elbows * Right Elbow: Full ROM. No swelling or TTP. No TTP of the medial and lateral epicondyles * Left Elbow: Full ROM. No swelling or TTP. No TTP of the medial epicondyle. TTP of the lateral epicondyle Shoulders * Right shoulder: Full ROM. No swelling noted. No TTP of the AC joint, subacromial bursa or posterior shoulder * Left shoulder: Full ROM. No swelling noted. TTP of the AC joint, but no TTP of the subacromial bursa or posterior shoulder Knees * Right knee: Full ROM. No swelling noted. TTP of the knee joint lie and pes anserine bursa * Left knee: Full ROM. No swelling noted. TTP of the knee joint lie and pes anserine bursa. * Surgical scar noted anteriorly bilaterally Ankles * Right ankle: Good ankle dorsiflexion and plantar flexion. No swelling. No TTP of the ankle joint * Left ankle: Good ankle dorsiflexion and plantar flexion. No swelling. No TTP of the ankle joint Feet * Right foot: Negative squeeze test * Left foot: Negative squeeze test Tender points? * No tenderness to palpation of the bilateral trapezius, supraspinatus, anterior costochondral junctions, bilateral suboccipital muscle insertions SKIN No rashes Vital Signs: Last Vital Signs Pulse 80 11/14/24 14:25 BP 134/80 11/14/24 14:25 Pulse Ox 96 11/14/24 14:25 Oxygen Delivery Method Room Air 11/14/24 14:25 BMI result Body Mass Index 40.5 Office Procedures AMB Joint Injection/Aspiration Joint Injection/Aspiration Details: Procedure was explained to the patient and informed consent was obtained. ? Risks associated with the procedure were discussed with the patient including but not limited to bleeding, infection, drug reactions and reactions to the topical anesthetic. Patient made aware of signs to look out for infectious complications. The area of interest was identified and confirmed with patient. ?This was subsequently cleaned with chlorhexidine x 2. ? The area was then anesthetized using ethyl chloride spray. 40 mg Kenalog with 1 cc 1% lidocaine was injected without issue. ?Minimal to no bleeding. ?Patient tolerated procedure. Primary Site: left shoulder Prep: site was prepped using aseptic technique and ethochloride spray was applied Injected: 40 mg of, Kenalog, with 1 mL of, 1% plain lidocaine and in the joint Procedure: The patient tolerated the procedure well Coding 52258 - Acromioclavicular Procedure code (CPT) selection complete Office Meds lidocaine (PF) 10 mg/mL (1 %) injection solution Performing Provider: Vonnie Burks MD Performing Location: [facility] Administered by: Lakshmi Ashraf RN on 11/14/24 15:08 Dose Route Admin Location Dispensed Lot Number Expiration Date [facility] [employer] 1 mL Infiltration 2 mL [id number] 08/06/26 80661-772-65 [facility] Total Dispensed Waste 2 mL 50 % Kenalog 40 mg/mL suspension for injection Performing Provider: Vonnie Burks MD Performing Location: [facility] Administered by: Lakshmi Ashraf RN on 11/14/24 15:08 Dose Route Admin Location Dispensed Lot Number Expiration Date [facility] [employer] Manager 40 mg intra-articular 1 mL [id number] 08/06/25 [address]-7 [employer] [facility] Total Dispensed Waste 1 mL 0 % Results Reviewed Results Reviewed: Laboratory Tests 06/17/24 10/24/24 10:57 15:56 WBC 10.8 RBC 4.08 L Hgb 12.7 Hct 38.5 Plt Count 244 ESR 43 H Sodium 141 Potassium 4.0 Chloride 102 Carbon Dioxide 31 H BUN 19 H Creatinine 0.83 AST 44 H 70 H ALT 38 H 58 H C-Reactive Protein 0.45 Laboratory Tests 03/07/22 11:13 Rheumatoid Factor < 15.0 Cycl Citrul Peptide IgG <16 Laboratory Tests 11/20/22 11/16/23 06/17/24 09:41 09:57 10:57 Hepatitis A IgM Ab Nonreactive Hep Bs Antigen Negative Hep Bs Antibody NONREACTIVE Hep B Core Total Ab Nonreactive Hepatitis C Ab (EIA) Nonreactive Hep C Viral Load <15 NOT DETECTED Hep C Viral Load Log <1.18 NOT DETECTED HIV 1&2 Ab/P24 Ag 4thGn Nonreactive TB Test (T-Spot) Com Negative DEXA 10/2022 FINDINGS: LEFT FEMUR, NECK: Current: BMD 1.247 g/cm2, Z-score 2.3, T-score 1.5, normal. Baseline: BMD 1.281 g/cm2. LEFT FEMUR, TOTAL: Current: BMD 1.299 g/cm2, Z-score 2.7, T-score 2.3, normal, 1.1% decrease from baseline (<5% change is not significant). Baseline: BMD 1.313 g/cm2. AP SPINE L1-L2 (excluding L3 and L4): The data of L1-L4 has been changed to exclude the L3 and L4 vertebral bodies, because degenerative sclerosis at these levels may cause overestimation of lumbar spine density. Current: BMD 1.447 g/cm2, Z-score 2.8, T-score 2.4, normal, 11.2% increase from baseline (<5% change is not significant). Baseline: BMD 1.301 g/cm2. Assessment & Plan Assessment & Plan (1) Psoriatic arthritis: Comment: Methotrexate: Dates unavailable Leflunomide: approximately 2016 possibly earlier - self stopped September 2021. Not restarted- no signs of active disease on exam, skin clear no psoriasis. Humira Started 01/2023 effective. Changed to Yuflyma by insurance Code(s): L40.50 - Arthropathic psoriasis, unspecified Category: Medical Plan: #PsA Patient is a 69-year-old female with psoriatic arthritis here today for follow up. Currently on Yuflyma She still has some tenderness to palpation of her wrists today. Without any active synovitis Given her transaminitis we will continue to monitor her on the Humira bio similar but if on repeat there is persistent or even more elevation in her LFTs we will need to change her medication Plan - Continue Yuflyma 40mg SC every 2 weeks - RTC 6 months - Labs before visit: CBC, CMP, ESR, CRP (2) Polyarticular osteoarthritis: Code(s): M15.9 - Polyosteoarthritis, unspecified Plan: #Polyarticular OA Patient with polyarticular osteoarthritis status post bilateral knee replacement now complaining today of left shoulder pain. Tenderness to palpation of the left AC joint. Left AC joint injection given (3) Screening for osteoporosis: Code(s): Z13.820 - Encounter for screening for osteoporosis Plan: #Screening for osteoporosis DEXA 10/2022. AP Spine 2.4, Left femur neck 1.5, Left femur total 2.3. Normal Plan - Order DEXA at next visit (4) Elevated transaminase measurement: Code(s): R74.01 - Elevation of levels of liver transaminase levels Plan: #Transaminitis Patient with known fatty liver disease and worsening transaminases. Plan - US Abd with elastography - Repeat CMP in 4 weeks, if worsening will need to change anti TNF to a different medication (5) Encounter for monitoring of adalimumab therapy: Code(s): Z51.81 - Encounter for therapeutic drug level monitoring; Z79.620 - middle or intermediate school principal (current) use of immunosuppressive biologic Plan: #Long-term Use of TNF Inhibitors: Yuflyma Discussed with the patient the benefits and risks of TNF inhibitors for the management of the rheumatic condition Benefits include reduce pain, maintenance of remission and reduction of flares as well as progression of the disease Risks include injection sites/infusion reactions, serious infections (such as bacterial infections, opportunistic infections), malignancy, delaminating syndromes, autoimmune phenomena, CHF exacerbations, palmar plantar psoriasis and cytopenias Recommended rotating injection sites, and holding medication during and for up to 1 week after resolution of a febrile illness or open skin wound Plan I spent 30 minutes reviewing the record and labs, taking a history, examining the patient, discussing the treatment plan, ordering diagnostic work up and documenting in the medical record Orders: Orders Complete Blood Count Auto Diff 6 Months Z79.899 - Other prison (current) drug therapy C Reactive Protein 6 Months Z79.899 - Other prison (current) drug therapy Comprehensive Met. Panel Today R74.01 - Elevation of levels of liver transaminase levels US abdomen comp w elastography Today R74.01 - Elevation of levels of liver transaminase levels AMB Joint Injection/Aspiration Today M19.012 - Primary osteoarthritis, left shoulder Comprehensive Met. Panel 6 Months Z79.899 - Other middle or intermediate school principal (current) drug therapy Erythrocyte Sedimentation Rate 6 Months Z79.899 - Other middle or intermediate school principal (current) drug therapy Coding Level of Care Code Est Pt Level 4 (39084) Complex EM visit Add On G2211 Diagnoses Psoriatic arthritis L40.50 Polyarticular osteoarthritis M15.9 Screening for osteoporosis Z13.820 Elevated transaminase measurement R74.01 Encounter for monitoring of adalimumab therapy Z51.81; Z79.620 CPT Codes Coding - Joint 5: 67548 - Acromioclavicular ([id number])
[2024-11-14 14:25] VITALS: BP 134/80; PULSE 80; O2SAT 96; BMI 40.5
== END 2024-11-14 15:11 | disposition home or self-care (01) ==
LOC: HO.RHES 14:13
PROVIDERS: PCP Registered Nurse; Visit Provider Student in an Organized Health Care Education/Training Program
DX: L40.50 Arthropathic psoriasis, unspecified (principal); M25.512 Pain in left shoulder; M15.9 Polyosteoarthritis, unspecified; R74.01 Elevation of levels of liver transaminase levels; Z13.820 Encounter for screening for osteoporosis; Z51.81 Encounter for therapeutic drug level monitoring; Z79.620 Long term (current) use of immunosuppressive biologic
CPT/HCPCS: 20605; 99214

== ENCOUNTER → 2024-11-14 14:13 | Outpatient (BNVA) | payer MEDICARE, MEDICAID, SELFPAY | PROVIDERS: PCP Registered Nurse; Visit Provider Student in an Organized Health Care Education/Training Program | DX: L40.50 Arthropathic psoriasis, unspecified (principal); M25.512 Pain in left shoulder; M15.9 Polyosteoarthritis, unspecified; R74.01 Elevation of levels of liver transaminase levels; Z79.620 Long term (current) use of immunosuppressive biologic; Z96.653 Presence of artificial knee joint, bilateral | CPT/HCPCS: 20605; 99212; J2003; J3300 ==

== ENCOUNTER 2025-01-09 10:47 | Outpatient (REF) | payer MEDICARE, MEDICAID, SELFPAY ==
--- NOTE | ~2025-01-09 | US_ITS ---
EXAMINATION: US ABDOMEN COMPLETE WITH LIVER ELASTOGRAPHY HISTORY: R74.01 - Elevation of levels of liver transaminase levels TECHNIQUE: Real-time grayscale ultrasound imaging of the abdomen was performed and images were reviewed. COMPARISON: Comparison is made with the prior examination dated 11/12/2023. FINDINGS: Liver: The right lobe of the liver measures 16.7 cm in size. The left lobe of the liver measures 14.4 cm in size. The liver demonstrates normal homogeneous echotexture. No focal mass or intrahepatic biliary ductal dilatation is identified. There is normal hepatopedal flow in the portal vein. Ultrasound elastography of the liver was performed with 10 separate measurements of the liver parenchyma with the patient in the supine position. Measurements were obtained approximately 2 cm below Thomas's capsule and perpendicular to the capsule. The median shear wave velocity is 1.21 m/s. The interquartile range/median (IQR/median) is 0.28. Gallbladder and biliary tree: The gallbladder is surgically absent. The common bile duct measures 12 mm diameter which is likely within normal limits for a patient status post cholecystectomy. Kidneys: The right kidney measures 13.0 cm in length. The left kidney measures 12.2 cm in length and demonstrates an upper pole cyst measuring 1.9 x 1.7 x 2.0 cm. The kidneys are otherwise unremarkable, without evidence of solid masses, hydronephrosis, or calculi. Pancreas: The pancreatic head, neck, and body are unremarkable. The pancreatic tail is obscured by bowel gas. Spleen: The spleen is normal in size and contour, measuring 9.6 cm in length. Abdominal aorta and inferior vena cava: The visualized portions of the abdominal aorta and inferior vena cava are normal in caliber. There is no free fluid in the abdomen. US/US abdomen comp w elastography IMPRESSION: Hepatomegaly. The median shear wave velocity in the liver is 1.21 m/s, corresponding to a median liver stiffness of 4.47 kPa. The IQR/median value is 0.28. This is indicative of a poor quality data set, and the estimated liver stiffness may be unreliable. Findings are indicative of a normal elastography value with a low likelihood of severe fibrosis or cirrhosis. REFERENCE: Society of Radiologists in Ultrasound Liver Stiffness Thresholds (2020): LIVER STIFFNESS THRESHOLDS: *Shear wave velocity less than 1.3 m/s (Liver Stiffness equal or less than 5 kPa): High probability of being normal. *Shear wave velocity less than 1.7 m/s (Liver Stiffness less than 9 kPa): In the absence of other known clinical signs, rules out compensated advanced chronic liver disease. *Shear wave velocity between 1.7-2.1 m/s (Liver Stiffness 9-13 kPa): Suggestive of compensated advanced chronic liver disease but need further test for confirmation. *Shear wave velocity between 2.1-2.4 m/s (Liver Stiffness 13-17 kPa): Rules in compensated advanced chronic liver disease. *Shear wave velocity greater than 2.4 m/s (Liver Stiffness over 17 kPa): Suggestive of clinically significant portal hypertension. QUALITY OF DATA SET: *IQR/Median value equal or less than 0.15 implies a quality data set. *IQR/Median value over 0.15 implies a poor quality data set. SIGNIFICANT CHANGE FROM PRIOR EXAM: Significant change if liver stiffness measurement is 10% or greater from prior exam. OTHER CONSIDERATIONS: The stage of liver fibrosis may be overestimated in the setting of acute hepatitis, liver inflammation, elevated liver function tests, hepatic vascular congestion, obstructive cholestasis, non-fasting state, and infiltrative diseases such as amyloidosis and lymphoma. In some patients with NAFLD, the liver stiffness thresholds for compensated advanced chronic liver disease may be lower. In causes other than viral hepatitis and NAFLD, liver stiffness thresholds are not well established. Electronically signed by: Pranav Amaya MD 01/09/2025 02:40 PM EDT
--- OUTSIDE RECORDS SUMMARY | 2025-01-09 11:49 | XMS_ITS | Encounter Summary ---
Author Organization [employer] Address [address] [facility] [place] [address] Care Team Providers Care Radial Router Operator Name Role Phone Aileen Harris Primary Care Provider [phone] Alyce Stanley REAL ESTATE ASSET MANAGER Unavailable July Unavailable Reason for Visit * Reason Comments Med Refill Encounter Details Date Type Department Care Team ([facility] st Contact Info) Description 03/10/2024 Refill [facility] [address], [place] [phone] Aileen Harris FNP [address], [place] [phone] Social History Tobacco Use Types Packs/Day Years [...] as of this encounter Plan of Treatment Not on file documented as of this encounter Visit Diagnoses Not on filedocumented in this encounter Additional Health Concerns Assessment Noted Time PHQ-9 Depression Total Score: 11 024 9:19 AM EDT documented as of this encounter Care Teams Radial Router Operator Relationship Specialty Start Date End Date Aileen Harris FNP [address] [place] [address] PCP - General Family Medicine 12/06/21 Alyce Stanley NP [address] [place] [address] Urology 08/22/24July [address] [place] [address] Gastroenterology 08/22/24 documented as of this encounter
--- OUTSIDE RECORDS SUMMARY | 2025-01-09 11:49 | XMS_ITS | Clinical Summary ---
Author Organization [employer] Address [address] [place] [address] [address] [place] [address] Care Team Providers Care Gluer Machine Setup Operator Name Role Phone Ernestinatono Aileen OTTONIEL Primary Care Provider [phone] Alyce Stanley C[employer] SHEET Unavailable July Unavailable Allergies Active Allergy Reactions Criticality Noted Date Comments Oxycodone Rash Low 09/07/2022 Medications clonazePAM (KlonoPIN) 0.5 MG tablet TOME CLIFFORD [...] TODOS LOS D AL ACOSTARSE 023 Active senna-docusate (Stimulant Laxative) 8.6-50 MG tabletIndicatio ns:Constipation , unspecified constipation type TAKE 1 TO 2 TABLETS BY MOUTH AT BEDTIME NEEDED FOR CONSTIPATION 180 tablet 1 024 Active Acetaminophen Extra Strength 500 MG tabletIndicatio ns:Psoriatic arthritis (CMS/HCC) (HCC) TAKE 1 TO 2 TABLETS BY MOUTH EVERY 8 HOURS NEEDED FOR PAIN OR FEVER 100 tablet 2 024 Active omeprazole (PriLOSEC) [address] capsuleIndicati ons:Gastroesoph ageal reflux disease, unspecified whether esophagitis present TAKE 1 CAPSULE BY MOUTH ONCE DAILY NEEDED FOR acidez. MAY USE if famotidine is not effective. do not crush or chew 30 capsule 2 025 Active simvastatin (Zocor) 40 MG tablet TAKE 1 TABLET BY MOUTH ONCE DAILY AT BEDTIME 90 tablet 2 025 Active Yuflyma, 2 Pen, 40 MG/0.4ML Auto-injector KitIndications: Psoriatic arthritis ([facility]/HCC) ([facility]) 025 Active albuterol 108 (90 Base) MCG/ACT inhalerIndicati ons:Moderate persistent asthma without complication TOME DOS INHALACIONES POR V A ORAL CADA CUATRO A SEIS HORAS CUANDO SEA NECESARIO 18 g 11 025 Active sodium chloride ([place]) 0.65 % nasal sprayIndication s:Acute bacterial sinusitis Administer 1 spray into each nostril if needed for congestion (allergies). 15 mL 11 025 2025 Active loratadine (Claritin) 10 MG tabletIndicatio ns:Seasonal allergies Take 1 tablet (10 mg) by mouth Once per day. (For allergies) 90 tablet 1 025 Active Blood Pressure kitIndications: Essential hypertension Use to check blood pressure as directed by provider, and if symptomatic. 1 kit 025 Active Myrbetriq 25 MG 24 hr tabletIndicatio ns:Mixed incontinence urge and stress Take 1 tablet by mouth Once per day. 025 Active Fluticasone Furoate-Vilante rol (Breo Ellipta) 100-25 MCG/ACT aerosol powderIndicatio ns:Moderate persistent asthma without complication INHALE 1 PUFF BY MOUTH ONCE DAILY 60 each 3 025 Active metoprolol succinate XL (Toprol-XL) 25 MG 24 hr tabletIndicatio ns:Tachycardia TAKE 1 TABLET BY MOUTH ONCE DAILY. not cruh or chew 30 tablet 5 025 Active salicylic acid (T/JANET) 3 % shampoo Apply 1 Application. topically Once per day. 120 mL 3 025 Active fluocinolone ([place]-Smoothe/ FS Body) 0.01 % external oil Apply before bed on a damp scalp, wrap with head covering. Wash out in the morning. Use 3x per week for treatment, and once every 1-2 weeks for prevention. 120 mL 1 025 Active meclizine (Antivert) 25 MG tabletIndicatio ns:Vertigo TAKE 1 TABLET BY MOUTH IN THE MORNING AND AT BEDTIME NEEDED FOR mareo 30 tablet 1 025 Active famotidine (Pepcid) 20 MG tablet TAKE 1 TABLET BY MOUTH IN THE MORNING AND AT BEDTIME NEEDED FOR acidez 60 tablet 5 025 Active diclofenac (Voltaren) 75 MG EC tabletIndicatio ns:Psoriatic arthritis (CMS/HCC) (HCC) TAKE 1 TABLET BY MOUTH IN THE MORNING AND TAKE 1 TABLET BY MOUTH AT BEDTIME NEEDED FOR PAIN 60 tablet 5 025 Active lisinopril-hydr oCHLOROthiazide 20-25 MG tabletIndicatio ns:Essential hypertension TOME CLIFFORD TABLETA TODOS LOS SUTTON 90 tablet 3 025 Active lisinopril-hydr oCHLOROthiazide 20-25 MG tabletIndicatio ns:Essential hypertension TOME CLIFFORD TABLETA TODOS LOS SUTTON 90 tablet 3 024 2024 Discontinued(R eorder (will not trigger notification to Pharmacy)) famotidine (Pepcid) 20 MG tablet TAKE 1 TABLET BY MOUTH IN THE MORNING AND AT BEDTIME NEEDED FOR ACIDEZ 60 tablet 5 025 2024 Discontinued meclizine (Antivert) 25 MG tabletIndicatio ns:Vertigo Take 1 tablet (25 mg) by mouth if needed in the morning and at bedtime for dizziness (vertigo). 30 tablet 1 025 2024 Discontinued diclofenac (Voltaren) 75 MG EC tabletIndicatio ns:Psoriatic arthritis (CMS/HCC) (HCC) TAKE 1 TABLET BY MOUTH IN THE MORNING AND TAKE 1 TABLET BY MOUTH AT BEDTIME NEEDED FOR PAIN 60 tablet 2 025 2024 Discontinued Active Problems Problem Noted Date Diagnosed Date Vertigo 05/23/2024 Assessment & Plan (05/23/2024 7:11 PM EST): - Continue meclizine 25 mg as needed. Reviewed med safety and side effects - Previously completed vestibular rehab, reports did not much improvement Healthcare maintenance 10/06/2022 Overview (11/30/2024): 10/25/22: DEXA WNL Pap: NILM HPV Neg Mar 2021 Colonoscopy: 10/06/24 (Dr. Sylvester). Tubular adenoma. Repeat 5 years. Mammo: Order placed 05/23/2024. Pt declined completing. Mini Cog: score 5/5 on 12/12/23 Assessment & Plan (11/30/2024 4:07 PM EDT): Repeat DXA order placed Assessment & Plan (11/07/2023 7:19 AM EDT): [...] asthma without complication 07/02/2018 Assessment & Plan (08/23/2024 3:59 PM EDT): Switch from Advair 45-21 mcg once daily to Breo Ellipta d/t insurance formulary Albuterol PRN Reports well controlled Reviewed 'Rule of 2s' Assessment & Plan (10/06/2022 8:49 PM EDT): Continues with Advair 45-21 mcg once daily Albuterol PRN Reports well controlled Reviewed 'Rule of 2s' Obstructive sleep apnea syndrome 07/02/2018 Assessment & Plan (11/11/2023 7:26 PM EDT): -Continues with CPAP -Following with sleep medicine services of [facility] APAP 5-8cm H20 nightly, 4h/night. Increased humidity to help with nighttime cough Assessment & Plan (09/07/2022 10:16 AM EDT): -Continues with CPAP -Following with sleep medicine Tachycardia 07/02/2018 Assessment & Plan (11/11/2023 7:26 [...] reviewed Obesity (BMI 30-39.9) 12/20/2016 Psoriatic arthritis (CMS/HCC) 12/27/2015 Assessment & Plan (11/30/2024 4:04 PM EDT): Followed by [facility] - Dr. Burks Symptoms aggravated by warmer weather (better in winter) Medication Hx: Previous medications include methotrexate and Arava 20 mg daily. Methotrexate not goot option with elevated transaminases Humira 40mg Q2 weeks (Started Jan 2023) As of July 2023, changed from Humira to Cyltezo per insurance formulary. Changed again to Yuflyma Plan: Continue adalimumab (Yuflyma) 40mg every other week through [facility]. Close monitoring of LFTs. Per consult 11/2024, if persistent or more elevated LFTs, will need to change her medication. Continue diclofenac as needed APAP PRN Dermasmoothe for persistent dry patches on scalp. Follow up if not effective. DME request for Walker with Seat and breaks, as well as chair lift (informed may not be covered by insurance), placed 11/11/23. Assessment & Plan (05/23/2024 7:06 PM EST): Followed by [facility] - Dr. Ramos / ELIECER Jackson Symptoms aggravated by warmer weather (better in winter) Medication Hx: Previous medications include methotrexate and Arava 20 mg daily. Methotrexate not goot option with elevated transaminases Humira 40mg Q2 weeks (Started Jan 2023) As of July 2023, changed from Humira to Cyltezo per insurance formulary Plan: Continue adalimumab 40mg every other week through [facility] Continue diclofenac as needed APAP PRN Dermasmoothe for persistent dry patches on scalp. Follow up if not effective. DME request for Walker with Seat and breaks, as well as chair lift (informed may not be covered by insurance), placed 11/11/23. Assessment & Plan (11/11/2023 7:34 PM EDT): Followed by [facility] - Dr. Ramos / ELIECER Jackson Symptoms aggravated by warmer weather (better in winter) Medication Hx: Previous medications include methotrexate and Arava 20 mg daily. Methotrexate not goot option with elevated transaminases Humira 40mg Q2 weeks (Started Jan 2023) As of July 2023, changed from Humira to Cyltezo per insurance formulary Plan: Continue Cyltezo 40mg every other week through [facility] Continue diclofenac as needed APAP PRN Dermasmoothe for persistent dry patches on scalp. Follow up if not effective. DME request for Walker with Seat and breaks, as well as chair lift (informed may not be covered by insurance), placed 11/11/23. Assessment & Plan (11/21/2022 12:28 PM EDT): Followed by [facility] Q6 months Previous medications include methotrexate and Arava 20 mg daily. Pt had self stopped medication Symptoms aggravated by warmer weather Essential hypertension 11/02/2015 Assessment & Plan (08/23/2024 3:58 PM EDT): Elevated in office, reports had not yet taken BP med. New BP machine sent to [facility] pharmacy BP goal < 140/90 mmHg Continues with lisinopril-hydrochlorothiazide 20-25mg daily Follow up if home BP readings above goal Assessment & Plan (11/11/2023 7:36 PM EDT): Well controlled BP goal < 140/90 mmHg Continues with lisinopril-hydrochlorothiazide 20-25mg daily Assessment & Plan (09/07/2022 8:57 AM EDT): BP goal < 140/90 mmHg Continues with lisinopril-hydrochlorothiazide 20-25mg daily Simvastatin 40mg nightly Depressive disorder 04/05/2012 Overview (05/23/2024): Followed by psych team - January Michaud Therapist [place] every week Continue with med management through their team: Trazodone 100mg nightly Quetiapine 25mg nightly Hydroxyzine 25mg PRN Clonazepam 0.5mg BID Assessment & Plan (05/23/2024 7:17 PM EST): - Reviewed PHQ-9, no SI/HI/thoughts of self - Continues following with specialists Mixed incontinence urge and stress 04/05/2012 Overview (11/30/2024): Following with [facility] (IAN Stanley) Pubovaginal sling Apr 2010 Consult July 2024: cytology neg for high grade urothelial carcinoma Cont Myrbetriq 25mg daily Cont Vesicare 5mg daily Previous tx: oxybutynin (dc July 2024 d/t SE) Assessment & Plan (11/30/2024 4:02 PM EDT): Continue limit fluids 2-3 hours before bed. Assessment & Plan (08/23/2024 3:48 PM EDT): Well controlled, cont current plan Assessment & Plan (05/23/2024 7:13 PM EST): Continues with oxybutynin Referral to reestablish with [facility] placed 05/23/24 Assessment & Plan (09/07/2022 8:56 AM EDT): Continues with oxybutynin through Urology Osteoarthritis of knee 04/05/2012 Assessment & Plan (12/16/2023 5:49 PM EDT): Referral to re-establish with [facility] (reports hx of TKA approx 20 years ago, starting to feel increased joint pain in knee. Right currently more bothersome than left. Gastroesophageal reflux disease 10/04/2011 Overview (08/23/2024): Following with [facility] GI regimen includes: cholestyramine, famotidine, omeprazole, and senna/colace Assessment & Plan (11/11/2023 7:35 PM EDT): [...] 11/21/22 Encouraged lifestyle interventions Assessment & Plan (11/30/2024 4:06 PM EDT): Lab Results Component Value Date AST 70 (H) 10/24/2024 ALT 58 (H) 10/24/2024 TOTPROTEIN 8.0 10/24/2024 ALB 4.5 10/24/2024 ALP 73 10/24/2024 TOTALBILIRUB 0.4 10/24/2024 -liver function slight increase compared to last time. May be secondary to biologic/TNF melvin. -Encouraged consideration aquatic therapy and nutrition intervention. Rheum monitoring/aware. 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) 07/02/2018 11/30/2024 Encounters Date Type Department Care Team Description 01/06/2025 Orders Only [facility] [address] [place] [address] Steven Aileen, IC DESIGN ENGINEER Essential hypertension 12/13/2024 Refill [facility] [address] [place] [address] Phaltono Aileen, IC DESIGN ENGINEER Psoriatic arthritis (CMS/HCC) 12/10/2024 Refill [facility] [address] [place] [address] Steven Aileen, IC DESIGN ENGINEER Vertigo 11/24/2024 1:00 PM EDT Office Visit [facility] [address] [place] [address] Phalen Aileen, IC DESIGN ENGINEER Psoriatic arthritis (CMS/HCC) (Primary Dx); Healthcare maintenance; Screening for osteoporosis; Post-menopausal; Mixed incontinence urge and stress; Steatosis of liver; Seborrheic dermatitis 11/24/2024 Travel 11/21/2024 Telephone [facility] [address] [place] [address] Aileen Harris FNP chart prep 11/17/2024 Patient Outreach [facility] [address] [place] [phone] Aileen Harris FNP Pre-visit Planning (SDOH screening completed on 08/22/24) 11/10/2024 Refill [facility] [address] [place] [address] Aileen Harris FNP Tachycardia 10/24/2024 Orders Only GENERIC EXTERNAL DATA DEPARTMENT Provider, Generic External Data 10/17/2024 Refill [facility] [address] [place] [address] Aileen Harris FNP Moderate persistent asthma without complication from Last 3 Months Immunizations Immunization Administration Dates Next Due Hep B, adult [...] Date Recorded Patient Health Questionnaire-9 Score 11 11/24/2024 Patient Health Questionnaire-9 Score 11 11/24/2024 Last PHQ-9: Questionnaire Data Not on file 0 11/24/2024 Housing Stability Answer Date Recorded What is your housing situation today? I have dany johnson 08/22/[address] you li ve. Do you have problems with any of the following? None of the above 08/22/2024 Food Insecurity Answer Date Recorded Within the past 12 months, y ou worried that your food would run out before you got money to buy more: Never True 08/22/2024 Within the past 12 months,th e food you bought just didn't last and you didn't have enough money to get more: Never True Transportation Answer Date Recorded In the past 12 months, has l ack of transportation kept you from medical appts, meetings, work or from getting things needed for daily living? No 08/22/2024 Utilities Answer Date Recorded In the past 12 months, has t he electric, gas, oil or water company threatened to shut off services in your home? No 08/22/2024 Depression Answer Date Recorded Patient Health Questionnaire-2 Score 2 11/24/2024 Internet Access Answer Date Recorded Internet Access Q1 Yes 08/22/2024 Internet Access Q2 Not on file 08/22/2024 Comments Unknown Sex and Gender Information Value Date Recorded Sex Assigned at Female 02/06/2022 10:15 AM EDT Legal Sex Female 10:15 AM EDT Gender Identity Female 02/06/2022 10:15 AM EDT Sexual Orientation Don't know 02/06/2022 10 :15 AM EDT Last Filed Vital Signs Vital Sign Reading Time Taken Comments Blood Pressure 132/84 11/24/2024 1:07 PM EDT Pulse 92 11/24/2024 1:07 PM EDT Temperature 36.4 C (97.5 F) 11/24/2024 1:07 PM EDT Respiratory Rate 24 11/24/2024 1:07 PM EDT Oxygen Saturation 95% 09/08/2024 1:45 PM EDT Inhaled Oxygen Concentration - - Weight 105 kg (232 lb) 11/24/2024 1:07 PM EDT Height 160.5 cm (5' 3.19 ) 08/22/2024 11:36 AM E DT Body Mass Index 40.85 08/22/2024 11:36 AM EDT Plan of Treatment Health Maintenance Due Date Last Done Comments CT Colonography 1955 Dental Oral Exam 1955 Dental Prophylaxis 1955 Dental X-Ray: Bitewings 1955 Dental X-Ray: Full Mouth 1955 FIT DNA/Cologuard 1955 FIT 1955 FOBT 1955 Sigmoidoscopy 1955 Hepatitis A Vaccines (1 of 2 - Risk 2-dose series) 09/30/1975 RSV Patients and Patients Aged 60 years or older (1 - Risk 60-74 years 1-dose series) 2016 Mammogram 04/12/2023 04/12/2021, 03/06/2019, 04/04/2018, Additional history exists Hepatitis B Vaccines (3 of 3 - Risk 3-dose series) 01/02/2024 11/07/2023, 11/21/2022 COVID-19 Vaccine (3 - season) 2024 08/28/2020, 07/31/2020 Influenza Vaccine (#1) 2024 , 11/30/2022, 12/21/2021, Additional history exists Depression Monitoring 05/27/2025 11/24/2024, 025 SDOH Screening 08/22/2025 08/22/2024 Alcohol/Substance Use Screening 11/24/2025 11/24/2024 Tobacco Screening 11/24/2025 11/24/2024 Lipid Panel 11/15/2028 11/16/2023, 11/26/2020 Colonoscopy 10/06/2029 10/06/2024, 02/01/2021 Colorectal Cancer Screening 10/06/2029 DTaP/Tdap/Td Vaccines (3 - Td or Tdap) 08/09/2032 08/09/2022, 08/21/2011, 12/02/1999 Zoster Vaccines Completed 04/29/2019, 02/27/2019 Cervical Cancer Screening Discontinued HPV/Cotest Discontinued 03/24/2021 Pap Smear Discontinued 03/24/2021 Pneumococcal Vaccine: 50+ Years Completed 11/07/2023, 05/06/2007, 12/02/1999 Hepatitis C Screening Completed 11/16/2023, 023 HIB Vaccines Aged Out No longer eligi [...] Procedure Name Priority Date/Time Associated Diagnosis Comments SED RATE BY MODIFIED TODDERGREN Routine 10/24/2024 3:56 PM EDT C-REACTIVE PROTEIN Routine 10/24/2024 3: 56 PM EDT COMPREHENSIVE METABOLIC PANEL Routine 10/24/2024 3:56 PM EDT SLIDE REVIEW Routine 10/24/2024 3:56 PM EDT CBC WITH AUTO DIFFERENTIAL Routine 10/24/2024 3:56 PM EDT US RETROPERITONEAL COMPLETE Routine 10/10/2024 5:19 PM EDT HM COLONOSCOPY Routine 10/06/2024 HEPATITIS C VIRAL RNA, QUANTITATIVE, REAL-TIME PCR Routine 11/16/2023 9:57 AM EDT Healthcare maintenance LIPID PANEL, STANDARD Routine 11/16/2023 9:57 AM EDT Healthcare maintenance MAMMOGRAM GENERIC Routine 04/12/2021 2:2 0 PM EST THINPREP IMAGING PAP AND HPV MRNA E6/E7 WITH REFLEX TO HPV 16,18/45 Routine 03/24/2021 10:36 AM EST from Last 3 Months or Most Recently Relevant to Health Maintenance Results * Slide Review (10/24/2024 3:56 PM EDT) Slide Review VERIFIED [facility] 10/24/2024 3:56 PM EDT 10/24/2024 3:56 PM EDT us Generic External Data Provider LAB BLOOD ORDERAB LES Final Result Performing Organization Address City/State/[facility] Co de Phone Number [facility] [address] [place] [phone] * (ABNORMAL) CBC auto differential (10/24/2024 3:56 PM EDT) White Blood Count 10.8 4.8 - 10.8 X10*3/uL [facility] Red Blood Count 4.08(L) 4.20 - 5.50 X10*6/uL [facility] Hemoglobin 12.7 12.0 - 16.0 g/dl [facility] Hematocrit 38.5 37.0 - 47.0 % [facility] Mean Corpuscular Volume 94.4 80.0 - 98.0 fL [facility] Mean Corpuscular Hemoglobin 31.1 27.0 - 33.0 pg [facility] Mean Corpuscular HGB Conc 33.0 31.0 - 35.0 g/dl [facility] Red Cell Distribution Width 12.9 11.0 - 16.0 % [facility] Platelet Count 244 160 - 400 X10*3/uL [facility] Mean Platelet Volume 10.8 9.4 - 12.3 fL [facility] Neutrophils Percent Auto 41.0(L) 45 - 73 % [facility] Imm Gran Pct Auto 0.3 0.0 - 0.4 % [facility] Lymphocytes Percent Auto 50.7(H) 20 - 40 % [facility] Monocytes Percent Auto 6.1 2 - 11 % [facility] Eosinophils Percent Auto 1.4 0 - 4 % [facility] Basophils Percent Auto 0.5 0 - 2 % [facility] NRBC Pct Auto 0.0 0.0 - 0.2 /100WBC [facility] Neutrophils Absolute Auto 4.4 2.0 - 8.3 x10*3/uL [facility] Imm Gran Abs Auto 0.03 0.00 - 0.03 X10*3/uL [facility] Lymphocytes Absolute Auto 5.5(H) 1.2 - 4.9 X10*3/uL [facility] Monocytes Absolute Auto 0.7 0.1 - 1.2 X10*3/uL [facility] Eosinophils Absolute Auto 0.2 0.0 - 0.4 X10*3/uL [facility] Basophils Absolute Auto 0.1 0.0 - 0.2 X10*3/uL [facility] NRBC Abs Auto 0.000 0.0 - 0.012 X10*3/uL [facility] 10/24/2024 3:56 PM EDT 10/24/2024 3:56 PM EDT Generic External Data Provider LAB BLOOD ORDERAB LES Edited Result - Final Performing Organization Address [facility]/ZIP Co de Phone Number [facility] [address] [place] [address] [phone] * (ABNORMAL) Sed Rate by Modified Shaq (10/24/2024 3:56 PM EDT) Erythrocyte Sedimentation Rate 43(H) 0 - 20 MM/HR [facility] Comment:Patients with polycy themia and many hemoglobin abnormalitiesmay have depressed sed rates whereas patients with anemiamay have elevated sed rates. 10/24/2024 3:56 PM EDT 10/24/2024 3:56 PM EDT Generic External Data Provider LAB BLOOD ORDERAB LES Final Result Performing Organization Address [facility]/ZIP Co de Phone Number [facility] [address] [place] [phone] * C-reactive Protein (10/24/2024 3:56 PM EDT) C Reactive Protein 0.45 < or = 0.50 mg/dL [facility] 10/24/2024 3:56 PM EDT 10/24/2024 3:56 PM EDT us Generic External Data Provider LAB BLOOD ORDERAB LES Final Result [facility] [address] [place] [phone] * (ABNORMAL) Comprehensive Metabolic Panel (10/24/2024 3:56 PM EDT) Pathologist [facility] Sodium 141 135 - 145 mmol/L [facility] Potassium 4.0 3.3 - 5.1 mmol/L [facility] Chloride 102 96 - 108 mmol/L [facility] Carbon Dioxide 31(H) 22 - 29 mmol/L [facility] Anion Gap 12 12 - 20 [facility] Urea Nitrogen (BUN) 19(H) 9 - 16 mg/dL [facility] Creatinine, Serum 0.83 0.5 - 1.4 mg/dL [facility] Estimated Glomerular Filt Rate >60 [facility] Comment:Chronic Kidney Disea se: Estimated GFR < 60 mL/min/1.95j3Ttjeho Kidney Disease: Estimated GFR < 15 mL/min/1.73m2 Glucose 96 60 - 115 mg/dL [facility] Calcium 9.8 8.4 - 10.2 mg/dL [facility] Bilirubin, Total 0.4 0.0 - 1.0 mg/dL [facility] Aspartate Amino Transferase 70(H) 5 - 31 U/L [facility] Alanine Aminotransferase 58(H) 0 - 31 U/L [facility] Total Protein 8.0 6.5 - 8.0 g/dL [facility] Albumin Level 4.5 3.5 - 5.0 g/dL [facility] Alkaline Phosphatase 73 39 - 117 U/L [facility] 10/24/2024 3:56 PM EDT 10/24/2024 3:56 PM EDT us Generic External Data Provider LAB BLOOD ORDERAB LES Final Result [facility] [address] [place] [phone] * US Retroperitoneal Complete (10/10/2024 5:19 PM EDT) Anatomical Region Laterality Modality Ultrasound 10/10/2024 5:19 PM EDT Narrative 10/10/2024 5:20 PM EDT [address] [address] Ultrasound Report Signed Patient: Linda Hand MR#: [id number] 4 : 1955 Acct:[id number] Age/Sex: 69 / F ADM Date: 10/09/24 Loc: HO.US Attending Dr: Alyce MENESES Ordering Physician: Alyce Stanley Date of Service: 10/09/24 Procedure(s): US retroperitoneal comp Accession Number(s): [id number] cc: Alyce Stanley; Aileen Harris CLINICAL HISTORY: R35.1 - Nocturia US retroperitoneum Comparison: None Findings: Right kidney normal size and echotexture, 11.7 cm length. No hydronephrosis, mass or calculus. Mild pelviectasis. Normal color flow. Left kidney normal size and echotexture, 12.7 cm in length. No hydronephrosis, or calculus. Simple cortical cyst 2.4 cm at the midpole. Normal color flow. Urinary bladder is unremarkable. Prevoid volume 272 mL. Postvoid volume 19 mL. Ureteral jets are visualized bilaterally Impression: Left renal simple cyst, otherwise unremarkable exam. This document has been electronically signed by: Kaela Chamorro MD on 10/10/2024 17:19:32 Dictated By: Kaela Chamorro MD Signed By: <Electronically signed by Kaela Chamorro MD in OV> 10/10/24 1720 DD/ 1719 TD/TT: 10/10/241718 Extrusion Operator: Procedure Note Donottimothyinterpreter, Image - 10/10/[address] [address] Ultrasound Report Signed Patient: Linda HandMR#: [id number] 4 : 7Acct:[id number] Age/Sex: 69 / FADM Date: 10/09/24 Loc: HO.US Attending Dr: Alyce BOLAÑOS Ordering Physician: Alyce Stanley Date of Service: 10/09/24 Procedure(s): US retroperitoneal comp Accession Number(s): [id number] cc: Alyce Stanley; Aileen Harris CLINICAL HISTORY: R35.1 - Nocturia US retroperitoneum Comparison: None Findings: Right kidney normal size and echotexture, 11.7 cm length. No hydronephrosis, mass or calculus. Mild pelviectasis. Normal color flow. Left kidney normal size and echotexture, 12.7 cm in length. No hydronephrosis, or calculus. Simple cortical cyst 2.4 cm at the midpole. Normal color flow. Urinary bladder is unremarkable. Prevoid volume 272 mL. Postvoid volume 19 mL. Ureteral jets are visualized bilaterally Impression: Left renal simple cyst, otherwise unremarkable exam. This document has been electronically signed by: Kaela Chamorro MD on 10/10/2024 17:19:32 Dictated By: Kaela Chamorro MD Signed By: <Electronically signed by Kaela Chamorro MD in OV> 10/10/241719 DD/ 18 TD/TT: 10/10/241718 Extrusion Operator: [facility] External Provider IMG US PROCEDURES Edited Result - Final * Colonoscopy (10/06/2024) Colonoscopy Normal Normal Narrative Kathy Kong - 10/06/2024 Recommended 5 years . See see external hospital admission note on matching result date Historical Provider HEALTH MAINTENANCE Final Result * Hepatitis C Viral RNA, Quantitative, Real-Time PCR (11/16/2023 9:57 AM EDT) Hepatitis C Viral Load <15 NOT DETECTED NOT DETECTED IU/mL [facility] HCV Log PCR <1.18 NOT DETECTED NOT DETECTED Log IU/mL [facility] Comment:For additional infor natalya, please refer tohttp://education.Healthcare IT/faq/OXS28x5(This link is being provided for informational/educational purposes only.)THIS TEST WAS PERFORMED AT:[facility] [place] [phone] STYLES MD Blood 11/16/2023 9:57 AM EDT 11/16/2023 10:47 AM EDT us Aileen Harris IC DESIGN ENGINEER LAB BLOOD ORDERABLES Final Res ult [facility] [address] [place] [phone] * (ABNORMAL) Lipid Panel, Standard (11/16/2023 9:57 AM EDT) Triglycerides 324(H) <150 mg/dL [facility] Comment:Desirable Triglyceri de: less than 150 mg/dLBorderline High Triglyceride 150-199 mg/dLHigh Triglyceride: 200-499 mg/dLVery High Triglyceride: greater than or equal to 5OO mg/dL Cholesterol 211(H) <200 mg/dL [facility] Comment:Desirable Cholestero l: less than 200 mg/dLBorderline High Cholesterol: 200-239 mg/dLHigh Cholesterol: greater than 239 mg/dL LDL Cholesterol Calculated 102(H) <100 mg/dL [facility] Comment:Desirable LDL: less than 100 mg/dLNear Optimal/Above Optimal LDL: 110- 129 mg/dLBorderline High LDL: 130-159 mg/dLHigh LDL: 160-189 mg/dLVery High LDL: greater than or equal to 190 mg/dL HDL Cholesterol 45 >40 mg/dL [facility] Comment:Desirable HDL: great er than 40 mg/dL Note: This HDL assay may give artificially low results in patients with liver disease. Blood Venous blood specimen / Unknown 11/16/2023 9:57 AM EDT 11/16/2023 10:47 AM EDT us Aileen Harris IC DESIGN ENGINEER LAB BLOOD ORDERABLES Final Res ult [facility] [address] [place] [phone] * Mammography Report 1 (04/12/2021 2:20 PM EST) Anatomical Region Laterality Modality Breast Bilateral Mammography 04/12/2021 2:20 PM EST Narrative 04/12/2021 3:01 PM EST Refer to the Notes tab for result details [facility] Procedure: Mammography Report 1 Procedure Note Provider, MD Bo - 07/02/2022 Refer to the Notes tab for result details [facility] Procedure: Mammography Report 1 us Susi Basurto CUTTER ALUMINUM SHEET IMG BI PROCEDURES Final Result * THINPREP TIS PAP AND HPV mRNA E6/E7 WITH REFLEX TO HPV 16,18/45 (03/24/2021 10:36 AM EST) Clinical Information: None given [facility] COMMENT SEE COMMENT [facility] Comment: EXPLANATORY NOTE: The Pap is a screening test for cervical cancer. It is not a diagnostic test and is subject to false negative and false positive results. It is most reliable when a satisfactory sample, regularly obtained, is submitted with relevant clinical findings and history, and when the Pap result is evaluated along with historic and current clinical information. COMMENT: This Pap test has been evaluated with computer assisted technology. [facility] Chief Operations Officer: SEE COMMENT [facility] Comment: SXA, CT(ASCP) CT screening location: [place] [address] HPV nRNA E6/E7 Not Detected Not Detected [facility] Comment: Methodology: Steam Press Operator-Mediated Amplification This assay detects E6/E7 viral messenger RNA (mRNA) from 14 high-risk HPV types (16,18,31,33,35,39,45,51,52,56,58,59,66,68). The analytical performance characteristics of this assay have been determined by [employer]. The modifications have not been cleared or approved by the FDA. This assay has been validated pursuant to the CLIA regulations and is used for clinical purposes. For additional information, please refer to http://education.Healthcare IT/faq/GIE425c1 (This link if provided for information/ educational [...] component present. 03/24/2021 10:3 6 AM EST us Susi Basurto NP LAB PATHOLOGY ORDERABLES Final Result [facility] [address] from Last 3 Months or Most Recently Relevant to Health Maintenance Insurance [place] [address] [place] [id number] [facility] Care Teams Gluer Machine Setup Operator Relationship Specialty Start Date End Date Aileen Harris FNP [address] [place] [address] PCP - General Family Medicine 12/06/21 Alyce Stanley NP [address] [place] [address] Urology 08/22/24July [address]rd [place] [address] Gastroenterology 08/22/24
--- OUTSIDE RECORDS SUMMARY | 2025-01-09 11:49 | XMS_ITS | Encounter Summary ---
Author Organization [employer] Address [address] [facility] 7t [place] [address] Care Team Providers Care Scanning Coordinator Name Role Phone Aileen Harris Primary Care Provider [phone] Alyce Stanley TELEPHONE LINEMAN Unavailable July Unavailable Reason for Visit * Reason Comments Med Change Request Encounter Details Date Type Department Care Team (Late st Contact Info) Description 10/03/2022 Refill [facility] [address] [place] [address] Aileen Harris FNP [address] [place], [place] [phone] Social History Tobacco Use Types Packs/Day Years [...] Time PHQ-9 Depression Total Score: 9 09/08/19 9:37 AM EDT documented as of this encounter Care Teams Scanning Coordinator Relationship Specialty Start Date End Date Aileen Harris FNP [address] [place] [address] PCP - General Family Medicine 12/06/21 Alyce Stanley NP [address] [place] [address] Urology 08/22/[address] [place] [address] Gastroenterology 08/22/24 documented as of this encounter
--- OUTSIDE RECORDS SUMMARY | 2025-01-09 11:49 | XMS_ITS | Clinical Summary ---
Author Organization [facility] Address [address] [place] [address] Phone Care Team Providers Care Sand Car Worker Name Role Phone Emily Amanda Mayer NP Primary Care Provider [phone] Allergies Active Allergy Reactions Criticality Noted Date Comments Oxycodone-Acetaminophen 09/22/2024 Medications silver sulfADIAZINE (Silvadene) 1 % cream Apply topically 1 (one) time each day. 50 g 5 09/23/19 26 Active Social History Tobacco Use Types Packs/Day Years [...] Insurance MEDICARE MEDICAID - [place] Care Teams Sand Car Worker Relationship Specialty Start Date End Date Amanda Diaz NP [address] [place] [phone] PCP - General 09/09/24
--- OUTSIDE RECORDS SUMMARY | 2025-01-09 11:49 | XMS_ITS | Encounter Summary ---
Author Organization [employer] Address [address] [place] [address] Care Team Providers Care Major Assembly Inspector Name Role Phone ErnestinaAileen power OTTONIEL Primary Care Provider [phone] Alyce Stanley MEDIA INTERN Unavailable July Unavailable Encounter Details Date Type Department Care Team (Late st Contact Info) Description 02/23/2023 Abstract [facility] [address] [place] [address] Kathy Kong Social History Tobacco Use Types [...] on file documented as of this encounter Procedures Procedure Name Priority Date/Time Associated Diagnosis Comments COLONOSCOPY Routine 02/01/2021 documented in this encounter Results * Hm Colonoscopy (02/01/2021) Colonoscopy Normal Normal Narrative Kathy Kong - 02/01/2021 Repeat in 3 years Historical Provider HEALTH MAINTENANCE Final Result documented in this encounter Visit Diagnoses Not on filedocumented in this encounter Additional Health Concerns Assessment Noted Time PHQ-9 Depression Total Score: 9 09/08/19 23 9:37 AM EDT documented as of this encounter Care Teams Major Assembly Inspector Relationship Specialty Start Date End Date Aileen Harris FNP [address] [place] [address] PCP - General Family Medicine 12/06/21 Alyce Stanley NP [address] [place] [address] Urology 08/22/24July [address]rd [place] [address] Gastroenterology 08/22/24 documented as of this encounter
--- OUTSIDE RECORDS SUMMARY | 2025-01-09 11:49 | XMS_ITS | Encounter Summary ---
Author Organization [employer] Address [address] [facility] 7t [place] [address] Care Team Providers Care Loan Review Manager Name Role Phone Aileen Harris Primary Care Provider [phone] Alyce Stanley EQUITY TRADER Unavailable July Unavailable Reason for Visit * Reason Onset Date Comments transfer patient appt 06/12/2022 Encounter Details Date Type Department Care Team (Late st Contact Info) Description 06/12/2022 Telephone [facility] MED[facility] [address] [place] [address] Aileen Harris FNP [address] [place], [place] [phone] transfer patient appt Social History Tobacco Use [...] documented in this encounter Plan of Treatment Not on file documented as of this encounter Visit Diagnoses Not on filedocumented in this encounter Care Teams Loan Review Manager Relationship Specialty Start Date End Date Aileen Harris FNP [address] [place] [address] PCP - General Family Medicine 12/06/21 Alyce Stanley NP [address] [place] [address] Urology 08/22/24 Lupis [address]ma [address]rd [place] [address] Gastroenterology 08/22/24 documented as of this encounter
--- OUTSIDE RECORDS SUMMARY | 2025-01-09 11:49 | XMS_ITS | Encounter Summary ---
Author Organization [employer] Address [address] [facility] 7t [place] [address] Care Team Providers Care Seat Nailer Name Role Phone Aileen Harris Primary Care Provider [phone] Alyce Stanley LIQUIFIED NATURAL GAS SPECIALIST Unavailable July Unavailable Reason for Visit * Reason Comments Med Refill Encounter Details Date Type Department Care Team ([facility] st Contact Info) Description 03/31/2024 Refill [facility] [address] [place], [place] [phone] Aileen Harris FNP [address] [place], [place] [phone] Psor[facility]atic arthritis ([facility]) Social History Tobacco Use Types Packs/Day [...] encounter Visit Diagnoses Diagnosis Psoriatic arthritis (CMS/HCC) (HCC) Psoriatic arthropathy documented in this encounter Additional Health Concerns Assessment Noted Time PHQ-9 Depression Total Score: 11 024 9:19 AM EDT documented as of this encounter Care Teams Seat Nailer Relationship Specialty Start Date End Date Aileen Harris FNP [address] [place] [address] PCP - General Family Medicine 12/06/21 Alyce Stanley NP [address] [address] Urology 08/22/[address] Floor [place] [address] Gastroenterology 08/22/24 documented as of this encounter
--- OUTSIDE RECORDS SUMMARY | 2025-01-09 11:49 | XMS_ITS | Encounter Summary ---
Author Organization [employer] Address [address] [facility] 7t [place] [address] Care Team Providers Care Recording Studio Intern Name Role Phone Aileen Harris Primary Care Provider [phone] Alyce Stanley AIRPLANE CLEANER Unavailable July Unavailable Encounter Details Date Type Department Care Team ([facility] st Contact Info) Description 01/06/2025 Orders Only [facility] [address] [place], [place] [phone] Aileen Harris FNP [address] [place], [place] [phone] Essential hypertension Social History Tobacco Use Types Packs/Day Years [...] as of this encounter Visit Diagnoses Diagnosis Essential hypertension Unspecified essential hypertension documented in this encounter Additional Health Concerns Assessment Noted Time PHQ-9 Depression Total Score: 11 025 1:38 PM EDT documented as of this encounter Care Teams Recording Studio Intern Relationship Specialty Start Date End Date Aileen Harris FNP [address] [place] [address] PCP - General Family Medicine 12/06/21 Alyce Stanley NP [address] [place] [address] Urology 08/22/24July [address] [place] [address] Gastroenterology 08/22/24 documented as of this encounter
== END 2025-01-09 10:48 | disposition home or self-care (01) ==
LOC: HO.US 10:47
PROVIDERS: PCP Registered Nurse; Visit Provider Student in an Organized Health Care Education/Training Program
DX: R74.01 Elevation of levels of liver transaminase levels (principal)
CPT/HCPCS: 76700; 76981

== ENCOUNTER → 2025-01-09 10:48 | Outpatient (BNV) | payer MEDICARE, MEDICAID, SELFPAY | PROVIDERS: PCP Registered Nurse; Visit Provider Radiology Diagnostic Radiology | DX: R16.0 Hepatomegaly, not elsewhere classified (principal) | CPT/HCPCS: 76700 ==

== ENCOUNTER 2025-02-02 14:36 | Outpatient (AMB) | payer MEDICARE, MEDICAID, SELFPAY ==
--- NOTE | 2025-02-02 14:41 | MHC.OFFVIS ---
Intake Visit Reasons: 3m/PVR Intake Note: Patient is present for PVR Urology Medication:MIRABEGRON,SOLIFENACIN Antibiotic Allergy:NONE Blood Thinner:NONE Todays PVR:0ML'S Riveter Portable Machine Required: No Riveter Portable Machine Services: Riveter Portable Machine Present Riveter Portable Machine Name: [id number] Allergies tramadol (TRAMADOL) Allergy (Intermediate, Verified 02/02/25 15:27) RASH, itching, rash oxycodone Allergy (Verified 02/02/25 15:27) Rash Medication List - Last Reconciled 02/02/25 by OTTONIEL Laws-ELBA acetaminophen ER (Tylenol Arthritis Pain) 650 mg PO Q8H PRN adalimumab-aaty (Yuflyma(CF) Autoinjector) 40 mg (0.4 mL) subcut Q2W albuterol sulfate 90 mcg/actuation 2 puffs inhalation Q6H PRN cholestyramine-aspartame 4 gram 4 ea PO BID 30 days ciclopirox 8% 1 appl topical BEDTIME citalopram 20 mg PO DAILY clonazepam 0.25 mg PO BID cyclobenzaprine 10 mg PO TID PRN diclofenac sodium 1% 2 grams topical BID PRN famotidine 20 mg PO BEDTIME fluocinolone 0.01% 1 appl topical DAILY fluticasone propion-salmeterol 45-21 mcg/actuation (Advair HFA) inhalation fluticasone propionate 50 mcg/actuation sprays intranasal furosemide 20 mg PO DAILY hydroxyzine HCl 25 mg PO BID lisinopril-hydrochlorothiazide 20-25 mg 1 tab PO DAILY meclizine 50 mg PO BID PRN melatonin 5 mg PO BEDTIME metoprolol tartrate 25 mg PO DAILY mirabegron ER (Myrbetriq) 25 mg PO DAILY 90 days omeprazole 20 mg PO DAILY prednisone 3 tablets x 3 days 2 tablets per day x 5 days, 1 tablet per day x 5 days stop quetiapine 25 mg PO BEDTIME sennosides-docusate sodium 8.6-50 mg (Senexon-S) 2 tab-caps (2 x 8.6-50 mg) PO .qhs simvastatin 40 mg PO BEDTIME solifenacin (Vesicare) 5 mg PO DAILY 90 days trazodone 100 mg PO BEDTIME HPI Comments Details: Linda is a pleasant 69-year-old female patient of Dr. Harris GLUE BONE CRUSHER at today's office visit. She has a past medical history of urinary incontinence, anxiety, obstructive sleep apnea, asthma, hypercholesteremia, lumbar spondylosis, psoriatic arthritis, IBS, obesity, GERD, and hypertension. She presents to the office today for follow-up of her ongoing lower urinary tract symptoms. In discussion with the patient today she reports to be doing and feeling well. She reports significant improvement in urinary urgency and frequency with dual therapy of Myrbetriq and VESIcare as prescribed. She currently denies any bothersome urinary issues or concerns. In office urinalysis results reviewed with the patient today. PVR 0 mL. Previous workup has included a retroperitoneal ultrasound that 10/31 that noted bilateral kidneys are normal in size and echotexture. No hydronephrosis or calculi noted bilaterally. Left kidney with simple cortical cysts 2.4 cm at the mid pole, otherwise unremarkable exam per radiology report. She denies urinary urgency, urinary frequency, incontinence, hematuria, dysuria, foul smelling urine, changes to urinary stream, flank pain, fever, and or chills. She does report a history of sleep apnea and attempts to be compliant with her CPAP machine we discussed correlation of sleep apnea and nocturia. She does endorse to be limiting fluids 2-3 hours prior to bed. Patient discusses her longstanding history of lower urinary tract symptoms and has underwent pubovaginal sling with Dr. Moon 04/2010 as well as a cystoscopy for history of hematuria that was noted to be within normal limits. All questions were answered. She otherwise offers no other issues or concerns at this time. [facility] Medical History Encounter for screening Left shoulder pain Urinary incontinence On beta melvin at home Anxiety TATUM (obstructive sleep apnea) Asthma Elevated cholesterol PONV (postoperative nausea and vomiting) Colon cancer screening Dislocation of distal interphalangeal (DIP) joint of finger Uterine prolapse Lumbar spondylolysis Psoriatic arthritis IBS (irritable bowel syndrome) Arthritis Morbidly obese GERD (gastroesophageal reflux disease) HTN (hypertension) Surgical History H/O arthrodesis Hx of colonoscopy History of blepharoplasty History of pubovaginal sling History of total left knee replacement History of total right knee replacement (TKR) Hx of appendectomy Hx of cholecystectomy Family History Mother HTN (hypertension) Diabetes Father Throat cancer Sister Heart problem Cancer Social History Household Members Other:: daughter Are you a primary care trainer to a significant other at home: No Do you presently have 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 home services: Yes (GL[employer] CRUSHER) Alcohol intake: never Patient Tobacco Use Status: Never used Tobacco e-Cigarette/Vaping Use: Never Used Current occupational status: disabled 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Systems Const All systems reviewed & are unremarkable except as noted in HPI and below Physical Exam Const General: cooperative, comfortable, no acute distress, well developed, alert and awake Nutritional Appearance: overweight Orientation/consciousness: patient oriented x3 Limitations: language barrier HEENT Head: Yes normal to inspection, Yes normocephalic and Yes atraumatic Ears: hearing grossly normal bilaterally Eyes General: appearance normal, both eyes and all related structures Neck Neck: Yes normal visual inspection and Yes trachea midline Chest Chest palpation & inspection: normal inspection of the chest Resp Effort & Inspection: able to speak in complete sentences Cardio Rate: regular rate GI Inspection: Yes normal to inspection General: Yes no CVA tenderness Back/Spine/Pelvis Back: no CVA tenderness Skin General skin exam: no rashes or lesions noted Neuro General: patient oriented x3 Extrem General: Yes normal to inspection Psych Appearance: grossly normal and well kempt Mental Status: mental status grossly normal Speech and movement: Normal speech and movement present and Clear speech present Affect: normal affect Attitude: cooperative Thought process: Normal thought process present Thought content: Normal thought content present Insight: Fair insight present (Psych) Judgement: Fair judgement present (Psych) Office Procedures Post Void Residual Post Residual Void Post Void Residual (PVR): 0 [id number] Void Residual by ultrasound Results AMB Urinalysis, Automated UA Leukoctes 0 Marvin/uL Last Edit by ANGIE Tomas on 02/02/25 15:56 UA Nitrite Negative Last Edit by ANGIE Tomas on 02/02/25 15:56 UA Urobilinogen 0.2 mg/dL Last Edit by ANGIE Tomas on 02/02/25 15:56 UA Protein 30 mg/dL Last Edit by ANGIE Tomas on 02/02/25 15:56 UA pH 5.5 Last Edit by ANGIE Tomas on 02/02/25 15:56 UA Blood 0 David/uL Last Edit by ANGIE Tomas on 02/02/25 15:56 UA Specific Eaton 1.030 Last Edit by ANGIE Tomas on 02/02/25 15:56 UA Ketone Negative Last Edit by ANGIE Tomas on 02/02/25 15:56 UA Bilirubin 0 mg/dL Last Edit by ANGIE Tomas on 02/02/25 15:56 UA Glucose 0 mg/dL Last Edit by ANGIE Tomas on 02/02/25 15:56 Results Reviewed Results Reviewed: Laboratory Last Values Urine pH (Auto) 5.5 02/02/25 15:56 Specific Eaton (Auto) 1.030 02/02/25 15:56 Urine Protein (Auto) 30 mg/dL 02/02/25 15:56 Glucose (UA)(Auto) 0 mg/dL 02/02/25 15:56 Urine Ketones (Auto) Negative 02/02/25 15:56 Urine Blood (Auto) 0 David/uL 02/02/25 15:56 Urine Nitrite (Auto) Negative 02/02/25 15:56 Urine Bilirubin (Auto) 0 mg/dL 02/02/25 15:56 Urine Urobilinogen (Auto) 0.2 mg/dL 02/02/25 15:56 Leukocyte Esterase (Auto) 0 Marvin/uL 02/02/25 15:56 Assessment & Plan Assessment & Plan (1) Urinary incontinence: Code(s): R32 - Unspecified urinary incontinence Category: Medical (2) Nocturia: Code(s): R35.1 - Nocturia Category: Medical (3) Renal cyst: Code(s): N28.1 - Cyst of kidney, acquired Category: Medical Plan In office urinalysis results reviewed with the patient today; as noted above. PVR 0 mL. Continue Myrbetriq and VESIcare as discussed and prescribed. She reports be happy with current voiding parameters and would like to continue with current dual therapy. She currently denies any bothersome urinary issues or concerns. We did discussed the importance of continuing with timed/scheduled voiding given decrease in mobility. All questions were answered. Follow-up in 6 months with PVR; or sooner with any issues, concerns, and or questions. Orders: Orders AMB Urinalysis Automated Today Z13.9 - Encounter for screening, unspecified US renal BI 6 Months N28.1 - Cyst of kidney, acquired Medications: Changed From mirabegron ER (Myrbetriq) 25 mg PO DAILY 30 days 30 tabs 3RF N30.10 - Interstitial cystitis (chronic) without hematuria, N32.81 - Overactive bladder, R35.1 - Nocturia, R39.15 - Urgency of urination To mirabegron ER (Myrbetriq) 25 mg PO DAILY 90 tabs 3RF 90 days N30.10 - Interstitial cystitis (chronic) without hematuria, N32.81 - Overactive bladder, R35.1 - Nocturia, R39.15 - Urgency of urination Refilled solifenacin (Vesicare) 5 mg PO DAILY 90 tabs 3RF 90 days Patient Instructions: The patient had an opportunity to ask questions regarding the treatment plan. All questions were answered. Physical exam, labs, and imaging were discussed and reviewed in detail. As well as risks, benefits, and discussion of treatment choices. No major barriers to understanding were identified. The patient expressed understanding and agreement with the above treatment plan. The patient was made aware they should contact our office by phone for worsening of their current condition, the appearance of new symptoms, or with any questions or concerns. Compliance is encouraged with any medications and follow up testing that is ordered. It is a privilege to be allowed the opportunity to participate in? your urological care.? Again, if you have any questions or concerns If you have any questions or concerns please do not hesitate to contact me. The office is [phone]. This note is constructed using voice recognition software. While every effort has been made to ensure accuracy concession manager errors may have been included. Yours sincerely, GIDEON Laws Coding Level of Care Code Est Pt Level 3 (47903) Complex EM visit Add On G2211 Diagnoses Urinary incontinence R32 Nocturia R35.1 Renal cyst N28.1 CPT Codes Post Residual Void - PVR CPT Code: 94174-Qjgn Void Residual by ultrasound ([id number])
--- OUTSIDE RECORDS SUMMARY | 2025-02-02 18:07 | XMS_ITS | Encounter Summary ---
Author Organization [employer] Address [address] [facility] [address] [place] [address] Care Team Providers Care Substitute Crossing Guard Name Role Phone Aileen Harris Primary Care Provider [phone] Alyce Stanley SOFTWARE INTEGRATION DEVELOPER Unavailable July Unavailable Reason for Visit * Reason Comments Med Refill Encounter Details Date Type Department Care Team ([facility] st Contact Info) Description 03/31/2024 Refill [facility] [address] [place], [place] [phone] Aileen Harris FNP [address] [place], [place] [phone] Psoriatic arthritis ([facility]) Social History Tobacco Use Types Packs/Day [...] documented as of this encounter Care Teams Substitute Crossing Guard Relationship Specialty Start Date End Date Aileen Harris FNP [address] [place] [address] PCP - General Family Medicine 12/06/21 Alyce Stanley NP [address] [address] Urology 08/22/[address] [place] [address] Gastroenterology 08/22/24 documented as of this encounter
--- OUTSIDE RECORDS SUMMARY | 2025-02-02 18:08 | XMS_ITS | Encounter Summary ---
Author Organization [employer] Address [address] [facility] [address] [place] [address] Care Team Providers Care Foster Care Therapist Name Role Phone Aileen Harris Primary Care Provider [phone] Alyce Stanley CORRESPONDENCE ANALYST Unavailable July Unavailable Reason for Visit * Reason Comments Med Change Request Encounter Details Date Type Department Care Team (Late st Contact Info) Description 10/03/2022 Refill [facility] MEDICINE [address] [place] [address] Aileen Harris FNP [address] [place], [place] [phone] Social History Tobacco Use Types Packs/Day Years [...] documented as of this encounter Care Teams Foster Care Therapist Relationship Specialty Start Date End Date Aileen Harris FNP [address] [place] [address] PCP - General Family Medicine 12/06/21 Alyce Stanley NP [address] [place] [address] Urology 08/22/[address] [place] [address] Gastroenterology 08/22/24 documented as of this encounter
--- OUTSIDE RECORDS SUMMARY | 2025-02-02 18:08 | XMS_ITS | Clinical Summary ---
Author Organization [address] [facility] Address [address] [place] [address] Phone Care Team Providers Care Benefits Director Name Role Phone Emily Amanda Mayer NP Primary Care Provider [phone] Allergies Active Allergy Reactions Criticality Noted Date [...] Health Maintenance Due Date Last Done Comments Colorectal Cancer Screening: Colonoscopy 1955 Hepatitis A Vaccines (1 of 2 - Risk 2-dose series) 09/30/1975 RSV Immunization Adult Patients (1 - Risk 50-74 years 1-dose series) 2006 Breast Cancer Screening 04/12/2023 04/12/2021 Hepatitis B Vaccines (3 of 3 - Risk 3-dose series) 01/02/2024 11/07/2023, 11/21/2022 Depression Screening 04/09/2024 Falls Risk Assessment 09/09/2024 Hepatitis C Screening 09/09/2024 Medicare Annual Wellness Visit 09/09/2024 Osteoporosis Screening (Bone Density Screening) 09/09/2024 Social Influencers of Health Screening 09/09/2024 Hypertension/CHF/CAD Annual BMP Blood Test 09/22/2024 COVID-19 Vaccine ( season) 2024 08/28/2020, 07/31/2020 Influenza Vaccine (#1) [...] Insurance MEDICARE MEDICAID - [place] Care Teams Benefits Director Relationship Specialty Start Date End Date Amanda Diaz NP [address] [place] [phone] PCP - General 09/09/24
--- OUTSIDE RECORDS SUMMARY | 2025-02-02 18:08 | XMS_ITS | Encounter Summary ---
Author Organization [employer] Address [address] [facility] [address] [facility] [address] [place] [address] Care Team Providers Care Property Utilization Officer Name Role Phone ErnestinaAileen power OTTONIEL Primary Care Provider Alyce Stanley AUTOMATION AND CONTROLS SUPERVISOR Unavailable July Unavailable Encounter Details Date Type Department Care Team (Late st Contact Info) Description 02/23/2023 Abstract [facility] MEDICINE [address] [place] [address] Kathy Kong Social History Tobacco Use Types [...] documented as of this encounter Care Teams Property Utilization Officer Relationship Specialty Start Date End Date Aileen Harris FNP [address] [place] [address] PCP - General Family Medicine 12/06/21 Alyce Stanley NP [address] [place] [address] Urology 08/22/24[address] [place] [address] Gastroenterology 08/22/24 documented as of this encounter
--- OUTSIDE RECORDS SUMMARY | 2025-02-02 18:08 | XMS_ITS | Clinical Summary ---
Author Organization [employer] Address [address] [place] [address] 7[address] [place] [address] Care Team Providers Care Wet End Helper Name Role Phone Ernestinatono Aileen OTTONIEL Primary Care Provider [phone] Alyce Stanley WHITE SHOE EXAMINER Unavailable July Unavailable Allergies Active Allergy Reactions [...] Pen, 40 MG/0.4ML Auto-injector KitIndications: Psoriatic arthritis ([facility]/HCC) ([facility]) 025 Active albuterol 108 (90 Base) MCG/ACT inhalerIndicati ons:Moderate persistent asthma without complication TOME DOS INHALACIONES POR V A ORAL CADA CUATRO A SEIS HORAS CUANDO SEA NECESARIO 18 g 11 025 Active sodium chloride ([place]) 0.65 % nasal sprayIndication s:Acute bacterial sinusitis [...] day. 120 mL 3 025 Active fluocinolone ([place]-Smoothe/ FS Body) 0.01 % external oil Apply [...] CPAP -Following with sleep medicine services of [facility] APAP 5-8cm H20 nightly, 4h/night. Increased [...] Plan (11/30/2024 4:04 PM EDT): Followed by [facility] Rheum - Dr. Burks Symptoms aggravated by warmer weather (better in winter) Medication Hx: Previous medications include methotrexate and Arava 20 mg daily. Methotrexate not goot option with elevated transaminases Humira 40mg Q2 weeks (Started Jan 2023) As of July 2023, changed from Humira to Cyltezo per insurance formulary. Changed again to Yuflyma Plan: Continue adalimumab (Yuflyma) 40mg every other week through [facility] Rheum. Close monitoring of LFTs. Per consult [...] Plan (05/23/2024 7:06 PM EST): Followed by [facility] Rheum - Dr. Ramos / ELIECER Jackson Symptoms aggravated by warmer weather (better in winter) Medication Hx: Previous medications include methotrexate and Arava 20 mg daily. Methotrexate not goot option with elevated transaminases Humira 40mg Q2 weeks (Started Jan 2023) As of July 2023, changed from Humira to Cyltezo per insurance formulary Plan: Continue adalimumab 40mg every other week through [facility] Rheum Continue diclofenac as needed APAP PRN Dermasmoothe for persistent dry patches on scalp. Follow up if not effective. DME request for Walker with Seat and breaks, as well as chair lift (informed may not be covered by insurance), placed 11/11/23. Assessment & Plan (11/11/2023 7:34 PM EDT): Followed by [facility] Rheum - Dr. Ramos / ELIECER Jackson Symptoms aggravated by warmer weather (better in winter) Medication Hx: Previous medications include methotrexate and Arava 20 mg daily. Methotrexate not goot option with elevated transaminases Humira 40mg Q2 weeks (Started Jan 2023) As of July 2023, changed from Humira to Cyltezo per insurance formulary Plan: Continue Cyltezo 40mg every other week through [facility] Rheum Continue diclofenac as needed APAP PRN Dermasmoothe for persistent dry patches on scalp. Follow up if not effective. DME request for Walker with Seat and breaks, as well as chair lift (informed may not be covered by insurance), placed 11/11/23. Assessment & Plan (11/21/2022 12:28 PM EDT): Followed by [facility] Rheum Q6 months Previous medications include methotrexate and Arava 20 mg daily. Pt had self stopped medication Symptoms aggravated by warmer weather Essential hypertension 11/02/2015 Assessment & Plan (08/23/2024 3:58 PM EDT): Elevated in office, reports had not yet taken BP med. New BP machine sent to [facility] pharmacy BP goal < 140/90 [...] and stress 04/05/2012 Overview (11/30/2024): Following with [facility] Urology (IAN Stanley) Pubovaginal sling Apr 2010 [...] Continues with oxybutynin Referral to reestablish with [facility] urology placed 05/23/24 Assessment & Plan (09/07/2022 8:56 AM EDT): Continues with oxybutynin through Urology Osteoarthritis of knee 04/05/2012 Assessment & Plan (12/16/2023 5:49 PM EDT): Referral to re-establish with [facility] Ortho (reports hx of TKA approx 20 years ago, starting to feel increased joint pain in knee. Right currently more bothersome than left. 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 ([facility]) 07/02/2018 11/30/2024 Encounters Date Type Department Care Team Description 01/06/2025 Orders Only [facility] [address] [place] [address] Aileen Harris FNP Essential hypertension 12/13/2024 Refill [facility] [address] [place] [address] Aileen Harris FNP Psoriatic arthritis ([facility]) 12/10/2024 Refill [facility] [address] [place] [address] Aileen Harris FNP Vertigo 11/24/2024 1:00 PM EDT Office Visit [facility] [address] [place] [address] Aileen Harris FNP Psoriatic arthritis ([facility]) (Primary Dx); Healthcare maintenance; Screening for osteoporosis; Post-menopausal; Mixed incontinence urge and stress; Steatosis of liver; Seborrheic dermatitis 11/24/2024 Travel 11/21/2024 Telephone [facility] [address] [place] [address] Aileen Harris FNP chart prep 11/17/2024 Patient Outreach [facility] [address] [place], [place] [phone] Aileen Harris FNP Pre-visit Planning ([facility] screening completed on 08/22/24) 11/10/2024 Refill [facility] [address] [place], [place] [phone] Aileen Harris FNP Tachycardia from Last 3 Months Immunizations Immunization Administration [...] 04/12/2021, 03/0 06/2019, 04/04/2018, Additional history exists Hepatitis B Vaccines (3 of 3 - Risk 3-dose series) 01/02/2024 11/07/2023, 11/21/2022 COVID-19 Vaccine ( - season) 2024 08/28/2020, 07/31/2020 Influenza Vaccine [...] Procedure Name Priority Date/Time Associated Diagnosis Comments US ABDOMEN COMPLETE WITH ELASTOGRAPHY Routine 01/09/2025 10:55 AM EDT HM COLONOSCOPY Routine 10/06/2024 HEPATITIS C [...] Recently Relevant to Health Maintenance Results * US Abdomen Comp w elastography (01/09/2025 10:55 AM EDT) Anatomical Region Laterality Modality Abdomen Ultrasound 01/09/2025 10:5 5 AM EDT Narrative 01/09/2025 2:42 PM EDT [place] [address] Ultrasound Report Signed Patient: Linda Hand MR#: [id number] 4 : 1955 Acct:[id number] Age/Sex: 69 / F ADM Date: 01/09/25 Loc: HO.US Attending Dr: Vonnie Burks MD Ordering Physician: Vonnie Burks MD Date of Service: 01/09/25 Procedure(s): US abdomen comp w elastography Accession Number(s): [id number] cc: Vonnie Burks MD; Aileen Harris Reason for Exam: R74.01 - Elevation of levels of liver transaminase levels EXAMINATION: US ABDOMEN COMPLETE WITH LIVER ELASTOGRAPHY HISTORY: R74.01 - Elevation of levels of liver transaminase levels TECHNIQUE: Real-time grayscale ultrasound imaging of the abdomen was performed and images were reviewed. COMPARISON: Comparison is made with the prior examination dated 11/12/2023. FINDINGS: Liver: The right lobe of the liver measures 16.7 cm in size. The left lobe of the liver measures 14.4 cm in size. The liver demonstrates normal homogeneous echotexture. No focal mass or intrahepatic biliary ductal dilatation is identified. There is normal hepatopedal flow in the portal vein. Ultrasound elastography of the liver was performed with 10 separate measurements of the liver parenchyma with the patient in the supine position. Measurements were obtained approximately 2 cm below Thomas's capsule and perpendicular to the capsule. The median shear wave velocity is 1.21 m/s. The interquartile range/median (IQR/median) is 0.28. Gallbladder and biliary tree: The gallbladder is surgically absent. The common bile duct measures 12 mm diameter which is likely within normal limits for a patient status post cholecystectomy. Kidneys: The right kidney measures 13.0 cm in length. The left kidney measures 12.2 cm in length and demonstrates an upper pole cyst measuring 1.9 x 1.7 x 2.0 cm. The kidneys are otherwise unremarkable, without evidence of solid masses, hydronephrosis, or calculi. Pancreas: The pancreatic head, neck, and body are unremarkable. The pancreatic tail is obscured by bowel gas. Spleen: The spleen is normal in size and contour, measuring 9.6 cm in length. Abdominal aorta and inferior vena cava: The visualized portions of the abdominal aorta and inferior vena cava are normal in caliber. There is no free fluid in the abdomen. US/US abdomen comp w elastography IMPRESSION: Hepatomegaly. The median shear wave velocity in the liver is 1.21 m/s, corresponding to a median liver stiffness of 4.47 kPa. The IQR/median value is 0.28. This is indicative of a poor quality data set, and the estimated liver stiffness may be unreliable. Findings are indicative of a normal elastography value with a low likelihood of severe fibrosis or cirrhosis. REFERENCE: Society of Radiologists in Ultrasound Liver Stiffness Thresholds (2020): LIVER STIFFNESS THRESHOLDS: *Shear wave velocity less than 1.3 m/s (Liver Stiffness equal or less than 5 kPa): High probability of being normal. *Shear wave velocity less than 1.7 m/s (Liver Stiffness less than 9 kPa): In the absence of other known clinical signs, rules out compensated advanced chronic liver disease. *Shear wave velocity between 1.7-2.1 m/s (Liver Stiffness 9-13 kPa): Suggestive of compensated advanced chronic liver disease but need further test for confirmation. *Shear wave velocity between 2.1-2.4 m/s (Liver Stiffness 13-17 kPa): Rules in compensated advanced chronic liver disease. *Shear wave velocity greater than 2.4 m/s (Liver Stiffness over 17 kPa): Suggestive of clinically significant portal hypertension. QUALITY OF DATA SET: *IQR/Median value equal or less than 0.15 implies a quality data set. *IQR/Median value over 0.15 implies a poor quality data set. SIGNIFICANT CHANGE FROM PRIOR EXAM: Significant change if liver stiffness measurement is 10% or greater from prior exam. OTHER CONSIDERATIONS: The stage of liver fibrosis may be overestimated in the setting of acute hepatitis, liver inflammation, elevated liver function tests, hepatic vascular congestion, obstructive cholestasis, non-fasting state, and infiltrative diseases such as amyloidosis and lymphoma. In some patients with NAFLD, the liver stiffness thresholds for compensated advanced chronic liver disease may be lower. In causes other than viral hepatitis and NAFLD, liver stiffness thresholds are not well established. Electronically signed by: Pranav Amaya MD 01/09/2025 02:40 PM EDT RP Dictated By: Pranav Amaya MD Signed By: <Electronically signed by Pranav Amaya MD in [place]> 01/09/25 1440 DD/ 1055 TD/TT: 01/09/25 1120 Secretarial Teacher: Procedure Note Donotuseinterpreter, Image - 01/09/2025 [place] [address] Ultrasound Report Signed Patient: Latricia Hand#: [id number] 4 : 1955cct:[id number] Age/Sex: 69 / FADM Date: 01/09/25 Loc: HO.US Attending Dr: Vonnie Burks MD Ordering Physician: Vonnie Burks MD Date of Service: 01/09/25 Procedure(s): US abdomen comp w elastography Accession Number(s): [id number] cc: Vonnie Burks MD; Aileen Harris Reason for Exam: R74.01 - Elevation of levels of liver transaminaselevels EXAMINATION: US ABDOMEN COMPLETE WITH LIVER ELASTOGRAPHY HISTORY: R74.01 - Elevation of levels of liver transaminase levels TECHNIQUE: Real-time grayscale ultrasound imaging of the abdomen was performed and images were reviewed. COMPARISON: Comparison is made with the prior examination dated 11/12/2023. FINDINGS: Liver: The right lobe of the liver measures 16.7 cm in size. The left lobe of the liver measures 14.4 cm in size. The liver demonstrates normal homogeneous echotexture. No focal mass or intrahepatic biliary ductal dilatation is identified. There is normal hepatopedal flow in the portal vein. Ultrasound elastography of the liver was performed with 10 separate measurements of the liver parenchyma with the patient in the supine position. Measurements were obtained approximately 2 cm below Thomas's capsule and perpendicular to the capsule. The median shear wave velocity is 1.21 m/s. The interquartile range/median (IQR/median) is 0.28. Gallbladder and biliary tree: The gallbladder is surgically absent. The common bile duct measures 12 mm diameter which is likely within normal limits for a patient status post cholecystectomy. Kidneys: The right kidney measures 13.0 cm in length. The left kidney measures 12.2 cm in length and demonstrates an upper pole cyst measuring 1.9 x 1.7 x 2.0 cm. The kidneys are otherwise unremarkable, without evidence of solid masses, hydronephrosis, or calculi. Pancreas: The pancreatic head, neck, and body are unremarkable. The pancreatic tail is obscured by bowel gas. Spleen: The spleen is normal in size and contour, measuring 9.6 cm in length. Abdominal aorta and inferior vena cava: The visualized portions of the abdominal aorta and inferior vena cava are normal in caliber. There is no free fluid in the abdomen. US/US abdomen comp w elastography IMPRESSION: Hepatomegaly. The median shear wave velocity in the liver is 1.21 m/s, corresponding to a median liver stiffness of 4.47 kPa. The IQR/median value is 0.28. This is indicative of a poor quality data set, and the estimated liver stiffness may be unreliable. Findings are indicative of a normal elastography value with a low likelihood of severe fibrosis or cirrhosis. REFERENCE: Society of Radiologists in Ultrasound Liver Stiffness Thresholds (2020): LIVER STIFFNESS THRESHOLDS: *Shear wave velocity less than 1.3 m/s (Liver Stiffness equal or less than 5 kPa): High probability of being normal. *Shear wave velocity less than 1.7 m/s (Liver Stiffness less than 9 kPa): In the absence of other known clinical signs, rules out compensated advanced chronic liver disease. *Shear wave velocity between 1.7-2.1 m/s (Liver Stiffness 9-13 kPa): Suggestive of compensated advanced chronic liver disease but need further test for confirmation. *Shear wave velocity between 2.1-2.4 m/s (Liver Stiffness 13-17 kPa): Rules in compensated advanced chronic liver disease. *Shear wave velocity greater than 2.4 m/s (Liver Stiffness over 17 kPa): Suggestive of clinically significant portal hypertension. QUALITY OF DATA SET: *IQR/Median value equal or less than 0.15 implies a quality data set. *IQR/Median value over 0.15 implies a poor quality data set. SIGNIFICANT CHANGE FROM PRIOR EXAM: Significant change if liver stiffness measurement is 10% or greater from prior exam. OTHER CONSIDERATIONS: The stage of liver fibrosis may be overestimated in the setting of acute hepatitis, liver inflammation, elevated liver function tests, hepatic vascular congestion, obstructive cholestasis, non-fasting state, and infiltrative diseases such as amyloidosis and lymphoma. In some patients with NAFLD, the liver stiffness thresholds for compensated advanced chronic liver disease may be lower. In causes other than viral hepatitis and NAFLD, liver stiffness thresholds are not well established. Electronically signed by: Pranav Amaya MD 01/09/2025 02:40 PM EDT Dictated By: Pranav Amaya MD Signed By: <Electronically signed by Pranav Amaya MD in [place]> 01/09/25 1440 DD/ 1055 TD/TT: 01/09/25 1120 Secretarial Teacher: [facility] External Provider IMG US PROCEDURES Final Result * Hm Colonoscopy (10/06/2024) [facility] Colonoscopy Normal Normal Narrative Kathy Kong - 10/06/2024 Recommended 5 years . See see external hospital admission note on matching result date Historical Provider HEALTH MAINTENANCE Final Result * Hepatitis C Viral RNA, Quantitative, Real-Time PCR (11/16/2023 9:57 AM EDT) [facility] Hepatitis C Viral Load <15 NOT DETECTED NOT DETECTED IU/mL [facility] HCV Log PCR <1.18 NOT DETECTED NOT DETECTED Log IU/mL [facility] Comment:For additional infor mation, please refer tohttp://education.[employer]/faq/XGT12y9(This link is being provided for informational/educational purposes only.)THIS TEST WAS PERFORMED AT:[employer] [place] [id number] STYLES MD Blood 11/16/2023 9:57 AM EDT 11/16/2023 10:47 AM EDT us Aileen Harris MELT HOUSE SUPERVISOR LAB BLOOD ORDERABLES Final Res ult Performing Organization Address [facility] de Phone Number [facility] [address] [place] [phone] * (ABNORMAL) Lipid Panel, Standard (11/16/2023 9:57 AM EDT) Triglycerides 324(H) <150 mg/dL [facility] Comment:Desirable Triglyceri de: less than 150 mg/dLBorderline High Triglyceride 150-199 mg/dLHigh Triglyceride: 200-499 mg/dLVery High Triglyceride: greater than or equal to 5OO mg/dL Cholesterol 211(H) <200 mg/dL [facility] Comment:Desirable Cholestero l: less than 200 mg/dLBorderline High Cholesterol: 200-239 mg/dLHigh Cholesterol: greater than 239 mg/dL LDL Cholesterol Calculated 102(H) <100 mg/dL [facility] Comment:Desirable LDL: less than 100 mg/dLNear Optimal/Above Optimal LDL: 110- 129 mg/dLBorderline High LDL: 130-159 mg/dLHigh LDL: 160-189 mg/dLVery High LDL: greater than or equal to 190 mg/dL HDL Cholesterol 45 >40 mg/dL [facility] Comment:Desirable HDL: great er than 40 mg/dL Note: This HDL assay may give artificially low results in patients with liver disease. Blood Venous blood specimen / Unknown 11/16/2023 9:57 AM EDT 11/16/2023 10:47 AM EDT us Aileen Harris MELT HOUSE SUPERVISOR LAB BLOOD ORDERABLES Final Res ult Performing Organization Address [facility] Co de Phone Number [facility] [address] [place] [phone] [phone] * Mammography Report 1 (04/12/2021 2:20 PM EST) Anatomical Region Laterality Modality Breast Bilateral Mammography 04/12/2021 2:20 PM EST Narrative 04/12/2021 3:01 PM EST Refer to the Notes tab for result details [facility] Procedure: Mammography Report 1 Procedure Note ProviderBo MD - 07/02/2022 Refer to the Notes tab for result details [facility] Procedure: Mammography Report 1 us Susi Basurto WHITE SHOE EXAMINER IMG BI PROCEDURES Final Result * THINPREP TIS PAP AND HPV mRNA E6/E7 WITH REFLEX TO HPV 16,18/45 (03/24/2021 10:36 AM EST) Clinical Information: None given [facility] COMMENT SEE COMMENT [facility]OUND[facility] ON [...] been evaluated with computer assisted technology. [facility] Hospitality Director: SEE COMMENT [facility] Comment: SXA, CT(ASCP) CT screening location: [address] [address] HPV nRNA E6/E7 Not Detected Not Detected [facility] Comment: Methodology: Baggage Screener-Mediated Amplification This assay detects E6/E7 viral messenger RNA (mRNA) from 14 high-risk HPV types (16,18,31,33,35,39,45,51,52,56,58,59,66,68). The analytical performance characteristics of this assay have been determined by [employer]. The modifications have not been cleared or approved by the FDA. This assay has been validated pursuant to the CLIA regulations and is used for clinical purposes. For additional information, please refer to http://education.[employer] [place]/faq/TJZ062g1 (This link if provided for information/ educational [...] Final Result [facility] [address] from Last 3 Months or Most Recently Relevant to Health Maintenance Insurance MEDICARE [facility] * Guarantor: Linda Hand Account Type Relation to Patient Date of Phone Billing Address Personal/Family Self [address] [place] [place] Care Teams Wet End Helper Relationship Specialty Start Date End Date Aileen Harris FNP [address] [place] [address] PCP - General Family Medicine 12/06/21 Alyce Stanley NP [address] [place] [address] Urology 08/22/24July [address]rd Floor [place] Gastroenterology 08/22/24
--- OUTSIDE RECORDS SUMMARY | 2025-02-02 18:08 | XMS_ITS | Encounter Summary ---
Author Organization [employer] Address [address] [facility] 7t [place] [address] Care Team Providers Care Assistant Professor Of Philosophy Name Role Phone Aileen Harris Primary Care Provider [phone] Alyce Stanley REIMBURSEMENT COORDINATOR Unavailable July Unavailable Reason for Visit * Reason Comments Med Refill Encounter Details Date Type Department Care Team ([facility] st Contact Info) Description 03/10/2024 Refill [facility] [address] [place], [place] [phone] Aileen Harris FNP [address] [place], [place] [phone] Social History Tobacco Use Types Packs/Day Years [...] documented as of this encounter Care Teams Assistant Professor Of Philosophy Relationship Specialty Start Date End Date Aileen Harris FNP [address] [place] [address] PCP - General Family Medicine 12/06/21 Alyce Stanley NP [address] [place] [address] Urology 08/22/24July [address]rd [place] [address] Gastroenterology 08/22/24 documented as of this encounter
--- OUTSIDE RECORDS SUMMARY | 2025-02-02 18:08 | XMS_ITS | Encounter Summary ---
Author Organization [employer] Address [address] [facility] 7t [place] [address] Care Team Providers Care Bottle Caser Name Role Phone Aileen Harris Primary Care Provider Alyce Stanley AIRCRAFT STRUCTURAL DESIGN ENGINEER Unavailable July Unavailable Reason for Visit * Reason Onset Date Comments transfer patient appt 06/12/2022 Encounter Details Date Type Department Care Team (Late st Contact Info) Description 06/12/2022 Telephone [facility] [address] [place] [address] Aileen Harris FNP [address] [place], [place] [phone] transfer patient appt Social History Tobacco Use [...] on filedocumented in this encounter Care Teams Bottle Caser Relationship Specialty Start Date End Date Aileen Harris FNP [address] [place] [phone] PCP - General Family Medicine 12/06/21 Alyce Stanley NP [address] [place] [address] Urology 08/22/24 Lupis Delma [address] [place] [address] Gastroenterology 08/22/24 documented as of this encounter
== END 2025-02-02 15:27 | disposition home or self-care (01) ==
LOC: HO.HUSH 14:37
PROVIDERS: PCP Registered Nurse; Visit Provider Nurse Practitioner Family
DX: R32 Unspecified urinary incontinence (principal); R35.1 Nocturia; N28.1 Cyst of kidney, acquired; Z13.9 Encounter for screening, unspecified
CPT/HCPCS: 99213; G2211

== ENCOUNTER → 2025-02-02 14:36 | Outpatient (BNVA) | payer MEDICARE, MEDICAID, SELFPAY | PROVIDERS: PCP Registered Nurse; Visit Provider Nurse Practitioner Family | DX: R35.0 Frequency of micturition (principal); N39.41 Urge incontinence; R35.1 Nocturia; N28.1 Cyst of kidney, acquired | CPT/HCPCS: 51798; 81003; 99212 ==

== ENCOUNTER 2025-02-24 13:16 | Outpatient (REF) | payer MEDICARE, MEDICAID, SELFPAY ==
--- NOTE | ~2025-02-24 | MM_ITS ---
EXAMINATION: DXA BONE DENSITY AXIAL HISTORY: Bone density screening TECHNIQUE: [employer] Dual energy absorptiometry (DEXA) of the lumbar spine, total left hip, and femoral neck was performed. COMPARISON: Comparison is made with the prior examination most recent dated October 2022. FINDINGS: The bone mineral density of the lumbar spine is 1.646 g/cm2, corresponding to a T-score of 3.9, and a Z-score of 4.4. This is indicative of normal bone mineral density. Previously AP spine at the L1-L2 levels only measured 1.447 g/sq cm. The bone mineral density of the left total hip is 1.288 g/cm2, corresponding to a T-score of 2.2, and a Z-score of 2.8. This is indicative of normal bone mineral density. This represents a BMD change of -0.8% compared to the prior exam. This is not statistically significant. The bone mineral density of the left femoral neck is 1.209 g/cm2, corresponding to a T-score of 1.2, and a Z-score of 2.1. This is indicative of normal bone mineral density. This represents a BMD change of -3% compared to the prior exam. This is not statistically significant. FRACTURE RISK: The FRAX index suggests a ten year probability of major osteoporotic fracture of 3.5%, and of hip fracture 0.1%. MM/XR DEXA axial skeleton IMPRESSION: Based on bone mineral density, and according to World Health Organization (WHO) criteria, the diagnosis is consistent with normal bone mineral density based on lowest T score of 1.2 in the left femoral neck. Treatment Recommendations: NOF guidelines recommend consideration for treatment in postmenopausal women and men age 50 and older presenting with the following: -A hip or vertebral (clinical or morphometric) fracture. -T-score less than or equal to -2.5 at the femoral neck or spine after appropriate evaluation to exclude secondary causes. -Low bone mass at the hip or spine and a 10-year fracture probability by FRAX of greater than or equal to 3% for hip fracture or greater than or equal to 20% for major osteoporotic fracture based on the [place] adapted WHO algorithm. Other Recommendations: All treatment decisions require clinical judgment and consideration of individual patient factors, including patient preferences, comorbidities, previous drug use, risk factors not captured in the FRAX model (e.g. frailty, falls, vitamin D deficiency, increased bone turnover, interval significant decline in bone density) and possible under or overestimation of fracture risk by FRAX. Additional medical evaluation for secondary cause of low bone mineral density may be appropriate. FUTURE SCAN RECOMMENDATION: People with diagnosed cases of osteoporosis or at high risk for fracture should have regular bone mineral density tests. For patients eligible for Medicare, routine testing is allowed once every 2 years. The testing frequency can be increased to one year for patients who have rapidly progressing disease, those who are receiving or discontinuing medical therapy to restore bone mass, or have additional risk factors. Statistically, 68% of repeat scans fall within 1 SD (+/- 0.010 g/cm2 for AP spine L1-L4) and 1 SD (+/- 0.012 g/cm2 for femur total) FRAX is a trademark of the [employer]'s [employer] [facility] [employer], a World Health Organization (WHO) Collaborating Center. Electronically signed by: Latia Arzate MD 02/24/2025 02:39 PM [facility]
--- OUTSIDE RECORDS SUMMARY | 2025-02-25 05:50 | XMS_ITS | Encounter Summary ---
Author Organization [employer] Address [address] [place] [address] Care Team Providers Care Transport Truck Driver Name Role Phone Aileen Harris Primary Care Provider [phone] Alyce Stanley [employer] Unavailable July Unavailable Reason for Visit * Reason Comments Med Refill Encounter Details Date Type Department Care Team ([facility] st Contact Info) Description 03/31/2024 Refill [facility] [address] [place], [place] [phone] Aileen Harris FNP [address] [place], [place] [phone] Psoriatic arthritis ([facility]) Social History Tobacco Use Types Packs/Day Years [...] documented as of this encounter Care Teams Transport Truck Driver Relationship Specialty Start Date End Date Aileen Harris FNP [address] [place] [address] PCP - General Family Medicine 12/06/21 Alyce Stanley NP [address] [address] Urology 08/22/[address] [place] [address] Gastroenterology 08/22/24 documented as of this encounter
--- OUTSIDE RECORDS SUMMARY | 2025-02-25 05:51 | XMS_ITS | Clinical Summary ---
Author Organization [address] [facility] Address [address] [place] [address] Phone Care Team Providers Care Backup Engineer Name Role Phone Emily Amanda Mayer NP Primary Care Provider [phone] Allergies Active Allergy Reactions Criticality Noted Date [...] Insurance MEDICARE MEDICAID - [place] Care Teams Backup Engineer Relationship Specialty Start Date End Date Amanda Diaz NP [address] [place] [phone] PCP - General 09/09/24
--- OUTSIDE RECORDS SUMMARY | 2025-02-25 05:51 | XMS_ITS | Clinical Summary ---
Author Organization [employer] Address [address] [place] [address] Care Team Providers Care Coordinator Skill Training Program Name Role Phone Ernestinatono Aileen OTTONIEL Primary Care Provider [phone] Alyce Stanley STUDIO OPERATIONS MANAGER Unavailable July Unavailable Allergies Active Allergy Reactions [...] TODOS LOS D AL ACOSTARSE 3 Active senna-docusate (Stimulant Laxative) 8.6-50 MG tabletIndication s:Constipation, unspecified constipation type TAKE 1 TO 2 TABLETS BY MOUTH AT BEDTIME NEEDED FOR CONSTIPATION 180 tablet 1 4 Active Acetaminophen Extra Strength 500 MG tabletIndication s:Psoriatic arthritis (CMS/HCC) (HCC) TAKE 1 TO 2 [...] or chew 30 capsule 2 5 Active simvastatin (Zocor) 40 MG tablet TAKE 1 TABLET BY MOUTH ONCE DAILY AT BEDTIME 90 tablet 2 5 Active Yuflyma, 2 Pen, 40 MG/0.4ML Auto-injector KitIndications:P soriatic arthritis (CMS/HCC) (HCC) 5 Active albuterol 108 (90 Base) MCG/ACT inhalerIndicatio ns:Moderate persistent asthma without complication TOME DOS INHALACIONES POR V A ORAL CADA CUATRO A SEIS HORAS CUANDO SEA NECESARIO 18 g 11 5 Active sodium chloride (Asotin) 0.65 % nasal sprayIndications :Acute bacterial sinusitis Administer 1 spray into each nostril if needed for congestion (allergies). 15 mL 11 5 026 Active loratadine (Claritin) 10 MG tabletIndication s:Seasonal allergies Take 1 tablet (10 mg) by mouth Once per day. (For allergies) 90 tablet 1 5 Active Blood Pressure kitIndications:E ssential hypertension Use to check blood pressure as directed by provider, and if symptomatic. 1 kit 5 Active Myrbetriq 25 MG 24 hr tabletIndication s:Mixed incontinence urge and stress Take 1 tablet by mouth Once per day. 5 Active Fluticasone Furoate-Vilanter ol (Breo Ellipta) 100-25 MCG/ACT aerosol powderIndication s:Moderate persistent asthma without complication INHALE 1 PUFF BY MOUTH ONCE DAILY 60 each 3 5 Active metoprolol succinate XL (Toprol-XL) 25 MG 24 hr tabletIndication s:Tachycardia TAKE 1 TABLET BY MOUTH ONCE DAILY. not cruh or chew 30 tablet 5 5 Active salicylic acid (T/JANET) 3 % shampoo Apply 1 Application. topically Once per day. 120 mL 3 5 Active fluocinolone ([place]-Smoothe/F S Body) 0.01 % external oil Apply before bed on a damp scalp, wrap with head covering. Wash out in the morning. Use 3x per week for treatment, and once every 1-2 weeks for prevention. 120 mL 1 5 Active meclizine (Antivert) 25 MG tabletIndication s:Vertigo TAKE 1 TABLET BY MOUTH IN THE MORNING AND AT BEDTIME NEEDED FOR mareo 30 tablet 1 5 Active famotidine (Pepcid) 20 MG tablet TAKE 1 TABLET BY MOUTH IN THE MORNING AND AT BEDTIME NEEDED FOR acidez 60 tablet 5 5 Active diclofenac (Voltaren) 75 MG EC tabletIndication s:Psoriatic arthritis (CMS/HCC) (HCC) TAKE 1 TABLET BY MOUTH IN THE MORNING AND TAKE 1 TABLET BY MOUTH AT BEDTIME NEEDED FOR PAIN 60 tablet 5 5 Active lisinopril-hydro CHLOROthiazide 20-25 MG tabletIndication s:Essential hypertension TOME CLIFOFRD TABLETA TODOS LOS SUTTON 90 tablet 3 5 Active Active Problems Problem Noted Date [...] CPAP -Following with sleep medicine services of [facility] APAP 5-8cm H20 nightly, 4h/night. Increased humidity [...] Plan (11/30/2024 4:04 PM EDT): Followed by [facility] Rheum - Dr. Burks Symptoms aggravated by warmer weather (better in winter) Medication Hx: Previous medications include methotrexate and Arava 20 mg daily. Methotrexate not goot option with elevated transaminases Humira 40mg Q2 weeks (Started Jan 2023) As of July 2023, changed from Humira to Cyltezo per insurance formulary. Changed again to Yuflyma Plan: Continue adalimumab (Yuflyma) 40mg every other week through [facility]. Close monitoring of LFTs. Per consult 11/2024, [...] Plan (05/23/2024 7:06 PM EST): Followed by [facility] Rheum - Dr. Ramos / ELIECER [place] Symptoms aggravated by warmer weather (better in winter) Medication Hx: Previous medications include methotrexate and Arava 20 mg daily. Methotrexate not goot option with elevated transaminases Humira 40mg Q2 weeks (Started Jan 2023) As of July 2023, changed from Humira to Cyltezo per insurance formulary Plan: Continue adalimumab 40mg every other week through [facility] Rheum Continue diclofenac as needed APAP PRN Dermasmoothe for persistent dry patches on scalp. Follow up if not effective. DME request for Walker with Seat and breaks, as well as chair lift (informed may not be covered by insurance), placed 11/11/23. Assessment & Plan (11/11/2023 7:34 PM EDT): Followed by [facility] Rheum - Dr. Ramos / ELIECER [place] Symptoms aggravated by warmer weather (better in winter) Medication Hx: Previous medications include methotrexate and Arava 20 mg daily. Methotrexate not goot option with elevated transaminases Humira 40mg Q2 weeks (Started Jan 2023) As of July 2023, changed from Humira to Cyltezo per insurance formulary Plan: Continue Cyltezo 40mg every other week through [facility] Continue diclofenac as needed APAP PRN Dermasmoothe for persistent dry patches on scalp. Follow up if not effective. DME request for Walker with Seat and breaks, as well as chair lift (informed may not be covered by insurance), placed 11/11/23. Assessment & Plan (11/21/2022 12:28 PM EDT): Followed by [facility] Rheum Q6 months Previous medications include methotrexate and Arava 20 mg daily. Pt had self stopped medication Symptoms aggravated by warmer weather Essential hypertension 11/02/2015 Assessment & Plan (08/23/2024 3:58 PM EDT): Elevated in office, reports had not yet taken BP med. New BP machine sent to [facility] pharmacy BP goal < 140/90 mmHg Continues [...] psych team - January Michaud Therapist - Jazim every week Continue with med management through their team: Trazodone 100mg nightly Quetiapine 25mg nightly Hydroxyzine 25mg PRN Clonazepam 0.5mg BID Assessment & Plan (05/23/2024 7:17 PM EST): - Reviewed PHQ-9, no SI/HI/thoughts of self - Continues following with specialists Mixed incontinence urge and stress 04/05/2012 Overview (11/30/2024): Following with [facility] Urology (STUDIO OPERATIONS MANAGER Lizeth) Pubovaginal sling Apr 2010 Consult July 2024: [...] Continues with oxybutynin Referral to reestablish with [facility] urology placed 05/23/24 Assessment & Plan (09/07/2022 8:56 AM EDT): Continues with oxybutynin through Urology Osteoarthritis of knee 04/05/2012 Assessment & Plan (12/16/2023 5:49 PM EDT): Referral to re-establish with [facility] Ortho (reports hx of TKA approx 20 years ago, starting to feel increased joint pain in knee. Right currently more bothersome than left. 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 ([facility]/HCC) 07/02/2018 11/30/2024 Encounters Date Type Department Care Team Description 02/24/2025 Results Follow-Up [facility] [address] [place] [address] Phalen, Aileen, TECHNICIAN BIOLOGICAL HEALTH BD DEXA Axial 01/06/2025 Orders Only [facility] [address] [place] [address] Phalen, Aileen, TECHNICIAN BIOLOGICAL HEALTH Essential hypertension 12/13/2024 Refill [facility] PEDS [address] [place] [address] Phalen, Aileen, TECHNICIAN BIOLOGICAL HEALTH Psoriatic arthritis ([facility]) 12/10/2024 Refill [facility]EDS [address], [place] [id number] Phalen, Aileen, TECHNICIAN BIOLOGICAL HEALTH Vertigo from Last 3 Months Immunizations Immunization Administration [...] 60 years or older (1 - Risk 50-74 years 1-dose series) 2006 Mammogram 04/12/2023 04/12/2021, 06/2019, 04/04/2018, Additional history exists Hepatitis B [...] Procedure Name Priority Date/Time Associated Diagnosis Comments BD DEXA AXIAL Routine 02/24/2025 1:43 PM EST Screening for osteoporosis Post-menopausal US ABDOMEN COMPLETE WITH ELASTOGRAPHY Routine 01/09/2025 [...] Recently Relevant to Health Maintenance Results * BD DEXA Axial (02/24/2025 1:43 PM EST) Anatomical Region Laterality Modality Body Radiographic Piedad ging 02/24/2025 1:43 PM EST Narrative 02/24/2025 2:42 PM EST [facility] [address] [place], [place] [address] Mammography Report Signed Patient: Linda Hand MR#: [id number] 4 : 1955 Acct:[id number] Age/Sex: 69 / F ADM Date: 02/24/25 Loc: MAMTA Attending Dr: Aileen ALCAZAR Ordering Physician: Aileen Harris Results: Date of Service: 02/24/25 Follow Up: Procedure(s): XR DEXA axial skeleton Accession Number(s): [id number] cc: Aileen Harris Reason For Exam: Bone density screening EXAMINATION: DXA BONE DENSITY AXIAL HISTORY: Bone density screening TECHNIQUE: Wochit Dual energy absorptiometry (DEXA) of the lumbar spine, total left hip, and femoral neck was performed. COMPARISON: Comparison is made with the prior examination most recent dated October 2022. FINDINGS: The bone mineral density of the lumbar spine is 1.646 g/cm2, corresponding to a T-score of 3.9, and a Z-score of 4.4. This is indicative of normal bone mineral density. Previously AP spine at the L1-L2 levels only measured 1.447 g/sq cm. The bone mineral density of the left total hip is 1.288 g/cm2, corresponding to a T-score of 2.2, and a Z-score of 2.8. This is indicative of normal bone mineral density. This represents a BMD change of -0.8% compared to the prior exam. This is not statistically significant. The bone mineral density of the left femoral neck is 1.209 g/cm2, corresponding to a T-score of 1.2, and a Z-score of 2.1. This is indicative of normal bone mineral density. This represents a BMD change of -3% compared to the prior exam. This is not statistically significant. FRACTURE RISK: The FRAX index suggests a ten year probability of major osteoporotic fracture of 3.5%, and of hip fracture 0.1%. MM/XR DEXA axial skeleton IMPRESSION: Based on bone mineral density, and according to World Health Organization (WHO) criteria, the diagnosis is consistent with normal bone mineral density based on lowest T score of 1.2 in the left femoral neck. Treatment Recommendations: NOF guidelines recommend consideration for treatment in postmenopausal women and men age 50 and older presenting with the following: -A hip or vertebral (clinical or morphometric) fracture. -T-score less than or equal to -2.5 at the femoral neck or spine after appropriate evaluation to exclude secondary causes. -Low bone mass at the hip or spine and a 10-year fracture probability by FRAX of greater than or equal to 3% for hip fracture or greater than or equal to 20% for major osteoporotic fracture based on the [place] adapted WHO algorithm. Other Recommendations: All treatment decisions require clinical judgment and consideration of individual patient factors, including patient preferences, comorbidities, previous drug use, risk factors not captured in the FRAX model (e.g. frailty, falls, vitamin D deficiency, increased bone turnover, interval significant decline in bone density) and possible under or overestimation of fracture risk by FRAX. Additional medical evaluation for secondary cause of low bone mineral density may be appropriate. FUTURE SCAN RECOMMENDATION: People with diagnosed cases of osteoporosis or at high risk for fracture should have regular bone mineral density tests. For patients eligible for Medicare, routine testing is allowed once every 2 years. The testing frequency can be increased to one year for patients who have rapidly progressing disease, those who are receiving or discontinuing medical therapy to restore bone mass, or have additional risk factors. Statistically, 68% of repeat scans fall within 1 SD (+/- 0.010 g/cm2 for AP spine L1-L4) and 1 SD (+/- 0.012 g/cm2 for femur total) FRAX is a trademark of the [employer] [place] for Metabolic Bone Disease, a World Health Organization (WHO) Collaborating Center. Electronically signed by: Latia Arzate MD 02/24/2025 02:39 PM [facility] Dictated By: Latia Arzate MD Signed By: <Electronically signed by Latia Arzate MD in OV> 02/24/25 1439 DD/ 1343 TD/TT: 02/24/25 1342 Die Maker Stamping: BILL Procedure Note Donotuseinterpreter, Image - 02/24/2025 [facility] [address] [place], [place] [address] Mammography Report Signed Patient: Linda Hand#: [id number] 4 : 1955cct:[id number] Age/Sex: 69 / FADM Date: 02/24/25 Loc: HO.MAMMO Attending Dr: Aileen ALCAZAR Ordering Physician: Aileen HarrisPResults: Date of Service: 02/24/25Follow Up: Procedure(s): XR DEXA axial skeleton Accession Number(s): [id number] cc: Aileen Harris Reason For Exam: Bone density screening EXAMINATION: DXA BONE DENSITY AXIAL HISTORY: Bone density screening TECHNIQUE: Wochit Dual energy absorptiometry (DEXA) of the lumbar spine, total left hip, and femoral neck was performed. COMPARISON: Comparison is made with the prior examination most recent dated October 2022. FINDINGS: The bone mineral density of the lumbar spine is 1.646 g/cm2, corresponding to a T-score of 3.9, and a Z-score of 4.4. This is indicative of normal bone mineral density. Previously AP spine at the L1-L2 levels only measured 1.447 g/sq cm. The bone mineral density of the left total hip is 1.288 g/cm2, corresponding to a T-score of 2.2, and a Z-score of 2.8. This is indicative of normal bone mineral density. This represents a BMD change of -0.8% compared to the prior exam. This is not statistically significant. The bone mineral density of the left femoral neck is 1.209 g/cm2, corresponding to a T-score of 1.2, and a Z-score of 2.1. This is indicative of normal bone mineral density. This represents a BMD change of -3% compared to the prior exam. This is not statistically significant. FRACTURE RISK: The FRAX index suggests a ten year probability of major osteoporotic fracture of 3.5%, and of hip fracture 0.1%. MM/XR DEXA axial skeleton IMPRESSION: Based on bone mineral density, and according to World Health Organization (WHO) criteria, the diagnosis is consistent with normal bone mineral density based on lowest T score of 1.2 in the left femoral neck. Treatment Recommendations: NOF guidelines recommend consideration for treatment in postmenopausal women and men age 50 and older presenting with the following: -A hip or vertebral (clinical or morphometric) fracture. -T-score less than or equal to -2.5 at the femoral neck or spine after appropriate evaluation to exclude secondary causes. -Low bone mass at the hip or spine and a 10-year fracture probability by FRAX of greater than or equal to 3% for hip fracture or greater than or equal to 20% for major osteoporotic fracture based on the [place] adapted WHO algorithm. Other Recommendations: All treatment decisions require clinical judgment and consideration of individual patient factors, including patient preferences, comorbidities, previous drug use, risk factors not captured in the FRAX model (e.g. frailty, falls, vitamin D deficiency, increased bone turnover, interval significant decline in bone density) and possible under or overestimation of fracture risk by FRAX. Additional medical evaluation for secondary cause of low bone mineral density may be appropriate. FUTURE SCAN RECOMMENDATION: People with diagnosed cases of osteoporosis or at high risk for fracture should have regular bone mineral density tests. For patients eligible for Medicare, routine testing is allowed once every 2 years. The testing frequency can be increased to one year for patients who have rapidly progressing disease, those who are receiving or discontinuing medical therapy to restore bone mass, or have additional risk factors. Statistically, 68% of repeat scans fall within 1 SD (+/- 0.010 g/cm2 for AP spine L1-L4) and 1 SD (+/- 0.012 g/cm2 for femur total) FRAX is a trademark of the [employer] [place] for Metabolic Bone Disease, a World Health Organization (WHO) Collaborating Center. Electronically signed by: Latia Arzate MD 02/24/2025 02:39 PM [facility] Dictated By: Latia Arzate MD Signed By: <Electronically signed by Latia Arzate MD in OV> 02/24/25 1439 DD/ 1343 TD/TT: 02/24/25 1342 Die Maker Stamping: BILL us Aileen Steven TECHNICIAN BIOLOGICAL HEALTH IMG DXA PROCEDURES Final Resul t * US Abdomen Comp w elastography (01/09/2025 10:55 AM EDT) Anatomical Region Laterality Modality Abdomen Ultrasound 01/09/2025 10:5 5 AM EDT Narrative 01/09/2025 2:42 PM EDT [address] [address] Ultrasound Report Signed Patient: Linda Hand MR#: [id number] 4 : 1955 Acct:[id number] Age/Sex: 69 / F ADM Date: 01/09/25 Loc: HO.US Attending Dr: Vonnie Burks MD Ordering Physician: Vonnie Burks MD Date of Service: 01/09/25 Procedure(s): US abdomen comp w elastography Accession Number(s): [id number] cc: Vonnie Burks MD; Aileen Harris Reason [...] of Radiologists in Ultrasound Liver Stiffness Thresholds (2019): LIVER STIFFNESS THRESHOLDS: *Shear wave velocity less [...] 01/09/25 1440 DD/ 1055 TD/TT: 01/09/25 1120 Die Maker Stamping: Procedure Note Donotuseinterpreter, Image - 01/09/[address] [address] Ultrasound Report Signed Patient: Linda HandMR#: [id number] 4 : 1955cct:[id number] Age/Sex: 69 / FADM Date: 01/09/25 Loc: HO.US Attending Dr: Vonnie Burks MD Ordering Physician: Vonnie Burks MD Date of Service: 01/09/25 Procedure(s): US abdomen comp w elastography Accession Number(s): [id number] cc: Vonnie Burks MD; Aileen Harris Reason [...] 01/09/25 1440 DD/ 1055 TD/TT: 01/09/25 1120 Die Maker Stamping: [facility] External Provider IMG US PROCEDURES Final Result * Colonoscopy (10/06/2024) [facility] Colonoscopy Normal Normal Narrative Kathy Kong - 10/06/2024 Recommended 5 years . See see external hospital admission note on matching result date Result [facility] Historical Provider HEALTH MAINTENANCE Final Result * Hepatitis C Viral RNA, Quantitative, Real-Time PCR (11/16/2023 9:57 AM EDT) [facility] Hepatitis C Viral Load <15 NOT DETECTED NOT DETECTED IU/mL [facility] HCV Log PCR <1.18 NOT DETECTED NOT DETECTED Log IU/mL [facility] Comment:For additional infor natalya, please refer tohttp://education.360Cities/faq/BZD79l1(This link is being provided for informational/educational purposes only.)THIS TEST WAS PERFORMED AT:[address] [place] [id number] STYLES MD Blood 11/16/2023 9:57 AM EDT 11/16/2023 10:47 AM EDT Aileen Harris TECHNICIAN BIOLOGICAL HEALTH LAB BLOOD ORDERABLES Final Res ult [facility] [address] [place] [phone] * (ABNORMAL) Lipid Panel, Standard (11/16/2023 9:57 AM EDT) Triglycerides 324(H) <150 mg/dL [facility] Comment:Desirable Triglyceri de: less than 150 mg/dLBorderline High Triglyceride 150-199 mg/dLHigh Triglyceride: 200-499 mg/dLVery High Triglyceride: greater than or equal to 5OO mg/dL Cholesterol 211(H) <200 mg/dL [facility] Comment:Desirable Cholestero l: less than 200 mg/dLBorderline High Cholesterol: 200-239 mg/dLHigh Cholesterol: greater than 239 mg/dL LDL Cholesterol Calculated 102(H) <100 mg/dL [facility] Comment:Desirable LDL: less than 100 mg/dLNear Optimal/Above Optimal LDL: 110- 129 mg/dLBorderline High LDL: 130-159 mg/dLHigh LDL: 160-189 mg/dLVery High LDL: greater than or equal to 190 mg/dL HDL Cholesterol 45 >40 mg/dL [facility] Comment:Desirable HDL: great er than 40 mg/dL Note: This HDL assay may give artificially low results in patients with liver disease. Blood Venous blood specimen / Unknown 11/16/2023 9:57 AM EDT 11/16/2023 10:47 AM EDT us Aileen Harris TECHNICIAN BIOLOGICAL HEALTH LAB BLOOD ORDERABLES Final Res ult [facility] [address] [place] [phone] * Mammography Report 1 (04/12/2021 2:20 PM EST) Anatomical Region Laterality Modality Breast Bilateral Mammography 04/12/2021 2:20 PM EST Narrative 04/12/2021 3:01 PM EST Refer to the Notes tab for result details [facility] Procedure: Mammography Report 1 Procedure Note ProviderBo MD - 07/02/2022 Refer to the Notes tab for result details [facility] Procedure: Mammography Report 1 Susi Basurto NP IMG BI PROCEDURES Final Result * THINPREP TIS PAP AND HPV mRNA E6/E7 WITH REFLEX TO HPV 16,18/45 (03/24/2021 10:36 AM EST) Clinical Information: None given [facility] COMMENT SEE COMMENT [facility]OUND[facility] ON [...] has been evaluated with computer assisted technology. [facility] Driller Brake Lining: SEE COMMENT [facility] Comment: SXA, CT(ASCP) CT screening location: [place] [address] HPV nRNA E6/E7 Not Detected Not Detected [facility] Comment: Methodology: Director Of Retail Merchandising-Mediated Amplification This assay detects E6/E7 viral messenger RNA (mRNA) from 14 high-risk HPV types (16,18,31,33,35,39,45,51,52,56,58,59,66,68). The analytical performance characteristics of this assay have been determined by [employer]. The modifications have not been cleared or approved by the FDA. This assay has been validated pursuant to the CLIA regulations and is used for clinical purposes. For additional information, please refer to http://education.Misohoni.e-SENS/faq/NZC671l1 (This link if provided for information/ educational purposes only.) Interpretation/Re sult: Negative for intraepithelial lesion or malignancy. [facility] LMP: 2,010 [facility] Prev. BX: NONE GIVEN [facility] Prev. PAP: 10/2015 NIL/-HPV FO [facility] SOURCE: None given [facility] Statement Of Adequacy: SEE COMMENT [facility] Comment: Satisfactory for evaluation. Endocervical/transformation zone component present. 03/24/2021 10:3 6 AM EST Susi Basurto NP LAB PATHOLOGY ORDERABLES Final Result [facility] [address] from Last 3 Months or Most Recently Relevant to Health Maintenance Insurance MEDICARE [facility] Care Teams Coordinator Skill Training Program Relationship Specialty Start Date End Date Aileen Harris FNP [address] [place] [address] PCP - General Family Medicine 12/06/21 Alyce Stanley NP [address] [place] [address] Urology 08/22/24July [address] [place] [address] Gastroenterology 08/22/24
--- OUTSIDE RECORDS SUMMARY | 2025-02-25 05:53 | XMS_ITS | Encounter Summary ---
Author Organization [employer] Address [address] [facility] 7t [place] [address] Care Team Providers Care Financial Systems Manager Name Role Phone Aileen Harris Primary Care Provider [phone] Alyce Stanley FIELD SERVICE ENGINEER Unavailable July Unavailable Reason for Visit * Reason Onset Date Comments transfer patient appt 06/12/2022 Encounter Details Date Type Department Care Team (Late st Contact Info) Description 06/12/2022 Telephone [facility] MED[facility]INE [address] [place] [address] Aileen Harris FNP [address] [place], [place] [phone] transfer patient appt Social History Tobacco Use [...] on filedocumented in this encounter Care Teams Financial Systems Manager Relationship Specialty Start Date End Date Aileen Harris FNP [address] [place] [address] PCP - General Family Medicine 12/06/21 Alyce Stanley NP [address] [place] [address] Urology 08/22/24 Lupis Delma [address] 3rd [place] [address] Gastroenterology 08/22/24 documented as of this encounter
--- OUTSIDE RECORDS SUMMARY | 2025-02-25 05:53 | XMS_ITS | Encounter Summary ---
Author Organization [employer] Address [address] [facility] [address] 7t [place] [address] Care Team Providers Care Manager Appointment Name Role Phone ErnestinaAileen power OTTONIEL Primary Care Provider [phone] Alyce Stanley SECOND GRADE TEACHER Unavailable July Unavailable Encounter Details Date Type Department Care Team (Late st Contact Info) Description 02/23/2023 Abstract [facility] MEDICINE [address] [place] [address] Kathy Kong Social History Tobacco Use Types [...] documented as of this encounter Care Teams Manager Appointment Relationship Specialty Start Date End Date Aileen Harris FNP [address] [place] [address] PCP - General Family Medicine 12/06/21 Alyce Stanley NP [address] [place] [address] Urology 08/22/24July [address] 3rd [place] [address] Gastroenterology 08/22/24 documented as of this encounter
--- OUTSIDE RECORDS SUMMARY | 2025-02-25 05:53 | XMS_ITS | Encounter Summary ---
Author Organization [employer] Address 75 [facility] 7t [place] [address] Care Team Providers Care Life Underwriter Name Role Phone Aileen Harris Primary Care Provider Alyce Stanley REIMBURSEMENT ANALYST Unavailable July Unavailable Reason for Visit * Reason Comments Med Refill Encounter Details Date Type Department Care Team ([facility] st Contact Info) Description 03/10/2024 Refill [facility] MED & PEDS [address] [place], [place] [phone] Aileen Harris FNP [address] [place], [place] [phone] Social History Tobacco Use Types Packs/Day Years [...] documented as of this encounter Care Teams Life Underwriter Relationship Specialty Start Date End Date Aileen Harris FNP [address] [place] [address] PCP - General Family Medicine 12/06/21 Alyce Stanley NP [address] [place] [address] Urology 08/22/24July [address] 3rd [place] [address] Gastroenterology 08/22/24 documented as of this encounter
--- OUTSIDE RECORDS SUMMARY | 2025-02-25 05:53 | XMS_ITS | Encounter Summary ---
Author Organization [employer] Address 75 [facility] 7t [place] [address] Care Team Providers Care Customs Compliance Director Name Role Phone Aileen Harris Primary Care Provider [phone] Alyce Stanley COLOR PASTE MIXER Unavailable July Unavailable Encounter Details Date Type Department Care Team ([facility] st Contact Info) Description 02/24/2025 Results Follow-Up [facility] MED & PEDS [address] [place], [place] [phone] Aileen Harris FNP [address] [place], [place] [phone] BD DEXA Axial Social History Tobacco Use Types Packs/Day Years [...] documented as of this encounter Care Teams Customs Compliance Director Relationship Specialty Start Date End Date Aileen Harris FNP [address] [place] [address] PCP - General Family Medicine 12/06/21 Alyce Stanley NP [address] [place] [address] Urology 08/22/24July [address] 3rd [place] [address] Gastroenterology 08/22/24 documented as of this encounter
--- OUTSIDE RECORDS SUMMARY | 2025-02-25 05:53 | XMS_ITS | Encounter Summary ---
Author Organization [employer] Address [address] [facility] [address] 7t [place] [address] Care Team Providers Care Furnace Combination Analyst Name Role Phone Aileen Harris Primary Care Provider [phone] Alyce Stanley PRODUCTION POSTING CLERK Unavailable July Unavailable Reason for Visit * Reason Comments Med Change Request Encounter Details Date Type Department Care Team (Late st Contact Info) Description 10/03/2022 Refill [facility] MEDICINE [address] [place] [address] Aileen Harris FNP [address] [place], [place] [phone] Social History Tobacco Use Types Packs/Day Years [...] documented as of this encounter Care Teams Furnace Combination Analyst Relationship Specialty Start Date End Date Aileen Harris FNP 230 [place] [address] PCP - General Family Medicine 12/06/21 Alyce Stanley NP [address] [place] [address] Urology 08/22/[address] 3rd [place] [address] Gastroenterology 08/22/24 documented as of this encounter
== END 2025-02-24 13:17 | disposition home or self-care (01) ==
LOC: HO.MAMMO 13:16
PROVIDERS: PCP Registered Nurse; Visit Provider Registered Nurse
DX: Z13.820 Encounter for screening for osteoporosis (principal); Z78.0 Asymptomatic menopausal state
CPT/HCPCS: 77080

== ENCOUNTER → 2025-02-24 13:30 | Outpatient (BNV) | payer MEDICARE, MEDICAID, SELFPAY | PROVIDERS: PCP Registered Nurse; Visit Provider Radiology Diagnostic Radiology | DX: E28.39 Other primary ovarian failure (principal) | CPT/HCPCS: 77080 ==

== ENCOUNTER 2025-03-13 14:55 | Outpatient (AMB) | payer MEDICARE, MEDICAID, SELFPAY ==
--- NOTE | 2025-03-13 15:04 | MHC.OFFVIS ---
Vital Signs 03/13/25 15:05 Height 5 ft 4 in Weight 240 lb BMI 41.2 BP 139/65 Blood Pressure Location Lt brachial Position Sitting Pulse 104 H Intake Visit Reasons: U/S FATTY LIVER Intake Note: Patient in office today in follow up of US for fatty liver. CC: Patient states that she has modified her diet and is exercising with the assistance of her EXPOSURE MACHINE OPERATOR. She reports that after eating she gets abdominal bloating and pain from RUQ abdomen. She also reports a sour taste in her mouth. Lcac Operator Required: No Accompanied by: Self / Same As Patient Allergies tramadol (TRAMADOL) Allergy (Intermediate, Verified 03/13/25 15:09) RASH, itching, rash oxycodone Allergy (Verified 03/13/25 15:09) Rash HPI HPI U/S FATTY LIVER: Details: Assessment & Plan (1) Pre-op examination: Code(s): Z01.818 - Encounter for other preprocedural examination Category: Medical (2) GERD (gastroesophageal reflux disease): Code(s): K21.9 - Gastro-esophageal reflux disease without esophagitis Category: Medical (3) Post-cholecystectomy syndrome: Code(s): K91.5 - Postcholecystectomy syndrome Category: Medical (4) Tubular adenoma of colon: Comment: cope 10mm TA and one smaller, repeat in 3 years aeb Code(s): D12.6 - Benign neoplasm of colon, unspecified Category: Medical (5) TATUM (obstructive sleep apnea): Code(s): G47.33 - Obstructive sleep apnea (adult) (pediatric) Category: Medical (6) Asthma: Code(s): J45.909 - Unspecified asthma, uncomplicated Category: Medical Plan Fijian #dtr translates per pt request Patient has been lost follow-up since 2020. She says her GI regimen continues to work well for her. It consists of cholestyramine, famotidine, omeprazole, and a senna/Colace combination pill. She is here today for a colonoscopy repeat. Her asthma and TATUM are well controlled and she denies any cardiac problems. She denies PONV and has not trouble with anesthesia and sedation No ID problems She had large TA's in 2020. Orders: Orders Colonoscopy - GI Use Only Today D12.6 - Benign neoplasm of colon, unspecified Medications: New sodium,potassium,mag sulfates 17.5-3.13-1.6 gram (Suprep Bowel Prep Kit) 480 mL orally; FOR COLONOSCOPY PREP 354 mL 0RF omeprazole 20 mg PO DAILY 30 caps 12RF Changed From sennosides-docusate sodium 8.6-50 mg (Senexon-S) PO To sennosides-docusate sodium 8.6-50 mg (Senexon-S) 2 tab-caps (2 x 8.6-50 mg) PO .qhs 60 tabs 12RF Refilled famotidine 20 mg PO BEDTIME 30 tabs 12RF COLONOSCOPY 10/06/24 Findings: Terminal Ileum: Not evaluated Cecum: Two 5 to 7 mm sessile polyps - removed with a cold snare Ascending Colon: Moderate diverticulosis scattered throughout the colon Transverse Colon: Moderate diverticulosis scattered throughout the colon Descending Colon: Moderate diverticulosis scattered throughout the colon Sigmoid Colon: A 6-7 mm polyp versus inverted diverticulum - removed with a cold biopsy. Moderate diverticulosis Rectum: Normal Ano-rectum: Moderate internal hemorrhoids Impression and Post Procedure Diagnosis: Colonoscopy Findings: Three small polyps were removed Moderate diverticulosis seen in the entire colon Moderate hemorrhoids on retroflexed exam. Plan: Pt has a FU appointment on 07/28/25 with Delma Baugh NP. Repeat Colonoscopy in 3-5 years if polyps are adenomatous and 10 year if polyps are hyperplastic. BIOPSY Received: 10/06/24 Diagnosis A. Cecum, polypectomies: Fragments of tubular adenoma; negative for high-grade dysplasia or carcinoma. B. Colon, sigmoid, polypectomy versus fold: Colonic mucosa with prominent lymphoid aggregate US ABD WITH ELASTROGRAPHY ( F0) FINDINGS: Liver: The right lobe of the liver measures 16.7 cm in size. The left lobe of the liver measures 14.4 cm in size. The liver demonstrates normal homogeneous echotexture. No focal mass or intrahepatic biliary ductal dilatation is identified. There is normal hepatopedal flow in the portal vein. Ultrasound elastography of the liver was performed with 10 separate measurements of the liver parenchyma with the patient in the supine position. Measurements were obtained approximately 2 cm below Thomas's capsule and perpendicular to the capsule. The median shear wave velocity is 1.21 m/s. The interquartile range/median (IQR/median) is 0.28. Gallbladder and biliary tree: The gallbladder is surgically absent. The common bile duct measures 12 mm diameter which is likely within normal limits for a patient status post cholecystectomy. Kidneys: The right kidney measures 13.0 cm in length. The left kidney measures 12.2 cm in length and demonstrates an upper pole cyst measuring 1.9 x 1.7 x 2.0 cm. The kidneys are otherwise unremarkable, without evidence of solid masses, hydronephrosis, or calculi. Pancreas: The pancreatic head, neck, and body are unremarkable. The pancreatic tail is obscured by bowel gas. Spleen: The spleen is normal in size and contour, measuring 9.6 cm in length. Abdominal aorta and inferior vena cava: The visualized portions of the abdominal aorta and inferior vena cava are normal in caliber. There is no free fluid in the abdomen. US/US abdomen comp w elastography IMPRESSION: Hepatomegaly. The median shear wave velocity in the liver is 1.21 m/s, corresponding to a median liver stiffness of 4.47 kPa. The IQR/median value is 0.28. This is indicative of a poor quality data set, and the estimated liver stiffness may be unreliable. Findings are indicative of a normal elastography value with a low likelihood of severe fibrosis or cirrhosis. TODAYS VISIT She is agreeable to 5 YEAR follow up. [facility] Medical History Encounter for screening Left shoulder pain Urinary incontinence On beta melvin at home Anxiety TATUM (obstructive sleep apnea) Asthma Elevated cholesterol PONV (postoperative nausea and vomiting) Colon cancer screening Dislocation of distal interphalangeal (DIP) joint of finger Uterine prolapse Lumbar spondylolysis Psoriatic arthritis IBS (irritable bowel syndrome) Arthritis Morbidly obese GERD (gastroesophageal reflux disease) HTN (hypertension) Surgical History H/O arthrodesis Hx of colonoscopy History of blepharoplasty History of pubovaginal sling History of total left knee replacement History of total right knee replacement (TKR) Hx of appendectomy Hx of cholecystectomy Family History Mother HTN (hypertension) Diabetes Father Throat cancer Sister Heart problem Cancer Social History Household Members Other:: daughter Are you a primary child care lead teacher to a significant other at home: No Do you presently have 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 home services: Yes (EXPOSURE MACHINE OPERATOR) Alcohol intake: never Patient Tobacco Use Status: Never used Tobacco e-Cigarette/Vaping Use: Never Used Current occupational status: disabled 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Systems Const Denies fatigue, Denies fever(s), Denies night sweats, Denies poor appetite and Denies weight loss Eyes Details: GLASSES Reports requires corrective lenses ENT Reports Normal hearing present, Denies dental pain, Denies dysphagia, Denies hearing loss, Denies mouth pain, Denies odynophagia, Denies throat swelling, Denies tongue swelling and Reports other (Dentition adequate) Card Reports no additional complaints Resp Reports no additional complaints GI Details: Reports abdominal pain, Denies melena, Reports bloating, Denies hematochezia, Reports constipation, Denies GI cramping, Denies dysphagia, Reports excessive flatus, Denies early satiety, Reports heartburn, Denies diarrhea, Reports loose stools, Denies nausea, Denies odynophagia, Denies vomiting and Denies hematemesis Musc Reports back pain Skin/Breast Denies pruritus, Denies lesions, Denies rash and Denies jaundice Neuro Reports Normal hearing present and Denies Abnormal speech present Endo Denies fatigue Aller/Immun Denies throat swelling and Denies tongue swelling Physical Exam Vital Signs: Last Vital Signs Pulse 104 H 03/13/25 15:05 BP 139/65 03/13/25 15:05 BMI result Body Mass Index 41.2 Const General: cooperative, no acute distress, well developed and well groomed Nutritional Appearance: well nourished and obese morbidly obese Orientation/consciousness: oriented to person, oriented to place and oriented to time Limitations: language barrier HEENT Head: Yes normocephalic and Yes atraumatic Eyes General: appearance normal, both eyes and all related structures Pupils: Equal, round and reactive pupils present Neck Neck: Yes normal visual inspection and Yes no lymphadenopathy Thyroid: Thyroid normal Resp Effort & Inspection: normal respiratory effort and able to speak in complete sentences Auscultation: clear to auscultation bilaterally Cardio Rate: regular rate Rhythm: regular rhythm Heart sounds: Normal, physiologic split S2 sound present Peripheral pulses: radial pulses present and posterior tibial pulses present GI Inspection: Yes distended ( mild right-sided), Yes Abdominal panniculus present and Yes obesity Palpation (GI): Soft to palpation, Tenderness to palpation present (GI) ( right flank to right ribcage), no guarding, not rigid and No hepatosplenomegaly present Percussion: Yes normal to percussion Auscultation: normal bowel sounds Rectal Exam - Female: deferred Skin General skin exam: no rashes or lesions noted, turgor normal, skin not dry, no jaundice, No spider nevi and no striae Rashes: no rashes Nails: normal Neuro General: oriented to person, oriented to place and oriented to time Cranial nerves: Yes Equal, round and reactive pupils present and Yes Normal hearing present Speech: No Abnormal speech present Extrem General: Yes normal to inspection, No clubbing, No cyanosis and No edema Psych Appearance: grossly normal and well kempt Mental Status: mental status grossly normal Speech and movement: Normal speech and movement present Affect: normal affect Attitude: cooperative Thought process: Normal thought process present and not confabulating Thought content: Normal thought content present Insight: Limited insight present (Psych) Judgement: Limited judgement present (Psych) Assessment & Plan Assessment & Plan (1) RUQ abdominal pain: Code(s): R10.11 - Right upper quadrant pain Category: Medical (2) Back pain: Code(s): M54.9 - Dorsalgia, unspecified Category: Medical Plan [employer] #[id number] cholestyramine, famotidine, omeprazole, and a senna/Colace combination pil Subjective Patient presents to review recent colonoscopy and discuss chronic right upper quadrant abdominal pain. Reports many years of right upper quadrant discomfort that is present constantly, worsens at night and when lying on the affected side, and is exacerbated by eating, particularly gas-producing vegetables. Describes early satiety and abdominal bloating/gassiness even with small meals. Denies nausea or vomiting. Bowel movements occur daily without straining and stools are not hard. Rates pain currently 8/10; notes clothing/waistband aggravates discomfort. Uses Advil PM at night when pain is strong with relief. Patient notes prior ultrasound reporting fatty liver; does not drink alcohol; has diabetes. Current medications confirmed: senna for constipation, cholestyramine, famotidine, and omeprazole. Relevant Past Medical, Social, and Family History - Diabetes mellitus. - Fatty liver noted on prior ultrasound. Denies alcohol use. Objective - Hepatic ultrasound interpreted as showing fatty liver; liver otherwise appeared fine per review. - Imaging review noted significant arthritis in the lumbar spine. Assessment & Plan Chronic right upper quadrant abdominal pain: Longstanding pain localized to the right upper quadrant, constant with nocturnal worsening, exacerbated by meals and gas/bloating; no associated nausea/vomiting; normal bowel movements. Clinical impression favors colonic gas trapping as pain generator. Consideration also given to referred pain from spine given positional exacerbation and known lumbar arthritis. - Order thoracic spine X-ray to evaluate for potential radicular source contributing to right upper quadrant pain. - Order abdominal X-ray to assess colonic gas burden/pattern. - Prescribe an anti-gas medication to facilitate gas mobilization and symptomatic relief. - Follow up after the holidays in April to review imaging and response to therapy. Hepatic steatosis (fatty liver): Not the source of current pain based on clinical assessment and discussion. Counseling provided regarding natural history and risk stratification. - Advise weight reduction as tolerated. - Emphasize glycemic control given diabetes. - Continue to avoid alcohol. History of colon polyps, post-colonoscopy surveillance: Recent colonoscopy with three polyps removed, only one a true adenomatous polyp. - Repeat colonoscopy in 5 years. Orders: Orders XR thoracic spine 2V Today M54.9 - Dorsalgia, unspecified, R10.11 - Right upper quadrant pain XR abdomen w decubitus Today M54.9 - Dorsalgia, unspecified, R10.11 - Right upper quadrant pain Medications: New simethicone after meals 180 mg PO QID 120 caps 3RF 30 days Refilled famotidine 20 mg PO BEDTIME 30 tabs 6RF omeprazole 20 mg PO DAILY 30 caps 6RF cholestyramine-aspartame 4 gram administer w/meal; avoid other meds within 1hr before or 4-6hr after dose 4 ea PO BID 210 grams 6RF 30 days K91.5 - Postcholecystectomy syndrome sennosides-docusate sodium 8.6-50 mg (Senexon-S) 2 tab-caps (2 x 8.6-50 mg) PO .qhs 60 tabs 12RF Coding Level of Care Code Est Pt Level 4 (60003) Diagnoses RUQ abdominal pain R10.11 Back pain M54.9 Time Spent (min) 38
[2025-03-13 15:05] VITALS: BP 139/65; PULSE 104; BMI 41.2
--- OUTSIDE RECORDS SUMMARY | 2025-03-13 18:59 | XMS_ITS | Encounter Summary ---
Author Organization [employer] Address [address] [facility] 7t [place] [address] Care Team Providers Care Sales Training Manager Name Role Phone Aileen Harris Primary Care Provider [phone] Alyce Stanley MVA STILL OPERATOR Unavailable July Unavailable Reason for Visit * Reason Comments Med Refill Encounter Details Date Type Department Care Team ([facility] st Contact Info) Description 03/10/2024 Refill [facility] MED & PEDS [address] [place], [place] [phone] Aileen Harris FNP [address] [place], [place] [phone] Social History Tobacco Use Types Packs/Day Years [...] documented as of this encounter Care Teams Sales Training Manager Relationship Specialty Start Date End Date Aileen Harris FNP [address] [place] [address] PCP - General Family Medicine 12/06/21 Alyce Stanley NP [address] [place] [address] Urology 08/22/24July [address]rd [place] [address] Gastroenterology 08/22/24 documented as of this encounter
--- OUTSIDE RECORDS SUMMARY | 2025-03-13 18:59 | XMS_ITS | Encounter Summary ---
Author Organization [employer] Address 75 [facility] 7t [place] [address] Care Team Providers Care Furniture Associate Name Role Phone Aileen Harris Primary Care Provider [phone] Alyce Stanley CONTENT CREATION MANAGER Unavailable July Unavailable Reason for Visit * Reason Comments Med Refill Encounter Details Date Type Department Care Team ([facility] st Contact Info) Description 03/31/2024 Refill [facility] MED & PEDS [address] [place], [place] [phone] Aileen Harris FNP [address] [place], [place] [phone] Psoriatic arthritis ([facility]) Social History Tobacco Use Types Packs/Day Years [...] documented as of this encounter Care Teams Furniture Associate Relationship Specialty Start Date End Date Aileen Harris FNP [address] [place] [address] PCP - General Family Medicine 12/06/21 Alyce Stanley NP [address] [address] Urology 08/22/[address] 3rd Floor [place] [address] Gastroenterology 08/22/24 documented as of this encounter
--- OUTSIDE RECORDS SUMMARY | 2025-03-13 18:59 | XMS_ITS | Clinical Summary ---
Author Organization [address] [facility] Address [address] [place] [address] Phone Care Team Providers Care C Wpf Developer Name Role Phone Emily Amanda Mayer NP Primary Care Provider [phone] Allergies Active Allergy Reactions Criticality Noted Date [...] Insurance MEDICARE MEDICAID - [place] Care Teams C Wpf Developer Relationship Specialty Start Date End Date Amanda Diaz NP [address] [place] [phone] PCP - General 09/09/24
--- OUTSIDE RECORDS SUMMARY | 2025-03-13 18:59 | XMS_ITS | Clinical Summary ---
Author Organization [employer] Address [address] [facility] 7t [place] [address] Care Team Providers Care Air Chipper Name Role Phone Ernestinatono Aileen OTTONIEL Primary Care Provider [phone] Alyce Stanley [address] [address] Unavailable July Unavailable Allergies Active Allergy Reactions [...] 18 g 11 5 Active sodium chloride (Bryce) 0.65 % nasal sprayIndications :Acute bacterial sinusitis [...] not cruh or chew 30 tablet 5 03/02/2025 10:51 AM EST 5 Active salicylic acid (T/JANET) 3 % shampoo Apply 1 Application. topically Once per day. 120 mL 3 5 Active fluocinolone ([place]-Smoothe/F S Body) 0.01 % external oil Apply [...] CPAP -Following with sleep medicine services of [facility] APAP 5-8cm H20 nightly, 4h/night. Increased [...] HFCCA - Dr. Santoro Per consult note 2015: [...] Plan (11/30/2024 4:04 PM EDT): Followed by [facility] Rheum - Dr. Burks Symptoms aggravated by warmer weather (better in winter) Medication Hx: Previous medications include methotrexate and Arava 20 mg daily. Methotrexate not goot option with elevated transaminases Humira 40mg Q2 weeks (Started Jan 2023) As of July 2023, changed from Humira to Cyltezo per insurance formulary. Changed again to Yuflyma Plan: Continue adalimumab (Yuflyma) 40mg every other week through [facility] Rhe[facility]. Close monitoring of LFTs. Per consult [...] Plan (05/23/2024 7:06 PM EST): Followed by [facility] Rheum - Dr. Ramos / ELIECER Jackson Symptoms aggravated by warmer weather (better in winter) Medication Hx: Previous medications include methotrexate and Arava 20 mg daily. Methotrexate not goot option with elevated transaminases Humira 40mg Q2 weeks (Started Jan 2023) As of July 2023, changed from Humira to Cyltezo per insurance formulary Plan: Continue adalimumab 40mg every other week through [facility] Continue diclofenac as needed APAP PRN Dermasmoothe for persistent dry patches on scalp. Follow up if not effective. DME request for Walker with Seat and breaks, as well as chair lift (informed may not be covered by insurance), placed 11/11/23. Assessment & Plan (11/11/2023 7:34 PM EDT): Followed by [facility] Rheum - Dr. Ramso / ELIECER Jackson Symptoms aggravated by warmer weather (better in winter) Medication Hx: Previous medications include methotrexate and Arava 20 mg daily. Methotrexate not goot option with elevated transaminases Humira 40mg Q2 weeks (Started Jan 2023) As of July 2023, changed from Humira to Cyltezo per insurance formulary Plan: Continue Cyltezo 40mg every other week through [facility] Rhe[facility] Continue diclofenac as needed APAP PRN Dermasmoothe for persistent dry patches on scalp. Follow up if not effective. DME request for Walker with Seat and breaks, as well as chair lift (informed may not be covered by insurance), placed 11/11/23. Assessment & Plan (11/21/2022 12:28 PM EDT): Followed by [facility] Rheum Q6 months Previous medications include methotrexate and Arava 20 mg daily. Pt had self stopped medication Symptoms aggravated by warmer weather Essential hypertension 11/02/2015 Assessment & Plan (08/23/2024 3:58 PM EDT): Elevated in office, reports had not yet taken BP med. New BP machine sent to [facility] pharmacy BP goal < 140/90 mmHg [...] and stress 04/05/2012 Overview (11/30/2024): Following with [facility] Urology ([facility] [address] Lizeth) Pubovaginal sling Apr 2010 Consult July [...] Continues with oxybutynin Referral to reestablish with [facility] urology placed 05/23/24 Assessment & Plan (09/07/2022 8:56 AM EDT): Continues with oxybutynin through Urology Osteoarthritis of knee 04/05/2012 Assessment & Plan (12/16/2023 5:49 PM EDT): Referral to re-establish with [facility] Ortho (reports hx of TKA approx 20 years ago, starting to feel increased joint pain in knee. Right currently more bothersome than left. Gastroesophageal reflux disease 10/04/2011 Overview (08/23/2024): Following with [facility] GI GI regimen includes: cholestyramine, famotidine, omeprazole, [...] Department Care Team Description 02/24/2025 Results Follow-Up [facility] [address] [place] [address] Aileen Harris, SUPERVISOR WEAVING BD DEXA Axial 01/06/2025 Orders Only [facility] [address] [place] [address] Aileen Harris, SUPERVISOR WEAVING Essential hypertension 12/13/2024 Refill [facility] [address] [place] [address] Aileen Harris, SUPERVISOR WEAVING Psoriatic arthritis ([facility]) from Last 3 Months Immunizations Immunization Administration [...] years 1-dose series) 2006 Mammogram 04/12/2023 04/12/2021, 03/0 06/2019, 04/04/2018, Additional history exists Hepatitis B Vaccines (3 of 3 - Risk 3-dose series) 01/02/2024 11/07/2023, 11/21/2022 COVID-19 Vaccine (3 - 2024- season) 2024 08/28/2020, 07/31/2020 Influenza Vaccine (#1) [...] EST Narrative 02/24/2025 2:42 PM EST [facility] [address] [place], [place] [address] Mammography Report Signed Patient: Linda Hand MR#: [id number] 4 : 1955 Acct:[id number] Age/Sex: 69 / F ADM Date: 02/24/25 Loc: [facility] Attending Dr: Aileen ALCAZAR Ordering Physician: Aileen Harris Results: Date of Service: 02/24/25 Follow Up: Procedure(s): XR DEXA axial skeleton Accession Number(s): [id number] cc: Aileen Harris Reason For Exam: Bone density screening EXAMINATION: DXA BONE DENSITY AXIAL HISTORY: Bone density screening TECHNIQUE: [employer] Dual energy absorptiometry (DEXA) of the lumbar [...] is a trademark of the [employer]'s [place] for Metabolic Bone Disease, a World Health Organization (WHO) Collaborating Center. Electronically signed by: Latia Arzate MD 02/24/2025 02:39 PM [facility] Dictated By: Latia Arzate MD Signed By: <Electronically signed by Latia Arzate MD in OV> 02/24/25 1439 DD/ 1343 TD/TT: 02/24/25 1342 Inspector: BILL Procedure Note Donotuseinterpreter, Image - 02/24/2025 [facility] [address] [place], [place] [address] Mammography Report Signed Patient: Linda Hand#: [id number] 4 : 7Acct:[id number] Age/Sex: 69 / FADM Date: 02/24/25 Loc: [facility] Attending Dr: Aileen ALCAZAR Ordering Physician: Aileen HarrisPResults: Date of Service: 02/24/25Follow Up: Procedure(s): XR DEXA axial skeleton Accession Number(s): [id number] cc: Aileen Harris Reason For Exam: Bone density screening EXAMINATION: DXA BONE DENSITY AXIAL HISTORY: Bone density screening TECHNIQUE: [employer] Dual energy absorptiometry (DEXA) of the lumbar [...] is a trademark of the [employer] [place] for Metabolic Bone Disease, a World Health Organization (WHO) Collaborating Center. Electronically signed by: Latia Arzate MD 02/24/2025 02:39 PM [facility] Dictated By: Latia Arzate MD Signed By: <Electronically signed by Latia Arzate MD in OV> 02/24/25 1439 DD/ 1343 TD/TT: 02/24/25 1342 Inspector: BILL us Aileen Harris SUPERVISOR WEAVING IMG DXA PROCEDURES Final Resul t * US Abdomen Comp w elastography (01/09/2025 10:55 AM EDT) Anatomical Region Laterality Modality Abdomen Ultrasound 01/09/2025 10:5 5 AM EDT Narrative 01/09/2025 2:42 PM EDT [place] [address] Ultrasound Report Signed Patient: Linda Hand MR#: [id number] 4 : 1955 Acct:[id number] Age/Sex: 69 / F ADM Date: 01/09/25 Loc: HO.US Attending Dr: Vonnie Burks MD Ordering Physician: Vonnie Bruks MD Date of Service: 01/09/25 Procedure(s): US abdomen comp w elastography Accession Number(s): [id number] cc: Vonnie Burks MD; Aileen Harris Reason [...] 01/09/25 1440 DD/ 1055 TD/TT: 01/09/25 1120 Inspector: Procedure Note Donotuseinterpreter, Image - 01/09/2025 [place] [address] Ultrasound Report Signed Patient: Latricia Hand#: [id number] 4 : 1955cct:[id number] Age/Sex: 69 / FADM Date: 01/09/25 Loc: HO.US Attending Dr: Vonnie Burks MD Ordering Physician: Vonnie Burks MD Date of Service: 01/09/25 Procedure(s): US abdomen comp w elastography Accession Number(s): [id number] cc: Vonnie Burks MD; Aileen Harris Reason [...] 01/09/25 1440 DD/ 1055 TD/TT: 01/09/25 1120 Inspector: [facility] External Provider IMG US PROCEDURES Final Result * Hm Colonoscopy (10/06/2024) [facility] Colonoscopy Normal Normal Narrative LuannKathy lerma - 10/06/2024 Recommended 5 years . See see external hospital admission note on matching result date Historical Provider HEALTH MAINTENANCE Final Result * Hepatitis C Viral RNA, Quantitative, Real-Time PCR (11/16/2023 9:57 AM EDT) [facility] Hepatitis C Viral Load <15 NOT DETECTED NOT DETECTED IU/mL [facility] HCV Log PCR <1.18 NOT DETECTED NOT DETECTED Log IU/mL [facility] Comment:For additional infor natalya, please refer tohttp://education.[employer]/faq/DYS49g1(This link is being provided for informational/educational purposes only.)THIS TEST WAS PERFORMED AT:[facility] [place] [id number] STYLES MD Blood 11/16/2023 9:57 AM EDT 11/16/2023 10:47 AM EDT Aileen Harris SUPERVISOR WEAVING LAB BLOOD ORDERABLES Final Res ult [facility] [address] [place] [address] [phone] * (ABNORMAL) Lipid Panel, Standard (11/16/2023 9:57 AM EDT) Triglycerides 324(H) <150 mg/dL [facility] Comment:Desirable Triglyceri de: less than 150 mg/dLBorderline High Triglyceride 150-199 mg/dLHigh Triglyceride: 200-499 mg/dLVery High Triglyceride: greater than or equal to 5OO mg/dL Cholesterol 211(H) <200 mg/dL [facility] Comment:Desirable Cholestero l: less than 200 mg/dLBorderline High Cholesterol: 200-239 mg/dLHigh Cholesterol: greater than 239 mg/dL LDL Cholesterol Calculated 102(H) <100 mg/dL [facility] Comment:Desirable LDL: less than 100 mg/dLNear Optimal/Above Optimal LDL: 110- 129 mg/dLBorderline High LDL: 130-159 mg/dLHigh LDL: 160-189 mg/dLVery High LDL: greater than or equal to 190 mg/dL HDL Cholesterol 45 >40 mg/dL [facility] Comment:Desirable HDL: great er than 40 mg/dL Note: This HDL assay may give artificially low results in patients with liver disease. Blood Venous blood specimen / Unknown 11/16/2023 9:57 AM EDT 11/16/2023 10:47 AM EDT Aileen Harris SUPERVISOR WEAVING LAB BLOOD ORDERABLES Final Res ult [facility] [address] [place] [phone] * Mammography Report 1 (04/12/2021 2:20 PM EST) Anatomical Region Laterality Modality Breast Bilateral Mammography 04/12/2021 2:20 PM EST Narrative 04/12/2021 3:01 PM EST Refer to the Notes tab for result details [facility] Procedure: Mammography Report 1 Procedure Note ProviderBo MD - 07/02/2022 Refer to the Notes tab for result details [facility] Procedure: Mammography Report 1 Susi Basurto [facility] [address] IMG BI PROCEDURES Final Result * THINPREP [...] along with historic and current clinical information. Comment: This Pap test has been evaluated with computer assisted technology. [facility] Senior Stereo Compiler Team Lead: SEE COMMENT [facility] Comment: SXA, CT(ASCP) CT screening location: [place] [address] HPV nRNA E6/E7 Not Detected Not Detected [facility] Comment: Methodology: Technical Delivery Manager-Mediated Amplification This assay detects E6/E7 viral messenger RNA (mRNA) from 14 high-risk HPV types (16,18,31,33,35,39,45,51,52,56,58,59,66,68). The analytical performance characteristics of this assay have been determined by [employer]. The modifications have not been cleared or approved by the FDA. This assay has been validated pursuant to the CLIA regulations and is used for clinical purposes. For additional information, please refer to http://education.[employer]/faq/RGP763d3 (This link if provided for information/ educational purposes only.) Interpretation/Re sult: Negative for intraepithelial lesion or malignancy. [facility] LMP: 2,010 [facility] Prev. BX: NONE GIVEN [facility] Prev. PAP: 10/2015 NIL/-HPV [facility] SOURCE: None given [facility] Statement Of Adequacy: SEE COMMENT [facility] Comment: Satisfactory for evaluation. Endocervical/transformation zone component present. 03/24/2021 10:3 6 AM EST us Susi Basurto NP LAB PATHOLOGY ORDERABLES Final Result [facility] [address] from Last 3 Months or Most Recently Relevant to Health Maintenance Insurance [place] [id number] [facility] Care Teams Air Chipper Relationship Specialty Start Date End Date Aileen Harris FNP [address] [place] [address] PCP - General Family Medicine 12/06/21 Alyce Stanley NP [address] [place] [address] Urology 08/22/24 Lupis [address]ma [address] 3rd [place] [address] Gastroenterology 08/22/24
--- OUTSIDE RECORDS SUMMARY | 2025-03-13 18:59 | XMS_ITS | Encounter Summary ---
Author Organization [employer] Address [address] [facility] [address] 7t [place] [address] Care Team Providers Care Clerical Support Name Role Phone ErnestinaAileen power OTTONIEL Primary Care Provider [phone] Alyce Stanley FIELD ARTILLERY BASIC Unavailable July Unavailable Encounter Details Date Type Department Care Team (Late st Contact Info) Description 02/23/2023 Abstract [facility] [address] [place] [address] Kathy Kong Social History Tobacco Use Types [...] documented as of this encounter Care Teams Clerical Support Relationship Specialty Start Date End Date Aileen Harris FNP [address] [place] [address] PCP - General Family Medicine 12/06/21 Alyce Stanley NP [address] [place] [address] Urology 08/22/24July [address] 3rd [place] [address] Gastroenterology 08/22/24 documented as of this encounter
--- OUTSIDE RECORDS SUMMARY | 2025-03-13 18:59 | XMS_ITS | Encounter Summary ---
Author Organization [employer] Address [address] [facility] 7t [place] [address] Care Team Providers Care Caterpillar Operator Name Role Phone Aileen Harris Primary Care Provider [phone] Alyce Stanley GUITAR TECHNICIAN Unavailable July Unavailable Reason for Visit * Reason Comments Med Change Request Encounter Details Date Type Department Care Team (Late st Contact Info) Description 10/03/2022 Refill [facility] [address] [place] [address] Aileen Harris FNP [address] [place], [place] [phone] Social History Tobacco Use Types Packs/Day Years [...] documented as of this encounter Care Teams Caterpillar Operator Relationship Specialty Start Date End Date Aileen Harris FNP [address] [place] [address] PCP - General Family Medicine 12/06/21 Alyce Stanley NP [address] [place] [address] Urology 08/22/[address] 3rd [place] [address] Gastroenterology 08/22/24 documented as of this encounter
--- OUTSIDE RECORDS SUMMARY | 2025-03-13 18:59 | XMS_ITS | Encounter Summary ---
Author Organization [employer] Address [address] [facility] 7t [place] [address] Care Team Providers Care Beading Sawyer Name Role Phone Aileen Harris Primary Care Provider Alyce Stanley VOCATIONAL CHILDCARE TEACHER Unavailable July Unavailable Reason for Visit * Reason Onset Date Comments transfer patient appt 06/12/2022 Encounter Details Date Type Department Care Team (Late st Contact Info) Description 06/12/[address] [facility] MEDICINE [address] [place] [address] Aileen Harris FNP [address] [place], [place] [phone] transfer patient appt Social History Tobacco Use [...] on filedocumented in this encounter Care Teams Beading Sawyer Relationship Specialty Start Date End Date Aileen Harris FNP [address] [place] [id number] PCP - General Family Medicine 12/06/21 Alyce Stanley NP [address] [place] [address] Urology 08/22/24 Lupis Delma [address] 3rd [place] [address] Gastroenterology 08/22/24 documented as of this encounter
== END 2025-03-13 16:45 | disposition home or self-care (01) ==
LOC: HO.HGI 14:56
PROVIDERS: PCP Registered Nurse; Visit Provider Nurse Practitioner
DX: R10.11 Right upper quadrant pain (principal); M54.9 Dorsalgia, unspecified
CPT/HCPCS: 99214

== ENCOUNTER → 2025-03-13 14:55 | Outpatient (BNVA) | payer MEDICARE, MEDICAID, SELFPAY | PROVIDERS: PCP Registered Nurse; Visit Provider Nurse Practitioner | DX: Z71.2 Person consulting for explanation of examination or test findings (principal); R10.11 Right upper quadrant pain; E11.9 Type 2 diabetes mellitus without complications; M54.9 Dorsalgia, unspecified | CPT/HCPCS: 99212 ==

== ENCOUNTER 2025-03-30 12:52 | Outpatient (REF) | payer MEDICARE, MEDICAID, SELFPAY ==
--- NOTE | ~2025-03-30 | XR_ITS ---
EXAMINATION: XR THORACIC SPINE CLINICAL INFORMATION: R10.11 - Right upper quadrant pain COMPARISON: 12/27/2014 TECHNIQUE: 3 views of the thoracic spine were obtained. FINDINGS: Cervical spine demonstrates moderate degenerative change with facet sclerosis and osteophytes throughout most of the cervical spine and mild disc space narrowing with endplate osteophytes. Multilevel disc space narrowing with anterior osteophytes in the thoracic spine show interval progression since the prior. There is subtle wedging of a midthoracic body, approximately T7 or T8. It appears similar to the prior. XR/XR thoracic spine 2V IMPRESSION: There is mild wedging of a mid thoracic vertebral body, likely T7 or T8, probably chronic. Multilevel degenerative disc disease, increased since the prior. Electronically signed by: Sunny Bell MD 03/30/2025 03:56 PM TESSA
--- NOTE | ~2025-03-30 | XR_ITS ---
EXAMINATION: XR ABDOMEN COMPLETE CLINICAL INDICATION: R10.11 - Right upper quadrant pain COMPARISON: None available. TECHNIQUE: Supine and upright views of the abdomen. FINDINGS: There is minimal bowel gas. There are no abnormal air-fluid levels. There is no sign of pneumoperitoneum. No calcifications project over the region of the kidneys. Punctate calcification in the right hemipelvis is likely a phlebolith. There are 2 small conical metallic devices project over the pubic bone bilaterally. Moderate degenerative changes are present in the lumbar spine. XR/XR abdomen min 2V IMPRESSION: Unremarkable abdomen. Electronically signed by: Sunny Bell MD 03/30/2025 04:34 PM EST RP
--- OUTSIDE RECORDS SUMMARY | 2025-03-30 16:04 | XMS_ITS | Encounter Summary ---
Author Organization [employer] Address [address] [facility] 7t [place] [address] Care Team Providers Care Cable Mock Up Assembler Name Role Phone Aileen Harris Primary Care Provider [phone] Alyce Stanley PEARL TECHNICIAN Unavailable July Unavailable Reason for Visit * Reason Comments Med Refill Encounter Details Date Type Department Care Team ([facility] st Contact Info) Description 03/10/2024 Refill [facility] [address] [place], [place] [phone] Aileen Harris FNP [address] [place], [place] [phone] Social History Tobacco Use Types Packs/Day Years [...] documented as of this encounter Care Teams Cable Mock Up Assembler Relationship Specialty Start Date End Date Aileen Harris FNP [address] [place] [address] PCP - General Family Medicine 12/06/21 Alyce Stanley NP [address] [place] [address] Urology 08/22/24July [address] 3rd [place] [address] Gastroenterology 08/22/24 documented as of this encounter
--- OUTSIDE RECORDS SUMMARY | 2025-03-30 16:04 | XMS_ITS | Encounter Summary ---
Author Organization [employer] Address [address] [facility] 7t [place] [address] Care Team Providers Care Junior Financial Analyst Name Role Phone Aileen Harris Primary Care Provider [phone] Alyce Stanley COOLER OPERATOR Unavailable July Unavailable Reason for Visit * Reason Comments Med Refill Encounter Details Date Type Department Care Team ([facility] st Contact Info) Description 03/31/2024 Refill [facility] [address] [place], [place] [phone] Aileen Harris FNP [address] [place], [place] [phone] Psoriatic arthritis ([facility]) Social History Tobacco Use Types [...] documented as of this encounter Care Teams Junior Financial Analyst Relationship Specialty Start Date End Date Aileen Harris FNP [address] [place] [address] PCP - General Family Medicine 12/06/21 Alyce Stanley NP [address] [address] Urology 08/22/[address] 3rd Floor [place] [address] Gastroenterology 08/22/24 documented as of this encounter
--- OUTSIDE RECORDS SUMMARY | 2025-03-30 16:04 | XMS_ITS | Encounter Summary ---
Author Organization [employer] Address [address] [facility] 7t [place] [address] Care Team Providers Care Chemical Research Worker Name Role Phone Aileen Harris Primary Care Provider [phone] Alyce Stanley GILL BOX TENDER Unavailable July Unavailable Reason for Visit * Reason Onset Date Comments transfer patient appt 06/12/2022 Encounter Details Date Type Department Care Team (Late st Contact Info) Description 06/12/2022 Telephone [facility] MEDICINE [address] [place] [address] Aileen Harris FNP [address] [place], [place] [phone] transfer patient appt Social History Tobacco Use [...] on filedocumented in this encounter Care Teams Chemical Research Worker Relationship Specialty Start Date End Date Aileen Harris FNP [address] [place] [address] PCP - General Family Medicine 12/06/21 Alyce Stanley NP [address] [place] [address] Urology 08/22/24 Lupis Delma [address]rd [place] [address] Gastroenterology 08/22/24 documented as of this encounter
--- OUTSIDE RECORDS SUMMARY | 2025-03-30 16:04 | XMS_ITS | Clinical Summary ---
Author Organization [facility] Address [address] [place] [address] Phone Care Team Providers Care Senior Private Client Advisor Name Role Phone Emily Amanda Mayer NP Primary Care Provider [phone] Allergies Active Allergy Reactions Criticality Noted Date [...] Insurance MEDICARE [place]ICAID - [place] Care Teams Senior Private Client Advisor Relationship Specialty Start Date End Date Amanda Diaz NP [address] [place] [phone] PCP - General 09/09/24
--- OUTSIDE RECORDS SUMMARY | 2025-03-30 16:04 | XMS_ITS | Clinical Summary ---
Author Organization [employer] Address [address] [facility] [address] [place] [address] Care Team Providers Care Overseamer Name Role Phone Ernestinatono Aileen OTTONIEL Primary Care Provider [phone] Alyce Stanley CUSTOM STOCK MAKER Unavailable July Unavailable Allergies Active Allergy Reactions Criticality Noted Date Comments Oxycodone Rash Low 09/07/2022 Medications clonazePAM (KlonoPIN) 0.5 MG tablet TOME CLIFFORD TABLETA DOS VECES AL D A CUANDO SEA NECESARIO 08/15/19 23 Active Diclofenac Sodium 1 % gel APPLY 2GM TOPICALLY 2 TIMES A DAY NEEDED FOR PAIN 08/25/19 23 Active hydrOXYzine HCl (Atarax) 25 MG tablet TOME CLIFFORD TABLETA TODOS LOS D CUANDO SEA NECESARIO 08/10/19 23 Active QUEtiapine (SEROquel) 25 MG tablet TOME CLIFFORD TABLETA TODOS LOS D AL ACOSTARSE 08/10/19 23 Active traZODone (Desyrel) 100 MG tablet TOME CLIFFORD TABLETA TODOS LOS D AL ACOSTARSE 08/10/19 23 Active senna-docusate (Stimulant Laxative) 8.6-50 MG tabletIndicatio ns:Constipation , unspecified constipation type TAKE 1 TO 2 TABLETS BY MOUTH AT BEDTIME NEEDED FOR CONSTIPATION 180 tablet 1 12/07/19 24 Active Acetaminophen Extra Strength 500 MG tabletIndicatio ns:Psoriatic arthritis (CMS/HCC) (HCC) TAKE 1 TO 2 TABLETS BY MOUTH EVERY 8 HOURS NEEDED FOR PAIN OR FEVER 100 tablet 2 5 12:46 PM EST 04/01/20 24 Active omeprazole (PriLOSEC) [address] capsuleIndicati ons:Gastroesoph ageal reflux disease, unspecified whether esophagitis present TAKE 1 CAPSULE BY MOUTH ONCE DAILY NEEDED FOR acidez. MAY USE if famotidine is not effective. do not crush or chew 30 capsule 2 04/14/19 25 Active simvastatin (Zocor) 40 MG tablet TAKE 1 TABLET BY MOUTH ONCE DAILY AT BEDTIME 90 tablet 2 04/14/19 25 Active Yuflyma, 2 Pen, 40 MG/0.4ML Auto-injector KitIndications: Psoriatic arthritis (CMS/HCC) ([facility]) 05/13/19 25 Active albuterol 108 (90 Base) MCG/ACT inhalerIndicati ons:Moderate persistent asthma without complication TOME DOS INHALACIONES POR V A ORAL CADA CUATRO A SEIS HORAS CUANDO SEA NECESARIO 18 g 11 08/23/19 25 Active sodium chloride (Dickinson) 0.65 % nasal sprayIndication s:Acute bacterial sinusitis Administer 1 spray into each nostril if needed for congestion (allergies). 15 mL 11 08/23/19 25 2025 Active Blood Pressure kitIndications: Essential hypertension Use to check blood pressure as directed by provider, and if symptomatic. 1 kit 08/23/19 25 Active Myrbetriq 25 MG 24 hr tabletIndicatio ns:Mixed incontinence urge and stress Take 1 tablet by mouth Once per day. 07/23/19 25 Active Fluticasone Furoate-Vilante rol (Breo Ellipta) 100-25 MCG/ACT aerosol powderIndicatio ns:Moderate persistent asthma without complication INHALE 1 PUFF BY MOUTH ONCE DAILY 60 each 3 10/18/19 25 Active metoprolol succinate XL (Toprol-XL) 25 MG 24 hr tabletIndicatio ns:Tachycardia TAKE 1 TABLET BY MOUTH ONCE DAILY. not cruh or chew 30 tablet 5 5 10:51 AM EST 11/12/19 25 Active salicylic acid (T/JANET) 3 % shampoo Apply 1 Application. topically Once per day. 120 mL 3 11/25/19 25 Active fluocinolone ([place]-Smoothe/ FS Body) 0.01 % external oil Apply before bed on a damp scalp, wrap with head covering. Wash out in the morning. Use 3x per week for treatment, and once every 1-2 weeks for prevention. 120 mL 1 11/25/19 25 Active meclizine (Antivert) 25 MG tabletIndicatio ns:Vertigo TAKE 1 TABLET BY MOUTH IN THE MORNING AND AT BEDTIME NEEDED FOR mareo 30 tablet 1 12/12/19 25 Active famotidine (Pepcid) 20 MG tablet TAKE 1 TABLET BY MOUTH IN THE MORNING AND AT BEDTIME NEEDED FOR acidez 60 tablet 5 12/16/19 25 Active diclofenac (Voltaren) 75 MG EC tabletIndicatio ns:Psoriatic arthritis (CMS/HCC) (HCC) TAKE 1 TABLET BY MOUTH IN THE MORNING AND TAKE 1 TABLET BY MOUTH AT BEDTIME NEEDED FOR PAIN 60 tablet 5 5 12:46 PM EST 12/16/19 25 Active lisinopril-hydr oCHLOROthiazide 20-25 MG tabletIndicatio ns:Essential hypertension TOME CLIFFORD TABLETA TODOS LOS SUTTON 90 tablet 3 01/07/20 25 Active loratadine (Claritin) 10 MG tabletIndicatio ns:Seasonal allergies TAKE 1 TABLET BY MOUTH ONCE DAILY FOR ALLERGY 90 tablet 1 5 12:46 PM EST 03/17/20 25 Active loratadine (Claritin) 10 MG tabletIndicatio ns:Seasonal allergies Take 1 tablet (10 mg) by mouth Once per day. (For allergies) 90 tablet 1 08/23/19 25 2024 Discontinued Active Problems Problem Noted Date [...] CPAP -Following with sleep medicine services of [facility] APAP 5-8cm H20 nightly, 4h/night. Increased [...] Plan (11/30/2024 4:04 PM EDT): Followed by [facility] Rheum - Dr. Burks Symptoms aggravated by warmer weather (better in winter) Medication Hx: Previous medications include methotrexate and Arava 20 mg daily. Methotrexate not goot option with elevated transaminases Humira 40mg Q2 weeks (Started Jan 2023) As of July 2023, changed from Humira to Cyltezo per insurance formulary. Changed again to Yuflyma Plan: Continue adalimumab (Yuflyma) 40mg every other week through [facility] Rheum. Close monitoring of LFTs. Per consult [...] Plan (05/23/2024 7:06 PM EST): Followed by [facility] Rheum - Dr. Ramos / ELIECER Jackson Symptoms aggravated by warmer weather (better in winter) Medication Hx: Previous medications include methotrexate and Arava 20 mg daily. Methotrexate not goot option with elevated transaminases Humira 40mg Q2 weeks (Started Jan 2023) As of July 2023, changed from Humira to Cyltezo per insurance formulary Plan: Continue adalimumab 40mg every other week through [facility] Continue diclofenac as needed APAP PRN Dermasmoothe for persistent dry patches on scalp. Follow up if not effective. DME request for Walker with Seat and breaks, as well as chair lift (informed may not be covered by insurance), placed 11/11/23. Assessment & Plan (11/11/2023 7:34 PM EDT): Followed by [facility] Rheum - Dr. Ramos / ELIECER Jackson Symptoms aggravated by warmer weather (better in winter) Medication Hx: Previous medications include methotrexate and Arava 20 mg daily. Methotrexate not goot option with elevated transaminases Humira 40mg Q2 weeks (Started Jan 2023) As of July 2023, changed from Humira to Cyltezo per insurance formulary Plan: Continue Cyltezo 40mg every other week through [facility] Rheum Continue diclofenac as needed APAP PRN Dermasmoothe for persistent dry patches on scalp. Follow up if not effective. DME request for Walker with Seat and breaks, as well as chair lift (informed may not be covered by insurance), placed 11/11/23. Assessment & Plan (11/21/2022 12:28 PM EDT): Followed by [facility] Rheum Q6 months Previous medications include methotrexate and Arava 20 mg daily. Pt had self stopped medication Symptoms aggravated by warmer weather Essential hypertension 11/02/2015 Assessment & Plan (08/23/2024 3:58 PM EDT): Elevated in office, reports had not yet taken BP med. New BP machine sent to [facility] pharmacy BP goal < 140/90 mmHg Continues [...] and stress 04/05/2012 Overview (11/30/2024): Following with [facility] Urology (IAN Stanley) Pubovaginal sling Apr 2010 [...] Continues with oxybutynin Referral to reestablish with [facility] urology placed 05/23/24 Assessment & Plan (09/07/2022 8:56 AM EDT): Continues with oxybutynin through Urology Osteoarthritis of knee 04/05/2012 Assessment & Plan (12/16/2023 5:49 PM EDT): Referral to re-establish with [facility] Ortho (reports hx of TKA approx 20 years ago, starting to feel increased joint pain in knee. Right currently more bothersome than left. Gastroesophageal reflux disease 10/04/2011 Overview (08/23/2024): Following with [facility] GI GI regimen includes: cholestyramine, famotidine, omeprazole, [...] Encounters Date Type Department Care Team Description 03/30/2025 Orders Only [facility] External Provider, [facility] 03/16/2025 Refill [facility] [address] [place] [address] Aileen Harris FNP Seasonal allergies 02/24/2025 Results Follow-Up [facility] [address] [place] [address] Aileen Harris FNP BD DEXA Axial 01/06/2025 Orders Only [facility] [address] [place] [address] Aileen Harris FNP Essential hypertension from Last 3 Months Immunizations Immunization Administration [...] housing situation today? I have danyyamileth johnson 08/22/[address] you [...] Procedure Name Priority Date/Time Associated Diagnosis Comments XR THORACIC SPINE 2 VIEWS Routine 03/30/2025 1:08 PM EST BD DEXA AXIAL Routine 02/24/2025 1:43 PM [...] Recently Relevant to Health Maintenance Results * XR Thoracic Spine 2 Views (03/30/2025 1:08 PM EST) Anatomical Region Laterality Modality Spine, T-spine Radiographic Piedad ging 03/30/2025 1:08 PM EST Narrative 03/30/2025 3:59 PM EST [address] [address] XRay Report Signed Patient: Linda Hand MR#: [id number] 4 : 1955 Acct:[id number] Age/Sex: 69 / F ADM Date: 03/30/25 Loc: HO.XRAY Attending Dr: Delma RASCON Ordering Physician: Delma Baugh Date of Service: 03/30/25 Procedure(s): XR thoracic spine 2V Accession Number(s): [id number] cc: Delma Baugh; Aileen Harris Reason for Exam: R10.11 - Right upper quadrant pain EXAMINATION: XR THORACIC SPINE CLINICAL INFORMATION: R10.11 - Right upper quadrant pain COMPARISON: 12/27/2014 TECHNIQUE: 3 views of the thoracic spine were obtained. FINDINGS: Cervical spine demonstrates moderate degenerative change with facet sclerosis and osteophytes throughout most of the cervical spine and mild disc space narrowing with endplate osteophytes. Multilevel disc space narrowing with anterior osteophytes in the TD/TT: 01/09/25 1120 Hot Mill Worker: Procedure Note Donotuseinterpreter, Image - 01/09/[address] [address] Ultrasound Report Signed Patient: Linda HandMR#: [id number] 4 : 7Acct:[id number] Age/Sex: 69 / FADM Date: 01/09/25 Loc: HO.US Attending Dr: Vonnie Burks MD Ordering Physician: Vonnie Burks MD Date of Service: 01/09/25 Procedure(s): US abdomen comp w elastography Accession Number(s): [id number] cc: Vonnie Burks MD; Aileen Harris Reason [...] 01/09/25 1440 DD/ 1055 TD/TT: 01/09/25 1120 Hot Mill Worker: [facility] External Provider IMG US PROCEDURES Final Result * Colonoscopy (10/06/2024) Colonoscopy Normal Normal Narrative Luann, Kathy - 10/06/2024 Recommended 5 years . See see external hospital admission note on matching result date Historical Provider HEALTH MAINTENANCE Final Result * Hepatitis C Viral RNA, Quantitative, Real-Time PCR (11/16/2023 9:57 AM EDT) Hepatitis C Viral Load <15 NOT DETECTED NOT DETECTED IU/mL [facility] HCV Log PCR <1.18 NOT DETECTED NOT DETECTED Log IU/mL [facility] Comment:For additional infor natalya, please refer tohttp://education.[employer]/faq/BYC02x3(This link is being provided for informational/educational purposes only.)THIS TEST WAS PERFORMED AT:[facility] [place] [id number] STYLES MD Blood 11/16/2023 9:57 AM EDT 11/16/2023 10:47 AM EDT us Aileen Harris FOOD AND BEVERAGE ANALYST LAB BLOOD ORDERABLES Final Res ult [facility] [address] [place] [address] [phone] * (ABNORMAL) Lipid Panel, Standard (11/16/2023 9:57 AM EDT) Triglycerides 324(H) <150 mg/dL [facility] Comment:Desirable Triglyceri de: less than 150 mg/dLBorderline High Triglyceride 150-199 mg/dLHigh Triglyceride: 200-499 mg/dLVery High Triglyceride: greater than or equal to 5OO mg/dL Cholesterol 211(H) <200 mg/dL [facility] Comment:Desirable Cholestero l: less than 200 mg/dLBorderline High Cholesterol: 200-239 mg/dLHigh Cholesterol: greater than 239 mg/dL LDL Cholesterol Calculated 102(H) <100 mg/dL [facility] Comment:Desirable LDL: less than 100 mg/dLNear Optimal/Above Optimal LDL: 110- 129 mg/dLBorderline High LDL: 130-159 mg/dLHigh LDL: 160-189 mg/dLVery High LDL: greater than or equal to 190 mg/dL HDL Cholesterol 45 >40 mg/dL [facility] Comment:Desirable HDL: great er than 40 mg/dL Note: This HDL assay may give artificially low results in patients with liver disease. Blood Venous blood specimen / Unknown 11/16/2023 9:57 AM EDT 11/16/2023 10:47 AM EDT us Aileen Harris FOOD AND BEVERAGE ANALYST LAB BLOOD ORDERABLES Final Res ult [facility] [address] [place] [phone] * Mammography Report 1 (04/12/2021 2:20 PM EST) Anatomical Region Laterality Modality Breast Bilateral Mammography 04/12/2021 2:20 PM EST Narrative 04/12/2021 3:01 PM EST Refer to the Notes tab for result details [facility] Procedure: Mammography Report 1 Procedure Note Provider, MD Bo - 07/02/2022 Refer to the Notes tab for result details [facility] Procedure: Mammography Report 1 us Susi Basurto CUSTOM STOCK MAKER IMG BI PROCEDURES Final Result * THINPREP TIS PAP AND HPV mRNA E6/E7 WITH REFLEX TO HPV 16,18/45 (03/24/2021 10:36 AM EST) Clinical Information: None given [facility] COMMENT SEE COMMENT [facility]OUNDAT[facility] ON [...] has been evaluated with computer assisted technology. [facility] Instrument Fitter: SEE COMMENT [facility] Comment: SXA, CT(ASCP) CT screening location: [address] [address] HPV nRNA E6/E7 Not Detected Not Detected [facility] Comment: Methodology: Sign Builder-Mediated Amplification This assay detects E6/E7 viral messenger RNA (mRNA) from 14 high-risk HPV types (16,18,31,33,35,39,45,51,52,56,58,59,66,68). The analytical performance characteristics of this assay have been determined by [employer]. The modifications have not been cleared or approved by the FDA. This assay has been validated pursuant to the CLIA regulations and is used for clinical purposes. For additional information, please refer to http://education.[employer]/faq/ZSG947b2 (This link if provided for information/ educational [...] Basurto NP LAB PATHOLOGY ORDERABLES Final Result [facility] [address] from Last 3 Months or Most Recently Relevant to Health Maintenance Insurance MEDICARE [facility] STANDARD Care Teams Overseamer Relationship Specialty Start Date End Date Aileen Harris FNP [address] [place] [address] PCP - General Family Medicine 12/06/21 Alyce Stanley NP [address] [place] [address] Urology 08/22/24July [address]rd [place] [address] Gastroenterology 08/22/24 thoracic spine show interval progression since the prior. There is subtle wedging of a midthoracic body, approximately T7 or T8. It appears similar to the prior. XR/XR thoracic spine 2V IMPRESSION: There is mild wedging of a mid thoracic vertebral body, likely T7 or T8, probably chronic. Multilevel degenerative disc disease, increased since the prior. Electronically signed by: Sunny Bell MD 03/30/2025 03:56 PM EST RP Dictated By: Sunny Bell MD Signed By: <Electronically signed by Sunny Bell MD in OV> 03/30/25 1556 DD/ 1308 TD/TT: 03/30/25 1317 Hot Mill Worker: Procedure Note Donotuseinterpreter, Image - 03/30/[address] [address] XRay Report Signed Patient: Linda HandMR#: [id number] 4 : 1955cct:[id number] Age/Sex: 69 / FADM Date: 03/30/25 Loc: ROB Attending Dr: Delma RASCON Ordering Physician: Delma Baugh Date of Service: 03/30/25 Procedure(s): XR thoracic spine 2V Accession Number(s): [id number] cc: Delma Baugh; Aileen Harris Reason for Exam: R10.11 - Right upper quadrant pain EXAMINATION: XR THORACIC SPINE CLINICAL INFORMATION: R10.11 - Right upper quadrant pain COMPARISON: 12/27/2014 TECHNIQUE: 3 views of the thoracic spine were obtained. FINDINGS: Cervical spine demonstrates moderate degenerative change with facet sclerosis and osteophytes throughout most of the cervical spine and mild disc space narrowing with endplate osteophytes. Multilevel disc space narrowing with anterior osteophytes in the thoracic spine show interval progression since the prior. There is subtle wedging of a midthoracic body, approximately T7 or T8. It appears similar to the prior. XR/XR thoracic spine 2V IMPRESSION: There is mild wedging of a mid thoracic vertebral body, likely T7 or T8, probably chronic. Multilevel degenerative disc disease, increased since the prior. Electronically signed by: Sunny Bell MD 03/30/2025 03:56 PM EST RP Dictated By: Sunny Bell MD Signed By: <Electronically signed by Sunny Bell MD in OV> 03/30/25 1556 DD/ 1308 TD/TT: 03/30/25 1317 Hot Mill Worker: [facility] External Provider IMG XR PROCEDURES Final Result * BD DEXA Axial (02/24/2025 1:43 PM EST) Anatomical Region Laterality Modality Body Radiographic Piedad ging 02/24/2025 1:43 PM EST Narrative 02/24/2025 2:42 PM EST [address] [place] [address] Mammography Report Signed Patient: Linda Hand MR#: [id number] 4 : 1955 Acct:[id number] Age/Sex: 69 / F ADM Date: 02/24/25 Loc: HO.MAMMO Attending Dr: Aileen ALCAZAR Ordering Physician: Aileen Harris Results: Date of Service: 02/24/25 Follow Up: Procedure(s): XR DEXA axial skeleton Accession Number(s): [id number] cc: iAleen Harris Reason For Exam: Bone density screening EXAMINATION: DXA BONE DENSITY AXIAL HISTORY: Bone density screening TECHNIQUE: [employer] Dual energy absorptiometry (DEXA) of the lumbar [...] of the [employer] Metabolic Bone Disease, a World Health Organization (WHO) Collaborating Center. Electronically signed by: Latia Arzate MD 02/24/2025 02:39 PM EST Dictated By: Latia Arzate MD Signed By: <Electronically signed by Latia Arzate MD in OV> 02/24/25 1439 DD/ 1343 TD/TT: 02/24/25 1342 Hot Mill Worker: BILL Procedure Note Donotuseinterpreter, Image - 02/24/2025 [facility] [address] [place] [address] Mammography Report Signed Patient: Linda Hand#: [id number] 4 : 1955cct:[id number] Age/Sex: 69 / FADM Date: 02/24/25 Loc: HO.MAMMO Attending Dr: Aileen ALCAZAR Ordering Physician: Aileen HarrisPResults: Date of Service: 02/24/25Follow Up: Procedure(s): XR DEXA axial skeleton Accession Number(s): [id number] cc: Aileen Harris Reason For Exam: Bone density screening EXAMINATION: DXA BONE DENSITY AXIAL HISTORY: Bone density screening TECHNIQUE: [employer] Dual energy absorptiometry (DEXA) of the lumbar [...] is a trademark of the [employer]'s [facility] [facility] Disease, a World Health Organization (WHO) Collaborating Center. Electronically signed by: Latia Arzate MD 02/24/2025 02:39 PM EST RP Dictated By: Latia Arzate MD Signed By: <Electronically signed by Latia Arzate MD in OV> 02/24/25 1439 DD/ 1343 TD/TT: 02/24/25 1342 Hot Mill Worker: BILL us Aileen Harris FOOD AND BEVERAGE ANALYST IMG DXA PROCEDURES Final Resul t * US Abdomen Comp w elastography (01/09/2025 10:55 AM EDT) Anatomical Region Laterality Modality Abdomen Ultrasound 01/09/2025 10:5 5 AM EDT Narrative 01/09/2025 2:42 PM EDT [place] [address] Ultrasound Report Signed Patient: Linda Hand MR#: [id number] 4 : 1955 Acct:[id number] Age/Sex: 69 / F ADM Date: 01/09/25 Loc: HO.US Attending Dr: Vonnie Burks MD Ordering Physician: Vonnie Burks MD Date of Service: 01/09/25 Procedure(s): US abdomen comp w elastography Accession Number(s): [id number] cc: Vonnie Burks MD; Aileen Harris Reason [...]
--- OUTSIDE RECORDS SUMMARY | 2025-03-30 16:05 | XMS_ITS | Encounter Summary ---
Author Organization [employer] Address [address] [facility] [address] [place] [address] Care Team Providers Care Acid Conditioning Worker Name Role Phone Aileen Harris Primary Care Provider [phone] Alyce Stanley NODE JS DEVELOPER Unavailable July Unavailable Reason for Visit * Reason Comments Med Change Request Encounter Details Date Type Department Care Team (Late st Contact Info) Description 10/03/2022 Refill [facility] [address] [place] [address] Aileen Harris FNP [address] [place], [place] [phone] Social History Tobacco Use Types Packs/Day Years [...] documented as of this encounter Care Teams Acid Conditioning Worker Relationship Specialty Start Date End Date Aileen Harris FNP [address] [place] [address] PCP - General Family Medicine 12/06/21 Alyce Stanley NP [address] [place] [address] Urology 08/22/[address] [place] [address] Gastroenterology 08/22/24 documented as of this encounter
--- OUTSIDE RECORDS SUMMARY | 2025-03-30 16:05 | XMS_ITS | Encounter Summary ---
Author Organization [employer] Address [address] [place] [address] Care Team Providers Care Oracle Data Warehouse Developer Name Role Phone ErnestinaAileen power OTTONIEL Primary Care Provider Alyce Stanley GROUNDSKEEPING MAINTENANCE WORKER Unavailable July Unavailable Encounter Details Date Type Department Care Team (Late st Contact Info) Description 02/23/2023 Abstract [facility] MED[facility] [address] [place] [address] Kathy Kong Social History Tobacco Use Types [...] documented as of this encounter Care Teams Oracle Data Warehouse Developer Relationship Specialty Start Date End Date Aileen Harris FNP [address] [place] [address] PCP - General Family Medicine 12/06/21 Alyce Stanley NP [address] [place] [address] Urology 08/22/24July [address] [place] [address] Gastroenterology 08/22/24 documented as of this encounter
--- OUTSIDE RECORDS SUMMARY | 2025-03-30 16:05 | XMS_ITS | Encounter Summary ---
Author Organization [employer] Address [address] [place] [address] Care Team Providers Care Supervisor Building Maintenance Name Role Phone ErnestinaAileen power OTTONIEL Primary Care Provider [phone] Alyce Stanley SUPERVISOR WORD PROCESSING Unavailable July Unavailable Encounter Details Date Type Department Care Team (Late st Contact Info) Description 03/30/2025 Orders Only [facility] External Provider, [facility] Social History Tobacco Use Types Packs/Day Years [...] 2 VIEWS Routine 03/30/2025 1:08 PM EST documented in this encounter Results * XR Thoracic Spine 2 Views (03/30/2025 1:08 PM EST) Anatomical Region Laterality Modality Spine, T-spine Radiographic Piedad ging 03/30/2025 1:08 PM EST Narrative 03/30/2025 3:59 PM EST [place] [address] XRay Report Signed Patient: Linda Hand MR#: [id number] 4 : 1955 Acct:[id number] Age/Sex: 69 / F ADM Date: 03/30/25 Loc: HO.XRAY Attending Dr: Delma RASCON Ordering Physician: Delma Baugh Date of Service: 03/30/25 Procedure(s): XR thoracic spine 2V Accession Number(s): [id number] cc: Delma Baugh; Aileen Harris Reason for [...] Sunny Bell MD 03/30/2025 03:56 PM EST Dictated By: Sunny Bell MD Signed By: <Electronically signed by Sunny Bell MD in OV> 03/30/25 1556 DD/ 1308 TD/TT: 03/30/25 1317 Jitney Driver: Procedure Note Donotuseinterpreter, Image - 03/30/[address] [address] XRay Report Signed Patient: Linda HandMR#: [id number] 4 : 1955cct:[id number] Age/Sex: 69 / FADM Date: 03/30/25 Loc: HO.XRAY Attending Dr: Delma RASCON Ordering Physician: Delma Baugh Date of Service: 03/30/25 Procedure(s): XR thoracic spine 2V Accession Number(s): [id number] cc: Delma Baugh; Aileen Harris Reason for [...] 03/30/25 1556 DD/ 1308 TD/TT: 03/30/25 1317 Jitney Driver: [facility] External Provider IMG XR PROCEDURES Final Result documented in this encounter Visit Diagnoses Not on filedocumented in this encounter Additional Health Concerns Assessment Noted Time PHQ-9 Depression Total Score: 11 025 1:38 PM EDT documented as of this encounter Care Teams Supervisor Building Maintenance Relationship Specialty Start Date End Date Aileen Harris FNP [address] [place] [address] PCP - General Family Medicine 12/06/21 Alyce Stanley NP [address] [place] [address] Urology 08/22/24July [address] [place] [address] Gastroenterology 08/22/24 documented as of this encounter
== END 2025-03-30 12:53 | disposition home or self-care (01) ==
LOC: HO.XRAY 12:52
PROVIDERS: PCP Registered Nurse; Visit Provider Nurse Practitioner
DX: R10.11 Right upper quadrant pain (principal); M54.9 Dorsalgia, unspecified
CPT/HCPCS: 72070; 74019

== ENCOUNTER → 2025-03-30 12:57 | Outpatient (BNV) | payer MEDICARE, MEDICAID, SELFPAY | PROVIDERS: PCP Registered Nurse; Visit Provider Radiology Diagnostic Radiology | DX: R10.11 Right upper quadrant pain (principal); M51.34 Other intervertebral disc degeneration, thoracic region | CPT/HCPCS: 72070; 74019 ==